=== PATIENT | male | born 1940 | race Caucasian/White ===

== ENCOUNTER 2022-12-09 06:32 | Day surgery (SDC) | payer MEDICARE ==
[~2022-12-09] VITALS: Ht 170.2 cm; Wt 80.7 kg
[2022-12-09] VITALS (12 sets, daily range): BP systolic 107–164; BP diastolic 68–102
[~2022-12-09 06:32] MED LIST: ASPI-1265 PO; CLA10T PO; GABA-338 PO; GARL1CAP11 PO; GLUC1TAB8 PO; LOSA1TAB36 PO; METF500T PO; METO50TA16 PO; MULT-1074 PO; NAPR-700 PO; NORCO10T PO; OMEG1CAP81 PO; OMEP-84 PO; SAW/1TAB PO; [UNRECOGNIZED DRUG - CODE] PO; [UNRECOGNIZED DRUG - CODE] PO
[2022-12-09] MEDS ORDERED: normal saline 1,000 ML IV SCH (07:00)
[2022-12-09] MEDS ORDERED: diphenhydrAMINE 25mg capsule PO PRN (07:00)
[2022-12-09] MEDS ORDERED: OMEG-5 PO (07:15)
[2022-12-09] MEDS ORDERED: GLUC15006 PO (07:15)
[2022-12-09] MEDS ORDERED: prevagen PO (07:15)
[2022-12-09] MEDS ORDERED: HYDR25TA5 PO (07:17)
[2022-12-09] MEDS ORDERED: LOP12.5T PO (07:17)
[2022-12-09] MEDS ORDERED: LOSA25TA96 PO (07:22)
[2022-12-09] MEDS ORDERED: ATOR80TA PO (07:22)
[2022-12-09] MEDS ORDERED: ASPI-1265 PO (07:22)
[2022-12-09] MEDS ORDERED: METF-436 PO (07:22)
[2022-12-09 07:52] LABS: BASOPHILS % (AUTO) 0.4 % (0-1); EOSINOPHILS # (AUTO) 0.2 X10'3 (0-0.9); EOSINOPHILS % (AUTO) 3.6 % (0-6); HEMOGLOBIN 14.1 g/dl (14.0-17.9); LYMPHOCYTES # (AUTO) 1.4 X10'3 (1.1-4.8); LYMPHOCYTES % (AUTO) 28.2 % (21-51); MEAN CORPUSCULAR HGB CONC 33.5 g/dL (33.0-36.5); MEAN CORPUSCULAR VOLUME 98.4 FL (78-98); MEAN PLATELET VOLUME 7.6 FL (7.4-10.4); MONOCYTES # (AUTO) 0.5 X10'3 (0-0.9); MONOCYTES % (AUTO) 10.1 % (2-12); NEUTROPHILS # (AUTO) 2.8 X10'3 (1.8-7.7); NEUTROPHILS % (AUTO) 57.7 % (42-75); PLATELET COUNT 145 X10'3 (140-440); RED BLOOD COUNT 4.27 X10'6 (4.70-6.10); RED CELL DISTRIBUTION WIDTH 13.8 % (11.5-14.5); WHITE BLOOD COUNT 4.9 X10'3 (4.5-11.0)
[2022-12-09 08:08] LABS: ALBUMIN 3.7 G/DL (3.4-5.0); ANION GAP 9 (8-16); BLOOD UREA NITROGEN 22 MG/DL (7-18); BUN/CREATININE RATIO 19.3 (10.0-20.0); CALCIUM 9.8 MG/DL (8.5-10.1); CHLORIDE 101 MMOL/L (99-107); CREATININE 1.14 MG/DL (0.60-1.10); GLUCOSE 125 MG/DL (70-104); MAGNESIUM 2.2 MG/DL (1.5-2.4); POTASSIUM 4.2 MMOL/L (3.5-5.1); SODIUM 137 MMOL/L (135-145); TOTAL CARBON DIOXIDE 26.9 MMOL/L (24-32); eGFR 61 ML/MIN
[2022-12-09] MEDS ORDERED: proCHLORperazine 10 MG/2 ml inj ONE (10:37)
[2022-12-09] MEDS ORDERED: iohexol 350MG/ML 100ml bottle IV ONE (11:30)
[2022-12-09] MEDS ORDERED: midazolam 1 mg/ML 2ml injection ONE (11:34)
[2022-12-09] MEDS ORDERED: clopidogrel 300mg tablet ONE (12:34)
[2022-12-09] MEDS ORDERED: HYDROcodone/acetaminophen 10/325mg tab PO PRN (14:45)
[2022-12-09] MEDS ORDERED: normal saline 1000ml 1,000 ML IV SCH (14:45)
[2022-12-09] MEDS ORDERED: proCHLORperazine 10 MG/2 ml inj IV PRN (14:45)
[2022-12-09] MEDS ORDERED: ondansetron/PF 4mg/2ml inj IV PRN (14:45)
[2022-12-09] MEDS ORDERED: HYDROcodone/acetaminophen 5mg/325mg tablet PO PRN (14:45)
== END 2022-12-09 17:00 | disposition home or self-care (01) ==
LOC: SSTAY O 06:32
PROVIDERS: ATTEND Internal Medicine Cardiovascular Disease
DX: E11.51 Type 2 diabetes mellitus with diabetic peripheral angiopathy without gangrene (principal); I70.213 Atherosclerosis of native arteries of extremities with intermittent claudication, bilateral legs; I10 Essential (primary) hypertension; I25.10 Atherosclerotic heart disease of native coronary artery without angina pectoris; E78.5 Hyperlipidemia, unspecified; I49.5 Sick sinus syndrome; F17.210 Nicotine dependence, cigarettes, uncomplicated; Z95.0 Presence of cardiac pacemaker; Z79.84 Long term (current) use of oral hypoglycemic drugs; Z79.82 Long term (current) use of aspirin; Z79.899 Other long term (current) drug therapy; Z88.8 Allergy status to other drugs, medicaments and biological substances; Z90.49 Acquired absence of other specified parts of digestive tract; Z98.890 Other specified postprocedural states; Z82.49 Family history of ischemic heart disease and other diseases of the circulatory system
CPT/HCPCS: 36415; 75716; 80048; 83735; 85025; 85610; 93005; 99152; 99153; C1725; C1769; C1876; C2623; C9765; J0780; J2250; J7030; Q0163; Q9967; 36247; 37226; A6258; C1761; C1894

== ENCOUNTER 2023-03-17 06:33 | Day surgery (SDC) | payer MEDICARE ==
[2023-03-17] VITALS (11 sets, daily range): BP systolic 124–175; BP diastolic 70–87; PULSE 60–67; RESP 12–19; TEMP 98.3; O2SAT 96–100
[~2023-03-17] VITALS: Ht 172.7 cm; Wt 80.6 kg
[~2023-03-17 06:33] MED LIST changes: +ATOR80TA PO; -GABA-338 PO; -GARL1CAP11 PO; +GLUC15006 PO; -GLUC1TAB8 PO; +HYDR25TA5 PO; +LOP12.5T PO; -LOSA1TAB36 PO; +LOSA25TA96 PO; +METF-436 PO; -METF500T PO; -METO50TA16 PO; -NAPR-700 PO; -NORCO10T PO; +OMEG-5 PO; -OMEG1CAP81 PO; -[UNRECOGNIZED DRUG - CODE] PO; +prevagen PO
[2023-03-17] MEDS ORDERED: diphenhydrAMINE 25mg capsule PO PRN (07:05)
[2023-03-17] MEDS ORDERED: normal saline 1,000 ML IV SCH (07:05)
[2023-03-17] MEDS ORDERED: CLOP75TA34 PO (07:10)
[2023-03-17 07:54] LABS: BASOPHILS % (AUTO) 0.9 % (0-1); EOSINOPHILS # (AUTO) 0.1 X10'3 (0-0.9); EOSINOPHILS % (AUTO) 2.9 % (0-6); HEMATOCRIT 42.3 % (42.0-52.0); LYMPHOCYTES # (AUTO) 1.4 X10'3 (1.1-4.8); LYMPHOCYTES % (AUTO) 29.6 % (21-51); MEAN CORPUSCULAR HEMOGLOBIN 32.6 PG (27.0-31.0); MEAN CORPUSCULAR HGB CONC 33.1 g/dL (33.0-36.5); MEAN CORPUSCULAR VOLUME 98.5 FL (78-98); MEAN PLATELET VOLUME 7.3 FL (7.4-10.4); MONOCYTES # (AUTO) 0.4 X10'3 (0-0.9); MONOCYTES % (AUTO) 8.7 % (2-12); NEUTROPHILS # (AUTO) 2.8 X10'3 (1.8-7.7); NEUTROPHILS % (AUTO) 57.9 % (42-75); PLATELET COUNT 141 X10'3 (140-440); RED BLOOD COUNT 4.29 X10'6 (4.70-6.10); RED CELL DISTRIBUTION WIDTH 14.4 % (11.5-14.5); WHITE BLOOD COUNT 4.8 X10'3 (4.5-11.0)
[2023-03-17 07:59] LABS: PROTHROMBIN TIME 10.6 SECONDS (9.0-12.0)
[2023-03-17 08:11] LABS: ALBUMIN 3.6 G/DL (3.4-5.0); ANION GAP 11 (8-16); BLOOD UREA NITROGEN 21 MG/DL (7-18); BUN/CREATININE RATIO 19.4 (10.0-20.0); CALCIUM 9.8 MG/DL (8.5-10.1); CHLORIDE 103 MMOL/L (99-107); CREATININE 1.08 MG/DL (0.60-1.10); GLUCOSE 117 MG/DL (70-104); SODIUM 141 MMOL/L (135-145); TOTAL CARBON DIOXIDE 26.8 MMOL/L (24-32); eCRCL 51 ML/MIN; eGFR 65 ML/MIN
[2023-03-17] MEDS ORDERED: LIDOcaine 1% 30ml preserv. free vial ONE (08:47)
[2023-03-17] MEDS ORDERED: iohexol 350MG/ML 100ml bottle IV ONE (08:48)
[2023-03-17] MEDS ORDERED: midazolam 1 mg/ML 2ml injection ONE ×2 (08:48→09:27)
[2023-03-17] MEDS ORDERED: fentaNYL/PF 50MCG/1 ML 2ML syringe ONE (08:48)
[2023-03-17] MEDS ORDERED: heparin 1,000unit/ml 10ml vial 10 ML ONE (08:48)
[2023-03-17] MEDS ORDERED: OXAZEpam 15mg capsule PO PRN (11:40)
[2023-03-17] MEDS ORDERED: ondansetron/PF 4mg/2ml inj IV PRN (11:40)
[2023-03-17] MEDS ORDERED: HYDROcodone/acetaminophen 5mg/325mg tablet PO PRN (11:40)
[2023-03-17] MEDS ORDERED: HYDROcodone/acetaminophen 10/325mg tab PO PRN (11:40)
[2023-03-17] MEDS ORDERED: proCHLORperazine 10 MG/2 ml inj IV PRN (11:40)
== END 2023-03-17 15:15 | disposition home or self-care (01) ==
LOC: SSTAY O 06:33
PROVIDERS: ATTEND Internal Medicine Cardiovascular Disease
DX: E11.51 Type 2 diabetes mellitus with diabetic peripheral angiopathy without gangrene (principal); I70.212 Atherosclerosis of native arteries of extremities with intermittent claudication, left leg; I65.23 Occlusion and stenosis of bilateral carotid arteries; I10 Essential (primary) hypertension; I25.10 Atherosclerotic heart disease of native coronary artery without angina pectoris; I49.5 Sick sinus syndrome; Z95.0 Presence of cardiac pacemaker; E78.5 Hyperlipidemia, unspecified; Z79.82 Long term (current) use of aspirin; Z79.84 Long term (current) use of oral hypoglycemic drugs; Z79.899 Other long term (current) drug therapy; Z98.890 Other specified postprocedural states; Z90.49 Acquired absence of other specified parts of digestive tract; Z88.8 Allergy status to other drugs, medicaments and biological substances; F17.210 Nicotine dependence, cigarettes, uncomplicated; Z82.49 Family history of ischemic heart disease and other diseases of the circulatory system
CPT/HCPCS: 36246; 36415; 75710; 80048; 82948; 85025; 85610; 99152; 99153; J1644; J2250; J3010; J3490; J7030; Q0163; Q9967; A6258; C1725; C1760; C1769; C1894

== ENCOUNTER 2023-03-31 06:21 | Day surgery (SDC) | payer MEDICARE ==
[2023-03-31] VITALS (11 sets, daily range): BP systolic 130–165; BP diastolic 74–101; PULSE 60–78; RESP 16; TEMP 97.6; O2SAT 96–99
[~2023-03-31] VITALS: Ht 172.7 cm; Wt 80.6 kg
[~2023-03-31 06:21] MED LIST changes: +CLOP75TA34 PO
[2023-03-31] MEDS ORDERED: sodium bicarbonate 1meq/ml syr 150 ML in dextrose 5%-water 1,000 ML IV SCH (06:45)
[2023-03-31] MEDS ORDERED: normal saline 1,000 ML IV SCH (06:50)
[2023-03-31] MEDS ORDERED: diphenhydrAMINE 25mg capsule PO PRN (06:50)
[2023-03-31 07:03] LABS: BASOPHILS % (AUTO) 0.8 % (0-1); EOSINOPHILS # (AUTO) 0.2 X10'3 (0-0.9); HEMATOCRIT 40.5 % (42.0-52.0); HEMOGLOBIN 13.6 g/dl (14.0-17.9); LYMPHOCYTES # (AUTO) 1.6 X10'3 (1.1-4.8); LYMPHOCYTES % (AUTO) 33.7 % (21-51); MEAN CORPUSCULAR HEMOGLOBIN 33.1 PG (27.0-31.0); MEAN CORPUSCULAR HGB CONC 33.7 g/dL (33.0-36.5); MEAN CORPUSCULAR VOLUME 98.3 FL (78-98); MEAN PLATELET VOLUME 7.3 FL (7.4-10.4); MONOCYTES # (AUTO) 0.4 X10'3 (0-0.9); MONOCYTES % (AUTO) 8.7 % (2-12); NEUTROPHILS # (AUTO) 2.5 X10'3 (1.8-7.7); NEUTROPHILS % (AUTO) 52.8 % (42-75); PLATELET COUNT 144 X10'3 (140-440); RED BLOOD COUNT 4.12 X10'6 (4.70-6.10); RED CELL DISTRIBUTION WIDTH 14.3 % (11.5-14.5); WHITE BLOOD COUNT 4.7 X10'3 (4.5-11.0)
[2023-03-31 07:12] LABS: ALBUMIN 3.7 G/DL (3.4-5.0); ANION GAP 7 (8-16); BLOOD UREA NITROGEN 31 MG/DL (7-18); BUN/CREATININE RATIO 24.2 (10.0-20.0); CALCIUM 9.9 MG/DL (8.5-10.1); CHLORIDE 103 MMOL/L (99-107); CREATININE 1.28 MG/DL (0.60-1.10); GLUCOSE 114 MG/DL (70-104); MAGNESIUM 2.5 MG/DL (1.5-2.4); POTASSIUM 4.1 MMOL/L (3.5-5.1); SODIUM 138 MMOL/L (135-145); TOTAL CARBON DIOXIDE 27.6 MMOL/L (24-32); eCRCL 43 ML/MIN; eGFR 54 ML/MIN
[2023-03-31 07:13] LABS: PROTHROMBIN TIME 10.3 SECONDS (9.0-12.0)
[2023-03-31] MEDS ORDERED: midazolam 1 mg/ML 2ml injection ONE ×3 (08:56→10:32)
[2023-03-31] MEDS ORDERED: iohexol 350MG/ML 100ml bottle IV ONE (08:56)
[2023-03-31] MEDS ORDERED: heparin 1,000unit/ml 10ml vial 10 ML ONE (08:56)
[2023-03-31] MEDS ORDERED: fentaNYL/PF 50MCG/1 ML 2ML syringe ONE (08:56)
[2023-03-31] MEDS ORDERED: LIDOcaine 1% (10mg/ml)w/preservative inj. 20ml MDV ONE (08:57)
[2023-03-31] MEDS ORDERED: proCHLORperazine 10 MG/2 ml inj ONE (09:47)
[2023-03-31] MEDS ORDERED: diphenhydrAMINE 50 mg/ml inj ONE (09:59)
[2023-03-31] MEDS ORDERED: ondansetron/PF 4mg/2ml inj IV PRN (11:45)
[2023-03-31] MEDS ORDERED: HYDROcodone/acetaminophen 10/325mg tab PO PRN (11:50)
[2023-03-31] MEDS ORDERED: HYDROcodone/acetaminophen 5mg/325mg tablet PO PRN (11:50)
[2023-03-31] MEDS ORDERED: proCHLORperazine 10 MG/2 ml inj IV PRN (11:50)
== END 2023-03-31 14:50 | disposition home or self-care (01) ==
LOC: SSTAY O 06:21
PROVIDERS: ATTEND Internal Medicine Cardiovascular Disease
DX: E11.51 Type 2 diabetes mellitus with diabetic peripheral angiopathy without gangrene (principal); I70.212 Atherosclerosis of native arteries of extremities with intermittent claudication, left leg; I10 Essential (primary) hypertension; E78.5 Hyperlipidemia, unspecified; Z79.82 Long term (current) use of aspirin; Z79.84 Long term (current) use of oral hypoglycemic drugs; Z79.899 Other long term (current) drug therapy
CPT/HCPCS: 36415; 37226; 75710; 80048; 82948; 83735; 85025; 85610; 99152; 99153; C1769; C1876; C1887; C2623; J0780; J1200; J1644; J2250; J3010; J3490; J7030; J7070; Q0163; Q9967; 36245; 36246; A6258; C1725; C1894

== ENCOUNTER 2024-05-10 06:43 | Day surgery (SDC) | payer MEDICARE ==
[2024-05-10] VITALS (7 sets, daily range): BP systolic 109–149; BP diastolic 47–93; PULSE 60–73; RESP 16; TEMP 97.4; O2SAT 94–100
[~2024-05-10] VITALS: Ht 170.2 cm; Wt 82.1 kg
[~2024-05-10 06:43] MED LIST changes: +LOSA-415 PO; -LOSA25TA96 PO; +cefazolin 2gm/D5W 100mL 100 ML IV ONE
[2024-05-10] MEDS ORDERED: LOSA1TAB36 PO (07:32)
[2024-05-10] MEDS ORDERED: METO50TA16 PO (07:32)
[2024-05-10 07:41] LABS: BASOPHILS % (AUTO) 0.7 % (0-1); EOSINOPHILS # (AUTO) 0.2 X10'3 (0-0.9); EOSINOPHILS % (AUTO) 3.8 % (0-6); HEMOGLOBIN 13.2 g/dl (14.0-17.9); LYMPHOCYTES # (AUTO) 1.6 X10'3 (1.1-4.8); LYMPHOCYTES % (AUTO) 39.6 % (21-51); MEAN CORPUSCULAR HEMOGLOBIN 32.4 PG (27.0-31.0); MEAN CORPUSCULAR HGB CONC 32.9 g/dL (33.0-36.5); MEAN CORPUSCULAR VOLUME 98.4 FL (78-98); MEAN PLATELET VOLUME 8.1 FL (7.4-10.4); MONOCYTES # (AUTO) 0.3 X10'3 (0-0.9); MONOCYTES % (AUTO) 8.3 % (2-12); NEUTROPHILS # (AUTO) 1.9 X10'3 (1.8-7.7); NEUTROPHILS % (AUTO) 47.6 % (42-75); PLATELET COUNT 132 X10'3 (140-440); RED BLOOD COUNT 4.06 X10'6 (4.70-6.10); RED CELL DISTRIBUTION WIDTH 14.6 % (11.5-14.5); WHITE BLOOD COUNT 4.1 X10'3 (4.5-11.0)
[2024-05-10 07:53] LABS: PROTHROMBIN TIME 10.4 SECONDS (9.0-12.0)
[2024-05-10] MEDS: vancomycin 1,500 MG in NS 300ml IV soln IV ONE (08:05)
[2024-05-10 08:07] LABS: ALBUMIN 3.7 G/DL (3.4-5.0); ANION GAP 6 (8-16); BLOOD UREA NITROGEN 33 MG/DL (7-18); BUN/CREATININE RATIO 20.1 (10.0-20.0); CALCIUM 9.1 MG/DL (8.5-10.1); CHLORIDE 104 MMOL/L (99-107); CREATININE 1.64 MG/DL (0.60-1.10); GLUCOSE 125 MG/DL (70-104); MAGNESIUM 2.5 MG/DL (1.5-2.4); POTASSIUM 4.3 MMOL/L (3.5-5.1); SODIUM 139 MMOL/L (135-145); eCRCL 32 ML/MIN; eGFR 40 ML/MIN
[2024-05-10] MEDS: normal saline 1000ml 1,000 ML IV SCH (08:07)
[2024-05-10] MEDS ORDERED: vancomycin 1,000mg inj ONE (08:52)
[2024-05-10] MEDS ORDERED: fentaNYL/PF 50MCG/1 ML 2ML syringe ONE (08:52)
[2024-05-10] MEDS ORDERED: LIDOcaine 1% W/epiNEPHrine 1:100,000 20ml vial ONE (08:52)
[2024-05-10] MEDS ORDERED: midazolam 1 mg/ML 2ml injection ONE ×2 (08:52→09:40)
== END 2024-05-10 12:20 | disposition home or self-care (01) ==
LOC: SSTAY O 06:43
PROVIDERS: ATTEND Internal Medicine Cardiovascular Disease
DX: Z45.010 Encounter for checking and testing of cardiac pacemaker pulse generator [battery] (principal); I44.2 Atrioventricular block, complete; I10 Essential (primary) hypertension; I25.10 Atherosclerotic heart disease of native coronary artery without angina pectoris; E78.5 Hyperlipidemia, unspecified; E11.51 Type 2 diabetes mellitus with diabetic peripheral angiopathy without gangrene; Z79.82 Long term (current) use of aspirin; Z79.899 Other long term (current) drug therapy; Z88.8 Allergy status to other drugs, medicaments and biological substances
CPT/HCPCS: 33228; 36415; 80048; 82948; 83735; 85025; 85610; 93005; 99152; 99153; C1785; J2250; J3010; J3370; J3490; J7030; Z7610

== ENCOUNTER 2025-05-03 21:13 | Inpatient (IN) | payer MEDICARE ==
[~2025-05-03] VITALS: Ht 170.2 cm; Wt 85.3 kg
[~2025-05-03 21:13] MED LIST changes: +ATOR-429 PO; -ATOR80TA PO; -CLOP75TA34 PO; -HYDR25TA5 PO; -LOP12.5T PO; -LOSA-415 PO; +LOSA1TAB36 PO; +METO50TA16 PO; -cefazolin 2gm/D5W 100mL 100 ML IV ONE
[2025-05-03] MEDS ORDERED: heparin 10,000 units/1 ML INJ IV ONE (21:25)
--- NOTE | 2025-05-03 21:42 | ELECTROCARDIOGRAPH REPORT ---
[facility] Test Date: 2025-05-03 Test Time: 21:37:36 Pat Name: HECTOR SHELTON Department: EMERGENCY ROOM Room: [facility] 2010 Gender: M Planning Management It Specialist: ELENA : 1940 Requested By: TAPAN SMITH Order Number: [id number] Reading MD: Dr. Ifeanyi Miller Measurements Intervals [place] Rate: 61 P: 3 AK: 183 QRS: -66 QRSD: 166 T: 91 QT: 450 QTc: 454 Interpretive Statements Atrial-ventricular dual-paced rhythm No further analysis attempted due to paced rhythm Electronically Signed On 05-08-2025 21:45:[address] Ifeanyi Miller Please click the below link to view image of tracing.
[2025-05-03] MEDS: heparin 25,000 UNIT/250ml bag 250 ML IV PRN (21:51)
[2025-05-03] MEDS: HEPARIN DRIP-CARDIAC**PHARMACIST-TO-DOSE IV ONE (21:52)
[2025-05-03] MEDS: MESSAGE TO NURSING IV ONE (21:52)
--- NOTE | 2025-05-03 22:00 | Physician Documentation ---
History of Present Illness ~ Chief Complaint: Chest Pain Stated Complaint: HEAD PAIN Time Seen by MD: 21:18 Mode of Arrival: Air Transport HPI 84-year-old male, transfer from outside hospital as an NSTEMI The patient has a history of CAD, diabetes, and peripheral vascular disease. He presented to an outside hospital with chest pain. His workup was unremarkable except for an elevated troponin that was up trending. He was given aspirin and started on a heparin drip. Chest x-ray normal. It appears that the outside hospital also did talk to Dr. Roberto, who agreed with transfer to [facility]. Here now in the ED, the patient denies any symptoms. He denies any current chest pain or shortness of breath. No other acute concerns. Medication Reconciliation Allergies: Coded Allergies: chlorhexidine (Verified Allergy, Severe, SEVERE RASH WITH BLISTERS, 05/03/25) Scheduled Ascorbic Acid (Vitamin C), 2,000 MG PO DAILY, (Reported) Aspirin (Aspirin), 1 TAB PO DAILY, (Reported) Atorvastatin Calcium* (Lipitor*), 1 TABLET PO HS, (Reported) Docosahexanoic Acid/Epa (Fish Oil 1,000 Mg Softgel), 1 CAP PO DAILY, (Reported) Glucosamine HCl (Glucosamine HCl), 1 TAB PO DAILY, (Reported) Loratadine* (Claritin*), 10 MG PO DAILY, (Reported) Losartan/Hydrochlorothiazide (Losartan-Hctz 50-12.5 Mg Tab), 1 TAB PO DAILY, (Reported) Metformin Hcl (Metformin Hcl), 1 TAB PO Q12H, (Reported) Metoprolol Tartrate (Metoprolol Tartrate), 1 TAB PO Q12H, (Reported) Multivitamin (Multi-Vitamin Daily), 1 EACH PO DAILY, (Reported) Omeprazole* (Prilosec*), 20 MG PO BID, (Reported) Saw/Pygeum/Nettle/Pumpkn/Aa#17 ([facility]state [facility] Formula Tb), 1 EACH PO DAILY, (Reported) [prevagen], 50 MCG PO DAILY, (Reported) Review of Systems Constitutional: Denies: fever Cardiovascular: Reports: chest pain Physical Exam Vital Signs: Temperature: 98.0, Source: Oral, Heart Rate: 77, Respiratory Rate: 18, BP: 142/86, Pulse Oximetry: 100, Weight: 82.000 Physical Exam General: This is a pleasant older man sitting calmly in bed, not in distress Heart: Regular rate and rhythm, normal-appearing peripheral perfusion Lungs: normal work of breathing, normal oxygen saturation on room air Extremities: Warm and well-perfused Neuro: Alert and oriented Psychiatric: Calm and cooperative with exam Progress Results/Orders Results/Orders Orders - TAPAN SMITH MD Pt Inr (05/03/25 21:24) PTT (05/03/25 21:24) Cbc/Diff (05/03/25 21:24) Heparin 25,000 Unit/250ml Bag (Heparin 2 (05/03/25 21:25) Heparin 10,000 Unit/Ml 1ml (Heparin 10,0 (05/03/25:25) Cbc/Diff (05/04/25 03:00) Cbc/Diff (05/05/25 03:00) Cbc/Diff (05/06/25 03:00) Cbc/Diff (05/07/25 03:00) Cbc/Diff (05/08/25 03:00) CMP (05/03/25 21:37) Cardiac Ptt (05/04/25 00:00) Page Hospitalist (05/03/25 21:42) Completed Orders - TAPAN SMITH MD Heparin Drip Acs*Rph-To-Dose* (Heparin D (05/03/25 21:25) Electrocardiogram (05/03/25 21:37) Message To Nursing (05/03/25 21:45) Medications Received in ER Medications (Trade) Dose Ordered Sig/Roc Route PRN Reason Start Time Stop Time Status Last Admin Dose Admin Heparin Sodium/ Dextrose 250 ml @ 10 mls/hr Q25H PRN IV TO MAINTAIN PTT WITHIN RANGE 05/03/25 21:25 05/03/25 21:51 10 MLS/HR Vital Signs 05/03/25 05/03/25 21:19 21:30 Temp 98.0 Pulse 77 Resp 16 18 B/P (MAP) 142/86 Pulse Ox 100 EKG/XRAY/CT/US/VASC/MRI EKG : Additional Comment I personally interpreted the EKG and this shows: Paced rhythm, rate 61, QTC 454, no obvious ischemic changes Consults/PCP Consults/PCP : Additional Comment Consult: I spoke to the internal medicine service, for admission in the hospital Medical Decision Making Additional Information Patient presents as a transfer with chest pain and found to have an NSTEMI. Here in the ED he is asymptomatic. He is already on heparin. We will repeat labs, and admit him to the medicine service for further observation and treatment. Departure Impression: Primary Impression: NSTEMI (non-ST elevated myocardial infarction) Referrals: NO PRIMARY CARE PROVIDER (PCP) Signature Scribe Signature: na Attestation: TAPAN Odonnell MD May 03, 2025 22:00
[2025-05-03 22:16] LABS: MEAN PLATELET VOLUME 7.5 FL (7.4-10.4); RED CELL DISTRIBUTION WIDTH 14.0 % (11.5-14.5)
[2025-05-03 22:18] LABS: APTT 51 SECONDS (22-32); INR 1.0 INR
[2025-05-03 22:19] LABS: CREATININE 1.22 MG/DL (0.60-1.10); TOTAL CARBON DIOXIDE 27.5 MMOL/L (24-32); eCRCL 42 ML/MIN; eGFR 57 ML/MIN
[2025-05-03] MEDS ORDERED: magnesium hydroxide 30ml (MOM) UD suspension PO PRN (22:30)
[2025-05-03] MEDS ORDERED: ondansetron/PF 4mg/2ml inj IV PRN (22:30)
[2025-05-03] MEDS ORDERED: magnesium sulf-water 2g/50mL 50 ML IV PRN (22:30)
[2025-05-03] MEDS ORDERED: magnesium sulf-water 4G/100mL 100 ML IV PRN (22:30)
[2025-05-03] MEDS ORDERED: mag hydrox/Alum hydrox/simeth 30ml oral suspension PO PRN (22:30)
[2025-05-03] MEDS ORDERED: magnesium Cl slow-release 64mg tablet PO PRN (22:30)
[2025-05-03] MEDS ORDERED: potassium Cl 20 mEq SR tablet PO PRN ×2 (22:30)
[2025-05-03] MEDS ORDERED: metoclopramide 5 mg/ml inj IV PRN (22:30)
[2025-05-03] MEDS ORDERED: potassium Cl 40MEQ/1/2NS 520ml 520 ML IV PRN (22:30)
[2025-05-03] MEDS ORDERED: GABA300C PO (22:32)
[2025-05-03 22:51] LABS: LEUKOCYTE ESTERASE ,URINE NEGATIVE (Neg); NITRITES, URINE NEGATIVE (Neg); OCCULT BLOOD,URINE NEGATIVE (Neg)
[2025-05-03 22:54] LABS: UA COLLECTION TYPE NON-SPECIFIED
[2025-05-03] MEDS ORDERED: dextrose 50%-water 50ml dispensing syringe IV PRN ×2 (22:55)
[2025-05-03] MEDS ORDERED: DEXTROSE 15 GM of carb/4 tabs (each vial/BOTTLE has 4 tablets) PO PRN ×2 (22:55)
[2025-05-03] MEDS ORDERED: glucagon, human recombinant 1mg kit SUBCUT PRN (22:55)
--- NOTE | 2025-05-03 23:09 | HISTORY AND PHYSICAL-Residence ---
History & Physical Providers to CC Resident Creating Document: NORA SHARPE RES ~ History of Present Illness Reason for Admit\Complaint: NSTEMI History of Present Illness This is a 84-year-old male patient with a past medical history of hypertension, hyperlipidemia, type 2 diabetes mellitus, peripheral artery disease, CKD, who was transferred from [facility] for NSTEMI evaluation and management. Patient had sudden onset pressure-like chest pain 9/10 in intensity radiating to the back, associated with dizziness and shortness of breath with exertion. Patient went to hospital today for worsening chest pain and shortness for breath, was treated with nitroglycerin, aspirin and heparin drip. Currently, the patient is asymptomatic and comfortable at rest. No fever, productive cough, abdominal or urinary symptoms reported. Allergies: Coded Allergies: chlorhexidine (Verified Allergy, Severe, SEVERE RASH WITH BLISTERS, 05/03/25) Home Medications Home Medications Active Reported Neurontin (Gabapentin) 300 Mg Capsule 300 Mg PO TID Losartan-Hctz 50-12.5 Mg Tab (Losartan/Hydrochlorothiazide) 50 Mg-12.5 Mg Tablet 1 Tab PO DAILY Metoprolol Tartrate 50 Mg Tablet 1 Tab PO Q12H Lipitor* (Atorvastatin Calcium) 80 Mg Tablet 1 Tablet PO HS Metformin Hcl 500 Mg Tablet 1 Tab PO Q12H Aspirin 81 Mg Tab.chew 1 Tab PO DAILY Fish Oil 1,000 Mg Softgel (Docosahexanoic Acid/Epa) 1 Each Capsule 1 Cap PO DAILY 30 Days WITH MEALS Glucosamine HCl 1,500 Mg Tablet 1 Tab PO DAILY [prevagen] 50 Mcg PO DAILY [facility] Prostate [facility] Formula Tb (Saw/Pygeum/Nettle/Pumpkn/Aa#17) 1 Each Tablet 1 Each PO DAILY Vitamin C (Ascorbic Acid) 2,000 Mg Tablet.sa 2,000 Mg PO DAILY Multi-Vitamin Daily (Multivitamin) 1 Each Tablet 1 Each PO DAILY Claritin* (Loratadine) 10 Mg Tablet 10 Mg PO DAILY Prilosec* (Omeprazole) 20 Mg Capsule.dr 20 Mg PO BID Past Medical History Past Medical History Hypertension Hyperlipidemia Type 2 diabetes mellitus Chronic kidney disease Peripheral artery disease Complete heart block status post pacemaker Past Surgical History Surgical History Comment Angioplasty in the left SFA and popliteal arteries [place] [address] Carias Cholecystectomy Right inguinal hernioplasty Right shoulder surgery Past Social History Smoking: Less than 1 pack/day (Patient smokes half a pack daily) Alcohol Use: None Drug Use: None Lives with: Spouse Lives In: Home Occupation: retired ROS Constitutional: Reports: no symptoms reported; Denies: fever Eyes: Reports: no symptoms reported ENT: Reports: no symptoms reported Respiratory: Reports: shortness of breath, SOB with exertion Cardiovascular: Reports: chest pain, lightheadedness Gastrointestinal: Reports: no symptoms reported Genitourinary: Reports: no symptoms reported Male Genitalia: Reports: no symptoms reported Neurological: Reports: no symptoms reported Musculoskeletal: Reports: no symptoms reported Integumentary: Reports: no symptoms reported Allergic/Immunologic: Reports: no symptoms reported Hematologic/Lymphatic: Reports: no symptoms reported Endocrine: Reports: no symptoms reported Psychiatric: Reports: no symptoms reported Exam Vitals: Vital Signs Date Time Temp Pulse Resp B/P (MAP) Pulse Ox O2 Delivery O2 Flow Rate FiO2 05/03/25 22:16 68 16 149/92 (111) 100 05/03/25 21:19 98.0 General: General: Awake and Alert, no acute distress. HEENT: Conjunctiva pink, Sclera clear, Mucus Membranes moist. Neck: Supple without masses and tenderness. Resp: Unlabored. Lungs clear to auscultation bilaterally. Heart: Regular Rate and rhythm, normal S1 and S2 without murmur, rub or gallop. Abdomen: Soft and non tender no organomegaly Extremities: 1+ pitting lower extremity peripheral edema. No cyanosis or clubbing. Skin: Warm and Dry. Diagnostic Data Last Recorded Lab Results: 05/03/[id number] Diagnostic Data: Laboratory Tests Test 05/03/25 21:57 Prothrombin Time 10.5 SECONDS (9.0-12.0) INR International Normalized Ratio 1.0 INR Activated Partial Thromboplast Time 51 SECONDS (22-32) H Coagulation Comments Counseling Services Smoking & Tobacco Cessation: 3-10 Minutes Advance Care Planning Advanced Care plannin - 30 Minutes (I have discussed advanced care directives. Patient requests full code status.) Additional Plan Assessment 84-year-old male patient transferred from [facility] for chest pain and shortness of breath with exertion. NSTEMI DIANA Score 5 points , HUMAIRA Score 131 points Severe pressure-like chest pain 9/10 in intensity radiating to the back, associated with dizziness and shortness of breath with exertion Asymptomatic after initial management EKG: rate 61, regular pacemaker rhythm CXR: No acute findings. Dual lead pacemaker Troponins: 731 -> 937 (external) -> 961 -> 1036 BNP 3792 Plan Started on aspirin and heparin drip Continue atorvastatin 80 mg daily, losartan 50mg daily and metoprolol 50mg bid Nitroglycerin p.r.n., Lasix 20 mg p.o. daily Ordered echocardiogram, lipid panel Continuous telemetry Cardiology consult in the morning for possible angiogram Type 2 diabetes mellitus Ordered A1c Hold metformin Started on glargine 12 units at bedtime Placed on medium dose hyper/hypoglycemia protocol Chronic kidney disease - stage IIIA GFR 58ml/min/1.73m2 ( CKD EPI) Cr 1.22, BUN 33, stable compared to baseline Comorbidities: Hypertension Hyperlipidemia Peripheral artery disease s/p angioplasty in the left SFA and popliteal arteries [place] [address] Carias Complete heart block status post pacemaker Continue home medication Outpatient follow-up Code Status: Full code DVT prophylaxis: Heparin Analgesia/sedation: Morphine Line/tube: PIV GI prophylaxis: Pantoprazole Nutrition: 75 g diet Prognosis: Guarded Physical therapy: Ordered Disposition: Admit to PCU/telemetry. Cardiology consult pending. Patient was seen and evaluated using HIPPA compliant AV device Agree with plan as discussed with the resident Adolph Thomas MD Date of Service: May 03, 2025 Billing Provider: ADOLPH THOMAS MD, LUCAS, FELISA May 03, 2025 23:09 ADOLPH THOMAS MD May 04, 2025 02:47
[2025-05-03] MEDS: PERFLUTREN PROTEIN-A MICROSPHR (Optison) 0.22 MG/ML 3ML VIAL IV ONE (23:22)
--- NOTE | 2025-05-03 23:43 | RADIOLOGY REPORT ---
CHEST RADIOGRAPH Indication: NSTEMI Technique: Frontal and lateral view of the chest was obtained Comparison: None FINDINGS: Lines and Tubes: Right chest wall basing device with lead tips unchanged Lungs: Clear Pleura: No effusion. No pneumothorax. Cardiomediastinal contours: Unremarkable Bones: Unremarkable IMPRESSION: No evidence of acute disease.
[2025-05-03 23:56] LABS: PRO BRAIN NATRIURETIC PEPTIDE 3792 PG/ML (0-450)
[2025-05-04] VITALS (8 sets, daily range): BP systolic 104–155; BP diastolic 66–96; PULSE 60–70; RESP 13–21; TEMP 97.1–98.4; O2SAT 95–100
[2025-05-04] MEDS: MESSAGE TO NURSING IV ONE ×4 (01:35→20:22)
[2025-05-04] MEDS: INSULIN LISPRO 100 UNIT/ML INSULN.PEN MULTI-DOSE SQ SCH (07:00)
[2025-05-04 07:28] LABS: MEAN PLATELET VOLUME 8.0 FL (7.4-10.4); RED CELL DISTRIBUTION WIDTH 14.2 % (11.5-14.5)
[2025-05-04 07:53] LABS: CHOL/HDL RATIO 3.3 (0.00-4.99); CREATININE 1.12 MG/DL (0.60-1.10); LDL CHOLESTEROL 67 MG/DL (50-100); TOTAL CARBON DIOXIDE 26.1 MMOL/L (24-32); eCRCL 46 ML/MIN; eGFR 62 ML/MIN
[2025-05-04] MEDS: heparin 10,000 units/1 ML INJ IV PRN (07:56)
[2025-05-04] MEDS: K and/or MAG REPLACEMENT MC SCH (08:00)
[2025-05-04] MEDS ORDERED: verapamil 2.5 mg/ml inj IV ONE (08:11)
[2025-05-04] MEDS ORDERED: iohexol 350 MG/ML 50ML vial IV ONE (08:11)
[2025-05-04] MEDS ORDERED: LIDOcaine 1% (10mg/ml) 2ml vial ONE (08:11)
[2025-05-04] MEDS ORDERED: LIDOcaine 1% 30ml preserv. free vial ONE (08:11)
[2025-05-04] MEDS ORDERED: midazolam 1 mg/ML 2ml injection ONE (08:11)
[2025-05-04] MEDS ORDERED: heparin 1,000unit/ml 10ml vial 10 ML ONE (08:11)
[2025-05-04] MEDS ORDERED: fentaNYL/PF 50MCG/1 ML 2ML syringe ONE (08:11)
[2025-05-04] MEDS ORDERED: nitroGLYCERIN-Tridil 50MG/D5W 250 ML IV ONE (08:15)
[2025-05-04] MEDS ORDERED: HYDROcodone/acetaminophen 5mg/325mg tablet PO PRN (10:40)
[2025-05-04] MEDS ORDERED: OXAZEpam 15mg capsule PO PRN (10:40)
[2025-05-04] MEDS ORDERED: ondansetron/PF 4mg/2ml inj IV PRN (10:40)
[2025-05-04] MEDS ORDERED: HYDROcodone/acetaminophen 10/325mg tab PO PRN (10:40)
[2025-05-04] MEDS: pantoprazole 40mg Tablet.DR PO SCH (12:08)
[2025-05-04] MEDS: aspirin 81mg, enteric-coated 1 TAB TABLET.DR PO SCH (12:08)
[2025-05-04] MEDS: OMEGA-3/DHA/EPA/FISH OIL 1 EACH CAPSULE.DR PO SCH (12:09)
[2025-05-04] MEDS: docusate sod 100mg capsule PO SCH (12:10)
--- NOTE | 2025-05-04 15:39 | PROGRESS NOTE- Residence ---
Progress Note - Resident Providers to CC Resident Creating Document: HUI MYERS RES ~ Antibiotic Timeout Antibiotic Ordered?: No Subjective Patient was seen and examined at the bedside today. He was taken to the starch factory laborer for catheterization and will be needing a CABG which will be done by his surgeon Dr. Molina. Overall the patient is doing well, does not complain of any chest pain, shortness of breath, palpitations. Objective Vital Signs Date Time Temp Pulse Resp B/P (MAP) Pulse Ox O2 Delivery O2 Flow Rate FiO2 05/04/25 12:09 60 05/04/25 11:00 97.8 15 120/68 (85) 98 Room Air Result Diagram: 05/04/25 0646 05/04/25 0646 General: Awake and Alert, no acute distress. HEENT: Conjunctiva pink, Sclera clear, Mucus Membranes moist. Neck: Supple without masses and tenderness. Resp: Unlabored. Lungs clear to auscultation bilaterally. Heart: Regular Rate and rhythm, normal S1 and S2 without murmur, rub or gallop. Abdomen: Soft and non tender no organomegaly Extremities: 1+ pitting lower extremity peripheral edema. No cyanosis or clubbing. Skin: Warm and Dry. Coagulation Studies Laboratory Tests Test 05/03/25 21:57 05/04/25 13:34 Prothrombin Time 10.5 SECONDS (9.0-12.0) INR International Normalized Ratio 1.0 INR Activated Partial Thromboplast Time 51 SECONDS (22-32) H APTT (Heparin Protocol) 84 SECONDS (45-60) H Coagulation Comments Plan Plan NSTEMI Cardiology was consulted and the patient was taken to the starch factory laborer for catheterization, patient requires CABG, Cardiothoracic surgeon Consulted.will be taken to surgery most likely Monday afternoon or early Monday morning. We will continue heparin drip as per doctor's recommendations. DIANA Score 5 points , HUMAIRA Score 131 points Patient complained of severe chest pain associated with shortness of breath on exertion Asymptomatic after initial management EKG: rate 61, regular pacemaker rhythm CXR: No acute findings. Dual lead pacemaker Troponins: 961, 1036, 1058 BNP 3792 Lipid panel-cholesterol 126, LDL 67, HDL 30 Plan Patient on aspirin and heparin drip Continue atorvastatin 80 mg daily, losartan 50mg daily and metoprolol 50mg bid Nitroglycerin p.r.n., Lasix 20 mg p.o. daily Ordered echocardiogram Continuous telemetry Type 2 diabetes mellitus [id number] Hold metformin Started on glargine 12 units at bedtime Placed on medium dose hyper/hypoglycemia protocol Chronic kidney disease - stage IIIA GFR 58ml/min/1.73m2 ( CKD EPI) Cr 1.22, BUN 33, stable compared to baseline Comorbidities: Hypertension Hyperlipidemia Peripheral artery disease s/p angioplasty in the left SFA and popliteal arteries [place] [address] Carias Complete heart block status post pacemaker Continue home medication Outpatient follow-up Code Status: Full code DVT prophylaxis: Heparin Analgesia/sedation: Morphine Line/tube: PIV GI prophylaxis: Pantoprazole Nutrition: 75 g diet Prognosis: Guarded Physical therapy: Ordered Disposition: Admit to PCU/telemetry. CABG mostly to be on Monday afternoon or Monday alliances consultant. Hui Myers PGY-1 Date of Service: May 04, 2025 Billing Provider: JUANJOSE LADRICH MD Common Visit Codes: 37157-DEJYRPROEX INP/OBS CARE(HIGH) HUI MYERS, RES May 04, 2025 15:39 JUANJOSE ALDRICH MD May 05, 2025 06:14
[2025-05-04] MEDS ORDERED: morphine 4 MG/ML inj SYRINge IV PRN (16:27)
[2025-05-04] MEDS: insulin glargine (Lantus) pen - multi-dose SQ SCH (20:17)
--- NOTE | 2025-05-04 20:22 | RADIOLOGY REPORT ---
CLINICAL HISTORY: preop CABG TECHNIQUE: CT of the chest was performed without intravenous contrast. This exam was performed according to our departmental dose optimization program. Up-to-date CT equipment and radiation dose reduction techniques are utilized as appropriate. 4.3 COMPARISON: None FINDINGS: Lower Neck: Unremarkable Axilla, Mediastinum and Janna: No axillary, mediastinal lymphadenopathy. Limited evaluation of the janna on noncontrast exam. There is a moderate hiatal hernia. Heart and Great Vessels: Normal-sized heart with trace pericardial fluid. There is a right-sided dual lead pacemaker with lead tips terminating in the right atrial appendage and right ventricle. Marked 3-vessel calcified coronary artery disease. Hpvc-zp-jtohqola aortic valve calcifications. 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 There is moderate calcified plaque within the thoracic aorta. The central pulmonary arteries are normal caliber. Airway, Lungs and Pleura: Trachea and central airways are patent. There is a sub 5 mm nodule in the superior segment left lower lobe on series 3, image 26. Scattered linear areas of atelectasis or scarring in the lungs. No airspace consolidation, pleural effusion, or pneumothorax. Upper Abdomen: There are scattered tiny hypodensities in both lobes of the liver not optimally evaluated without contrast. Prior cholecystectomy. No acute abnormality in the upper abdomen. Chest Wall and Osseous Structures: There is chest wall edema. Minimal symmetric bilateral gynecomastia. Multilevel thoracic spondylosis. There is a healed posterior right 4th rib fracture. There is a severe chronic compression fracture of T4. There is flowing anterior osteophytes of the thoracic spine compatible with DISH. IMPRESSION: 1. Marked 3-vessel calcified coronary artery disease. 2. Lhfq-de-dhfsqopd aortic valve calcifications. 3. Ectasia of the ascending thoracic aorta measuring up to 4.1 cm. 4. Sub 5 mm left lower lobe pulmonary nodule, nonspecific. If there are risk factors for pulmonary malignancy, follow-up CT chest could be obtained in 1 year for re-evaluation. Radiation optimization: All CT scans at this facility use at least one of these dose optimization techniques: automated exposure control mA and/or kV adjustment per patient size (includes targeted exams where dose is matched to clinical indication) or iterative reconstruction.
[2025-05-05] VITALS (8 sets, daily range): BP systolic 108–145; BP diastolic 70–86; PULSE 60–85; RESP 14–19; TEMP 97.7–98.5; O2SAT 97–100
[2025-05-05] MEDS: MESSAGE TO NURSING IV ONE ×3 (03:25→21:40)
--- NOTE | 2025-05-05 05:05 | ELECTROCARDIOGRAPH REPORT ---
[facility] Test Date: 2025-05-05 Test Time: 05:02:52 Pat Name: HECTOR SHELTON Department: [facility] 3S Patient ID: [facility]-[id number] Room: [place] [address] [address] Gender: M Diet Supervisor: : 1940 Requested By: MERRICK STOREY Order Number: [id number] Reading MD: Dr. SNEHAL Diaz Measurements Intervals [place] Rate: 61 P: 26 NV: 155 QRS: -79 QRSD: 173 T: 81 QT: 482 QTc: 486 Interpretive Statements Atrial-ventricular dual-paced complexes No further analysis attempted due to paced rhythm Electronically Signed On 05-05-2025 17:11:[address] SNEHAL Diaz Please click the below link to view image of tracing.
[2025-05-05 06:11] LABS: MEAN PLATELET VOLUME 7.7 FL (7.4-10.4); RED CELL DISTRIBUTION WIDTH 14.4 % (11.5-14.5)
[2025-05-05 07:07] LABS: CREATININE 1.45 MG/DL (0.60-1.10); TOTAL CARBON DIOXIDE 28.5 MMOL/L (24-32); eCRCL 35 ML/MIN; eGFR 46 ML/MIN
[2025-05-05] MEDS: nicotine 14mg patch - 24hr TD SCH (08:00)
[2025-05-05] MEDS: MESSAGE TO NURSING PO ONE ×2 (08:55)
[2025-05-05] MEDS: MESSAGE TO PHARMACY IJ ONE (08:55)
--- NOTE | 2025-05-05 09:51 | PROGRESS NOTE ---
Progress Note CV Providers to CC ~ Antibiotics Ordered?: No Objective Vitals Vital Signs Date Time Temp Pulse Resp B/P (MAP) Pulse Ox O2 Delivery O2 Flow Rate FiO2 05/05/25 08:23 60 05/05/25 06:00 97.7 18 124/73 (90) 99 Room Air Lab Results: 05/05/25 0547 05/05/25 0547 Coagulation Studies Laboratory Tests Test 05/03/25 21:57 05/05/25 02:27 Prothrombin Time 10.5 SECONDS (9.0-12.0) INR International Normalized Ratio 1.0 INR Activated Partial Thromboplast Time 51 SECONDS (22-32) H APTT (Heparin Protocol) 43 SECONDS (45-60) L Coagulation Comments Cardiac Rhythm: Atrial Fibrillation Problem\Assessment\Plan Additional Plan Pt. seen and examined by Dr. Molina. Cath findings reviewed with pt and his . Preop studies ordered. Pt. is a current every day smoker. Will have RT eval pt. Creat is elevated post cath. Monitor daily. Planning for CABG Monday depending on creat. Supervising Co-signing Provider: ANA Casey May 05, 2025 09:51
[2025-05-05] MEDS ORDERED: albuterol 2.5 MG/3 ML nebule NEB PRN (09:55)
--- NOTE | 2025-05-05 10:28 | CONSULTATION REPORT ---
Consult Providers to CC ~ History of Present Illness Reason for Admit\Complaint: Chest pain History of Present Illness Mr. Gaston is a 84 year old male who presented to the ED with progressive chest tightness and shortness of breath. Troponin elevation prompted a LHC on 05/04 which demonstrated multi-vessel CAD including high grade lesions of the LAD, RCA, Circ, and ramus intermedius. He is now pain free and remains hemodynamically stable. He reports a fairly active lifestyle which involves daily walks and activities around the property. He reports daily tobacco use. He denies palpitations, dizziness, syncope. He is accompanied by his spouse. Allergies: Coded Allergies: chlorhexidine (Verified Allergy, Severe, SEVERE RASH WITH BLISTERS, 05/03/25) Home Medications Home Medications Active Reported Neurontin (Gabapentin) 300 Mg Capsule 300 Mg PO TID Losartan-Hctz 50-12.5 Mg Tab (Losartan/Hydrochlorothiazide) 50 Mg-12.5 Mg Tablet 1 Tab PO DAILY Metoprolol Tartrate 50 Mg Tablet 1 Tab PO Q12H Lipitor* (Atorvastatin Calcium) 80 Mg Tablet 1 Tablet PO HS Metformin Hcl 500 Mg Tablet 1 Tab PO Q12H Aspirin 81 Mg Tab.chew 1 Tab PO DAILY Fish Oil 1,000 Mg Softgel (Docosahexanoic Acid/Epa) 1 Each Capsule 1 Cap PO DAILY 30 Days WITH MEALS Glucosamine HCl 1,500 Mg Tablet 1 Tab PO DAILY [prevagen] 50 Mcg PO DAILY [facility] Prostate [facility] Formula Tb (Saw/Pygeum/Nettle/Pumpkn/Aa#17) 1 Each Tablet 1 Each PO DAILY Vitamin C (Ascorbic Acid) 2,000 Mg Tablet.sa 2,000 Mg PO DAILY Multi-Vitamin Daily (Multivitamin) 1 Each Tablet 1 Each PO DAILY Claritin* (Loratadine) 10 Mg Tablet 10 Mg PO DAILY Prilosec* (Omeprazole) 20 Mg Capsule.dr 20 Mg PO BID Past Medical History Past Medical History HTN, nicotine dependence Past Surgical History Surgical History Comment pacemaker Past Social History Social History Comment 1/2 ppd, no Etoh Exam Vitals: Vital Signs Date Time Temp Pulse Resp B/P (MAP) Pulse Ox O2 Delivery O2 Flow Rate FiO2 05/05/25 08:23 60 05/05/25 06:00 97.7 18 124/73 (90) 99 Room Air General: NAD, younger than his stated age HEENT: PERRLA, good dentition, no oral lesions Neck: supple, no JVD, no adenopathy Chest: Clear bilat Cardiovascular: RRR, no murmurs Abdomen: soft, ND, NT Extremities: warm, no edema Central Nervous System: no deficits Musculoskeletal: full ROM, no deformities Skin: no lesions, warm Diagnostic Data Last Recorded Lab Results: 05/05/25 0547 05/05/25 0547 Diagnostic Data: Laboratory Tests Test 05/03/25 21:57 05/05/25 02:27 Prothrombin Time 10.5 SECONDS (9.0-12.0) INR International Normalized Ratio 1.0 INR Activated Partial Thromboplast Time 51 SECONDS (22-32) H APTT (Heparin Protocol) 43 SECONDS (45-60) L Coagulation Comments Additional Plan 84yo male, NSTEMI, multi-vessel CAD. We discussed options along with risks and benefits of each. Given the nature of the CAD, and his ability to participate in rehab, I have recommended surgical intervention. We discussed some of the technical aspects of the procedure, including risks and benefits. He and his spouse understood and had all questions answered to their satisfaction. Will monitor for a downward trend in the creatinine and plan for surgery during this admission ION LOMELI MD May 05, 2025 10:28
[2025-05-05 10:33] LABS: APTT 63 SECONDS (22-32); INR 1.0 INR
--- NOTE | 2025-05-05 11:26 | VASCULAR REPORT ---
Technique: Real-time ultrasound imaging, with color Doppler and compression of the bilateral lower extremity veins for superficial vein measurements Indication: Preoperative Comparison: None Findings: The left great saphenous vein measures 2.8-3.6 mm below the knee, 3.9-6.8 mm above the knee. The left great saphenous vein is compressible along its entire visualized length. The right great saphenous vein is reported to be ablated. Impression: As above
--- NOTE | 2025-05-05 11:30 | VASCULAR REPORT ---
Indication: Technique: Real-time ultrasound images of the neck vessels with barajas-scale, color and wave Doppler were obtained. Comparison: None Findings: Cfwr-wj-cqdackec bilateral atherosclerotic plaque. The following peak systolic velocities were recorded in cm/sec: Right internal carotid: 78 Right common carotid: 144 Right external carotid: 107 Right internal/common carotid ratio: 0.7 Left internal carotid: 84 Left common carotid: 147 Left external carotid: 84 Left internal/common carotid ratio: 0.74 Right vertebral artery: Patent with normal antegrade direction of flow. Left vertebral artery: Patent with normal antegrade direction of flow. Impression: No hemodynamically significant stenosis by velocity criteria.
[2025-05-05] MEDS: normal saline 1000ml 1,000 ML IV SCH (12:50)
[2025-05-05 14:42] LABS: ABG BASE EXCESS 0.5 mmol/L (-2.0-3.0); ABG HCO3 25.2 mmol/L (21.0-28.0); ABG OXYGEN SATURATION 94.8 % (94.0-98.0); ABG PCO2 (T) 40.9 mmHg (35.0-48.0); ABG PH (T) 7.407 (7.350-7.450); ABG PO2 (T) 73.8 mmHg (83.0-108.0); ALLEN'S TEST POSITIVE; FCOHb 0.9 % (0.5-1.5); FHHb 5.1 % (0.0-5.0); FIO2 21.0 mmHg/%; FMetHb 0.3 % (0.0-1.5); FO2Hb 93.7 % (94.0-98.0); MODE ROOM AIR; PATIENT TEMPERATURE 37.0; TOTAL HEMOGLOBIN 12.9 G/dl (13.5-17.5)
--- NOTE | 2025-05-05 17:59 | PROGRESS NOTE- Residence ---
Progress Note - Resident Providers to CC Resident Creating Document: AVIS FONSECA RES ~ Central Line/PICC still needed: N\A Early-Non Protocol Early Indications Met/Not Met: F/C Indications Not Met Antibiotic Timeout Antibiotic Ordered?: No Subjective Patient was seen and examined at the bedside today. One episode of chest pain at 5:00 a.m. in the morning mg by nitro 0.4 mg sublingual. No complaints of shortness of breath/palpitation/dizziness/leg swelling. He is scheduled for CABG on Monday. Objective Vital Signs Date Time Temp Pulse Resp B/P (MAP) Pulse Ox O2 Delivery O2 Flow Rate FiO2 05/05/25 15:00 97.8 60 18 126/74 (91) 99 Room Air Result Diagram: 05/05/25 0547 05/05/25 0547 General: Well alert, well oriented, not confused, not agitated, not in acute distress, well cooperated during the physical. HEENT: Conjunctive are pink, sclerae clear, no icterus, pupil is equal in both sides, reactive to light, no ear discharge, no pharyngeal erythema or an edema. Neck: Supple, no JVD, no lymphadenopathy and thyromegaly. Chest: Equal air entry on both lungs, no added sounds, no wheeze. Cardiovascular: S1-S2 regular sinus rhythm and, regular rate, no gallops, no rubs, no murmurs Abdomen: No visible peristalsis, Bowel sounds present on auscultation, soft, nontender, no guarding, no rigidity Extremities: No obvious deformities, 1+ pitting edema bilaterally, capillary refill intact, peripheral pulsations are intact on both sides Central Nervous System: No focal neurological deficits, no motor or sensory weakness in all 4 extremities, could move all 4 extremities, 2+ deep tendon reflexes, negative Babinski. Musculoskeletal: No joint swelling, deformities, inflammations, and no scoliosis and back tenderness Skin: Warm and dry. Coagulation Studies Laboratory Tests Test 05/05/25 09:33 Prothrombin Time 10.6 SECONDS (9.0-12.0) INR International Normalized Ratio 1.0 INR Activated Partial Thromboplast Time 63 SECONDS (22-32) H APTT (Heparin Protocol) 64 SECONDS (45-60) H Coagulation Comments Assessment Assessment 84-year-old male patient with past medical history of hypertension, hyperlipidemia, type 2 diabetes, peripheral artery disease, CKD transferred from [facility] for chest pain and shortness of breath with exertion. Cardiac catheterization showed high grade lesions of the LAD, RCA, Circ, and ramus intermedius requiring CABG. Plan Plan ACS- NSTEMI DIANA Score 5 points , HUMAIRA Score 131 points Patient complained of severe chest pain associated with shortness of breath on exertion Asymptomatic after initial management EKG: Sinus rhythm, rate 61, regular pacemaker rhythm Cardiac catheterization showed high grade lesions of the LAD, RCA, Circ, and ramus intermedius requiring CABG. Dr. Molina consulted, CABG on Monday. Continue ontinue heparin drip , monitor troponin level. CXR: No acute findings. Dual lead pacemaker Troponins: 961, 1036, 1058 BNP 3792 Lipid panel-cholesterol 126, LDL 67, HDL 30 Echo: Normal LV size and wall thickness. Overall systolic function is mildly reduced. LVEF is 45-50%. Right ventricle is severely dilated. Elevated right heart pressures as noted above. Pacemaker wire in right heart. Left atrium is mildly dilated. Right atrium is at least moderately dilated. Trileaflet AV appears mildly sclerotic with mild stenosis. WES: 1.52 cmsq; Pkv: 223 cm/sec; Gradients: 20/11 mmHG. No insufficiency. Stenosis severity is likely mild, but fails to meet criteria due to low flow / low gradient conditions. Mild MV annular calcification without stenosis. Mild regurgitation. TV appears structurally normal with moderate regurgitation. Pulmonic valve is not well visualized. The aortic root is normal in size. Normal pericardium. No effusion. Venous Doppler: The left great saphenous vein measures 2.8-3.6 mm below the knee, 3.9-6.8 mm above the knee. The left great saphenous vein is compressible along its entire visualized length. The right great saphenous vein is reported to be ablated. Carotid ultrasound: No hemodynamically significant stenosis by velocity criteria. Plan Patient on aspirin 81 mg p.o. daily and heparin drip Continue atorvastatin 80 mg daily, losartan 50mg daily and metoprolol 50mg bid Nitroglycerin 0.4 sublingual p.r.n. Continuous telemetry Type 2 diabetes mellitus [id number]-5.5 Hold metformin Started on glargine 12 units at bedtime Placed on medium dose hyper/hypoglycemia protocol Chronic kidney disease - stage IIIA GFR 58ml/min/1.73m2 ( CKD EPI) Cr 1.22, BUN 33, stable compared to baseline 05/05/2025: Creatinine 1.45 today, BUN 33, EGFR 46, BUN/creatinine ratio 22.8 Stopped Lasix 20 mg p.o. b.i.d. Patient with 70 mL/hour normal saline to decrease creatinine value and prepare him for surgery. Comorbidities: Hypertension Hyperlipidemia Peripheral artery disease s/p angioplasty in the left SFA and popliteal arteries [place] [address] Carias Complete heart block status post pacemaker Continue home medication atorvastatin 80 mg p.o. HS, losartan/hydrochlorothiazide 50/12.5 p.o. daily, metoprolol 50 mg p.o. q.12h Outpatient follow-up Code Status: Full code DVT prophylaxis: Heparin 5000 units subcutaneous t.i.d. Analgesia/sedation: Morphine p.r.n. Line/tube: PIV GI prophylaxis: Pantoprazole Nutrition: 75 g diet Prognosis: Guarded Physical therapy: Ordered Disposition: Admit to PCU/telemetry. CABG on Monday with Dr. Molina. Avis Fonseca Internal Medicine, PGY1 [facility] Date of Service: May 05, 2025 Billing Provider: JUANJOSE ALDRICH MD Common Visit Codes: [id number] INP/OBS CARE(HIGH) AVIS FONSECA, RES May 05, 2025 17:59 JUANJOSE ALDRICH MD May 06, 2025 07:38
--- NOTE | 2025-05-05 18:34 | CARDIOLOGY REPORT ---
APPROVED REPORT EXAM: Comprehensive 2D, Doppler, and color-flow Echocardiogram. Patient Location: 3027 A Heart Rate: 60's bpm Rhythm: PACED Indications MYOCARDIAL INFARCTION CHEST PAIN HYPERTENSION SHORTNESS OF BREATH PACEMAKER Paramedic Rn: Papo GARZON MD Previous echo: NONE 2D Dimensions RVDd 4.7 cm LA Diam 4.1 cm LVDd 4.5 cm LVDs 3.6 (2.5-4.0cm) LVOT Diameter 2.08 (1.8-2.4cm) M-Mode Dimensions Aortic Root 3.57 (2.2-3.7cm) Aortic Valve AoV Peak Rosalio. 222.5 cm/s AoV VTI 44.5 cm AO Peak GR. 19.8 mmHg AO Mean GR. 11 mmHg LVOT VTI 20.06 cm LVOT Peak Rosalio. 90.9 cm/s WES(VTI)/BSA 1.52 cm2/m2 WES (VTI) 1.52 cm2 AV DI 0.45 % Mitral Valve MV E Velocity 91.3 cm/s MV Peak Gr. 4 mmHg MV DECEL TIME 264 ms MV A Velocity 126.4 cm/s MV PHT 72 ms E/A Ratio 0.7 MVA (PHT) 3.06 cm2 MV VMax 96.0 cm/s Tricuspid Valve TR P. Velocity 281 cm/s RAP ESTIMATE 10 mmHg TR Peak Gr. 32 mmHg RVSP 42 mmHg LEFT VENTRICLE Normal LV size and wall thickness. Overall systolic function is mildly reduced. LVEF is 45-50%. RIGHT VENTRICLE Right ventricle is severely dilated. Elevated right heart pressures with an RVSP of 42 mmHg. Pacemaker wire in right heart. ATRIA Left atrium is mildly dilated. Right atrium is at least moderately dilated. AORTIC VALVE Trileaflet AV appears mildly sclerotic with mild stenosis. WES: 1.52 cmsq; Pkv: 223 cm/sec; Gradients: 20/11 mmHG. No insufficiency. Stenosis severity is likely mild, but fails to meet criteria due to low flow / low gradient conditions. MITRAL VALVE Mild MV annular calcification without stenosis. Mild regurgitation. TRICUSPID VALVE TV appears structurally normal with moderate regurgitation. PULMONIC VALVE Pulmonic valve is not well visualized. GREAT VESSELS The aortic root is normal in size. PERICARDIUM Normal pericardium. No effusion. Other Information Study Quality: Fair, TDS parasternal, psax. No subcostal window. Conclusion Normal LV size and wall thickness. Overall systolic function is mildly reduced. LVEF is 45-50%. Right ventricle is severely dilated. Elevated right heart pressures with an RVSP of 42 mmHg. Pacemaker wire in right heart. Left atrium is mildly dilated. Right atrium is at least moderately dilated. Trileaflet AV appears mildly sclerotic with mild stenosis. WES: 1.52 cmsq; Pkv: 223 cm/sec; Gradients: 20/11 mmHG. No insufficiency. Stenosis severity is likely mild, but fails to meet criteria due to low flow / low gradient conditions. Mild MV annular calcification without stenosis. Mild regurgitation. TV appears structurally normal with moderate regurgitation. Normal pericardium. No effusion.
--- NOTE | 2025-05-05 21:27 | ELECTROCARDIOGRAPH REPORT ---
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 SNEHAL Diaz Measurements Intervals [place] Rate: 62 P: 29 [place]: 203 QRS: -77 QRSD: 172 T: 83 QT: 456 QTc: 463 Interpretive Statements Atrial-sensed ventricular-paced complexes No further analysis attempted due to paced rhythm Electronically Signed On 05-06-2025 18:43:[address] SNEHAL Diaz Please click the below link to view image of tracing.
[2025-05-06] VITALS (25 sets, daily range): BP systolic 101–150; BP diastolic 63–93; PULSE 60–74; RESP 11–23; TEMP 97–97.6; O2SAT 91–100
[2025-05-06 04:13] LABS: MEAN PLATELET VOLUME 8.1 FL (7.4-10.4); RED CELL DISTRIBUTION WIDTH 14.2 % (11.5-14.5)
[2025-05-06 04:16] LABS: CREATININE 1.49 MG/DL (0.60-1.10); TOTAL CARBON DIOXIDE 27.5 MMOL/L (24-32); eCRCL 35 ML/MIN; eGFR 45 ML/MIN
[2025-05-06] MEDS: MESSAGE TO NURSING IV ONE ×3 (04:37→22:15)
[2025-05-06] MEDS: morphine 4 MG/ML inj SYRINge IV PRN (05:05)
[2025-05-06] MEDS: MESSAGE TO NURSING PO ONE (05:30)
[2025-05-06] MEDS ORDERED: ipratropium/albuterol 3ml nebule NEB ONE (06:45)
--- NOTE | 2025-05-06 08:54 | PROGRESS NOTE ---
Progress Note CV Providers to CC ~ Antibiotics Ordered?: No Objective Vitals Vital Signs Date Time Temp Pulse Resp B/P (MAP) Pulse Ox O2 Delivery O2 Flow Rate FiO2 05/06/25 08:16 64 16 91 Room Air* 0 21 05/06/25 06:00 97.6 150/89 (109) Lab Results: 05/06/25 0352 05/06/25 0352 Coagulation Studies Laboratory Tests Test 05/05/25 09:33 05/06/25 03:52 Prothrombin Time 10.6 SECONDS (9.0-12.0) INR International Normalized Ratio 1.0 INR Activated Partial Thromboplast Time 63 SECONDS (22-32) H APTT (Heparin Protocol) 54 SECONDS (45-60) Coagulation Comments Cardiac Rhythm: V Paced, AV Paced Problem\Assessment\Plan Additional Plan Pt. had 3 episodes of chest pain this morning. This is worse than any time at home or in previous days. BP was 150 systolic at 6 AM, then reported to be 100 systolic after 1 NTG. Then rec'd MS with some but not total relief of CP. He continues on the heparin gtt with PTT in range. Has not had breakfast yet. Will keep NPO Transfer to CICU and begin NTG gtt. May need to go to the OR later today if CP does not resolve. Unfortunately creat is slightly higher today. Sepsis Screening Reassessment Date: May 06, 2025 Supervising MD Co-signing Provider: ANA Casey May 06, 2025 08:54
[2025-05-06] MEDS: nitroGLYCERIN-Tridil 50MG/D5W 250 ML IV SCH ×2 (09:41→11:43)
[2025-05-06] MEDS ORDERED: nitroGLYCERIN-Tridil 50MG/D5W 250 ML IV SCH (09:58)
[2025-05-06] MEDS ORDERED: midazolam 1 mg/ML 2ml injection IV ONE (11:45)
[2025-05-06] MEDS ORDERED: ringers solution, lacted 1,000 ML IV ONE (11:45)
[2025-05-06] MEDS ORDERED: METO-384 PO (15:12)
[2025-05-06] MEDS ORDERED: CHLO4TAB36 PO (15:14)
[2025-05-06] MEDS ORDERED: ATOR40TA PO (15:15)
[2025-05-06] MEDS ORDERED: VITE400C PO (15:16)
[2025-05-06] MEDS ORDERED: VIT1CAPS46 PO (15:17)
[2025-05-06] MEDS ORDERED: GLUC1TAB75 PO (15:18)
[2025-05-06] MEDS ORDERED: GARLIC PO (15:22)
--- NOTE | 2025-05-06 17:13 | PROGRESS NOTE- Residence ---
Progress Note - Resident Providers to CC Resident Creating Document: HUI MYERS RES ~ Antibiotic Timeout Antibiotic Ordered?: Yes Subjective Patient was seen and examined at the bedside today. Patient had 3 episodes of chest pain in the early hours of this morning. Therefore he was shifted to CICU for nitroglycerin drip and monitoring. Objective Vital Signs Date Time Temp Pulse Resp B/P (MAP) Pulse Ox O2 Delivery O2 Flow Rate FiO2 05/06/25 16:00 97.7 60 16 144/86 (105) 97 Room Air 05/06/25 08:16 0 21 Result Diagram: 05/06/25 0352 05/06/25 0352 General: Awake and Alert, no acute distress. HEENT: Conjunctiva pink, Sclera clear, Mucus Membranes moist. Neck: Supple without masses and tenderness. Resp: Unlabored. Lungs clear to auscultation bilaterally. Heart: Regular Rate and rhythm, normal S1 and S2 without murmur, rub or gallop. Abdomen: Soft and non tender no organomegaly Extremities: 1+ pitting lower extremity peripheral edema. No cyanosis or clubbing. Skin: Warm and Dry. Coagulation Studies Laboratory Tests Test 05/05/25 09:33 05/06/25 10:24 Prothrombin Time 10.6 SECONDS (9.0-12.0) INR International Normalized Ratio 1.0 INR Activated Partial Thromboplast Time 63 SECONDS (22-32) H APTT (Heparin Protocol) 52 SECONDS (45-60) Coagulation Comments Assessment Assessment 84-year-old male patient with past medical history of hypertension, hyperlipidemia, type 2 diabetes, peripheral artery disease, CKD transferred from [facility] for chest pain and shortness of breath with exertion. Cardiac catheterization showed high grade lesions of the LAD, RCA, Circ, and ramus intermedius requiring CABG. Plan Plan ACS- NSTEMI DIANA Score 5 points , HUMAIRA Score 131 points Patient complained of severe chest pain associated with shortness of breath on exertion Asymptomatic after initial management EKG: Sinus rhythm, rate 61, regular pacemaker rhythm Cardiac catheterization showed high grade lesions of the LAD, RCA, Circ, and ramus intermedius requiring CABG. Dr. Molina consulted, CABG on Monday. Patient shifted to CICU for nitroglycerin drip. Continue ontinue heparin drip , monitor troponin level. CXR: No acute findings. Dual lead pacemaker Troponins: 961, 1036, 1058 BNP 3792 Lipid panel-cholesterol 126, LDL 67, HDL 30 Echo: Normal LV size and wall thickness. Overall systolic function is mildly reduced. LVEF is 45-50%. Right ventricle is severely dilated. Elevated right heart pressures as noted above. Pacemaker wire in right heart. Left atrium is mildly dilated. Right atrium is at least moderately dilated. Trileaflet AV appears mildly sclerotic with mild stenosis. WES: 1.52 cmsq; Pkv: 223 cm/sec; Gradients: 20/11 mmHG. No insufficiency. Stenosis severity is likely mild, but fails to meet criteria due to low flow / low gradient conditions. Mild MV annular calcification without stenosis. Mild regurgitation. TV appears structurally normal with moderate regurgitation. Pulmonic valve is not well visualized. The aortic root is normal in size. Normal pericardium. No effusion. Venous Doppler: The left great saphenous vein measures 2.8-3.6 mm below the knee, 3.9-6.8 mm above the knee. The left great saphenous vein is compressible along its entire visualized length. The right great saphenous vein is reported to be ablated. Carotid ultrasound: No hemodynamically significant stenosis by velocity criteria. Plan Patient shifted to CICU for nitroglycerin drip and further monitoring as he experienced severe chest pain this morning. Patient on aspirin 81 mg p.o. daily and heparin drip Continue atorvastatin 80 mg daily, losartan 50mg daily and metoprolol 50mg bid Nitroglycerin 0.4 sublingual p.r.n. Continuous telemetry Type 2 diabetes mellitus PuE4q-6.5 Hold metformin Started on glargine 12 units at bedtime Placed on medium dose hyper/hypoglycemia protocol Chronic kidney disease - stage IIIA GFR 58ml/min/1.73m2 ( CKD EPI) Cr 1.22, BUN 33, stable compared to baseline 05/05/2025: Creatinine 1.45 today, BUN 33, EGFR 46, BUN/creatinine ratio 22.8 Stopped Lasix 20 mg p.o. b.i.d. Patient with 70 mL/hour normal saline to decrease creatinine value and prepare him for surgery. 05/06/2025-creatinine 1.49 today, BUN 34, EGFR 45, BUN/creatinine ratio 22.8 Patient on fluids LR. Comorbidities: Hypertension Hyperlipidemia Peripheral artery disease s/p angioplasty in the left SFA and popliteal arteries [place] [address] Carias Complete heart block status post pacemaker Continue home medication atorvastatin 80 mg p.o. HS, losartan/hydrochlorothiazide 50/12.5 p.o. daily, metoprolol 50 mg p.o. q.12h Outpatient follow-up Code Status: Full code DVT prophylaxis: Heparin 5000 units subcutaneous t.i.d. Analgesia/sedation: Morphine p.r.n. Line/tube: PIV GI prophylaxis: Pantoprazole Nutrition: 75 g diet Prognosis: Guarded Physical therapy: Ordered Disposition: Patient moved to CICU. CABG on Monday with Dr. Molina. Hui Myers Internal Medicine, PGY1 Date of Service: May 06, 2025 Billing Provider: JUANJOSE ALDRICH MD Common Visit Codes: [id number] INP/OBS CARE(HIGH) HUI MYERS, RES May 06, 2025 17:13 JUANJOSE ALDRICH MD May 07, 2025 08:24
[2025-05-06 20:27] LABS: CREATININE 1.13 MG/DL (0.60-1.10); TOTAL CARBON DIOXIDE 27.7 MMOL/L (24-32); eCRCL 46 ML/MIN; eGFR 62 ML/MIN
[2025-05-07] VITALS (31 sets, daily range): BP systolic 97–156; BP diastolic 51–91; PULSE 60–113; RESP 12–26; TEMP 99; O2SAT 94–100
[2025-05-07 01:12] LABS: MEAN PLATELET VOLUME 7.6 FL (7.4-10.4); RED CELL DISTRIBUTION WIDTH 14.3 % (11.5-14.5)
[2025-05-07 01:24] LABS: CREATININE 0.98 MG/DL (0.60-1.10); TOTAL CARBON DIOXIDE 26.1 MMOL/L (24-32); eCRCL 52 ML/MIN; eGFR 73 ML/MIN
[2025-05-07] MEDS: MESSAGE TO NURSING PO ONE ×2 (01:43→05:36)
[2025-05-07] MEDS: MESSAGE TO NURSING IV ONE ×2 (01:43→01:46)
[2025-05-07] MEDS: ceFAZolin 2gm/dext,iso 50mL 50 ML IV ONE (05:30)
[2025-05-07] MEDS: midazolam 1 mg/ML 2ml injection IV ONE ×2 (05:30→10:20)
[2025-05-07] MEDS ORDERED: Insulin Reg/NS 100units/100mL 100 ML IV SCH ×2 (05:30→14:25)
[2025-05-07] MEDS: VANCOMYCIN/H2O 1.5g/300mL PB 300 ML IV ONE (05:30)
[2025-05-07] MEDS ORDERED: insulin glargine (Lantus) pen - multi-dose SQ PRN ×2 (05:30→14:25)
[2025-05-07] MEDS ORDERED: dextrose 50%-water 50ml dispensing syringe IV PRN ×2 (05:30→14:25)
[2025-05-07] MEDS: mupirocin 2% nasal ointment 1gm UD NS SCH ×2 (05:32→20:20)
[2025-05-07] MEDS: ringers solution, lacted 1,000 ML IV ONE (05:35)
[2025-05-07] MEDS: famotidine/PF 10 mg/ml inj IV ONE (06:00)
[2025-05-07] MEDS ORDERED: BUPIVAcaine 2.5mg/ml inj 50ml vial (contains preservative) ONE (06:47)
[2025-05-07] MEDS ORDERED: MIDAZolam 1mg/ml 10ml vial ONE (06:48)
[2025-05-07] MEDS ORDERED: heparin 10,000 units/1 ML INJ ONE ×2 (06:48→08:00)
[2025-05-07] MEDS ORDERED: SUfentanil 50mcg/ml 1ml amp IV ONE (06:48)
[2025-05-07] MEDS ORDERED: LIDOcaine 2% (20 mg/ml) 5ml cardiac syringe ONE (08:00)
[2025-05-07] MEDS ORDERED: methylPREDNISolone sod succ 1000mg vial ONE (08:00)
[2025-05-07] MEDS ORDERED: NORepinephrine 1 mg/ml inj IV ONE (08:00)
[2025-05-07] MEDS ORDERED: potassium Cl 2 mEq/ml inj IV ONE (08:00)
[2025-05-07] MEDS ORDERED: papaverine 30 mg/ml 2ml inj. ONE (08:00)
[2025-05-07] MEDS ORDERED: albumin (human) 25% 100 ML IV solution IV ONE (08:00)
[2025-05-07] MEDS ORDERED: heparin 1,000 units/ml 10ml inj ONE (08:00)
[2025-05-07] MEDS ORDERED: sodium bicarbonate (8.4%) 1 mEq/ml syringe ONE (08:00)
[2025-05-07] MEDS ORDERED: calcium chloride 100 MG/1 ML inj IV ONE (08:00)
[2025-05-07] MEDS ORDERED: mannitol 12.5gm/50mL VIAL IV ONE (08:00)
[2025-05-07] MEDS ORDERED: aminocaproic acid 250 MG/1 ML inj. ONE ×2 (08:00→08:26)
[2025-05-07] MEDS ORDERED: MAGNESIUM SULFATE 4 MEQ/ML (5gm/10ml) injection ONE (08:00)
[2025-05-07] MEDS ORDERED: MILRINONE LACTATE IV ONE (08:26)
[2025-05-07] MEDS ORDERED: isoflurane 100ml inhalation liquid IH ONE (08:26)
[2025-05-07] MEDS: papaverine 30 mg/ml 2ml inj. ICAR ONE (08:26)
[2025-05-07] MEDS ORDERED: DOBUTamine/D5W 500mg/250ml premix IV ONE (08:26)
[2025-05-07] MEDS ORDERED: D5W IV ONE (08:26)
[2025-05-07] MEDS: heparin 10,000 units/1 ML INJ IR ONE (08:26)
[2025-05-07] MEDS ORDERED: nitroGLYCERIN in D5W 50mg/250ml (Tridil) infusion IV ONE (08:26)
[2025-05-07] MEDS ORDERED: protamine sulf. 10mg/ml inj. IV ONE (08:26)
[2025-05-07] MEDS: BUPIVAcaine/PF 2.5 mg/ml (0.25%) 30ml vial IJ ONE (08:26)
[2025-05-07 08:30] LABS: ABG BASE EXCESS -0.4 mmol/L (-2.0-3.0); ABG HCO3 23.8 mmol/L (21.0-28.0); ABG OXYGEN SATURATION 99.6 % (94.0-98.0); ABG PCO2 37.3 mmHg (35.0-48.0); ABG PH 7.422 (7.350-7.450); CL (ABG) 105 mmol/L (98-107); FCOHb 0.3 % (0.5-1.5); FHHb 0.4 % (0.0-5.0); FMetHb 0.1 % (0.0-1.5); FO2Hb 99.2 % (94.0-98.0); GLUCOSE (ABG) 111 mg/dl (65-95); IONIZED CA (ABG) 1.26 mmol/L (1.15-1.33); K (ABG) 3.9 mmol/L (3.40-4.50); TOTAL HEMOGLOBIN 11.1 G/dl (13.5-17.5)
[2025-05-07] MEDS ORDERED: albumin (Human) 5% 250ml 250 ML IV ONE ×3 (08:33→14:21)
[2025-05-07 08:44] LABS: ACT @ 1.70 U 323 SEC (193-297); ACT @ 2.84 U 476 SEC (260-420); BASELINE ACT 141 SEC (101-148); PATIENT WEIGHT 84.0k KG
[2025-05-07] MEDS ORDERED: propofol inj 20 ML IV ONE (08:56)
[2025-05-07] MEDS ORDERED: LIDOcaine 2% (20mg/ml) 5ml vial ONE (08:56)
[2025-05-07] MEDS ORDERED: rocuronium 10mg/ml inj IV ONE ×3 (08:56→08:57)
[2025-05-07] MEDS ORDERED: 0.9 % SODIUM CHLORIDE 10 ML VIAL ONE (08:56)
[2025-05-07] MEDS ORDERED: phenylephrine 10mg/ml inj. ONE (08:57)
[2025-05-07 09:50] LABS: ABG BASE EXCESS -2.6 mmol/L (-2.0-3.0); ABG HCO3 21.6 mmol/L (21.0-28.0); ABG OXYGEN SATURATION 99.5 % (94.0-98.0); ABG PCO2 35.2 mmHg (35.0-48.0); ABG PH 7.405 (7.350-7.450); CL (ABG) 107 mmol/L (98-107); FCOHb 0.3 % (0.5-1.5); FHHb 0.5 % (0.0-5.0); FMetHb 0.1 % (0.0-1.5); FO2Hb 99.1 % (94.0-98.0); GLUCOSE (ABG) 89 mg/dl (65-95); IONIZED CA (ABG) 1.22 mmol/L (1.15-1.33); K (ABG) 3.9 mmol/L (3.40-4.50); TOTAL HEMOGLOBIN 10.9 G/dl (13.5-17.5)
[2025-05-07 10:02] LABS: ACTIVATED CLOTTING TIME 645.0 SEC (101-148)
[2025-05-07] MEDS ORDERED: fentaNYL/PF 50MCG/1 ML 2ML syringe IV PRN (10:20)
[2025-05-07] MEDS ORDERED: midazolam 100mg in NS 100ml 100 ML IV SCH (10:20)
[2025-05-07] MEDS ORDERED: FENTANYL-0.9 % NACL/PF 100 ML IV SCH (10:20)
[2025-05-07 10:36] LABS: ABG BASE EXCESS -0.3 mmol/L (-2.0-3.0); ABG HCO3 23.9 mmol/L (21.0-28.0); ABG OXYGEN SATURATION 99.4 % (94.0-98.0); ABG PCO2 37.5 mmHg (35.0-48.0); ABG PH 7.423 (7.350-7.450); CL (ABG) 104 mmol/L (98-107); FCOHb 0.3 % (0.5-1.5); FHHb 0.6 % (0.0-5.0); FMetHb 0.1 % (0.0-1.5); FO2Hb 99.0 % (94.0-98.0); GLUCOSE (ABG) 91 mg/dl (65-95); IONIZED CA (ABG) 1.15 mmol/L (1.15-1.33); K (ABG) 4.8 mmol/L (3.40-4.50); TOTAL HEMOGLOBIN 9.0 G/dl (13.5-17.5)
[2025-05-07 10:48] LABS: ACTIVATED CLOTTING TIME 660.0 SEC (101-148)
[2025-05-07 11:27] LABS: ABG BASE EXCESS VENOUS -1.5 mmol/L (-2.0-3.0); ABG HCO3 VENOUS 22.7 mmol/L (22.0-29.0); ABG OXYGEN SATURATION VENOUS 87.1 % (60.0-85.0); ABG PCO2 VENOUS 35.7 mmHg (38.0-54.0); ABG PH (VENOUS) 7.421 (7.320-7.430); ABG PO2 VENOUS 53.8 mmHg (23.0-48.0); CL (ABG) 105 mmol/L (98-107); FCOHb VENOUS 0.3 % (0.5-1.5); FHHb VENOUS 12.8 %; FMetHb VENOUS 0.2 % (0.5-1.5); FO2Hb VENOUS 86.7 % (0-80.0); GLUCOSE (ABG) 84 mg/dl (65-95); IONIZED CA (ABG) 1.16 mmol/L (1.15-1.33); K (ABG) 4.6 mmol/L (3.40-4.50); TOTAL HEMOGLOBIN 8.7 G/dl (13.5-17.5)
[2025-05-07 11:39] LABS: ACTIVATED CLOTTING TIME 609.0 SEC (101-148)
[2025-05-07 12:35] LABS: ABG BASE EXCESS 0.2 mmol/L (-2.0-3.0); ABG HCO3 23.6 mmol/L (21.0-28.0); ABG OXYGEN SATURATION 99.1 % (94.0-98.0); ABG PCO2 32.7 mmHg (35.0-48.0); ABG PH 7.476 (7.350-7.450); CL (ABG) 105 mmol/L (98-107); FCOHb 0.3 % (0.5-1.5); FHHb 0.9 % (0.0-5.0); FMetHb 0.3 % (0.0-1.5); FO2Hb 98.5 % (94.0-98.0); GLUCOSE (ABG) 86 mg/dl (65-95); IONIZED CA (ABG) 1.28 mmol/L (1.15-1.33); K (ABG) 4.5 mmol/L (3.40-4.50); TOTAL HEMOGLOBIN 7.5 G/dl (13.5-17.5)
[2025-05-07 12:45] LABS: ACTIVATED CLOTTING TIME 494.0 SEC (101-148)
[2025-05-07 13:16] LABS: ABG BASE EXCESS -3.3 mmol/L (-2.0-3.0); ABG HCO3 21.0 mmol/L (21.0-28.0); ABG OXYGEN SATURATION 89.1 % (94.0-98.0); ABG PCO2 34.6 mmHg (35.0-48.0); ABG PH 7.402 (7.350-7.450); ABG PO2 58.5 mmHg (83.0-108.0); CL (ABG) 110 mmol/L (98-107); FCOHb 0.3 % (0.5-1.5); FHHb 10.8 % (0.0-5.0); FMetHb 0.3 % (0.0-1.5); FO2Hb 88.6 % (94.0-98.0); GLUCOSE (ABG) 136 mg/dl (65-95); IONIZED CA (ABG) 1.22 mmol/L (1.15-1.33); K (ABG) 3.9 mmol/L (3.40-4.50); TOTAL HEMOGLOBIN 8.0 G/dl (13.5-17.5)
[2025-05-07 13:19] LABS: ACTIVATED CLOTTING TIME 126 SEC (101-148)
[2025-05-07] MEDS ORDERED: sodium bicarbonate (8.4%) inj. 1 MEQ/ML ML ONE (13:21)
[2025-05-07 13:22] LABS: ABG BASE EXCESS -5.6 mmol/L (-2.0-3.0); ABG HCO3 18.7 mmol/L (21.0-28.0); ABG OXYGEN SATURATION 99.2 % (94.0-98.0); ABG PCO2 31.4 mmHg (35.0-48.0); ABG PH 7.392 (7.350-7.450); ABG PO2 283.0 mmHg (83.0-108.0); CL (ABG) 107 mmol/L (98-107); FCOHb 0.3 % (0.5-1.5); FHHb 0.8 % (0.0-5.0); FMetHb 0.3 % (0.0-1.5); FO2Hb 98.6 % (94.0-98.0); GLUCOSE (ABG) 140 mg/dl (65-95); IONIZED CA (ABG) 1.24 mmol/L (1.15-1.33); K (ABG) 4.0 mmol/L (3.40-4.50); TOTAL HEMOGLOBIN 8.0 G/dl (13.5-17.5)
[2025-05-07] MEDS ORDERED: ondansetron/PF 4mg/2ml inj ONE (13:58)
[2025-05-07] MEDS ORDERED: dexamethasone sod phosphate 4mg/ml inj. ONE (13:58)
[2025-05-07] MEDS ORDERED: potassium CL 10mEq/100ml bag 100 ML IV PRN (14:25)
[2025-05-07] MEDS ORDERED: potassium Cl 40MEQ/1/2NS 520ml 520 ML IV PRN (14:25)
[2025-05-07] MEDS ORDERED: magnesium sulf-water 4G/100mL 100 ML IV PRN (14:25)
[2025-05-07] MEDS ORDERED: normal saline 250ml IV soln 250 ML IV PRN (14:25)
[2025-05-07] MEDS ORDERED: niCARDipine-NS 40mg/200ml IVPB 200 ML IV PRN (14:25)
[2025-05-07] MEDS ORDERED: potassium Cl 20 mEq SR tablet PO PRN (14:25)
[2025-05-07] MEDS ORDERED: nitroGLYCERIN-Tridil 50MG/D5W 250 ML IV PRN (14:25)
[2025-05-07] MEDS ORDERED: ondansetron/PF 4mg/2ml inj IV PRN (14:25)
[2025-05-07] MEDS ORDERED: metoclopramide 5 mg/ml inj IV PRN (14:25)
[2025-05-07] MEDS ORDERED: mineral oil 133ml enema RC PRN (14:25)
[2025-05-07] MEDS ORDERED: potassium Cl 40MEQ/270ML bag 250 ML IV PRN (14:25)
--- NOTE | 2025-05-07 14:31 | PROGRESS NOTE- Residence ---
Progress Note - Resident Providers to CC Resident Creating Document: HUI MYERS RES ~ Antibiotic Timeout Antibiotic Ordered?: No Subjective Patient was seen at the bedside today. Patient was taken to the operating room for CABG. Currently on mechanical ventilator. Objective Vital Signs Date Time Temp Pulse Resp B/P (MAP) Pulse Ox O2 Delivery O2 Flow Rate FiO2 05/07/25 10:30 12 Mechanical Ventilator 05/07/25 10:30 100 100 05/07/25 07:45 97 05/07/25 06:59 97.7 62 151/79 (103) 05/06/25 19:24 0 Result Diagram: 05/07/255605/07/2556 General: Sleeping, no acute distress. HEENT: Conjunctiva pink, Sclera clear, Mucus Membranes moist. Neck: Supple without masses and tenderness. Resp: Unlabored. Lungs clear to auscultation bilaterally. Heart: Regular Rate and rhythm, normal S1 and S2 without murmur, rub or gallop. Abdomen: Soft and non tender no organomegaly Extremities: 1+ pitting lower extremity peripheral edema. No cyanosis or clubbing. Skin: Warm and Dry. Coagulation Studies Laboratory Tests Test 05/05/25 09:33 05/07/25 00:57 05/07/25 08:38 05/07/25 13:23 Prothrombin Time 10.6 SECONDS (9.0-12.0) INR International Normalized Ratio 1.0 INR Activated Partial Thromboplast Time 63 SECONDS (22-32) H APTT (Heparin Protocol) 53 SECONDS (45-60) Coagulation Comments Patient Sex (Coag) M Patient Height (Coag) 170cm Patient Weight (Coag) 84.0k KG Patient Blood Volume 5799 ML Pump Volume 1500 ML Total Blood Volume 7299 ML Projected Heparin Concentration 1.8 MG/KG Heparin [place] 137 Calculated Heparin Bolus 92813 UNITS Activated Coagulation Time Baseline 141 SEC (101-148) Activated Coag Time 1.70 U/mL 323 SEC (193-297) H Activated Coag Time 2.84 U/mL 476 SEC (260-420) H Heparin Level (COAG) 0 MG/KG Calculated Heparin Req (Hep Assay) 42649 UNITS Calculated Protamine Req (Hep Assay 0 MG Activated Clotting Time 126 SEC (101-148) Assessment Assessment 84-year-old male patient with past medical history of hypertension, hyperlipidemia, type 2 diabetes, peripheral artery disease, CKD transferred from [facility] for chest pain and shortness of breath with exertion. Cardiac catheterization showed high grade lesions of the LAD, RCA, Circ, and ramus intermedius requiring CABG. Plan Plan ACS- NSTEMI DIANA Score 5 points , HUMAIRA Score 131 points Patient complained of severe chest pain associated with shortness of breath on exertion Asymptomatic after initial management EKG: Sinus rhythm, rate 61, regular pacemaker rhythm Cardiac catheterization showed high grade lesions of the LAD, RCA, Circ, and ramus intermedius requiring CABG. Dr. Molina consulted, CABG done today. Patient currently in CICU is being monitored. BNP 3792 Lipid panel-cholesterol 126, LDL 67, HDL 30 Echo: Normal LV size and wall thickness. Overall systolic function is mildly reduced. LVEF is 45-50%. Right ventricle is severely dilated. Elevated right heart pressures as noted above. Pacemaker wire in right heart. Left atrium is mildly dilated. Right atrium is at least moderately dilated. Trileaflet AV appears mildly sclerotic with mild stenosis. WES: 1.52 cmsq; Pkv: 223 cm/sec; Gradients: 20/11 mmHG. No insufficiency. Stenosis severity is likely mild, but fails to meet criteria due to low flow / low gradient conditions. Mild MV annular calcification without stenosis. Mild regurgitation. TV appears structurally normal with moderate regurgitation. Pulmonic valve is not well visualized. The aortic root is normal in size. Normal pericardium. No effusion. Venous Doppler: The left great saphenous vein measures 2.8-3.6 mm below the knee, 3.9-6.8 mm above the knee. The left great saphenous vein is compressible along its entire visualized length. The right great saphenous vein is reported to be ablated. Carotid ultrasound: No hemodynamically significant stenosis by velocity criteria. Plan Patient taken to the OR today for CABG. Currently on mechanical ventilation. Patient on aspirin 81 mg. Continue atorvastatin 80 mg daily, losartan 50mg daily and metoprolol 50mg bid Patient currently on nitroglycerin drip. Type 2 diabetes mellitus BpN3q-9.5 Hold metformin Started on glargine 12 units at bedtime Placed on medium dose hyper/hypoglycemia protocol ALVIN on Chronic kidney disease Due to acute tubular stasis Resolved Creatinine-0.98 BUN-21 Comorbidities: Hypertension Hyperlipidemia Peripheral artery disease s/p angioplasty in the left SFA and popliteal arteries [place] [address] Carias Complete heart block status post pacemaker Continue home medication atorvastatin 80 mg p.o. HS, losartan/hydrochlorothiazide 50/12.5 p.o. daily, metoprolol 50 mg p.o. q.12h Outpatient follow-up Code Status: Full code DVT prophylaxis: Heparin 5000 units subcutaneous t.i.d. Analgesia/sedation: Morphine p.r.n. Line/tube: PIV GI prophylaxis: Pantoprazole Nutrition: 75 g diet Prognosis: Guarded Physical therapy: Ordered Disposition: Patient moved to CICU. CABG done today, patient on mechanical ventilation. Hui Myers Internal Medicine, PGY1 Date of Service: May 07, 2025 Billing Provider: JUANJOSE ALDRICH MD Common Visit Codes: [id number] INP/OBS CARE(HIGH) HUI MYERS, RES May 07, 2025 14:31 JUANJOSE ALDRICH MD May 08, 2025 08:02
[2025-05-07 14:43] LABS: ABG BASE EXCESS -5.6 mmol/L (-2.0-3.0); ABG HCO3 19.7 mmol/L (21.0-28.0); ABG OXYGEN SATURATION 97.1 % (94.0-98.0); ABG PCO2 (T) 35.8 mmHg (35.0-48.0); ABG PH (T) 7.353 (7.350-7.450); ABG PO2 (T) 101.7 mmHg (83.0-108.0); ALLEN'S TEST POSITIVE; FCOHb 1.0 % (0.5-1.5); FHHb 2.9 % (0.0-5.0); FIO2 100.0 mmHg/%; FMetHb 0.3 % (0.0-1.5); FO2Hb 95.8 % (94.0-98.0); MODE SIMV VC; PATIENT TEMPERATURE 35.9; PEEP 5 cm H2O; RESPIRATORY RATE 12 b/min; TIDAL VOLUME 500 mL; TOTAL HEMOGLOBIN 8.6 G/dl (13.5-17.5)
[2025-05-07 14:47] LABS: MEAN PLATELET VOLUME 7.1 FL (7.4-10.4); RED CELL DISTRIBUTION WIDTH 14.3 % (11.5-14.5)
--- NOTE | 2025-05-07 14:53 | ELECTROCARDIOGRAPH REPORT ---
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 Thaddeus Roberto Measurements Intervals [place] Rate: 66 P: 0 NE: 0 QRS: 113 QRSD: 187 T: -71 QT: 438 QTc: 459 Interpretive Statements Atrial fibrillation Paired ventricular premature complexes Right bundle branch block Repol abnrm, global ischemia, diffuse leads Electronically Signed On 05-12-2025 6:59:[address] Thaddeus Roberto Please click the below link to view image of tracing.
[2025-05-07 15:05] LABS: APTT 31 SECONDS (22-32); INR 1.2 INR
[2025-05-07 15:07] LABS: CREATININE 0.96 MG/DL (0.60-1.10); PHOSPHORUS 2.1 MG/DL (2.3-4.5); TOTAL CARBON DIOXIDE 23.1 MMOL/L (24-32); eCRCL 54 ML/MIN; eGFR 75 ML/MIN
--- NOTE | 2025-05-07 15:39 | OPERATIVE REPORT ---
Operative Report Providers to CC ~ Date of Procedure: May 07, 2025 Pre-Operative Diagnosis: NSTEMI Post-Operative Diagnosis SAME as PRE-Op HTN Afib renal insufficiency TELMA Procedure Performed CABGx4 -JARRELL to LAD, sequential SVG to Ramus-OM1--RPDA; endoscopic vein h arvest, ligation of TIFFANY Surgeon: Jesse Fire Hose Curer Brianda Winslow Type of Anesthesia: General Findings: Calcified vessels; RV dilation, aortic calcifications Complications none Estimated Blood Loss: NA Specimen Removed: none Description of Procedure: Dict#[id number] Counts repoted as correct: Yes ION LOMELI MD May 07, 2025 15:39
[2025-05-07] MEDS: DOBUTamine-DoBUTrex 500mg/D5W 250 ML IV PRN (15:47)
[2025-05-07] MEDS: potassium Cl 20mEq/100mL bag 100 ML IV PRN (15:47)
[2025-05-07] MEDS: Insulin Reg/NS 100units/100mL 100 ML IV SCH (16:02)
[2025-05-07] MEDS: morphine 4 MG/ML inj SYRINge IV PRN (16:07)
--- NOTE | 2025-05-07 16:20 | RADIOLOGY REPORT ---
CHEST RADIOGRAPH Indication: ET Tube PLacement Technique: Single frontal view of the chest was obtained COMPARISON: CT CT CHEST on DOS: 05/04/25, DI CHEST,TWO VIEWS on DOS: 05/03/25, XR CHEST 1 VIEW on DOS: 05/03/25 FINDINGS: Lines and Tubes: Endotracheal tube, enteric catheter, right chest pacemaker, Montgomery-Mounika catheter, right central venous catheter in satisfactory position. Left chest tube and mediastinal drain in satisfactory position. Lungs: Pulmonary vascular congestion. Pleura: No effusion.No pneumothorax. Cardiomediastinal contours: Cardiomegaly. Bones: Unremarkable. IMPRESSION: Lines and tubes in satisfactory position.
[2025-05-07] MEDS: ceFAZolin/D5W- 1GM premix 50 ML IV SCH (16:42)
[2025-05-07] MEDS: albumin (Human) 5% 250ml 250 ML IV PRN (16:51)
--- NOTE | 2025-05-07 16:54 | PROCEDURE NOTE - Respiratory ---
Procedure Note-Respiratory Providers to CC Copies To 1: CLARA CARDOZA MD; KYLE HAQUE III, MD Procedure Name: This is a spirometry study dated May 05, 2025. Spirometry measurements: There is slight reduction in both the forced vital capacity and the FEV1. The FEV1 ratio is also somewhat reduced. Several of the flow rate measurements show reduction. Bronchodilator was not administered as part of the study. Conclusion: This study is abnormal. There is evidence for obstructive ventilatory defect in the [id number] category. 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 It is strongly recommended that the patient abstain from cigarette smoking. Close pulmonary attention is recommended. We have no previous studies for comparison. JODI RAMIRES MD May 07, 2025 16:54
[2025-05-07] MEDS: sodium phos 15mmol/D5 255mL 255 ML IV PRN (16:58)
[2025-05-07] MEDS: NORepinephrine 8mg/ 250ml NS 250 ML IV PRN (17:00)
[2025-05-07] MEDS: milrinone (Primacor) 20mg/D5W 100 ML IV PRN (17:02)
[2025-05-07] MEDS: magnesium sulf-water 2g/50mL 50 ML IV PRN (17:18)
[2025-05-07 18:50] LABS: MEAN PLATELET VOLUME 7.5 FL (7.4-10.4); RED CELL DISTRIBUTION WIDTH 14.1 % (11.5-14.5)
[2025-05-07 18:59] LABS: CREATININE 1.15 MG/DL (0.60-1.10); PHOSPHORUS 2.1 MG/DL (2.3-4.5); TOTAL CARBON DIOXIDE 23.9 MMOL/L (24-32); eCRCL 45 ML/MIN; eGFR 61 ML/MIN
[2025-05-07] MEDS: sodium phosphate inj. 30 MMOL in dextrose 5%-water 250 ML IV PRN (19:18)
--- NOTE | 2025-05-07 19:48 | OPERATIVE REPORT ---
DATE OF SURGERY: 05/07/2025 DICTATING PHYSICIAN: Ramiro Molina MD PREOPERATIVE DIAGNOSES: * Coronary artery disease. * Hypertension. * Atrial fibrillation. * Chronic renal insufficiency. * Obstructive sleep apnea. POSTOPERATIVE DIAGNOSES: * Coronary artery disease. * Hypertension. * Atrial fibrillation. * Chronic renal insufficiency. * Obstructive sleep apnea. PROCEDURES PERFORMED: * Coronary artery bypass grafting with JARRELL to LAD, sequential vein graft to obtuse marginal, ramus, and RPDA. * Endoscopic vein harvesting. * Ligation of the left atrial appendage. SURGEON: Ramiro Molina MD MEDICAL RESEARCH ASSISTANT: Bronson Haji MD SECOND SERVICES ACCOUNT MANAGER: AIDEN Willis ANESTHESIOLOGIST: Dr. Navarrete ANESTHESIA: General plus local. DRAINS: A 32-Romanian right-angle chest tube into the left pleural space, a 24-Romanian Steven into the pericardial well, and a 28-Romanian straight chest tube into the anterior mediastinum and right pleural space. COMPLICATIONS: None. DESCRIPTION OF THE PROCEDURE: The patient was taken to the operating room and placed on the table in the supine position. After anesthesia was induced, the legs, groins, and chest were prepped and draped in the usual sterile fashion. Next, a timeout was called and the patient was correctly identified by the surgeons and the OR staff. A midline incision was made and carried out down to the sternum. The sternum was divided with a sternal saw and hemostasis was obtained along the sternal edges. The JENNIFER was then identified and taken down on the pedicle. Full heparin dose was given prior to distal division of the JARRELL. It was then transected and wrapped in a papaverine-soaked sponge. The pericardium was opened and tacked with stay sutures. Palpation of the descending aorta revealed dense plaque deposits at the base of the innominate artery. There was also a plate-like island of plaque on the lesser curvature of the distal ascending aorta. No other deposits were found. The intraoperative transesophageal echo demonstrated somewhat dilated right ventricle with mild tricuspid insufficiency. Also noted was left ventricular hypertrophy. Overall LV function was 45-50%. Calcium deposits were noted in the proximal transverse arch. The cannulation proceeded in the usual fashion with an aortic cannula placed in the distal ascending aorta and a venous cannula placed in the right atrium with its tip at the inferior vena cava. We commenced with cardiopulmonary bypass with cooling. A root vent was placed as was a retrograde cardioplegia catheter into the coronary sinus. Once the target temperature was reached, a cross-clamp was applied and the patient was administered both an antegrade and retrograde cardioplegia. Topical ice was used throughout the case. The vein was examined and found to be of adequate quality and length. We then began the anastomosis with an end-to-side anastomosis of the vein graft to the RPDA in its midsection in a T-like configuration. Of note, all vessels were examined and found to be heavily calcified throughout. This included the RCA, LAD, obtuse marginal, and ramus branches. Following this anastomosis, a sequential anastomosis was performed in a masood-like fashion for the obtuse marginal branch. Similarly, a [id number] anastomosis was performed to the adjacent ramus intermedius. Of note, cardioplegia was given every 15-20 minutes throughout the case. Next, the JENNIFER was anastomosed to the LAD in its distal third portion. This was completed with 7-0 Prolene in a running fashion. The pedicle was tacked to the epicardium with interrupted 5-0 Prolene sutures. We began warming at this point and preparation was made for the proximal anastomosis. Of note, the left atrial appendage was ligated prior to completing the JARRELL to LAD anastomosis. I used a 4-0 punch to create an opening in the mid ascending aorta. I then performed the proximal anastomosis with a 6-0 Prolene in a running fashion. Next then, we administered a hotshot and allowed it to run for approximately 3 minutes. Then, while venting the ascending aorta, the cross-clamp was removed. The vein graft was de-aired. We noted spontaneous return of cardiac activity. The retrograde cardioplegia catheter was removed. Once we reached normothermia, then we began the process of from cardiopulmonary bypass. We were able to separate with minimal inotropic support. The initial survey of surgical sites revealed some oozing from the muscle edge of the intramyocardial ramus intermedius branch. This was controlled with interrupted 6-0 Prolene suture. Next, I was able to demonstrate brisk diastolic flow in both grafts. The venous cannula was removed. We administered protamine and he tolerated the administration of protamine well. We returned an appropriate amount of volume through the aortic cannula and the tube was then removed. A final survey of surgical sites revealed good hemostasis. The chest tubes were then placed in the positions described above. Sternal edges were approximated with wires followed by a 3-layer chest wall closure. All of the instruments were accounted for at the end of the case. The patient tolerated the procedure well and was taken to the ICU in stable condition. Ramiro Molina MD TID: [id number] RECEIPT: [id number] FROYLAN/DAWSON
[2025-05-07 20:08] LABS: INR 1.1 INR
[2025-05-07] MEDS: vancomycin/NS 1 GM ADD-VANTAGE 250 ML IV SCH (20:21)
[2025-05-07] MEDS: ipratropium/albuterol 3ml nebule NEB ONE (23:25)
[2025-05-08] VITALS (41 sets, daily range): BP systolic 80–157; BP diastolic 43–74; PULSE 60–115; RESP 10–27; TEMP 98.8–99.3; O2SAT 84–99
[2025-05-08 01:18] LABS: ABG BASE EXCESS -5.0 mmol/L (-2.0-3.0); ABG HCO3 20.2 mmol/L (21.0-28.0); ABG OXYGEN SATURATION 97.7 % (94.0-98.0); ABG PCO2 (T) 39.3 mmHg (35.0-48.0); ABG PH (T) 7.332 (7.350-7.450); ABG PO2 (T) 114.0 mmHg (83.0-108.0); FCOHb 0.8 % (0.5-1.5); FHHb 2.3 % (0.0-5.0); FIO2 40.0 mmHg/%; FMetHb 0.3 % (0.0-1.5); FO2Hb 96.6 % (94.0-98.0); MODE VENT - CPAP; PATIENT TEMPERATURE 37.9; PEEP 5 cm H2O; TOTAL HEMOGLOBIN 8.6 G/dl (13.5-17.5)
[2025-05-08 01:32] LABS: APTT 27 SECONDS (22-32); INR 1.1 INR
[2025-05-08 01:34] LABS: CREATININE 1.25 MG/DL (0.60-1.10); PHOSPHORUS 3.6 MG/DL (2.3-4.5); TOTAL CARBON DIOXIDE 23.5 MMOL/L (24-32); eCRCL 41 ML/MIN; eGFR 55 ML/MIN
[2025-05-08 01:49] LABS: MEAN PLATELET VOLUME 8.1 FL (7.4-10.4); RED CELL DISTRIBUTION WIDTH 15.4 % (11.5-14.5)
--- NOTE | 2025-05-08 07:32 | RADIOLOGY REPORT ---
CLINICAL INFORMATION: Postop. TECHNIQUE: Single AP portable chest radiograph was obtained. COMPARISON: DI CHEST,SINGLE VIEW on DOS: 05/07/25, CT CT CHEST on DOS: 05/04/25, DI CHEST,TWO VIEWS on DOS: 05/03/25 FINDINGS: Interval removal of the endotracheal tube and enteric tube. Stable satisfactory positioning of the swan-Mounika catheter, right internal jugular central venous catheter, left chest tube, and mediastinal drain. Stable positioning of the pacemaker leads. Mild blunting of the left costophrenic angle suggesting small left pleural effusion with overlying atelectasis and/or consolidation, unchanged. Similar-appearing interstitial opacities and ill-defined airspace opacities in the left lung. No pneumothorax. No other significant interval change. IMPRESSION: 1. Interval removal of the endotracheal tube and enteric tube. 2. No other significant interval change as described above.
[2025-05-08] MEDS: metoprolol tartrate 12.5mg (1/2 tablet) PO SCH (08:00)
--- NOTE | 2025-05-08 08:20 | PROGRESS NOTE ---
Progress Note CV Providers to CC ~ Antibiotics Ordered?: No Subjective Subjective S/P CABG x 4 POD # 1. Awake, a bit confused at times but knows he had surgery and is very painful. No nausea. He is very thirsty. Objective Vitals Vital Signs Date Time Temp Pulse Resp B/P (MAP) Pulse Ox O2 Delivery O2 Flow Rate FiO2 05/08/25 08:06 66 18 93 Nasal Cannula* 5 40 05/08/25 06:51 100.2 103/49 (67) Lab Results: 05/08/25 01005/08/25 010 Objective Lungs - a bit diminished at bases Heart - RRR, paced Abd/Extr - OK Incisions - dsgs CDI CT output about 1200 since OR, Rec'd 1 unit PRBC's, 2 10 pack platelets and some Cryo No air leak Coagulation Studies Laboratory Tests Test 05/07/25 00:57 05/07/25 08:38 05/07/25 13:23 05/07/25 19:00 APTT (Heparin Protocol) 53 SECONDS (45-60) Patient Sex (Coag) M Patient Height (Coag) 170cm Patient Weight (Coag) 84.0k KG Patient Blood Volume 5799 ML Pump Volume 1500 ML Total Blood Volume 7299 ML Projected Heparin Concentration 1.8 MG/KG Heparin [place] 137 Calculated Heparin Bolus 76987 UNITS Activated Coagulation Time Baseline 141 SEC (101-148) Activated Coag Time 1.70 U/mL 323 SEC (193-297) H Activated Coag Time 2.84 U/mL 476 SEC (260-420) H Heparin Level (COAG) 0 MG/KG Calculated Heparin Req (Hep Assay) 58025 UNITS Calculated Protamine Req (Hep Assay 0 MG Activated Clotting Time 126 SEC (101-148) Fibrinogen 260 MG/DL (177-424) Coagulation Clinical Comments Test 05/08/25 01:09 Prothrombin Time 11.1 SECONDS (9.0-12.0) INR International Normalized Ratio 1.1 INR Activated Partial Thromboplast Time 27 SECONDS (22-32) Coagulation Comments Cardiac Rhythm: V Paced Problem\Assessment\Plan Additional Plan POD # 1 CI 2.9 BP a bit soft when awake. He is on some primacor and a little Levophed. Painful. Add lidocaine patches. Mobilize. Pulm toilet. Sepsis Screening Reassessment Date: May 08, 2025 Supervising MD Co-signing Provider: ANA Casey May 08, 2025 08:20
[2025-05-08] MEDS: HYDROcodone/acetaminophen 10/325mg tab PO PRN ×2 (08:23→11:46)
[2025-05-08 08:59] LABS: ABG PO2 419.2 mmHg (83.0-108.0)
[2025-05-08 09:00] LABS: ABG PO2 401.0 mmHg (83.0-108.0)
[2025-05-08 09:00] LABS: ABG PO2 371.6 mmHg (83.0-108.0)
[2025-05-08 09:00] LABS: ABG PO2 445.8 mmHg (83.0-108.0)
[2025-05-08] MEDS ORDERED: glucagon, human recombinant 1mg kit SUBCUT PRN (09:10)
[2025-05-08] MEDS ORDERED: dextrose 50%-water 50ml dispensing syringe IV PRN (09:10)
[2025-05-08] MEDS ORDERED: DEXTROSE 15 GM of carb/4 tabs (each vial/BOTTLE has 4 tablets) PO PRN ×2 (09:10)
[2025-05-08 09:34] LABS: MEAN PLATELET VOLUME 8.4 FL (7.4-10.4); RED CELL DISTRIBUTION WIDTH 16.1 % (11.5-14.5)
[2025-05-08] MEDS: INSULIN LISPRO 100 UNIT/ML INSULN.PEN MULTI-DOSE SQ SCH (13:30)
[2025-05-08] MEDS: mineral oil/petrolatum ophthal oint EACHEYE SCH (14:00)
--- NOTE | 2025-05-08 18:31 | PROGRESS NOTE- Residence ---
Progress Note - Resident Providers to CC Resident Creating Document: HUI MYERS RES ~ Antibiotic Timeout Antibiotic Ordered?: Yes Subjective Patient was seen at the bedside today. Patient was taken off his mechanical ventilation. And currently on 5 L of oxygen through nasal cannula. He is stable, no acute overnight events recorded. Objective Vital Signs Date Time Temp Pulse Resp B/P (MAP) Pulse Ox O2 Delivery O2 Flow Rate FiO2 05/08/25 18:00 99.9 65 14 101/61 (78) 90 Nasal Cannula 5.0 05/08/25 08:06 40 Result Diagram: 05/08/25 0835 05/08/25 0109 General: Sleeping, no acute distress. HEENT: Conjunctiva pink, Sclera clear, Mucus Membranes moist. Neck: Supple without masses and tenderness. Resp: Unlabored. Lungs clear to auscultation bilaterally. Heart: Regular Rate and rhythm, normal S1 and S2 without murmur, rub or gallop. Abdomen: Soft and non tender no organomegaly Extremities: 1+ pitting lower extremity peripheral edema. No cyanosis or clubbing. Skin: Warm and Dry. Coagulation Studies Laboratory Tests Test 05/07/25 00:57 05/07/25 08:38 05/07/25 13:23 05/07/25 19:00 APTT (Heparin Protocol) 53 SECONDS (45-60) Patient Sex (Coag) M Patient Height (Coag) 170cm Patient Weight (Coag) 84.0k KG Patient Blood Volume 5799 ML Pump Volume 1500 ML Total Blood Volume 7299 ML Projected Heparin Concentration 1.8 MG/KG Heparin [place] 137 Calculated Heparin Bolus 44227 UNITS Activated Coagulation Time Baseline 141 SEC (101-148) Activated Coag Time 1.70 U/mL 323 SEC (193-297) H Activated Coag Time 2.84 U/mL 476 SEC (260-420) H Heparin Level (COAG) 0 MG/KG Calculated Heparin Req (Hep Assay) 76887 UNITS Calculated Protamine Req (Hep Assay 0 MG Activated Clotting Time 126 SEC (101-148) Fibrinogen 260 MG/DL (177-424) Coagulation Clinical Comments Test 05/08/25 01:09 Prothrombin Time 11.1 SECONDS (9.0-12.0) INR International Normalized Ratio 1.1 INR Activated Partial Thromboplast Time 27 SECONDS (22-32) Coagulation Comments Assessment Assessment 84-year-old male patient with past medical history of hypertension, hyperlipidemia, type 2 diabetes, peripheral artery disease, CKD transferred from [facility] for chest pain and shortness of breath with exertion. Cardiac catheterization showed high grade lesions of the LAD, RCA, Circ, and ramus intermedius requiring CABG. Plan Plan ACS- NSTEMI DIANA Score 5 points , HUMAIRA Score 131 points Patient complained of severe chest pain associated with shortness of breath on exertion Asymptomatic after initial management EKG: Sinus rhythm, rate 61, regular pacemaker rhythm Cardiac catheterization showed high grade lesions of the LAD, RCA, Circ, and ramus intermedius requiring CABG. Dr. Molina consulted, CABG done today. Patient currently in CICU is being monitored. BNP 3792 Lipid panel-cholesterol 126, LDL 67, HDL 30 Echo: Normal LV size and wall thickness. Overall systolic function is mildly reduced. LVEF is 45-50%. Right ventricle is severely dilated. Elevated right heart pressures as noted above. Pacemaker wire in right heart. Left atrium is mildly dilated. Right atrium is at least moderately dilated. Trileaflet AV appears mildly sclerotic with mild stenosis. WES: 1.52 cmsq; Pkv: 223 cm/sec; Gradients: 20/11 mmHG. No insufficiency. Stenosis severity is likely mild, but fails to meet criteria due to low flow / low gradient conditions. Mild MV annular calcification without stenosis. Mild regurgitation. TV appears structurally normal with moderate regurgitation. Pulmonic valve is not well visualized. The aortic root is normal in size. Normal pericardium. No effusion. Venous Doppler: The left great saphenous vein measures 2.8-3.6 mm below the knee, 3.9-6.8 mm above the knee. The left great saphenous vein is compressible along its entire visualized length. The right great saphenous vein is reported to be ablated. Carotid ultrasound: No hemodynamically significant stenosis by velocity criteria. Plan CABG done. Patient taken of his mechanical ventilator. Currently on 5 L of oxygen through nasal cannula. Patient on vancomycin, cefazolin antibiotics Patient on aspirin 81 mg. Continue atorvastatin 80 mg daily, losartan 50mg daily and metoprolol 50mg bid Patient given 2 units of blood. Patient on morphine and [place] for pain. No longer on nitroglycerin drip. Type 2 diabetes mellitus ZnT5a-3.5 Hold metformin Started on glargine 12 units at bedtime Placed on medium dose hyper/hypoglycemia protocol ALVIN on Chronic kidney disease Due to acute tubular stasis Resolved Creatinine-1.25 BUN-17 Comorbidities: Hypertension Hyperlipidemia Peripheral artery disease s/p angioplasty in the left SFA and popliteal arteries [place] [address] Carias Complete heart block status post pacemaker Continue home medication atorvastatin 80 mg p.o. HS, losartan/hydrochlorothiazide 50/12.5 p.o. daily, metoprolol 50 mg p.o. q.12h Outpatient follow-up Code Status: Full code DVT prophylaxis: Heparin 5000 units subcutaneous t.i.d. Analgesia/sedation: Morphine p.r.n. Line/tube: PIV GI prophylaxis: Pantoprazole Nutrition: 75 g diet Prognosis: Guarded Physical therapy: Ordered Disposition: Patient moved to CICU. CABG done. Not on ventilator. Hui Myers Internal Medicine, PGY1 Date of Service: May 08, 2025 Billing Provider: JUANJOSE ALDRICH MD,HUI, RES May 08, 2025 18:31
[2025-05-08 18:53] LABS: MEAN PLATELET VOLUME 8.1 FL (7.4-10.4); RED CELL DISTRIBUTION WIDTH 24.6 % (11.5-14.5)
[2025-05-08 19:10] LABS: CREATININE 2.12 MG/DL (0.60-1.10); TOTAL CARBON DIOXIDE 19.6 MMOL/L (24-32); eCRCL 24 ML/MIN; eGFR 30 ML/MIN
[2025-05-08] MEDS: furosemide inj 100 MG in normal saline 100ml IV soln 90 ML IV SCH (20:07)
--- NOTE | 2025-05-08 20:10 | RADIOLOGY REPORT ---
CHEST RADIOGRAPH Indication: MD order Technique: Single frontal view of the chest was obtained COMPARISON: DI CHEST,SINGLE VIEW on DOS: 05/08/25, DI CHEST,SINGLE VIEW on DOS: 05/07/25, CT CT CHEST on DOS: 05/04/25, DI CHEST,TWO VIEWS on DOS: 05/03/25, XR CHEST 1 VIEW on DOS: 05/03/25 FINDINGS: Lines and Tubes: Pacemaker/ AICD in the right upper chest with multiple cardiac leads. Lungs: Moderate interstitial pulmonary edema. Pleura: Small left effusion. There is a drainage catheter overlying the left lung base. No pneumothorax. No pneumothorax. Cardiomediastinal contours: Cardiomegaly Bones: Unremarkable IMPRESSION: 1. Moderate interstitial pulmonary edema. 2. Small left effusion.
[2025-05-08] MEDS: DOPamine 400mg/D5W 250ml 250 ML IV ONE (20:25)
[2025-05-08] MEDS: sodium bicarbonate (8.4%) 1 mEq/ml syringe IV ONE ×2 (20:50→21:22)
[2025-05-08] MEDS: sodium bicarbonate (8.4%) 1 mEq/ml syringe ONE (20:51)
[2025-05-08] MEDS: CALCIUM GLUC 1gm/50ml NACL,iso 50 ML IV ONE ×2 (20:54→20:59)
[2025-05-08] MEDS: albuterol 2.5 MG/3 ML nebule NEB PRN (21:07)
[2025-05-08 21:15] LABS: ABG BASE EXCESS -6.9 mmol/L (-2.0-3.0); ABG HCO3 20.0 mmol/L (21.0-28.0); ABG OXYGEN SATURATION 96.7 % (94.0-98.0); ABG PCO2 (T) 46.1 mmHg (35.0-48.0); ABG PH (T) 7.255 (7.350-7.450); ABG PO2 (T) 100.1 mmHg (83.0-108.0); FCOHb 0.6 % (0.5-1.5); FHHb 3.3 % (0.0-5.0); FIO2 100.0 mmHg/%; FMetHb 0.3 % (0.0-1.5); FO2Hb 95.8 % (94.0-98.0); PATIENT TEMPERATURE 37.1; RESPIRATORY RATE 16 b/min; TOTAL HEMOGLOBIN 10.6 G/dl (13.5-17.5)
[2025-05-08] MEDS: SODIUM ZIRCONIUM CYCLOSILICATE 10 GM POWD.PACK PO SCH (21:21)
--- NOTE | 2025-05-08 21:29 | PROGRESS NOTE ---
Clinical Note Clinical Note Progress Note: Pt noted to have decreasing urine output over the course of the past 4 hours. Repeat BMP showed creat of 2.1, K 5.9. CXR showed congestion, cardiomegaly, gastric dilitation. PAP 30-40s, CVP 15-20 Bedside echo showed EF 50%, LVH, underfilled LV, no obvious bailey pericardial fluid or clot, RV mildly depressed. Plan Fluid bolus Ca++, Bicarb Lasix Continue inotropic support to maintain higher MAP Renal service contacted for consultative guidance for acute renal failure, hyperkalemia Pacemaker interrogation Spouse updated ION LOMELI MD May 08, 2025 21:29
[2025-05-08 21:55] LABS: CREATININE,URINE RANDOM 94.0 MG/DL; TOTAL PROTEIN,URINE RANDOM 88.1 MG/DL; UA UREA RANDOM 106.0 MG/DL
[2025-05-08 21:58] LABS: LEUKOCYTE ESTERASE ,URINE NEGATIVE (Neg); NITRITES, URINE NEGATIVE (Neg); OCCULT BLOOD,URINE LARGE (Neg)
[2025-05-08 22:00] LABS: UA COLLECTION TYPE NON-SPECIFIED
[2025-05-08 22:02] LABS: OSMOLALITY UA 319.0 MOSM/K (50-1400)
[2025-05-08] MEDS: albumin (Human) 5% 250ml 250 ML IV ONE (22:06)
[2025-05-08 22:10] LABS: AMORPHOUS URATES 1+; SQUAMOUS EPITHELIAL CELL,UR NONE SEEN /LPF (FEW)
[2025-05-08 22:35] LABS: UA EOSINOPHILS NO EOS /HPF
[2025-05-08 23:23] LABS: CREATININE 2.15 MG/DL (0.60-1.10); PHOSPHORUS 6.3 MG/DL (2.3-4.5); TOTAL CARBON DIOXIDE 25.7 MMOL/L (24-32); eCRCL 24 ML/MIN; eGFR 29 ML/MIN
[2025-05-09] VITALS (38 sets, daily range): BP systolic 97–138; BP diastolic 44–95; PULSE 60–111; RESP 11–24; O2SAT 70–100
[2025-05-09] MEDS: INSULIN LISPRO 100 UNIT/ML INSULN.PEN MULTI-DOSE SQ SCH (02:51)
[2025-05-09 02:55] LABS: MEAN PLATELET VOLUME 8.3 FL (7.4-10.4); RED CELL DISTRIBUTION WIDTH 24.1 % (11.5-14.5)
[2025-05-09 03:08] LABS: CREATININE 2.08 MG/DL (0.60-1.10); PHOSPHORUS 6.0 MG/DL (2.3-4.5); TOTAL CARBON DIOXIDE 26.8 MMOL/L (24-32); eCRCL 25 ML/MIN; eGFR 31 ML/MIN
--- NOTE | 2025-05-09 06:03 | RADIOLOGY REPORT ---
CHEST RADIOGRAPH Indication: POST OP Technique: Single frontal view of the chest was obtained COMPARISON: DI CHEST,SINGLE VIEW on DOS: 05/08/25, DI CHEST,SINGLE VIEW on DOS: 05/08/25, DI CHEST,SINGLE VIEW on DOS: 05/07/25, CT CT CHEST on DOS: 05/04/25, DI CHEST,TWO VIEWS on DOS: 05/03/25 FINDINGS: Lines and Tubes: Right central venous catheter and [place]-Mounika catheter in satisfactory position. Right chest wall pacemaker. Lungs: Pulmonary vascular congestion, unchanged. Pleura: Small left pleural effusion. Cardiomediastinal contours: Unremarkable. Bones: Unremarkable. IMPRESSION: Lines and tubes in satisfactory position. No significant interval change.
[2025-05-09 07:41] LABS: CREATININE 2.14 MG/DL (0.60-1.10); PHOSPHORUS 5.8 MG/DL (2.3-4.5); TOTAL CARBON DIOXIDE 24.5 MMOL/L (24-32); eCRCL 24 ML/MIN; eGFR 30 ML/MIN
--- NOTE | 2025-05-09 08:09 | PROGRESS NOTE ---
Progress Note CV Providers to CC ~ Antibiotics Ordered?: No Subjective Subjective S/P CABG x 4 POD # 2. UOP decreased last night along with elevated central and PA pressures. Lasix had been given. Ultimately Lasix gtt started. He is on Dobutamine as well. Levophed is off. He was on bipap overnight. Objective Vitals Vital Signs Date Time Temp Pulse Resp B/P (MAP) Pulse Ox O2 Delivery O2 Flow Rate FiO2 05/09/25 07:44 75 15 95 75 20 05/09/25 07:00 100.8 118/56 (77) Bi-pap/CPAP 05/08/25 21:00 10.0 Lab Results: 05/09/25 0225 05/09/25 0711 Objective Lungs - coarse Heart - Irreg., tachy at 110 - 125 Abd/Extr - OK Incisions - CDI CT output minimal and serous Coagulation Studies Laboratory Tests Test 05/07/25 00:57 05/07/25 08:38 05/07/25 13:23 05/07/25 19:00 APTT (Heparin Protocol) 53 SECONDS (45-60) Patient Sex (Coag) M Patient Height (Coag) 170cm Patient Weight (Coag) 84.0k KG Patient Blood Volume 5799 ML Pump Volume 1500 ML Total Blood Volume 7299 ML Projected Heparin Concentration 1.8 MG/KG Heparin [place] 137 Calculated Heparin Bolus 73945 UNITS Activated Coagulation Time Baseline 141 SEC (101-148) Activated Coag Time 1.70 U/mL 323 SEC (193-297) H Activated Coag Time 2.84 U/mL 476 SEC (260-420) H Heparin Level (COAG) 0 MG/KG Calculated Heparin Req (Hep Assay) 42807 UNITS Calculated Protamine Req (Hep Assay 0 MG Activated Clotting Time 126 SEC (101-148) Fibrinogen 260 MG/DL (177-424) Coagulation Clinical Comments Test 05/08/25 01:09 Prothrombin Time 11.1 SECONDS (9.0-12.0) INR International Normalized Ratio 1.1 INR Activated Partial Thromboplast Time 27 SECONDS (22-32) Coagulation Comments Cardiac Rhythm: Sinus Rhythm, V Paced, AV Paced Problem\Assessment\Plan Additional Plan POD # 2 UOP OK on Lasix gtt Creat uptrending. Currently 2.14 K improved down to 4.8 Checking labs q4h Needs pulm toilet. Mobilize as tolerated. Keep CT's until pt ambulates Sepsis Screening Reassessment Date: May 09, 2025 Supervising MD Co-signing Provider: ANA Casey May 09, 2025 08:09
[2025-05-09] MEDS: pantoprazole 40mg Tablet.DR PO SCH (08:10)
[2025-05-09 11:17] LABS: CREATININE 2.45 MG/DL (0.60-1.10); PHOSPHORUS 7.0 MG/DL (2.3-4.5); TOTAL CARBON DIOXIDE 26.0 MMOL/L (24-32); eCRCL 21 ML/MIN; eGFR 25 ML/MIN
[2025-05-09 11:36] LABS: ABG BASE EXCESS -3.9 mmol/L (-2.0-3.0); ABG HCO3 23.3 mmol/L (21.0-28.0); ABG OXYGEN SATURATION 95.9 % (94.0-98.0); ABG PCO2 (T) 53.1 mmHg (35.0-48.0); ABG PH (T) 7.263 (7.350-7.450); ABG PO2 (T) 92.2 mmHg (83.0-108.0); FCOHb 0.4 % (0.5-1.5); FHHb 4.1 % (0.0-5.0); FIO2 75.0 mmHg/%; FMetHb 0.3 % (0.0-1.5); FO2Hb 95.2 % (94.0-98.0); MODE MASK - BIPAP; PATIENT TEMPERATURE 37.6; RESPIRATORY RATE 14 b/min; TOTAL HEMOGLOBIN 11.2 G/dl (13.5-17.5)
[2025-05-09] MEDS: albumin (Human) 5% 250ml 250 ML IV ONE ×2 (12:22→19:53)
[2025-05-09] MEDS: sodium bicarbonate (8.4%) 1 mEq/ml syringe IV ONE ×2 (12:23→22:55)
[2025-05-09] MEDS: CALCIUM GLUC 1gm/50ml NACL,iso 50 ML IV ONE (13:15)
[2025-05-09 13:17] LABS: ABG BASE EXCESS -1.2 mmol/L (-2.0-3.0); ABG HCO3 25.7 mmol/L (21.0-28.0); ABG OXYGEN SATURATION 97.4 % (94.0-98.0); ABG PCO2 (T) 54.3 mmHg (35.0-48.0); ABG PH (T) 7.295 (7.350-7.450); ABG PO2 (T) 108.7 mmHg (83.0-108.0); FCOHb 0.2 % (0.5-1.5); FHHb 2.6 % (0.0-5.0); FIO2 70.0 mmHg/%; FMetHb 0.3 % (0.0-1.5); FO2Hb 96.9 % (94.0-98.0); MODE MASK - BIPAP; PATIENT TEMPERATURE 37.5; RESPIRATORY RATE 18 b/min; TOTAL HEMOGLOBIN 10.9 G/dl (13.5-17.5)
--- NOTE | 2025-05-09 14:03 | CONSULTATION REPORT - RESIDENT ---
Consult Providers to CC Resident Creating Document: LINDSEY WAYNE RES History of Present Illness Reason for Admit\Complaint: ALVIN History of Present Illness This is a 84-year-old male patient with past medical history of hypertension, hyperlipidemia, type 2 diabetes, peripheral artery disease, CKD, complete heart block s/p pacemaker transferred from [facility] for chest pain and shortness of breath with exertion. Patient was admitted for NSTEMI, was initially started on heparin drip. Cardiac catheterization on 05/04 showed high grade lesions of the LAD, RCA, Circ, and ramus intermedius. CABG was done by Dr. Molina on 05/07/2025. The nephrology team has been consulted for ALVIN and hyperkalemia. Creatinine on 05/07/2025 was 0.98, slowly trending high. Today creatinine is 2.45. The ALVIN could be likely secondary to decreased perfusion secondary to [place] vs contrast exposure during cardiac catheterization vs stress post surgically. Creatinine today is 2.45, increased from 0.99 from 05/07/2025. BUN is 33. Patient had hyperkalemia, 5.9 yesterday was given one dose of calcium gluconate. Allergies: Coded Allergies: chlorhexidine (Verified Allergy, Severe, SEVERE RASH WITH BLISTERS, 05/03/25) Home Medications Home Medications Active Reported [Garlic] 1 Tab PO Q12H Glucosamine-Chondroitin Tab (Glucosamine/Chondro Forrest A) 500 Mg-400 Mg Tablet 2 Tab PO DAILY Preservision Areds 2 Softgel (Vit C/E/Zn/Coppr/Lutein/Zeaxan) 250MG-90MG Capsule 1 Cap PO Q12H Vitamin E (Vitamin E Acetate) 180 Mg (400 Unit) Capsule 2 Cap PO DAILY Lipitor* (Atorvastatin Calcium) 40 Mg Tablet 1 Tab PO HS Chlorpheniramine Maleate 4 Mg Tablet 1 Tab PO DAILY PRN Metoprolol Succinate 50 Mg Tab.sr.24h 1 Tab PO BID Neurontin (Gabapentin) 300 Mg Capsule 300 Mg PO TID Losartan-Hctz 50-12.5 Mg Tab (Losartan/Hydrochlorothiazide) 50 Mg-12.5 Mg Tablet 1 Tab PO DAILY Metformin Hcl 500 Mg Tablet 1 Tab PO Q12H Aspirin 81 Mg Tab.chew 1 Tab PO DAILY Fish Oil 1,000 Mg Softgel (Docosahexanoic Acid/Epa) 1 Each Capsule 1 Cap PO DAILY 30 Days WITH MEALS [prevagen] 50 Mcg PO DAILY [facility] Prostate [facility] Formula Tb (Saw/[place]/Nettle/Pumpkn/Aa#17) 1 Each Tablet 1 Each PO DAILY Vitamin C (Ascorbic Acid) 2,000 Mg Tablet.sa 2,000 Mg PO DAILY Multi-Vitamin Daily (Multivitamin) 1 Each Tablet 1 Each PO DAILY Claritin* (Loratadine) 10 Mg Tablet 10 Mg PO DAILY Prilosec* (Omeprazole) 20 Mg Capsule.dr 20 Mg PO BID Past Medical History Past Medical History Hypertension Hyperlipidemia Type 2 diabetes mellitus Chronic kidney disease Peripheral artery disease Complete heart block status post pacemaker Past Surgical History Surgical History Comment Angioplasty in the left SFA and popliteal arteries in [address] Carias Cholecystectomy Right inguinal hernioplasty Right shoulder surgery Past Social History Social History Comment Smoking: Less than 1 pack/day (Patient smokes half a pack daily) Alcohol Use: None Drug Use: None Lives with: Spouse Lives In: Home Occupation: retired Exam Vitals: Vital Signs Date Time Temp Pulse Resp B/P (MAP) Pulse Ox O2 Delivery O2 Flow Rate FiO2 05/09/25 13:26 80 20 Bi-pap 100 05/09/25 13:18 70 05/09/25 13:00 99.5 138/62 05/09/25 10:00 15.0 General: General: Awake and Alert, no acute distress. HEENT: Conjunctiva pink, Sclera clear, Mucus Membranes moist. Neck: Supple without masses and tenderness. Resp: Unlabored. Lungs clear to auscultation bilaterally. Heart: Regular Rate and rhythm, normal S1 and S2 without murmur, rub or gallop. Abdomen: Soft and non tender no organomegaly Extremities: 1+ pitting lower extremity peripheral edema. No cyanosis or clubbing. Skin: Warm and Dry. Surgical scar in the center of the chest, the wound dressing appears clean, no signs of inflammation or infection. Diagnostic Data Last Recorded Lab Results: 05/09/25 0225 05/09/25 1055 Diagnostic Data: Laboratory Tests Test 05/07/25 00:57 05/07/25 08:38 05/07/25 13:23 05/07/25 19:00 APTT (Heparin Protocol) 53 SECONDS (45-60) Patient Sex (Coag) M Patient Height (Coag) 170cm Patient Weight (Coag) 84.0k KG Patient Blood Volume 5799 ML Pump Volume 1500 ML Total Blood Volume 7299 ML Projected Heparin Concentration 1.8 MG/KG Heparin [place] 137 Calculated Heparin Bolus 21692 UNITS Activated Coagulation Time Baseline 141 SEC (101-148) Activated Coag Time 1.70 U/mL 323 SEC (193-297) H Activated Coag Time 2.84 U/mL 476 SEC (260-420) H Heparin Level (COAG) 0 MG/KG Calculated Heparin Req (Hep Assay) 50994 UNITS Calculated Protamine Req (Hep Assay 0 MG Activated Clotting Time 126 SEC (101-148) Fibrinogen 260 MG/DL (177-424) Coagulation Clinical Comments Test 05/08/25 01:09 Prothrombin Time 11.1 SECONDS (9.0-12.0) INR International Normalized Ratio 1.1 INR Activated Partial Thromboplast Time 27 SECONDS (22-32) Coagulation Comments Additional Plan Assessment This is a 84-year-old male patient with past medical history of hypertension, hyperlipidemia, type 2 diabetes, peripheral artery disease, CKD, complete heart block s/p pacemaker transferred from [facility] for chest pain and shortness of breath with exertion. Patient was admitted for NSTEMI, was initially started on heparin drip. Cardiac catheterization on 05/04 showed high grade lesions of the LAD, RCA, Circ, and ramus intermedius. CABG was done by Dr. Molina on 05/07/2025. The nephrology team has been consulted for ALVIN and hyperkalemia. Creatinine on 05/07/2025 was 0.98, slowly trending high. Today creatinine is 2.45. The ALVIN could be likely secondary to decreased perfusion secondary to [place] vs contrast exposure during cardiac catheterization vs stress post surgically. Creatinine today is 2.45, increased from 0.99 from 05/07/2025. BUN is 33. Patient had hyperkalemia, 5.9 yesterday was given one dose of calcium gluconate. Plan ALVIN likely prerenal ALVIN could be likely secondary to decreased perfusion secondary to [place] vs contrast exposure during cardiac catheterization vs stress post surgically. Baseline kidney function is not known. Creatinine today is 2.45, increased from 0.99 from 05/07/2025. BUN is 33, GFR is 25, BUN/creatinine-13.5 UA on 05/08 showed, protein 100, large occult blood-proteinuriaI and occult blood could be secondary to ALVIN Urine electrolytes showed Destiny-50, FeNa-0.9%, Feurea-8.4%--indicating prerenal damage Decreased urine output-0.49 mL/kg per hour Plan Patient is currently on dobutamine drip which might help with the renal function. Levophed off. We will continue to monitor the kidney function daily IV fluids under caution because of the recent ALVIN. Avoid nephrotoxin agents, avoid [place] or morphine for pain management Avoid MELLISSA/ARB Strict I&Os Renal diet Electrolytes Hyperkalemia-improved Potassium 5.9 Was given one dose of calcium gluconate, potassium improved Lokelma 10 g daily. CAD s/p CABG on 05/07/2025, POD 2 Cardiac catheterization on 05/04 showed high grade lesions of the LAD, RCA, Circ, and ramus intermedius. CABG was done by Dr. Molina on 05/07/2025. Was given Lasix last night and was on BiPAP, currently on oxygen with nasal cannula. Echo after CABG showed an ejection fraction of 45-50%, with the elevated right heart pressures., mild aortic stenosis. Physical therapy On aspirin, atorvastatin, metoprolol Type 2 diabetes mellitus [id number] Hold metformin Started on glargine 12 units at bedtime Placed on medium dose hyper/hypoglycemia protocol Hypertension Hyperlipidemia Peripheral artery disease s/p angioplasty in the left SFA and popliteal arteries [place] [address] Carias Complete heart block status post pacemaker Lindsey Wayne M.D PGY2 Nephrology Resident Date of Service: May 09, 2025 Billing Provider: JENS BLAS III, PRAVAHIKA, RES May 09, 2025 14:03
--- NOTE | 2025-05-09 14:17 | RADIOLOGY REPORT ---
Date: 05/09/2025 01:43 PM Examination: DI ABDOMEN,SINGLE VIEW(KUB) History: NG tube placement Comparison: None TECHNIQUE: Frontal views of the abdomen was obtained. FINDINGS/IMPRESSION: Bowel gas pattern is unremarkable in the upper abdomen. Enteric tube tip projects over the distal stomach versus proximal. Bibasilar opacities. Lower abdomen and pelvis field of view. No acute osseous abnormality identified.
[2025-05-09] MEDS ORDERED: normal saline 1000ml 1,000 ML IV SCH (14:30)
[2025-05-09 15:51] LABS: CREATININE 2.40 MG/DL (0.60-1.10); PHOSPHORUS 6.6 MG/DL (2.3-4.5); TOTAL CARBON DIOXIDE 27.7 MMOL/L (24-32); eCRCL 21 ML/MIN; eGFR 26 ML/MIN
[2025-05-09] MEDS: amiodarone/D5 360MG/200ML BAG 200 ML IV SCH (16:24)
[2025-05-09 16:45] LABS: ABG BASE EXCESS -2.6 mmol/L (-2.0-3.0); ABG HCO3 22.6 mmol/L (21.0-28.0); ABG OXYGEN SATURATION 97.3 % (94.0-98.0); ABG PCO2 (T) 42.8 mmHg (35.0-48.0); ABG PH (T) 7.346 (7.350-7.450); ABG PO2 (T) 102.8 mmHg (83.0-108.0); FCOHb 0.3 % (0.5-1.5); FHHb 2.7 % (0.0-5.0); FIO2 60.0 mmHg/%; FMetHb 0.3 % (0.0-1.5); FO2Hb 96.7 % (94.0-98.0); MODE MASK - BIPAP; PATIENT TEMPERATURE 37.9; RESPIRATORY RATE 18 b/min; TIDAL VOLUME 650 mL; TOTAL HEMOGLOBIN 10.9 G/dl (13.5-17.5)
[2025-05-09 16:56] LABS: CREATININE,URINE RANDOM 92.0 MG/DL; UA UREA RANDOM 274.0 MG/DL
[2025-05-09 17:02] LABS: OSMOLALITY UA 360.0 MOSM/K (50-1400)
--- NOTE | 2025-05-09 19:40 | CARDIOLOGY REPORT ---
APPROVED REPORT EXAM: Limited 2D, Doppler, and color-flow Echocardiogram. Patient Location: 2010 Blood Pressure: 98/47 mmHg Heart Rate: 104 bpm Indications EVALUATE FOR EFFUSION AND THROMBUS Coronary Artery Disease Atrial Fibrillation CABG x 3 (05/07/25) Left Atrial Appendage Ligated PHLEBOTOMIST: Papo Rodriguez MD Previous ECHO: 05/07/25, [facility], EF: 65 (with 3 mcg/kg/min Dobutamine); sev LAE; mod RVE; m MR/TR 2D Dimensions IVSd 1.2 (0.7-1.1cm) LVDd 3.1 cm PWd 1.0 (0.7-1.1cm) IVSs 1.4 (0.8-1.2cm) LVDs 2.3 (2.5-4.0cm) PWs 0.9 (0.8-1.2cm) LVEF(%) 54.8 (>50%) FS (%) 27.5 % SV 21.5 ml CO 2.4 L/min Tricuspid Valve TR P. Velocity 282 cm/s RAP ESTIMATE 10 mmHg TR Peak Gr. 32 mmHg RVSP 42 mmHg LEFT VENTRICLE LV appears small in size with mild concentric hypertrophy. Oveall systolic function is mildly decreased No left ventricular thrombus noted. LVEF is [id number]% with administration of Levophed at 0.05 mcg/kg/min. RIGHT VENTRICLE Right ventricle appears moderately dilated with preserved function. No right ventricular thrombus noted. Elevated right heart pressures as noted above. ATRIA Pacemaker lead is present in the right heart. AORTIC VALVE Aortic valve is grossly normal in structure without stenosis. AV not fully evaluated due to limited exam. MITRAL VALVE Mitral valve is grossly normal in structure without stenosis. MV not fully evaluated due to limited exam. TRICUSPID VALVE Tricuspid valve is grossly normal in structure with moderate regurgitation. GREAT VESSELS IVC was not seen. PERICARDIUM Trivial loculated pericardial effusion noted along the RV free wall. No echo indications of pericardial tamponade. Other Information Study Quality: Fair S/P surgical bandags limiting echo windows and supine patient Conclusion LV appears small in size with mild concentric hypertrophy. Oveall systolic function is mildly decreased. LVEF is approximately 50% with administration of Levophed at 0.05 mcg/kg/min. Right ventricle appears moderately dilated with preserved function. No right ventricular thrombus noted. Elevated right heart pressures with an RVSP of 42 mmHg. Pacemaker lead is present in the right heart. Aortic valve is grossly normal in structure without stenosis. AV not fully evaluated due to limited exam. Mitral valve is grossly normal in structure without stenosis. MV not fully evaluated due to limited exam. Tricuspid valve is grossly normal in structure with moderate regurgitation. Trivial loculated pericardial effusion noted along the RV free wall. No echo indications of pericardial tamponade.
[2025-05-09 20:04] LABS: ABG BASE EXCESS -5.7 mmol/L (-2.0-3.0); ABG HCO3 20.9 mmol/L (21.0-28.0); ABG OXYGEN SATURATION 84.8 % (94.0-98.0); ABG PCO2 (T) 48.6 mmHg (35.0-48.0); ABG PH (T) 7.260 (7.350-7.450); ABG PO2 (T) 60.9 mmHg (83.0-108.0); FCOHb 0.8 % (0.5-1.5); FHHb 15.0 % (0.0-5.0); FIO2 67.0 mmHg/%; FLOW 12 L/min; FMetHb 0.3 % (0.0-1.5); FO2Hb 83.9 % (94.0-98.0); MODE NASAL CANNULA; PATIENT TEMPERATURE 38.6; TOTAL HEMOGLOBIN 12.0 G/dl (13.5-17.5)
--- NOTE | 2025-05-09 20:05 | CARDIOLOGY REPORT ---
APPROVED REPORT EXAM: Intraoperative transesophageal 2D, spectral and color flow Doppler echocardiogram. Study contains pre- and post-op images. Patient Location: [facility] Blood Pressure: 67/40 mmHg Indications CORONARY ARTERY DISEASE CHRONIC ATRIAL FIBRILLATION CABG x 4 (3 SVG, 1 JARRELL) LEFT ATRIAL APPENDAGE LIGATION PACEMAKER 2023 GEO PROBE PASSED BY: Max ABERNATHY MD Rental Agent: Papo GARZON MD (cath by Max Carias DO) / CV SURGEON: Susie LOMELI MD Previous echo: 05/05/25 [facility] EF 45-50%, WES: 1.52, PK V: 223, GRAD: 20/11, RVSP 42 mmHg, LAE, LAILA, mMR, modTR LEFT VENTRICLE PRE: Small LV size (appears volume poor) with mild concentric hypertrophy. Overall systolic function is normal. LVEF is 65%. POST-OP: Low volume state with 3 mcg/kg/min Dobutamine and 0.375mcg Primacor. RIGHT VENTRICLE PRE: RV appears moderately dilated with preserved systolic function. Pacemaker wire in right heart. POST-OP: Unchanged. ATRIA PRE: The left atrium size is severely dilated. Left atrial appendage is visualized in multiple planes and appears normal without debris. Left upper pulmonary vein identified and isolated by 2D and color Doppler. Incidental saline study was performed with 1 IV injection of 10 ccs of agitated normal sali ne. Negative saline study for right to left flow. POST-OP: Successfully occluded LA appendage AORTIC VALVE PRE: Trileaflet AV appears mildly sclerotic and calcified (shelley NCC) with ? mild stenosis. TDS. AV demonstrates reduced excursion and increased transvalvular and ascending aorta turbulance. No insufficiency. POST-OP: Unchanged. MITRAL VALVE PRE: Normal MV annulus without stenosis. Mild regurgitation with BP 126/69. POST-OP: Unchanged. TRICUSPID VALVE PRE: TV appears structurally normal with mild regurgitation. POST-OP: 3+ tricuspid regirgitation with bp 87 / 45. PULMONIC VALVE PRE: Normal PV without stenosis, physiologic insufficiency. [place] catheter in the right heart across the pulmonic valve. POST-OP: Unchanged. GREAT VESSELS PRE: The aortic root is normal in size. Arch not well visualized. PRE: Ascending aorta is upper limit normal in size, 3.6 cm. Atherosclerotic plaque (mild) in the ascending and descending aorta. POST-OP: Unchanged. PERICARDIUM PRE: Normal pericardium. No effusion. POST-OP: Unchanged. CONCLUSION PRE: Small LV size (appears volume poor) with mild concentric hypertrophy. Overall systolic function is normal. LVEF is 65%. POST-OP: Low volume state with 3 mcg/kg/min Dobutamine and 0.375mcg Primacor. PRE: RV appears moderately dilated with preserved systolic function. Pacemaker wire in right heart. POST- OP: Unchanged. PRE: The left atrium size is severely dilated. Left atrial appendage is visualized in multiple planes and appears normal without debris. Left upper pulmonary vein identified and isolated by 2D and color Doppler. Incidental saline study was performed with 1 IV injection of 10 ccs of agitated normal saline. Negative saline study for right to left flow. POST-OP: Successfully occluded LA appendage PRE: Trileaflet AV appears mildly sclerotic and calcified (shelley NCC) with ? mild stenosis. TDS. AV demonstrates reduced excursion and increased transvalvular and ascending aorta turbulance. No insufficiency. POST-OP: Unchanged. PRE: Normal MV annulus without stenosis. Mild regurgitation with BP 126/69. POST-OP: Unchanged. PRE: TV appears structurally normal with mild regurgitation. POST-OP: 3+ tricuspid regirgitation with bp 87 / 45. PRE: Normal pericardium. No effusion. POST-OP: Unchanged. Conclusion PRE: Small LV size (appears volume poor) with mild concentric hypertrophy. Overall systolic function is normal. LVEF is 65%. POST-OP: Low volume state with 3 mcg/kg/min Dobutamine and 0.375mcg Primacor. PRE: RV appears moderately dilated with preserved systolic function. Pacemaker wire in right heart. POST-OP: Unchanged. PRE: The left atrium size is severely dilated. Left atrial appendage is visualized in multiple planes and appears normal without debris. Left upper pulmonary vein identified and isolated by 2D and color Doppler. Incidental saline study was performed with 1 IV injection of 10 ccs of agitated normal saline. Negative saline study for right to left flow. POST-OP: Successfully occluded LA appendage PRE: Trileaflet AV appears mildly sclerotic and calcified (shelley NCC) with ? mild stenosis. TDS. AV demonstrates reduced excursion and increased transvalvular and ascending aorta turbulance. No insufficiency. POST-OP: Unchanged. PRE: Normal MV annulus without stenosis. Mild regurgitation with BP 126/69. POST-OP: Unchanged. PRE: TV appears structurally normal with mild regurgitation. POST-OP: 3+ tricuspid regirgitation with bp 87 / 45. PRE: Normal pericardium. No effusion. POST-OP: Unchanged.
[2025-05-09 20:18] LABS: CREATININE 2.44 MG/DL (0.60-1.10); PHOSPHORUS 6.7 MG/DL (2.3-4.5); TOTAL CARBON DIOXIDE 24.6 MMOL/L (24-32); eCRCL 21 ML/MIN; eGFR 25 ML/MIN
[2025-05-09] MEDS: acetaminophen 1,000mg/100ml IV 100 ML IV ONE (22:54)
[2025-05-09] MEDS: magnesium hydroxide 30ml (MOM) UD suspension PO PRN (22:55)
[2025-05-09 23:17] LABS: CREATININE 2.61 MG/DL (0.60-1.10); PHOSPHORUS 6.9 MG/DL (2.3-4.5); TOTAL CARBON DIOXIDE 25.4 MMOL/L (24-32); eCRCL 20 ML/MIN; eGFR 24 ML/MIN
[2025-05-09 23:59] LABS: ABG BASE EXCESS -2.9 mmol/L (-2.0-3.0); ABG HCO3 22.3 mmol/L (21.0-28.0); ABG OXYGEN SATURATION 94.4 % (94.0-98.0); ABG PCO2 (T) 43.4 mmHg (35.0-48.0); ABG PH (T) 7.336 (7.350-7.450); ABG PO2 (T) 82.9 mmHg (83.0-108.0); FCOHb 0.4 % (0.5-1.5); FHHb 5.6 % (0.0-5.0); FIO2 60.0 mmHg/%; FMetHb 0.3 % (0.0-1.5); FO2Hb 93.7 % (94.0-98.0); MODE MASK - BIPAP; PATIENT TEMPERATURE 38.5; RESPIRATORY RATE 18 b/min; TOTAL HEMOGLOBIN 11.3 G/dl (13.5-17.5)
[2025-05-10] VITALS (39 sets, daily range): BP systolic 98–139; BP diastolic 54–76; PULSE 78–89; RESP 15–26; O2SAT 84–96
[2025-05-10 03:22] LABS: MEAN PLATELET VOLUME 8.6 FL (7.4-10.4); RED CELL DISTRIBUTION WIDTH 24.0 % (11.5-14.5)
[2025-05-10] MEDS: acetaminophen 1,000mg/100ml IV 100 ML IV SCH (03:26)
[2025-05-10 03:30] LABS: CREATININE 2.68 MG/DL (0.60-1.10); PHOSPHORUS 6.8 MG/DL (2.3-4.5); TOTAL CARBON DIOXIDE 28.5 MMOL/L (24-32); eCRCL 19 ML/MIN; eGFR 23 ML/MIN
[2025-05-10 04:05] LABS: PLATELET ESTIMATE DECREASED
[2025-05-10 04:20] LABS: ABG BASE EXCESS -1.1 mmol/L (-2.0-3.0); ABG HCO3 24.7 mmol/L (21.0-28.0); ABG OXYGEN SATURATION 94.7 % (94.0-98.0); ABG PCO2 (T) 47.6 mmHg (35.0-48.0); ABG PH (T) 7.337 (7.350-7.450); ABG PO2 (T) 83.7 mmHg (83.0-108.0); FCOHb 0.4 % (0.5-1.5); FHHb 5.3 % (0.0-5.0); FIO2 60.0 mmHg/%; FMetHb 0.3 % (0.0-1.5); FO2Hb 94.0 % (94.0-98.0); MODE MASK - BIPAP; PATIENT TEMPERATURE 38.1; TOTAL HEMOGLOBIN 11.6 G/dl (13.5-17.5)
--- NOTE | 2025-05-10 06:44 | RADIOLOGY REPORT ---
CHEST RADIOGRAPH Indication: POST OP Technique: Single frontal view of the chest was obtained COMPARISON: DI CHEST,SINGLE VIEW on DOS: 05/09/25, DI CHEST,SINGLE VIEW on DOS: 05/08/25, DI CHEST,SINGLE VIEW on DOS: 05/08/25, DI CHEST,SINGLE VIEW on DOS: 05/07/25, CT CT CHEST on DOS: 05/04/25 FINDINGS: Lines and Tubes: New enteric catheter courses below the level of the diaphragm and terminates beyond the inferior margin of the image. Remaining lines and tubes are unchanged. Lungs: Mild persistent diffuse increased prominence of the pulmonary vasculature with patchy bilateral pulmonary airspace disease. Pleura: No effusion. No pneumothorax. Cardiomediastinal contours: Cardiomegaly. Bones: Unremarkable IMPRESSION: 1. New enteric catheter courses below the level of the diaphragm and terminates beyond the inferior margin of the image. Remaining lines and tubes unchanged. 2. Persistent diffuse increased prominence of the pulmonary vasculature and patchy bilateral pulmonary airspace disease. 3. Cardiomegaly.
[2025-05-10 07:51] LABS: CREATININE 2.78 MG/DL (0.60-1.10); PHOSPHORUS 6.6 MG/DL (2.3-4.5); TOTAL CARBON DIOXIDE 27.5 MMOL/L (24-32); eCRCL 18 ML/MIN; eGFR 22 ML/MIN
[2025-05-10] MEDS: SODIUM ZIRCONIUM CYCLOSILICATE 10 GM POWD.PACK PO SCH (07:56)
[2025-05-10] MEDS: cefepime 1GM in D5W 50mL 50 ML IV SCH (08:09)
[2025-05-10 08:42] LABS: ABG BASE EXCESS -3.8 mmol/L (-2.0-3.0); ABG HCO3 22.8 mmol/L (21.0-28.0); ABG OXYGEN SATURATION 91.5 % (94.0-98.0); ABG PCO2 (T) 48.8 mmHg (35.0-48.0); ABG PH (T) 7.290 (7.350-7.450); ABG PO2 (T) 73.6 mmHg (83.0-108.0); FCOHb 0.5 % (0.5-1.5); FHHb 8.4 % (0.0-5.0); FIO2 60.0 mmHg/%; FMetHb 0.3 % (0.0-1.5); FO2Hb 90.8 % (94.0-98.0); MODE MASK - BIPAP; PATIENT TEMPERATURE 37.7; RESPIRATORY RATE 18 b/min; TIDAL VOLUME 635 mL; TOTAL HEMOGLOBIN 11.8 G/dl (13.5-17.5)
[2025-05-10 10:10] LABS: LEUKOCYTE ESTERASE ,URINE NEGATIVE (Neg); NITRITES, URINE NEGATIVE (Neg); OCCULT BLOOD,URINE LARGE (Neg)
[2025-05-10 10:19] LABS: OSMOLALITY UA 352 MOSM/K (50-1400)
[2025-05-10 10:31] LABS: CREATININE,URINE RANDOM 126.0 MG/DL; UA UREA RANDOM 229.0 MG/DL
[2025-05-10] MEDS: albumin (Human) 5% 250ml 250 ML IV ONE ×2 (10:33→20:37)
[2025-05-10 10:56] LABS: UA COLLECTION TYPE NON-SPECIFIED
[2025-05-10 10:57] LABS: SQUAMOUS EPITHELIAL CELL,UR NONE SEEN /LPF (FEW)
--- NOTE | 2025-05-10 11:26 | CARDIOLOGY REPORT ---
APPROVED REPORT EXAM: Limited 2D, Doppler, and color-flow Echocardiogram. Patient Location: 2010 Blood Pressure: 105/48 mmHg Indications Limited to evaluate LV function Pt on 5 mcg/kg/min ; 0.13 mcg/kg/min Levo Pacemaker CAD CABG x 3 05/07/25 TIFFANY ligation 05/07/25 Reproducer is Papo Rodriguez MD. Consult by Max Carias DO Previous echo 05/07/25 [facility] 50% EF ; mod TR ; RVSP 42 Tricuspid Valve TR P. Velocity 314 cm/s RAP ESTIMATE 10 mmHg TR Peak Gr. 39 mmHg RVSP 49 mmHg LEFT VENTRICLE LV appears normal in size with mild concentric hypertrophy. Overall systolic function is hyperdynamic with a resting LV gradient of 64 mmHG, pt unable to valsalva due to sedation. LVEF is 80%. RIGHT VENTRICLE RV appears moderately dilated with normal contractility. RVSP is estimated at 49 mmHG. Pacemaker wire in right heart. ATRIA RA appears at least moderately dilated. AORTIC VALVE AV not evaluated due to focused limited exam. Known mild stenosis. MITRAL VALVE MVlooks normal for age with mild annular calcification. Mild mitral regurgitation. TRICUSPID VALVE The tricuspid valve is normal in structure. Moderate tricuspid regurgitation. PERICARDIUM small, noncompressive circumferential pericardial effusion with no evidence of hemodynamic compromise. Other Information Study Quality: Adequate but poor parasternals
--- NOTE | 2025-05-10 11:35 | PROGRESS NOTE ---
Progress Note Dictate Providers to CC ~ Progress Note: Tigre appears fairly uncomfortable and either anxious or confused. His is at the bedside appropriately concerned about his oliguric going towards anuria. Lungs are clear but has pCO2 normal on admission now 48 on BiPAP. He has been on CPAP for years which he does religiously every night and does have COPD. The current chest x-ray shows diffuse infiltrates bilaterally. He has 1+ edema and fairly concentrated looking urine. Creatinine urine over serum is 126/2.7 a roughly 521. Urea nitrogen urine over serum is 229/42, 521, so he is reabsorption a markedly increased amount of his urea. This reflects prerenal state. With BUN 43 we are nowhere close to needing dialysis. He has not been drinking he feels very thirsty. Hands and feet are warm. I have recommended stopping any diuretics, continuing NG suction for abdominal distention and giving him MiraLax 17 g by NG tube and docusate 100 mg b.i.d. to see if we can get him stooling. If we could it would be good if we could get him up sitting in a little more active if that is okay with Dr. Molina. I would continue IV fluids at 100 cc/hour. Antibiotic Ordered?: Yes Objective Vitals Vital Signs Date Time Temp Pulse Resp B/P (MAP) Pulse Ox O2 Delivery O2 Flow Rate FiO2 05/10/25 09:38 138/67 05/10/25 09:09 87 22 88 15.0 05/10/25 08:24 60 05/10/25 05:49 100.2 Bi-pap/CPAP Lab Results: 05/10/25 0300 05/10/25 0715 Coagulation Studies Laboratory Tests Test 05/07/25 00:57 05/07/25 08:38 05/07/25 13:23 05/07/25 19:00 APTT (Heparin Protocol) 53 SECONDS (45-60) Patient Sex (Coag) M Patient Height (Coag) 170cm Patient Weight (Coag) 84.0k KG Patient Blood Volume 5799 ML Pump Volume 1500 ML Total Blood Volume 7299 ML Projected Heparin Concentration 1.8 MG/KG Heparin [place] 137 Calculated Heparin Bolus 32085 UNITS Activated Coagulation Time Baseline 141 SEC (101-148) Activated Coag Time 1.70 U/mL 323 SEC (193-297) H Activated Coag Time 2.84 U/mL 476 SEC (260-420) H Heparin Level (COAG) 0 MG/KG Calculated Heparin Req (Hep Assay) 46657 UNITS Calculated Protamine Req (Hep Assay 0 MG Activated Clotting Time 126 SEC (101-148) Fibrinogen 260 MG/DL (177-424) Coagulation Clinical Comments Test 05/08/25 01:09 Prothrombin Time 11.1 SECONDS (9.0-12.0) INR International Normalized Ratio 1.1 INR Activated Partial Thromboplast Time 27 SECONDS (22-32) Coagulation Comments JAYESH WALLACE MD May 10, 2025 11:35
--- NOTE | 2025-05-10 12:06 | PROGRESS NOTE ---
Progress Note CV Providers to CC ~ Central Line/PICC still needed: Yes Central Line/Picc Necessity: Prolonged IV access req Early Indications Met/Not Met: F/C Indications Met Antibiotics Ordered?: Yes If Yes, Indications?: pneumonia MRSA Education MRSA Education Provided: N/A Subjective Subjective intermittent confusion, remains on BIPAP, pain well controlled, no BM since OR, remains NPO Objective Vitals Vital Signs Date Time Temp Pulse Resp B/P (MAP) Pulse Ox O2 Delivery O2 Flow Rate FiO2 05/10/25 09:38 138/67 05/10/25 09:09 87 22 88 15.0 05/10/25 08:24 60 05/10/25 05:49 100.2 Bi-pap/CPAP Lab Results: 05/10/25 0300 05/10/25 0715 Objective No neuro deficits Coarse breath sounds bilat Incision intact Marked abdominal distension, tympanic to percussion, non-tender Ext: upper and lower ext edema Coagulation Studies Laboratory Tests Test 05/07/25 00:57 05/07/25 08:38 05/07/25 13:23 05/07/25 19:00 APTT (Heparin Protocol) 53 SECONDS (45-60) Patient Sex (Coag) M Patient Height (Coag) 170cm Patient Weight (Coag) 84.0k KG Patient Blood Volume 5799 ML Pump Volume 1500 ML Total Blood Volume 7299 ML Projected Heparin Concentration 1.8 MG/KG Heparin [place] 137 Calculated Heparin Bolus 97316 UNITS Activated Coagulation Time Baseline 141 SEC (101-148) Activated Coag Time 1.70 U/mL 323 SEC (193-297) H Activated Coag Time 2.84 U/mL 476 SEC (260-420) H Heparin Level (COAG) 0 MG/KG Calculated Heparin Req (Hep Assay) 56322 UNITS Calculated Protamine Req (Hep Assay 0 MG Activated Clotting Time 126 SEC (101-148) Fibrinogen 260 MG/DL (177-424) Coagulation Clinical Comments Test 05/08/25 01:09 Prothrombin Time 11.1 SECONDS (9.0-12.0) INR International Normalized Ratio 1.1 INR Activated Partial Thromboplast Time 27 SECONDS (22-32) Coagulation Comments Cardiac Rhythm: V Paced, AV Paced Problem\Assessment\Plan Additional Plan POD#3 CABGx4, ligation of TIFFANY, post exacerbation of CKD. Double cover for e.coli pneumonia Aggressive pulmonary toilet Ambulate DC chest tubes. Midodrine Wean levophed Suppository for constipation Continue NGT decompression BiPAP as needed Diuretic as needed Spouse updated on progress ION LOMELI MD May 10, 2025 12:06
[2025-05-10 12:12] LABS: ABG BASE EXCESS -5.0 mmol/L (-2.0-3.0); ABG HCO3 21.2 mmol/L (21.0-28.0); ABG OXYGEN SATURATION 91.8 % (94.0-98.0); ABG PCO2 (T) 44.6 mmHg (35.0-48.0); ABG PH (T) 7.297 (7.350-7.450); ABG PO2 (T) 70.9 mmHg (83.0-108.0); FCOHb 0.6 % (0.5-1.5); FHHb 8.1 % (0.0-5.0); FIO2 60.0 mmHg/%; FMetHb 0.3 % (0.0-1.5); FO2Hb 91.0 % (94.0-98.0); MODE MASK - BIPAP; PATIENT TEMPERATURE 37.4; RESPIRATORY RATE 18 b/min; TIDAL VOLUME 450 mL; TOTAL HEMOGLOBIN 11.4 G/dl (13.5-17.5)
[2025-05-10 12:27] LABS: CREATININE 2.87 MG/DL (0.60-1.10); PHOSPHORUS 7.1 MG/DL (2.3-4.5); TOTAL CARBON DIOXIDE 25.6 MMOL/L (24-32); eCRCL 18 ML/MIN; eGFR 21 ML/MIN
[2025-05-10] MEDS: midodrine tablet 2.5 MG TABLET PO SCH (12:59)
[2025-05-10] MEDS: bisacodyl 10mg suppository rectal RC PRN (12:59)
[2025-05-10] MEDS: albumin (human) 25% 100 ML IV solution IV ONE (12:59)
[2025-05-10] MEDS: ciprofloxacin/D5W 200mg/100mL 100 ML IV SCH (13:34)
[2025-05-10 19:32] LABS: ABG BASE EXCESS -5.9 mmol/L (-2.0-3.0); ABG HCO3 21.6 mmol/L (21.0-28.0); ABG OXYGEN SATURATION 90.3 % (94.0-98.0); ABG PCO2 (T) 51.2 mmHg (35.0-48.0); ABG PH (T) 7.243 (7.350-7.450); ABG PO2 (T) 68.6 mmHg (83.0-108.0); FCOHb 0.5 % (0.5-1.5); FHHb 9.6 % (0.0-5.0); FIO2 75.0 mmHg/%; FMetHb 0.3 % (0.0-1.5); FO2Hb 89.6 % (94.0-98.0); MODE MASK - BIPAP; PATIENT TEMPERATURE 36.8; RESPIRATORY RATE 18 b/min; TOTAL HEMOGLOBIN 11.5 G/dl (13.5-17.5)
[2025-05-10] MEDS: sodium bicarbonate (8.4%) 1 mEq/ml syringe IV ONE (20:23)
[2025-05-10] MEDS: furosemide inj 100 MG in normal saline 100ml IV soln 90 ML IV SCH (21:16)
[2025-05-11] VITALS (57 sets, daily range): BP systolic 83–190; BP diastolic 49–102; PULSE 80–83; RESP 18–32; TEMP 97.6–98; O2SAT 70–100
[2025-05-11 02:25] LABS: MEAN PLATELET VOLUME 8.7 FL (7.4-10.4); RED CELL DISTRIBUTION WIDTH 23.7 % (11.5-14.5)
[2025-05-11 02:36] LABS: CREATININE 3.17 MG/DL (0.60-1.10); PHOSPHORUS 7.3 MG/DL (2.3-4.5); TOTAL CARBON DIOXIDE 27.3 MMOL/L (24-32); eCRCL 16 ML/MIN; eGFR 19 ML/MIN
[2025-05-11 02:54] LABS: ABG BASE EXCESS -5.4 mmol/L (-2.0-3.0); ABG HCO3 20.9 mmol/L (21.0-28.0); ABG OXYGEN SATURATION 90.0 % (94.0-98.0); ABG PCO2 (T) 43.5 mmHg (35.0-48.0); ABG PH (T) 7.298 (7.350-7.450); ABG PO2 (T) 65.5 mmHg (83.0-108.0); FCOHb 0.5 % (0.5-1.5); FHHb 9.9 % (0.0-5.0); FIO2 75.0 mmHg/%; FMetHb 0.3 % (0.0-1.5); FO2Hb 89.3 % (94.0-98.0); MODE MASK - BIPAP; PATIENT TEMPERATURE 36.8; RESPIRATORY RATE 18 b/min; TOTAL HEMOGLOBIN 11.3 G/dl (13.5-17.5)
[2025-05-11] MEDS: cefepime inj. 0.5 GM in normal saline 100ml IV soln 100 ML IV SCH (07:25)
--- NOTE | 2025-05-11 07:34 | RADIOLOGY REPORT ---
CHEST RADIOGRAPH Indication: ET Tube PLacement Technique: Single frontal view of the chest was obtained Comparison: DI CHEST,SINGLE VIEW on DOS: 05/10/25, DI CHEST,SINGLE VIEW on DOS: 05/09/25, DI CHEST,SINGLE VIEW on DOS: 05/08/25 IMPRESSION: Heart appears enlarged median sternotomy wires. Enteric tube tip is beyond the level of the examination, likely within the stomach. Probable effusion on the left. Diffuse alveolar airspace opacities appear similar. No pneumothorax.
[2025-05-11] MEDS ORDERED: epiNEPHrine 0.1mg/ml 10ml syringe ONE (08:00)
[2025-05-11] MEDS ORDERED: etomidate 2mg/ml inj. ONE (08:00)
[2025-05-11 08:36] LABS: CREATININE 3.37 MG/DL (0.60-1.10); PHOSPHORUS 7.5 MG/DL (2.3-4.5); TOTAL CARBON DIOXIDE 25.5 MMOL/L (24-32); eCRCL 15 ML/MIN; eGFR 18 ML/MIN
--- NOTE | 2025-05-11 09:13 | PROGRESS NOTE ---
Progress Note CV Providers to CC ~ Antibiotics Ordered?: Yes Subjective Subjective S/P CABG x 4 POD # 3. He is currently getting a chest CT. CXR shows continued bilat infiltrates, LLL consolidation. Sputum indicated e. coli pna. He is on abx. Currently on 100% FiO2 and HD catheter is going to be placed. is in the room and appropriately concerned. Objective Vitals Vital Signs Date Time Temp Pulse Resp B/P (MAP) Pulse Ox O2 Delivery O2 Flow Rate FiO2 05/11/25 08:00 98.6 80 32 142/79 (100) 87 Bi-pap/CPAP 100 05/11/25 08:00 0.0 Lab Results: 05/11/25 0130 05/11/25 0800 Coagulation Studies Laboratory Tests Test 05/07/25 00:57 05/07/25 08:38 05/07/25 13:23 05/07/25 19:00 APTT (Heparin Protocol) 53 SECONDS (45-60) Patient Sex (Coag) M Patient Height (Coag) 170cm Patient Weight (Coag) 84.0k KG Patient Blood Volume 5799 ML Pump Volume 1500 ML Total Blood Volume 7299 ML Projected Heparin Concentration 1.8 MG/KG Heparin [place] 137 Calculated Heparin Bolus 55126 UNITS Activated Coagulation Time Baseline 141 SEC (101-148) Activated Coag Time 1.70 U/mL 323 SEC (193-297) H Activated Coag Time 2.84 U/mL 476 SEC (260-420) H Heparin Level (COAG) 0 MG/KG Calculated Heparin Req (Hep Assay) 47597 UNITS Calculated Protamine Req (Hep Assay 0 MG Activated Clotting Time 126 SEC (101-148) Fibrinogen 260 MG/DL (177-424) Coagulation Clinical Comments Test 05/08/25 01:09 Prothrombin Time 11.1 SECONDS (9.0-12.0) INR International Normalized Ratio 1.1 INR Activated Partial Thromboplast Time 27 SECONDS (22-32) Coagulation Comments Cardiac Rhythm: Paced Problem\Assessment\Plan Additional Plan POD # 3 Continues critically ill. He is on 100% Bipap. Creat continues to uptrend. Continues oliguric. K+ was pending this morning. Abx for e.coli pna Sepsis Screening Reassessment Date: May 11, 2025 Supervising Co-signing Provider: ANA Casey May 11, 2025 09:13
--- NOTE | 2025-05-11 09:33 | RADIOLOGY REPORT ---
Procedure: CT CT CHEST Clinical History: r/o pericardial hematoma Comparison: CT scan of the chest dated 05/04/2025 TECHNIQUE: Multidetector CT of the chest was performed from the lung apices to the upper abdomen without the use of intravenous contract. Coronal and sagittal multiplanar reformats were performed. RADIATION DOSE: CTDI volume is 0.07 mGy. Dose-length product is 2.1 mGy*cm The dose indicators for CT are the volume Computed Tomography (CT) Dose Index (CTDIvol) and the Dose Length Product (DLP), and are measured in units of mGy and mGy-cm, respectively. These indicators are not patient dose, but values generated from the CT scanner acquisition factors. The report includes radiation exposure data for exposures received during this examination. Radiation optimization: All CT scans at this facility use at least one of these dose optimization techniques: automated exposure control mA and/or kV adjustment per patient size (includes targeted exams where dose is matched to clinical indication) or iterative reconstruction. FINDINGS: Lower neck: Normal thyroid. Lungs: Patchy diffuse bilateral consolidation. Bilateral lower lobe passive atelectasis. Central airways: Patent. Pleura: No pneumothorax. Moderate bilateral pleural effusions. Heart/Vascular Structures: There is a right pacemaker with lead in the right atrium and right ventricle. 1 of the leads terminate in the superior vena cava. The heart is enlarged. There is a small pericardial effusion. The fluid measures high density (22 Hounsfield units) suggesting blood. Scattered atherosclerotic calcifications in the thoracic aorta. Normal caliber main pulmonary artery. Lymph Nodes: No lymphadenopathy. Musculoskeletal: No acute or suspicious bone lesions. Status post CABG new since prior study. Severe T4 compression fracture similar to prior study. Multilevel thoracic spondylosis. Soft tissues: Bilateral chest wall subcutaneous edema. Upper abdomen: Unremarkable. IMPRESSION: Interval development of diffuse bilateral consolidation which may represent pulmonary edema. Pneumonia not excluded. Interval development of moderate bilateral pleural effusions and passive atelectasis in the lung bases. Interval development of small pericardial effusion with the fluid measuring high attenuation suggestive of hemopericardium. There is cardiomegaly, increased compared to prior study.
[2025-05-11] MEDS: propofol 1000mg/100ml bottle 100 ML IV ONE (09:47)
[2025-05-11] MEDS: propofol 1000mg/100ml bottle 100 ML IV SCH (09:48)
[2025-05-11] MEDS: FENTANYL-0.9 % NACL/PF 100 ML IV SCH (09:53)
[2025-05-11 09:55] LABS: ABG BASE EXCESS -5.6 mmol/L (-2.0-3.0); ABG HCO3 20.8 mmol/L (21.0-28.0); ABG OXYGEN SATURATION 91.3 % (94.0-98.0); ABG PCO2 (T) 43.8 mmHg (35.0-48.0); ABG PH (T) 7.292 (7.350-7.450); ABG PO2 (T) 68.4 mmHg (83.0-108.0); FCOHb 0.3 % (0.5-1.5); FHHb 8.6 % (0.0-5.0); FIO2 100.0 mmHg/%; FMetHb 0.3 % (0.0-1.5); FO2Hb 90.8 % (94.0-98.0); MODE VENT - AC/PRVC; PATIENT TEMPERATURE 36.7; PEEP 12 cm H2O; RESPIRATORY RATE 18 b/min; TIDAL VOLUME 500 mL; TOTAL HEMOGLOBIN 10.6 G/dl (13.5-17.5)
--- NOTE | 2025-05-11 10:02 | RADIOLOGY REPORT ---
CLINICAL INFORMATION: post intubation. TECHNIQUE: Single AP portable chest radiograph was obtained. COMPARISON: Chest radiograph dated 05/11/2025 at 5:27 a.m. FINDINGS: Interval intubation, with the tip of the endotracheal tube approximately 1 cm above the level of the tarsha. Stable satisfactory positioning of the enteric tube and right internal jugular central venous catheter. Stable appearing postsurgical changes and stable positioning of the pacemaker leads. Unchanged bilateral airspace opacities and interstitial opacities. No pneumothorax. No other significant interval change. IMPRESSION: 1. Interval intubation, with the tip of the endotracheal tube approximately 1 cm above the level of the tarsha. 2. No other significant interval change.
--- NOTE | 2025-05-11 10:23 | PROCEDURE NOTE CC ---
Procedure Note CC Providers to CC ~ Procedure Name: Endotracheal Intubation Description: Indication: Worsening Hypoxemia and increase WOB despite BiPAP Consent: Pt Time-out: Done Sedation: Etomidate Technique: Direct Laryngoscopy Complication: None. CXR ordered EBL: 0ml Sepsis Screening Reassessment Date: May 11, 2025 EMEKA CORDOVA MD May 11, 2025 10:23
--- NOTE | 2025-05-11 10:24 | PROCEDURE NOTE CC ---
Procedure Note CC Providers to CC ~ Procedure Name: HD Catheter Description: Indication: ALVIN Time-out: Done Consent: Pt Site: R Femoral Vein Anesthesia: Local Technique: Shamar Complication: None EBL: 1ml Sepsis Screening Reassessment Date: May 11, 2025 EMEKA CORDOVA MD May 11, 2025 10:24
--- NOTE | 2025-05-11 10:26 | PROGRESS NOTE ---
Clinical Note Clinical Note Progress Note: Pt noted to have increasing O2 requirements overnight; now essentially oliguric renal failure, pulmonary congestion. CT chest demonstrated moderate sized bilat pleural effusion with compressive atelectasis. Will need dialysis Bilateral thoracostomy drainage Intubation Repeat enema General surgery consult for possible bowel obstruction/ [place]/ ileus. Spouse updated ION LOMELI MD May 11, 2025 10:26
[2025-05-11] MEDS: LIDOcaine 1% (10mg/ml) 2ml vial ONE (11:09)
[2025-05-11] MEDS ORDERED: normal saline 1000ml 100 ML IV PRN (11:10)
[2025-05-11] MEDS ORDERED: heparin 1,000 units/ml 10ml inj HE ONE (11:15)
--- NOTE | 2025-05-11 11:16 | PROGRESS NOTE ---
Progress Note Dictate Providers to CC ~ Progress Note: Discussed with Delatorre and family and with Dr. Molina. He clearly did not tolerate the fluid that I gave based on the prerenal parameters as far as his kidneys are concerned. Chest x-ray yesterday had two diffuse full ocular infiltrates Dr. Molina feels that there was evidence of pulmonary hypertension both by echocardiogram and at the surgical table. He does have COPD and sleep apnea but has been evangelical in his use of CPAP. The echocardiogram showed enlargement of the right side and collapse of the left side. Other possibilities would be pulmonary embolus and mitral stenosis but we can not do a CT pulmonary angiogram at this point but it needs to be considered if he continues to at prerenal. We will do dialysis today and probably again tomorrow. He is on 100% FiO2 which is certainly worrisome. He is on antibiotics for the E coli in his sputum though this may be a contaminant. Antibiotic Ordered?: Yes Objective Vitals Vital Signs Date Time Temp Pulse Resp B/P (MAP) Pulse Ox O2 Delivery O2 Flow Rate FiO2 05/11/25 11:00 97.7 80 18 141/76 (97) 92 Mechanical Ventilator 100 05/11/25 08:00 0.0 Lab Results: 05/11/25 0130 05/11/25 0800 Coagulation Studies Laboratory Tests Test 05/07/25 00:57 05/07/25 08:38 05/07/25 13:23 05/07/25 19:00 APTT (Heparin Protocol) 53 SECONDS (45-60) Patient Sex (Coag) M Patient Height (Coag) 170cm Patient Weight (Coag) 84.0k KG Patient Blood Volume 5799 ML Pump Volume 1500 ML Total Blood Volume 7299 ML Projected Heparin Concentration 1.8 MG/KG Heparin [place] 137 Calculated Heparin Bolus 12326 UNITS Activated Coagulation Time Baseline 141 SEC (101-148) Activated Coag Time 1.70 U/mL 323 SEC (193-297) H Activated Coag Time 2.84 U/mL 476 SEC (260-420) H Heparin Level (COAG) 0 MG/KG Calculated Heparin Req (Hep Assay) 65480 UNITS Calculated Protamine Req (Hep Assay 0 MG Activated Clotting Time 126 SEC (101-148) Fibrinogen 260 MG/DL (177-424) Coagulation Clinical Comments Test 05/08/25 01:09 Prothrombin Time 11.1 SECONDS (9.0-12.0) INR International Normalized Ratio 1.1 INR Activated Partial Thromboplast Time 27 SECONDS (22-32) Coagulation Comments JAYESH WALLACE MD May 11, 2025 11:16
[2025-05-11] MEDS: LIDOcaine 1% (10mg/ml) 2ml vial SQ STA (11:20)
--- NOTE | 2025-05-11 12:18 | PROCEDURE NOTE CC ---
Procedure Note CC Providers to CC ~ Procedure Name: Bilateral chest tube placement Description: 28F chest tube placed on right, then left , in same setting using standard technique. 700cc from right, 300 from left- which was more sanguineous by comparison. No complications. ION LOMELI MD May 11, 2025 12:18
[2025-05-11] MEDS: dexmedetomidin/NS 400mcg/100ml 100 ML IV SCH (12:44)
--- NOTE | 2025-05-11 13:00 | RADIOLOGY REPORT ---
CHEST RADIOGRAPH Indication: new bilat chest tubes Technique: Single frontal view of the chest was obtained COMPARISON: DI CHEST,SINGLE VIEW on DOS: 05/11/25, CT CT CHEST on DOS: 05/11/25, DI CHEST,SINGLE VIEW on DOS: 05/11/25, DI CHEST,SINGLE VIEW on DOS: 05/10/25, DI CHEST,SINGLE VIEW on DOS: 05/09/25 FINDINGS: Lines and Tubes: New bilateral chest tubes in place. Stable endotracheal tube. Stable right-sided pacemaker. Lungs: Moderate interstitial pulmonary edema. Pleura: Small left pleural effusion No pneumothorax. Cardiomediastinal contours: Cardiomegaly Bones: Unremarkable IMPRESSION: 1. New bilateral chest tubes in place. 2. No pneumothorax.
[2025-05-11] MEDS ORDERED: BUPIVAcaine 2.5mg/ml inj 50ml vial (contains preservative) ONE (13:33)
[2025-05-11] MEDS: heparin 1,000 units/ml 10ml inj HE ONE ×4 (13:33→16:14)
[2025-05-11 15:07] LABS: MEAN PLATELET VOLUME 8.8 FL (7.4-10.4); RED CELL DISTRIBUTION WIDTH 24.0 % (11.5-14.5)
[2025-05-11 15:22] LABS: CREATININE 3.18 MG/DL (0.60-1.10); TOTAL CARBON DIOXIDE 28.8 MMOL/L (24-32); eCRCL 16 ML/MIN; eGFR 19 ML/MIN
[2025-05-11] MEDS ORDERED: rocuronium 10mg/ml inj IV ONE (15:24)
--- NOTE | 2025-05-11 15:28 | PROCEDURE NOTE CC ---
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
[2025-05-11 15:29] LABS: PLATELET ESTIMATE DECREASED
--- NOTE | 2025-05-11 15:42 | RADIOLOGY REPORT ---
ABDOMINAL RADIOGRAPH Indication: ileus Technique: 2 radiographs of the abdomen were obtained. Comparison: DI ABDOMEN,SINGLE VIEW(KUB) on DOS: 05/09/25 FINDINGS: Lines and tubes: There is an enteric tube terminating in the right upper quadrant either within the distal stomach or proximal small bowel. Early catheter noted. There are dilated loops of small and large bowel. Stool throughout the colon. IMPRESSION: 1. Dilated loops of small and large bowel compatible with ileus.
--- NOTE | 2025-05-11 15:45 | RADIOLOGY REPORT ---
CHEST RADIOGRAPH Indication: post ct placement Technique: Single frontal view of the chest was obtained COMPARISON: DI CHEST,SINGLE VIEW on DOS: 05/11/25, DI CHEST,SINGLE VIEW on DOS: 05/11/25, CT CT CHEST on DOS: 05/11/25, DI CHEST,SINGLE VIEW on DOS: 05/11/25, DI CHEST,SINGLE VIEW on DOS: 05/10/25 FINDINGS: Lines and Tubes: Endotracheal tube in place. Enteric catheter in place. Mediastinal drain in place. Bilateral chest tubes in satisfactory position. Right chest wall pacemaker in place. Lungs: Congestion noted. Pleura: No effusion. No pneumothorax. Cardiomediastinal contours: Median sternotomy present. Unremarkable otherwise. Bones: Unremarkable. IMPRESSION: Lines and tubes in satisfactory position. No significant interval change.
[2025-05-11] MEDS: mineral oil 133ml enema RC ONE (16:57)
--- NOTE | 2025-05-11 17:20 | OPERATIVE REPORT ---
DATE OF SURGERY: 05/11/2025 DICTATING PHYSICIAN: Ramiro Molina MD PREOPERATIVE DIAGNOSES: 1. Status post left chest tube placement with postprocedural ongoing bleeding. 2. Status post coronary artery bypass grafting 4 days prior. 3. Hypertension. 4. Renal insufficiency. POSTOPERATIVE DIAGNOSES: 1. Status post left chest tube placement with postprocedural ongoing bleeding. 2. Status post coronary artery bypass grafting 4 days prior. 3. Hypertension. 4. Renal insufficiency. PROCEDURES PERFORMED: 1. Control of chest wall bleeding. 2. Placement of 32-[place] right-angle chest tube into the left pleural space. COMPLICATIONS: None. DESCRIPTION OF THE PROCEDURE: The patient was taken to the operating room and placed on the table in supine position with a slight bump in the left side. He was prepped and draped in the usual sterile fashion. A timeout was called and the patient was correctly identified by the surgeon and the OR staff. Next, the packing gauze, which had been in place, was removed and demonstrated brisk bright and dark bleeding from the chest wall. Further visualization demonstrated bleeding from the subcutaneous tissue as well as the chest wall musculature. I was able to retract and see all the way down to the rib space. I did note a rib fracture at the site of the chest tube insertion. The bleeding was controlled with Bovie cautery. Careful inspection of the rib edge showed oozing, but no ongoing profuse bleeding as was the case with the musculature. I bovied more and examined and found no additional bleeding. Next, a right-angle 32-[place] chest tube was placed and directed posteriorly and inferiorly. Final examination of the chest wall revealed no ongoing bleeding. The deep layer of the chest wall musculature and subcutaneous tissue was approximated around the chest tube entrance site. I also used Surgicel to pack in the wound. 3 such sutures were placed. The chest tube was then secured to the chest wall. The remaining skin edges were approximated with interrupted silk sutures. All of the instruments were accounted for at the end of the case. The patient tolerated the procedure well. He was taken to the ICU in stable condition. Ramiro Molina MD TID: [id number] RECEIPT: [id number] [facility]
[2025-05-11 19:03] LABS: MEAN PLATELET VOLUME 8.5 FL (7.4-10.4); RED CELL DISTRIBUTION WIDTH 20.6 % (11.5-14.5)
[2025-05-11 19:06] LABS: ABG BASE EXCESS -3.6 mmol/L (-2.0-3.0); ABG HCO3 21.4 mmol/L (21.0-28.0); ABG OXYGEN SATURATION 87.5 % (94.0-98.0); ABG PCO2 (T) 37.9 mmHg (35.0-48.0); ABG PH (T) 7.368 (7.350-7.450); ABG PO2 (T) 55.7 mmHg (83.0-108.0); FCOHb 0.3 % (0.5-1.5); FHHb 12.4 % (0.0-5.0); FIO2 50.0 mmHg/%; FMetHb 0.3 % (0.0-1.5); FO2Hb 87.0 % (94.0-98.0); MODE prvc; PATIENT TEMPERATURE 36.5; PEEP 8 cm H2O; RESPIRATORY RATE 18 b/min; TIDAL VOLUME 500 mL; TOTAL HEMOGLOBIN 10.2 G/dl (13.5-17.5)
[2025-05-11 19:10] LABS: ISTAT ANION GAP 13.0 (8-12); ISTAT BUN 42.0 mg/dL (7-18); ISTAT CL 103.0 mmol/L (99-107); ISTAT CREATININE 3.0 mg/dL (0.8-1.3); ISTAT GLUCOSE 156.0 mg/dL (70-104); ISTAT HGB 10.5 g/dl (14.0-17.9); ISTAT Hct 31.0 %PCV (42-52); ISTAT IONIZED CALCIUM 1.12 mmol/L (1.03-1.32); ISTAT K 4.3 mmol/L (3.5-5.1); ISTAT NA 138.0 mmol/L (135-145); ISTAT TOTAL CO2 22.0 mmol/L (24-32); ISTAT eGFR 20.0 ML/MIN; POC BUN/CREATININE RATIO 14.0 (5.4-32.0)
[2025-05-11 19:13] LABS: APTT 37 SECONDS (22-32)
[2025-05-11 19:20] LABS: CREATININE 2.75 MG/DL (0.60-1.10); PHOSPHORUS 5.2 MG/DL (2.3-4.5); TOTAL CARBON DIOXIDE 24.7 MMOL/L (24-32); eCRCL 19 ML/MIN; eGFR 22 ML/MIN
[2025-05-11] MEDS: ipratropium/albuterol 3ml nebule NEB PRN (19:35)
[2025-05-11 19:42] LABS: INR 1.8 INR
[2025-05-11] MEDS: albumin (Human) 5% 250ml 250 ML IV ONE ×3 (19:50→23:39)
[2025-05-11] MEDS: CALCIUM GLUC 1gm/50ml NACL,iso 50 ML IV ONE ×2 (19:52→19:53)
[2025-05-11] MEDS: insulin regular, human U-100 10ml vial - multi-dose SQ SCH (20:00)
[2025-05-11] MEDS: ZINC/COPPER/MANGANESE/SELENIUM 1 ML, chromic chloride inj. 10 MCG, MVI, adult No.4 with... IV SCH (21:15)
[2025-05-11] MEDS: FAT EMUL/SOY/MCT/OLIV/FISH OIL (SMOF) 100 ML IV SCH (21:15)
[2025-05-11 22:48] LABS: MEAN PLATELET VOLUME 8.9 FL (7.4-10.4)
[2025-05-11 22:49] LABS: RED CELL DISTRIBUTION WIDTH 20.9 % (11.5-14.5)
[2025-05-12] VITALS (56 sets, daily range): BP systolic 93–157; BP diastolic 53–79; PULSE 8–82; RESP 8–23; TEMP 99–100.8; O2SAT 90–100
[2025-05-12 02:40] LABS: MEAN PLATELET VOLUME 8.8 FL (7.4-10.4); RED CELL DISTRIBUTION WIDTH 20.9 % (11.5-14.5)
[2025-05-12 03:06] LABS: CREATININE 3.07 MG/DL (0.60-1.10); PHOSPHORUS 5.5 MG/DL (2.3-4.5); TOTAL CARBON DIOXIDE 23.0 MMOL/L (24-32); eCRCL 17 ML/MIN; eGFR 20 ML/MIN
[2025-05-12 03:29] LABS: ABG BASE EXCESS -2.6 mmol/L (-2.0-3.0); ABG HCO3 21.9 mmol/L (21.0-28.0); ABG OXYGEN SATURATION 99.0 % (94.0-98.0); ABG PCO2 (T) 36.4 mmHg (35.0-48.0); ABG PH (T) 7.398 (7.350-7.450); ABG PO2 (T) 148.6 mmHg (83.0-108.0); FCOHb 1.3 % (0.5-1.5); FHHb 1.0 % (0.0-5.0); FIO2 60.0 mmHg/%; FMetHb 0.3 % (0.0-1.5); FO2Hb 97.4 % (94.0-98.0); MODE ac/prvc; PATIENT TEMPERATURE 37.2; PEEP 10 cm H2O; RESPIRATORY RATE 18 b/min; TIDAL VOLUME 500 mL; TOTAL HEMOGLOBIN 7.2 G/dl (13.5-17.5)
--- NOTE | 2025-05-12 03:41 | RADIOLOGY REPORT ---
CHEST RADIOGRAPH Indication: intubated CHANGE IN CONDITION Technique: Single frontal view of the chest was obtained COMPARISON: DI CHEST,SINGLE VIEW on DOS: 05/11/25, DI CHEST,SINGLE VIEW on DOS: 05/11/25, DI CHEST,SINGLE VIEW on DOS: 05/11/25, CT CT CHEST on DOS: 05/11/25, DI CHEST,SINGLE VIEW on DOS: 05/11/25 FINDINGS: Lines and Tubes: Interval retraction of the endotracheal tube such that the tip now projects approximately 4.0 cm above level of the tarsha. Remaining lines and tubes unchanged. Lungs: Mild interval progression in multifocal predominantly left hemithoracic pulmonary airspace disease. Moderate diffuse prominence of the pulmonary vasculature and small left pleural effusion. No pneumothorax. Cardiomediastinal contours: Cardiomegaly. Bones: Unremarkable IMPRESSION: 1. Interval retraction of the endotracheal tube such that the tip now projects approximately 4.0 cm above level of the tarsha. Remaining lines and tubes unchanged. 2. Mild interval progression in multifocal predominantly left hemithoracic pulmonary airspace disease. 3. Stable diffuse increased prominence of the pulmonary vasculature and small left pleural effusion. 4. Cardiomegaly.
[2025-05-12 04:18] LABS: BANDS% (MANUAL) 2.0 % (0-10); EOSINOPHILS % (MANUAL) 2.0 % (0-6); LYMPHOCYTES % (MANUAL) 4.0 % (21-51); MONOCYTES % (MANUAL) 6.0 % (2-12); NEUTROPHILS % (MANUAL) 86.0 % (42-75); NUCLEATED RED BLOOD CELLS 1 /100WBC (0-0); PLATELET ESTIMATE DECREASED
[2025-05-12] MEDS ORDERED: metoclopramide 5 mg/ml inj IV PRN ×2 (04:50→20:30)
[2025-05-12] MEDS ORDERED: mineral oil 133ml enema RC PRN (04:50)
--- NOTE | 2025-05-12 05:01 | RADIOLOGY REPORT ---
CHEST RADIOGRAPH Indication: change in cond Technique: 1 view Comparison: DI CHEST,SINGLE VIEW on DOS: 05/12/25, DI CHEST,SINGLE VIEW on DOS: 05/11/25, DI CHEST,SINGLE VIEW on DOS: 05/11/25, DI CHEST,SINGLE VIEW on DOS: 05/11/25, DI CHEST,SINGLE VIEW on DOS: 05/11/25 FINDINGS: Lines and Tubes: Unchanged. Lungs/Pleura: Unchanged. Cardiomediastinum: Unchanged. Other: Unchanged osseous structures. IMPRESSION: 1. No significant change from the previous study. Stable support devices. Persistent [id number] mixed pulmonary opacities. Small left pleural effusion.
--- NOTE | 2025-05-12 05:34 | PROGRESS NOTE ---
Clinical Note Clinical Note Progress Note: Pt noted to have decreasing Hct from 27 now down to 21 since 1400 yesterday; Repeat CXR shows increasing opacification/ congestion of the left hemithorax; Total output from the chest tube since OR 1200cc- inclusive of preexisting pleural effusion; Minimal output since midnight. No escalation of pressor support. No increase in O2 requirements; This likely represents chest wall bleeding since OR that appears to have clotted off. Will continue chest tube to water seal. May require VATS washout of the left pleural space at later date during this hospital stay. Minimal stool output since the enema. Abdominal distension, hypoactive bowel sounds continue. Repeat enema. IV neostigmine [facility] General surgery to see. Dr. Cano updated as the surgeon overseeing the service. ION LOMELI MD May 12, 2025 05:34
[2025-05-12 07:59] LABS: MEAN PLATELET VOLUME 9.0 FL (7.4-10.4); RED CELL DISTRIBUTION WIDTH 18.0 % (11.5-14.5)
[2025-05-12 08:21] LABS: CREATININE 3.19 MG/DL (0.60-1.10); PHOSPHORUS 5.5 MG/DL (2.3-4.5); TOTAL CARBON DIOXIDE 22.3 MMOL/L (24-32); eCRCL 16 ML/MIN; eGFR 19 ML/MIN
--- NOTE | 2025-05-12 08:21 | PROGRESS NOTE ---
Progress Note CV Providers to CC ~ Antibiotics Ordered?: Yes Subjective Subjective S/P CABG x 4 POD # 4. Intubated yesterday morning. Bilat CT's placed yesterday with L chest wall bleeding and return to OR for control. Continued bleeding overnight but CT output has stopped this morning. Rec'd 4 units PRBC's since yesterday afternoon. HD yesterday. TPN started. CRRT planned for today. Objective Vitals Vital Signs Date Time Temp Pulse Resp B/P (MAP) Pulse Ox O2 Delivery O2 Flow Rate FiO2 05/12/25 08:00 100.0 80 21 133/71 (91) 96 Mechanical Ventilator 50 05/11/25 19:41 0.0 Lab Results: 05/12/25 0735 05/12/25 0155 Objective Lungs - diminished L base, a few coarse BS Heart - RRR, paced Abd - remains distended. Had a small BM after enema. Extr - 1+ edema Incisions - CDI Coagulation Studies Laboratory Tests Test 05/07/25 00:57 05/07/25 08:38 05/07/25 13:23 05/07/25 19:00 APTT (Heparin Protocol) 53 SECONDS (45-60) Patient Sex (Coag) M Patient Height (Coag) 170cm Patient Weight (Coag) 84.0k KG Patient Blood Volume 5799 ML Pump Volume 1500 ML Total Blood Volume 7299 ML Projected Heparin Concentration 1.8 MG/KG Heparin [place] 137 Calculated Heparin Bolus 18719 UNITS Activated Coagulation Time Baseline 141 SEC (101-148) Activated Coag Time 1.70 U/mL 323 SEC (193-297) H Activated Coag Time 2.84 U/mL 476 SEC (260-420) H Heparin Level (COAG) 0 MG/KG Calculated Heparin Req (Hep Assay) 90452 UNITS Calculated Protamine Req (Hep Assay 0 MG Activated Clotting Time 126 SEC (101-148) Fibrinogen 260 MG/DL (177-424) Coagulation Clinical Comments Test 05/11/25 18:50 Prothrombin Time 17.7 SECONDS (9.0-12.0) H INR International Normalized Ratio 1.8 INR Activated Partial Thromboplast Time 37 SECONDS (22-32) H Coagulation Comments Cardiac Rhythm: AV Paced Problem\Assessment\Plan Additional Plan POD # 4 ARF on CRI CRRT planned to start today. Multiple transfusions after L chest tube placement caused bleeding yesterday. Abdominal distension. There are bowel sounds. Consider Lactulose Acute resp failure, PO2 now 148 on 60%. DM, will add Lantus and increase to Med dose scale. Sepsis Screening Reassessment Date: May 12, 2025 Skin Color: Normal Supervising MD Co-signing Provider: ANA Zepeda May 12, 2025 08:21
[2025-05-12] MEDS ORDERED: potassium Cl 40MEQ/270ML bag 270 ML IV PRN (08:35)
[2025-05-12] MEDS ORDERED: sodium phosphate inj. 30 MMOL in dextrose 5%-water 250 ML IV PRN (08:35)
[2025-05-12] MEDS: Duosol 4K/3 Ca (w/calcium) 5,000 ML HE SCH (08:35)
[2025-05-12] MEDS ORDERED: magnesium sulf-water 4G/100mL 100 ML IV PRN (08:35)
[2025-05-12] MEDS ORDERED: calcium chloride inj. 1,000 MG in normal saline 100ml IV soln 100 ML IV PRN (08:35)
[2025-05-12 08:54] LABS: BANDS% (MANUAL) 1.0 % (0-10); LYMPHOCYTES % (MANUAL) 4.0 % (21-51); MONOCYTES % (MANUAL) 8.0 % (2-12); NEUTROPHILS % (MANUAL) 87.0 % (42-75); NUCLEATED RED BLOOD CELLS 2 /100WBC (0-0)
[2025-05-12 08:55] LABS: PLATELET ESTIMATE DECREASED
--- NOTE | 2025-05-12 09:18 | PROGRESS NOTE- Residence ---
Progress Note - Resident Providers to CC Resident Creating Document: LINDSEY WAYNE RES ~ Antibiotic Timeout Antibiotic Ordered?: Yes Subjective Patient was seen at the bedside today. Patient is currently on a mechanical ventilator, was intubated on the morning of 05/11/2025 Patient was taken to the OR yesterday for the placement of bilateral chest tube, patient had a postprocedure left sided ongoing bleeding. Was taken back to the OR for controlled. Continued bleeding overnight but chest tube output has stopped this morning. About 4 units of blood has been transfused since yesterday. Patient has ALVIN post CABG with a creatinine trending high. Was started on him on hemodialysis yesterday, currently the patient is on norepinephrine drip, started on CRRT Objective Vital Signs Date Time Temp Pulse Resp B/P (MAP) Pulse Ox O2 Delivery O2 Flow Rate FiO2 05/12/25 08:36 80 21 96 50 05/12/25 08:00 100.0 133/71 (91) Mechanical Ventilator 05/12/25 08:00 0.0 Result Diagram: 05/12/25 0735 05/12/25 0735 General: Awake and Alert, currently on mechanical ventilator. HEENT: Conjunctiva pink, Sclera clear, Mucus Membranes moist. Neck: Supple without masses and tenderness. Resp: On mechanical ventilator. Has chest tubes. Heart: Regular Rate and rhythm, normal S1 and S2 without murmur, rub or gallop. Abdomen: Soft and non tender no organomegaly, mildly distended Extremities: 1+ pitting lower extremity peripheral edema. No cyanosis or clubbing. Skin: Warm and Dry. Surgical scar in the center of the chest, the wound dressing appears clean, no signs of inflammation or infection. Coagulation Studies Laboratory Tests Test 05/07/25 00:57 05/07/25 08:38 05/07/25 13:23 05/07/25 19:00 APTT (Heparin Protocol) 53 SECONDS (45-60) Patient Sex (Coag) M Patient Height (Coag) 170cm Patient Weight (Coag) 84.0k KG Patient Blood Volume 5799 ML Pump Volume 1500 ML Total Blood Volume 7299 ML Projected Heparin Concentration 1.8 MG/KG Heparin [place] 137 Calculated Heparin Bolus 24234 UNITS Activated Coagulation Time Baseline 141 SEC (101-148) Activated Coag Time 1.70 U/mL 323 SEC (193-297) H Activated Coag Time 2.84 U/mL 476 SEC (260-420) H Heparin Level (COAG) 0 MG/KG Calculated Heparin Req (Hep Assay) 34407 UNITS Calculated Protamine Req (Hep Assay 0 MG Activated Clotting Time 126 SEC (101-148) Fibrinogen 260 MG/DL (177-424) Coagulation Clinical Comments Test 05/11/25 18:50 Prothrombin Time 17.7 SECONDS (9.0-12.0) H INR International Normalized Ratio 1.8 INR Activated Partial Thromboplast Time 37 SECONDS (22-32) H Coagulation Comments Assessment Assessment Plan Plan Assessment This is a 84-year-old male patient with past medical history of hypertension, hyperlipidemia, type 2 diabetes, peripheral artery disease, CKD, complete heart block s/p pacemaker transferred from [facility] for chest pain and shortness of breath with exertion. Patient was admitted for NSTEMI. Cardiac catheterization on 05/04 showed high grade lesions of the LAD, RCA, Circ, and ramus intermedius. CABG in bilateral chest tube placement was done by Dr. Molina on 05/07/2025. Patient had postprocedural ongoing bleeding through the left chest tube 4 units of blood transfused from 05/11/2025 to 05/12/2025. On 05/11/2025 patient was taken back to the OR for bleeding through chest tube, the bleeding was controlled. The nephrology team has been consulted for ALVIN and hyperkalemia. The ALVIN was prerenal and was initiated on IV fluids initially, which she did not tolerate. Chest x-ray showed bilateral diffuse infiltrates. Was initiated on HD on 05/11/25 for oliguria and fluid overload, the patient is been initiated on norepinephrine drip. But continuous fluid overload and patient needing vasopressors, has been initiated on CRRT today. Creatinine at the time of admission, 1.22 on 05/03/2024, trended up high to 3.37 until yesterday, and got better after the dialysis but again getting worse today. BUN 56, potassium and bicarb in the normal range. Phosphorus is elevated. Plan ALVIN/ATN On CRRT ALVIN could be likely secondary to decreased perfusion secondary to SC vs contrast exposure during cardiac catheterization vs stress post surgically. Baseline kidney function is not known. Patient was initially in prerenal ALVIN with labs on 05/10/2025 showing Destiny<15, FeNa-0.2%, Fe urea-15.1%, IV fluids were started for prerenal ALVIN, later on 05/11/2025 patient was mechanically ventilated with chest x-ray showing bilateral infiltrates, was initiated on HD, only about 200 mL of fluid could be off-loaded, with patient being on mechanical ventilation and requiring vasopressors, CRRT was initiated on 05/12/2025 Urine output is slowly trending down, 0.08 mL/kg/hour on 05/12/2025, 0.22 on 05/11/2025 Creatinine today is 3.19, BUN 56, GFR 19, BUN/creatinine 17.6. Urine studies ordered for today. Plan Initiated on CRRT on 05/12/2025 with a goal net UF rate of 200 mL. Received HD on 05/11/2025 Follow up with urine studies. Avoid nephrotoxin agents, avoid [place] or morphine for pain management Avoid MELLISSA/ARB Strict I&Os Currently NPO. Electrolytes Hyperkalemia-improved Hyperphosphatemia. Potassium, bicarb in the normal range Phosphorus 5.5 We will follow up with the labs after the dialysis. CAD s/p CABGx4 on 05/07/2025, POD 4 Cardiac catheterization on 05/04 showed high grade lesions of the LAD, RCA, Circ, and ramus intermedius. CABG bilateral chest tube placement was done by Dr. Molina on 05/07/2025. Echo after CABG showed an ejection fraction of 45-50%, with the elevated right heart pressures., mild aortic stenosis. Patient had postprocedural ongoing bleeding through the left chest tube 4 units of blood transfused from 05/11/2025 to 05/12/2025. On 05/11/2025 patient was taken back to the OR for bleeding through chest tube, the bleeding was controlled. Acute hypoxemic respiratory failure secondary to bilateral pulmonary edema. On mechanical ventilation requiring vasopressors Patient is currently on a mechanical ventilator, PEEP 10, FiO2 50 On Precedex and propofol for sedation. Currently on norepinephrine drip. Chest x-ray shows bilateral diffuse pulmonary infiltrates. As bilateral chest tubes. Has been initiated on CRRT for fluid offload. Cefepime 2 Shock liver AST, ALT in 1200s. Continue to follow up. Acute blood loss anemia Patient had bleeding through left chest tube post CABG procedure with hemoglobin dropping significantly, received about 4 units of blood in two days. Currently hemoglobin is 11.0. Type 2 diabetes mellitus [id number] On Lantus 20 units b.i.d. and insulin protocol. Nutrition Patient NPO since 05/09/2020 [employer] is on board. Hypertension Hyperlipidemia Peripheral artery disease s/p angioplasty in the left SFA and popliteal arteries [place] [address] Carias Complete heart block status post pacemaker Lindsey Wayne M.D PGY2 Nephrology Resident Date of Service: May 12, 2025 Billing Provider: JENS BLAS III, PRAVAHIKA, RES May 12, 2025 09:18
[2025-05-12 10:10] LABS: APTT 37 SECONDS (22-32); INR 1.9 INR
[2025-05-12 11:40] LABS: MEAN PLATELET VOLUME 9.7 FL (7.4-10.4); RED CELL DISTRIBUTION WIDTH 18.0 % (11.5-14.5)
[2025-05-12 11:45] LABS: OSMOLALITY UA 355.0 MOSM/K (50-1400)
[2025-05-12] MEDS: INSULIN LISPRO 100 UNIT/ML INSULN.PEN MULTI-DOSE SQ SCH ×2 (12:00→14:04)
[2025-05-12 12:03] LABS: CREATININE 2.91 MG/DL (0.60-1.10); PHOSPHORUS 4.9 MG/DL (2.3-4.5); TOTAL CARBON DIOXIDE 24.4 MMOL/L (24-32); eCRCL 18 ML/MIN; eGFR 21 ML/MIN
[2025-05-12 12:13] LABS: CREATININE,URINE RANDOM 108.0 MG/DL; UA UREA RANDOM 272.0 MG/DL
[2025-05-12 13:08] LABS: MEAN PLATELET VOLUME 8.4 FL (7.4-10.4); RED CELL DISTRIBUTION WIDTH 18.9 % (11.5-14.5)
[2025-05-12 13:22] LABS: CREATININE 2.81 MG/DL (0.60-1.10); PHOSPHORUS 4.4 MG/DL (2.3-4.5); TOTAL CARBON DIOXIDE 24.2 MMOL/L (24-32); eCRCL 18 ML/MIN; eGFR 22 ML/MIN
[2025-05-12] MEDS: LIDOcaine 1%/PF 5ML 10 MG/ML VIAL IM ONE (14:30)
--- NOTE | 2025-05-12 16:01 | RADIOLOGY REPORT ---
CHEST RADIOGRAPH Indication: new central line pacement Technique: DI CHEST,SINGLE VIEW COMPARISON: None FINDINGS: The endotracheal tube tip projects 4.6 cm above the tarsha. Nasogastric tube projects towards stomach. Right IJ catheter tip projects over the SVC. Left IJ catheter tip projects over the confluence of the SVC and brachiocephalic veins. Right chest dual lead cardiac pacer device . Left chest tube projects over the left upper chest. The cardiac silhouette is enlarged. The lungs demonstrate bilateral patchy airspace opacities, minimally decreased. The pulmonary vasculature is prominent. Moderate left and small right pleural effusions, similar to prior.. There is no pneumothorax. IMPRESSION: As above
--- NOTE | 2025-05-12 16:45 | RADIOLOGY REPORT ---
EXAM: DI CHEST,SINGLE VIEW HISTORY: román placement COMPARISON: DI CHEST,SINGLE VIEW on DOS: 05/12/25, DI CHEST,SINGLE VIEW on DOS: 05/12/25, DI CHEST,SINGLE VIEW on DOS: 05/12/25, DI CHEST,SINGLE VIEW on DOS: 05/11/25, DI CHEST,SINGLE VIEW on DOS: 05/11/25 TECHNIQUE: Portable supine AP view of the chest was performed. FINDINGS: Endotracheal tube is re-identified with its tip about 3.4 cm above the tarsha. NG tube, sternal wires, left atrial occlusion device, left thoracostomy tube, and right chest pacemaker are re-identified. There is a new right IJ central line with its tip in the mid SVC. No pneumothorax. There are diffuse bilateral interstitial opacities, more dense on the left, similar to that seen previously. There is left pleural effusion obscuring the left hemidiaphragm. The heart is enlarged. IMPRESSION: 1. New right IJ central line in good position without pneumothorax. 2. Mechanical ventilation with other tubes and lines as above. 3. Cardiomegaly and postoperative changes of the heart. 4. Diffuse bilateral interstitial opacities, [id number]-zekn-right, and left pleural effusion re-identified.
[2025-05-12] MEDS: NORepinephrine 8mg/ 250ml NS 250 ML IV PRN (17:24)
[2025-05-12 19:56] LABS: MEAN PLATELET VOLUME 8.3 FL (7.4-10.4); RED CELL DISTRIBUTION WIDTH 19.1 % (11.5-14.5)
[2025-05-12 20:05] LABS: CREATININE 2.48 MG/DL (0.60-1.10); PHOSPHORUS 4.3 MG/DL (2.3-4.5); TOTAL CARBON DIOXIDE 25.6 MMOL/L (24-32); eCRCL 21 ML/MIN; eGFR 25 ML/MIN
--- NOTE | 2025-05-12 20:21 | CONSULTATION REPORT ---
Consult Providers to CC ~ History of Present Illness Reason for Admit\Complaint: Cardiac Surgery History of Present Illness Consultation requested for 84-year-old male status post CABGx4 -JARRELL to LAD, on 05/07/2025 who has now developed abdominal distension without any BM since surgery. Postoperatively, patient was stable and recovering par for course. Subsequently, patient needed a Chest Tube, Patient is currently seen, intubated on vent. No history to be obtained. As per nursing staff, no evidence of any BM. Recent abdominal x-ray was performed and demonstrated findings consistent with ileus. Allergies: Coded Allergies: chlorhexidine (Verified Allergy, Severe, SEVERE RASH WITH BLISTERS, 05/03/25) Home Medications Home Medications Active Reported [Garlic] 1 Tab PO Q12H Glucosamine-Chondroitin Tab (Glucosamine/Chondro [place] A) 500 Mg-400 Mg Tablet 2 Tab PO DAILY Preservision Areds 2 Softgel (Vit C/E/Zn/Coppr/Lutein/Zeaxan) 250MG-90MG Capsule 1 Cap PO Q12H Vitamin E (Vitamin E Acetate) 180 Mg (400 Unit) Capsule 2 Cap PO DAILY Lipitor* (Atorvastatin Calcium) 40 Mg Tablet 1 Tab PO HS Chlorpheniramine Maleate 4 Mg Tablet 1 Tab PO DAILY PRN Metoprolol Succinate 50 Mg Tab.sr.24h 1 Tab PO BID Neurontin (Gabapentin) 300 Mg Capsule 300 Mg PO TID Losartan-Hctz 50-12.5 Mg Tab (Losartan/Hydrochlorothiazide) 50 Mg-12.5 Mg Tablet 1 Tab PO DAILY Metformin Hcl 500 Mg Tablet 1 Tab PO Q12H Aspirin 81 Mg Tab.chew 1 Tab PO DAILY Fish Oil 1,000 Mg Softgel (Docosahexanoic Acid/Epa) 1 Each Capsule 1 Cap PO DAILY 30 Days WITH MEALS [prevagen] 50 Mcg PO DAILY [facility] Prostate Health Formula Tb (Saw/[place]/Nettle/Pumpkn/Aa#17) 1 Each Tablet 1 Each PO DAILY Vitamin C (Ascorbic Acid) 2,000 Mg Tablet.sa 2,000 Mg PO DAILY Multi-Vitamin Daily (Multivitamin) 1 Each Tablet 1 Each PO DAILY Claritin* (Loratadine) 10 Mg Tablet 10 Mg PO DAILY Prilosec* (Omeprazole) 20 Mg Capsule.dr 20 Mg PO BID Exam Vitals: Vital Signs Date Time Temp Pulse Resp B/P (MAP) Pulse Ox O2 Delivery O2 Flow Rate FiO2 10/6/25 20:04 97.2 80 18 93/53 (66) 100 Mechanical Ventilator 50 05/12/25 09:45 0 General: Intubated HEENT: NG tube in place Neck: Supple Chest: Recent incisions. Chest tube in place Cardiovascular: Regular rate Abdomen: Soft, distended, nontender, hypoactive bowel sounds, no rigidity Extremities: +edema Central Nervous System: Sedated Musculoskeletal: cannot be assessed Skin: Warm, dry, no diaphoresis Diagnostic Data Last Recorded Lab Results: 05/12/25 1235 05/12/25 1930 Diagnostic Data: Laboratory Tests Test 05/07/25 00:57 05/07/25 08:38 05/07/25 13:23 05/12/25 09:15 APTT (Heparin Protocol) 53 SECONDS (45-60) Patient Sex (Coag) M Patient Height (Coag) 170cm Patient Weight (Coag) 84.0k KG Patient Blood Volume 5799 ML Pump Volume 1500 ML Total Blood Volume 7299 ML Projected Heparin Concentration 1.8 MG/KG Heparin [place] 137 Calculated Heparin Bolus 36929 UNITS Activated Coagulation Time Baseline 141 SEC (101-148) Activated Coag Time 1.70 U/mL 323 SEC (193-297) H Activated Coag Time 2.84 U/mL 476 SEC (260-420) H Heparin Level (COAG) 0 MG/KG Calculated Heparin Req (Hep Assay) 47311 UNITS Calculated Protamine Req (Hep Assay 0 MG Activated Clotting Time 126 SEC (101-148) Prothrombin Time 18.1 SECONDS (9.0-12.0) H INR International Normalized Ratio 1.9 INR Activated Partial Thromboplast Time 37 SECONDS (22-32) H Fibrinogen 295 MG/DL (177-424) Coagulation Comments Coagulation Clinical Comments RADIOLOGY ABDOMINAL RADIOGRAPH Indication: ileus Technique: 2 radiographs of the abdomen were obtained. Comparison: DI ABDOMEN,SINGLE VIEW(KUB) on DOS: 05/09/25 FINDINGS: Lines and tubes: There is an enteric tube terminating in the right upper quadrant either within the distal stomach or proximal small bowel. Early catheter noted. There are dilated loops of small and large bowel. Stool throughout the colon. IMPRESSION: 1. Dilated loops of small and large bowel compatible with ileus. Problems: (1) Postoperative ileus Status: Acute Assessment & Plan: Assessment: Postop ileus most likely secondary to opioid pain meds. Plan: No plans for any acute surgical intervention. Discontinue opioid pain meds. Recommend Tylenol IV every 6 hours scheduled, Reglan 5 mg IV every 6 hours scheduled. Radiological contrast study: CT scan versus small bowel series with Gastrografin. Sepsis Screening Skin Color: Pale FELIX JENNINGS DO May 12, 2025 20:21
[2025-05-12] MEDS: insulin glargine (Lantus) pen - multi-dose SQ SCH (20:35)
[2025-05-12] MEDS: diatrozoate meglu/diatrozoate sod (37% iodine) 120ML oral solution PO ONE (21:00)
[2025-05-12] MEDS: metoclopramide 5 mg/ml inj IV SCH (21:00)
[2025-05-12 21:09] LABS: MEAN PLATELET VOLUME 8.3 FL (7.4-10.4); RED CELL DISTRIBUTION WIDTH 18.5 % (11.5-14.5)
[2025-05-12 21:28] LABS: CREATININE 2.40 MG/DL (0.60-1.10); PHOSPHORUS 4.4 MG/DL (2.3-4.5); TOTAL CARBON DIOXIDE 25.1 MMOL/L (24-32); eCRCL 21 ML/MIN; eGFR 26 ML/MIN
[2025-05-12 21:59] LABS: MEAN PLATELET VOLUME 8.1 FL (7.4-10.4); RED CELL DISTRIBUTION WIDTH 18.8 % (11.5-14.5)
[2025-05-12 22:15] LABS: CREATININE 2.32 MG/DL (0.60-1.10); PHOSPHORUS 4.2 MG/DL (2.3-4.5); TOTAL CARBON DIOXIDE 25.4 MMOL/L (24-32); eCRCL 22 ML/MIN; eGFR 27 ML/MIN
[2025-05-12 22:20] LABS: BANDS% (MANUAL) 8.0 % (0-10); LYMPHOCYTES % (MANUAL) 4.0 % (21-51); METAMYLEOCYTES% (MANUAL) 1.0 % (0-0); MONOCYTES % (MANUAL) 10.0 % (2-12); NEUTROPHILS % (MANUAL) 77.0 % (42-75); NUCLEATED RED BLOOD CELLS 1 /100WBC (0-0); PLATELET ESTIMATE DECREASED
[2025-05-12] MEDS: diatr meglu/diatrizoate 30ml oral sol.-(3 dose) bottle ONE (23:21)
[2025-05-12] MEDS: diatr meglu/diatrizoate 30ml oral sol.-(3 dose) bottle PO ONE (23:21)
[2025-05-13] VITALS (43 sets, daily range): BP systolic 90–127; BP diastolic 50–70; PULSE 80–85; RESP 16–26; TEMP 98.4; O2SAT 92–100
[2025-05-13 02:27] LABS: CREATININE 2.05 MG/DL (0.60-1.10); PHOSPHORUS 3.8 MG/DL (2.3-4.5); TOTAL CARBON DIOXIDE 26.6 MMOL/L (24-32); eCRCL 25 ML/MIN; eGFR 31 ML/MIN
[2025-05-13] MEDS: mineral oil/petrolatum ophthal oint EACHEYE PRN (02:28)
[2025-05-13 02:40] LABS: MEAN PLATELET VOLUME 8.3 FL (7.4-10.4); RED CELL DISTRIBUTION WIDTH 18.6 % (11.5-14.5)
--- NOTE | 2025-05-13 02:40 | RADIOLOGY REPORT ---
Exam: DI ABDOMEN,SINGLE VIEW(KUB) Indication: upper and lower view S/P gastrografin given at 2200 05/12 Comparison: DI ABDOMEN,SINGLE VIEW(KUB) on DOS: 05/11/25, DI ABDOMEN,SINGLE VIEW(KUB) on DOS: 05/09/25 Technique: 5 radiographic views of the abdomen. Findings: Small left pleural effusion. The heart is enlarged status post median sternotomy. Bilateral thoracic drainage catheters noted. Enteric catheter extends to the level of the proximal duodenum. Nonobstructive bowel gas pattern noted. There is no definite evidence for pneumoperitoneum. No abnormal calcifications noted. Right common femoral vascular access catheter. Rectal probe. Impression: 1. Nonobstructive bowel gas pattern. 2. Enteric catheter as above. 3. Cardiomegaly and small left pleural effusion.
[2025-05-13 03:43] LABS: ABG BASE EXCESS 0.4 mmol/L (-2.0-3.0); ABG HCO3 24.5 mmol/L (21.0-28.0); ABG OXYGEN SATURATION 98.0 % (94.0-98.0); ABG PCO2 (T) 35.7 mmHg (35.0-48.0); ABG PH (T) 7.450 (7.350-7.450); ABG PO2 (T) 114.1 mmHg (83.0-108.0); FCOHb 0.3 % (0.5-1.5); FHHb 2.0 % (0.0-5.0); FIO2 50.0 mmHg/%; FMetHb 0.3 % (0.0-1.5); FO2Hb 97.4 % (94.0-98.0); MODE ac/prvc; PATIENT TEMPERATURE 36.1; PEEP 10 cm H2O; RESPIRATORY RATE 18 b/min; TIDAL VOLUME 500 mL; TOTAL HEMOGLOBIN 9.5 G/dl (13.5-17.5)
--- NOTE | 2025-05-13 05:52 | RADIOLOGY REPORT ---
CHEST RADIOGRAPH Indication: ET Tube PLacement Technique: 1 view Comparison: DI CHEST,SINGLE VIEW on DOS: 05/12/25, DI CHEST,SINGLE VIEW on DOS: 05/12/25, DI CHEST,SINGLE VIEW on DOS: 05/12/25, DI CHEST,SINGLE VIEW on DOS: 05/12/25, DI CHEST,SINGLE VIEW on DOS: 05/11/25 FINDINGS: Lines and Tubes: Unchanged Lungs/Pleura: Unchanged. Cardiomediastinum: Unchanged. Other: Unchanged osseous structures. IMPRESSION: 1. No significant change from the previous study. Stable support devices. 2. Persistent lyyp-jlnlwqw-hzkx-right mixed pulmonary opacities with probable left pleural effusion.
[2025-05-13 06:00] LABS: MEAN PLATELET VOLUME 8.4 FL (7.4-10.4)
[2025-05-13 06:01] LABS: RED CELL DISTRIBUTION WIDTH 18.3 % (11.5-14.5)
[2025-05-13 06:07] LABS: CALCIUM CVVH 7.8 MG/DL (8.5-10.1); CREATININE 1.83 MG/DL (0.60-1.10); PHOSPHORUS 3.4 MG/DL (2.3-4.5); TOTAL CARBON DIOXIDE 26.4 MMOL/L (24-32); eGFR 35 ML/MIN
[2025-05-13] MEDS: cefepime inj. 0.5 GM in normal saline 100ml IV soln 105 ML IV SCH (08:44)
--- NOTE | 2025-05-13 09:08 | RADIOLOGY REPORT ---
Date: 05/13/2025 08:30 AM Examination: DI ABDOMEN,SINGLE VIEW(KUB) History: follow up from previous gastroview Comparison: DI ABDOMEN,SINGLE VIEW(KUB) on DOS: 05/13/25, DI ABDOMEN,SINGLE VIEW(KUB) on DOS: 05/11/25, DI ABDOMEN,SINGLE VIEW(KUB) on DOS: 05/09/25 TECHNIQUE: Frontal views of the abdomen was obtained. FINDINGS: Bowel gas pattern is unremarkable. Enteric tube is visualized in the proximal duodenum. The lung bases demonstrates small left pleural effusion with left retrocardiac opacity left chest tube visualized. No acute osseous abnormality identified. IMPRESSION: Nonobstructive bowel gas pattern.
--- NOTE | 2025-05-13 09:58 | PROGRESS NOTE- Residence ---
Progress Note - Resident Providers to CC Resident Creating Document: LINDSEY WAYNE RES ~ Antibiotic Timeout Antibiotic Ordered?: Yes Subjective Patient was seen at the bedside today. Patient continues to be intubated and ventilated, was intubated on the morning of 05/11/2025. Has a bilateral chest tube. The patient cause currently on CRRT running at 100 mL/hour. Total output of 2389 mL. Yesterday central line was shifted to the left side and Jarad catheter on the right. Patient had no bowel movements since the surgery, has a postop ileus. Started on Reglan q.6 scheduled. Objective Vital Signs Date Time Temp Pulse Resp B/P (MAP) Pulse Ox O2 Delivery O2 Flow Rate FiO2 05/13/25 09:14 80 19 99 40 05/13/25 09:00 98.1 112/59 (76) Mechanical Ventilator 05/12/25 09:45 0 Result Diagram: 05/13/2553905/13/25539 General: Awake and Alert, currently on mechanical ventilator. HEENT: Conjunctiva pink, Sclera clear, Mucus Membranes moist. Neck: Supple without masses and tenderness. Resp: On mechanical ventilator. Has chest tubes. Heart: Regular Rate and rhythm, normal S1 and S2 without murmur, rub or gallop. Abdomen: Soft and non tender no organomegaly, mildly distended Extremities: 1+ pitting lower extremity peripheral edema. No cyanosis or clubbing. Skin: Warm and Dry. Surgical scar in the center of the chest, the wound dressing appears clean, no signs of inflammation or infection. Coagulation Studies Laboratory Tests Test 05/07/25 00:57 05/07/25 08:38 05/07/25 13:23 05/12/25 09:15 APTT (Heparin Protocol) 53 SECONDS (45-60) Patient Sex (Coag) M Patient Height (Coag) 170cm Patient Weight (Coag) 84.0k KG Patient Blood Volume 5799 ML Pump Volume 1500 ML Total Blood Volume 7299 ML Projected Heparin Concentration 1.8 MG/KG Heparin [place] 137 Calculated Heparin Bolus 43797 UNITS Activated Coagulation Time Baseline 141 SEC (101-148) Activated Coag Time 1.70 U/mL 323 SEC (193-297) H Activated Coag Time 2.84 U/mL 476 SEC (260-420) H Heparin Level (COAG) 0 MG/KG Calculated Heparin Req (Hep Assay) 46503 UNITS Calculated Protamine Req (Hep Assay 0 MG Activated Clotting Time 126 SEC (101-148) Prothrombin Time 18.1 SECONDS (9.0-12.0) H INR International Normalized Ratio 1.9 INR Activated Partial Thromboplast Time 37 SECONDS (22-32) H Fibrinogen 295 MG/DL (177-424) Coagulation Comments Coagulation Clinical Comments Assessment Assessment Plan Plan Assessment This is a 84-year-old male patient with past medical history of hypertension, hyperlipidemia, type 2 diabetes, peripheral artery disease, CKD, complete heart block s/p pacemaker transferred from [facility] for chest pain and shortness of breath with exertion. Patient was admitted for NSTEMI. Cardiac catheterization on 05/04 showed high grade lesions of the LAD, RCA, Circ, and ramus intermedius. CABG in bilateral chest tube placement was done by Dr. Molina on 05/07/2025. Patient had postprocedural ongoing bleeding through the left chest tube 4 units of blood transfused from 05/11/2025 to 05/12/2025. On 05/11/2025 patient was taken back to the OR for bleeding through chest tube, the bleeding was controlled. The nephrology team has been consulted for ALVIN and hyperkalemia. The ALVIN was prerenal and was initiated on IV fluids initially, which she did not tolerate. Chest x-ray showed bilateral diffuse infiltrates. Was initiated on HD on 05/11/25 for oliguria and fluid overload, the patient is been initiated on norepinephrine drip. But continuous fluid overload and patient needing vasopressors, has been initiated on CRRT today. Creatinine at the time of admission, 1.22 on 05/03/2024, trended up high to 3.37 until yesterday, and got better after the dialysis but again getting worse today. BUN 56, potassium and bicarb in the normal range. Phosphorus is elevated. Plan ALVIN/ATN On CRRT ALVIN could be likely secondary to decreased perfusion secondary to ID vs contrast exposure during cardiac catheterization vs stress post surgically. Baseline kidney function is not known. Patient was initially in prerenal ALVIN with labs on 05/10/2025 showing Destiny<15, FeNa-0.2%, Fe urea-15.1%, IV fluids were started for prerenal ALVIN, later on 05/11/2025 patient was mechanically ventilated with chest x-ray showing bilateral infiltrates, was initiated on HD, only about 200 mL of fluid could be off-loaded, with patient being on mechanical ventilation and requiring vasopressors, CRRT was initiated on 05/12/2025, running at 100 mL per hour. Total output of 2389 mL in the last 24 hours. Creatinine today is 1.83, BUN 42, GFR 35, BUN/creatinine 23.0 Plan Initiated on CRRT on 05/12/2025 with a goal net UF rate of 200 mL. Received HD on 05/11/2025 Follow up with urine studies. Avoid nephrotoxin agents, avoid [place] or morphine for pain management Avoid MELLISSA/ARB Strict I&Os Currently NPO. Electrolytes Hyperkalemia-improved Hyperphosphatemia.-improved Potassium, bicarb, phosphorus in the normal range We will follow up with the labs after the dialysis. CAD s/p CABGx4 on 05/07/2025, POD 5 Cardiac catheterization on 05/04 showed high grade lesions of the LAD, RCA, Circ, and ramus intermedius. CABG bilateral chest tube placement was done by Dr. Molina on 05/07/2025. Echo after CABG showed an ejection fraction of 45-50%, with the elevated right heart pressures., mild aortic stenosis. Patient had postprocedural ongoing bleeding through the left chest tube 4 units of blood transfused from 05/11/2025 to 05/12/2025. On 05/11/2025 patient was taken back to the OR for bleeding through chest tube, the bleeding was controlled. Acute hypoxemic respiratory failure secondary to bilateral pulmonary edema. On mechanical ventilation requiring vasopressors Patient is currently on a mechanical ventilator, PEEP 10, FiO2 50 On Precedex and propofol for sedation. Currently on norepinephrine drip. Chest x-ray shows bilateral diffuse pulmonary infiltrates. As bilateral chest tubes. Has been initiated on CRRT for fluid offload. Cefepime day 3 Shock liver AST, ALT in 1200s. Continue to follow up. Postop ileus Was started on Reglan q.6 schedule Acute blood loss anemia Patient had bleeding through left chest tube post CABG procedure with hemoglobin dropping significantly, received about 4 units of blood in two days. Currently hemoglobin is 11.0. Type 2 diabetes mellitus [id number] On Lantus 20 units b.i.d. and insulin protocol. Nutrition Patient NPO since 05/09/2020 [employer] is on board. Hypertension Hyperlipidemia Peripheral artery disease s/p angioplasty in the left SFA and popliteal arteries [place] [address] Carias Complete heart block status post pacemaker Lindsey Wayne M.D PGY2 Nephrology Resident Date of Service: May 13, 2025 Billing Provider: JENS BLAS III, PRAVAHIKA, RES May 13, 2025 09:58
[2025-05-13 11:15] LABS: HBSAG SCREEN Negative (Negative)
[2025-05-13 11:39] LABS: MEAN PLATELET VOLUME 7.9 FL (7.4-10.4); RED CELL DISTRIBUTION WIDTH 18.9 % (11.5-14.5)
[2025-05-13 11:50] LABS: CALCIUM CVVH 8.0 MG/DL (8.5-10.1); CREATININE 1.65 MG/DL (0.60-1.10); PHOSPHORUS 2.6 MG/DL (2.3-4.5); TOTAL CARBON DIOXIDE 27.0 MMOL/L (24-32); eGFR 40 ML/MIN
[2025-05-13 12:16] LABS: APTT 29 SECONDS (22-32); INR 1.2 INR
[2025-05-13 12:23] LABS: LYMPHOCYTES % (MANUAL) 18.0 % (21-51); METAMYLEOCYTES% (MANUAL) 1.0 % (0-0); MONOCYTES % (MANUAL) 4.0 % (2-12); NEUTROPHILS % (MANUAL) 77.0 % (42-75); NUCLEATED RED BLOOD CELLS 1 /100WBC (0-0); PLATELET ESTIMATE DECREASED
[2025-05-13 13:17] LABS: ABG BASE EXCESS 1.0 mmol/L (-2.0-3.0); ABG HCO3 24.3 mmol/L (21.0-28.0); ABG OXYGEN SATURATION 95.9 % (94.0-98.0); ABG PCO2 (T) 32.7 mmHg (35.0-48.0); ABG PH (T) 7.488 (7.350-7.450); ABG PO2 (T) 84.4 mmHg (83.0-108.0); FCOHb 1.1 % (0.5-1.5); FHHb 4.0 % (0.0-5.0); FIO2 40.0 mmHg/%; FMetHb 0.3 % (0.0-1.5); FO2Hb 94.6 % (94.0-98.0); MODE VENT- PRVC; PATIENT TEMPERATURE 36.8; PEEP 5 cm H2O; RESPIRATORY RATE 18 b/min; TIDAL VOLUME 500 mL; TOTAL HEMOGLOBIN 8.5 G/dl (13.5-17.5)
[2025-05-13 13:27] LABS: OSMOLALITY UA 334.0 MOSM/K (50-1400)
[2025-05-13 13:35] LABS: CREATININE,URINE RANDOM 90.3 MG/DL; UA UREA RANDOM 311.0 MG/DL
--- NOTE | 2025-05-13 16:07 | PROGRESS NOTE ---
Progress Note CV Providers to CC ~ Progress Note: S/P CABG 05/07/[address] 05/11 with return to OR to control bleeding (re-intubated) Antibiotics Ordered?: Yes If Yes, Indications?: pneumonia Objective Vitals Vital Signs Date Time Temp Pulse Resp B/P (MAP) Pulse Ox O2 Delivery O2 Flow Rate FiO2 05/13/25 15:00 23 40 05/13/25 15:00 98.1 80 99/55 (70) 96 Mechanical Ventilator 05/13/25 08:00 0.0 Lab Results: 05/13/25 1130 05/13/25 1130 Objective CXR - left side is clearing - generalized atx - overall satisfactory Left chest tube - 1250 mL total in the chamber. Almost nothing through the day today Right chest tube - 950 mL total in chamber. about 40 mL through the day today CRRT active drawing off about 100 to 150 mL per hour Drips: Levephed 0.007 mcg/kg/min Precedex Propofol Neuro - sedated with Propofol and Precedex - minimally responsive Lungs - diminished L base, a few coarse BS Vent A/C 18 40% FIO2 PEEP *8 Heart - RRR, paced internally AV at 80 Abd - remains distended no significant bowel movements Not on Tube feeds as of yet TPN off Ext - 2+ edema x4, SCDs to BLE Incisions - covered Coagulation Studies Laboratory Tests Test 05/07/25 00:57 05/07/25 08:38 05/07/25 13:23 05/13/25 11:30 APTT (Heparin Protocol) 53 SECONDS (45-60) Patient Sex (Coag) M Patient Height (Coag) 170cm Patient Weight (Coag) 84.0k KG Patient Blood Volume 5799 ML Pump Volume 1500 ML Total Blood Volume 7299 ML Projected Heparin Concentration 1.8 MG/KG Heparin [place] 137 Calculated Heparin Bolus 56344 UNITS Activated Coagulation Time Baseline 141 SEC (101-148) Activated Coag Time 1.70 U/mL 323 SEC (193-297) H Activated Coag Time 2.84 U/mL 476 SEC (260-420) H Heparin Level (COAG) 0 MG/KG Calculated Heparin Req (Hep Assay) 57708 UNITS Calculated Protamine Req (Hep Assay 0 MG Activated Clotting Time 126 SEC (101-148) Prothrombin Time 12.5 SECONDS (9.0-12.0) H INR International Normalized Ratio 1.2 INR Activated Partial Thromboplast Time 29 SECONDS (22-32) Fibrinogen 251 MG/DL (177-424) Coagulation Comments Coagulation Clinical Comments Cardiac Rhythm: AV Paced Problem\Assessment\Plan Problems/Diagnosis: (1) S/P CABG x 3 Assessment & Plan: POd #5 from CABG Remains on mechanical ventilation - weaning as able E. Coli Pneumonia - sensitive to and being treated with Cefipime ALVIN - Creatinine improved to 1.65 today Nephrology is following. Undergoing CRRT Shock Liver - AST/ALT improving today Thrombocytopenia - monitoring - no active bleeding at present Ileus - followed by Gen surgery Bilat pleural effusions - bilat chest tubes in place - minimal drainage Acute blood loss anemia - stable monitoring Type 2 diabetes mellitus - noted Hypertension - noted NSTEMI - noted Coagulopathy - got FFP transfusion this morning for elevated INR approaching 2 Proph: Protonix, No heparin due to low platelet count Discussion: He remains critically ill however he does seem to be stabilizing out. Labs are showing a positive trend in creatinine and LFTs. We have had modest success weaning ventilator support. His last echo showed good heart pump function. We may be able to initiate enteral feeds tomorrow. Continue support in ICU. Sepsis Screening Skin Color: Pale OVERBAYHUSSAIN May 13, 2025 16:07
[2025-05-13] MEDS ORDERED: calcium chloride inj. 1,000 MG in normal saline 100ml IV soln 100 ML IV PRN (16:10)
--- NOTE | 2025-05-13 17:08 | PROGRESS NOTE ---
Progress Progress Note: Patient seen for follow-up regarding possible bowel obstruction. Patient currently evaluated. As per nursing staff, +flatus, - BM. Gastrografin small bowel series completed which did not show any obstruction pattern. Exam General Appearance: other General Appearance Remains intubated on ventilator HEENT NG tube in place GI Physical Exam Soft, significantly less distended, + BS, nontender Problem\Assessment\Plan Problems/Diagnosis: (1) Postoperative ileus Status: Acute Assessment & Plan: Assessment: Postop ileus resolving. Plan: No further acute general surgery follow-up. Results/Orders Result Diagram: 05/13/25 1130 05/13/25 1130 EKG/XRAY/CT/US/VASC/MRI Abdominal X-Ray : Interpreted By: radiologist Impression: bowel obstruction Dietary Evaluation Recommendations by RD: Dietary Education by RD, PPN/TPN, Other - see comments Comments: TPN 05/14 <[id number] F/u: Per discussion with RN, physician ordered to hold TPN today unclear of reason. Pt started on CRRT. Pt had two BMs yesterday.If medically appropriate given bowel movements, pt may benefit from transitioning to TFs. Will continue to monitor and make nutrition recommendations as appropriate. TPN consult: Pt reintubated today and remains sedated with propofol running at 2.82 ml/hr which provides ~74 kcal/day. Pt remained NPO since 05/09. Per surgeon note surgery has been consulted for possible bowel obstruction/olgilvies/ileus per EMR. Per EMR pt has R IJ-also confirmed with RN. Pt is currently receiving D/NS at 80 ml/hr which provided ~326 kcal/day. Given elevated Phos of 7.5 and elevated Mg 3.1, will use non electrolyte containing formula. See TPN recs below-communicated with pharmacist. Pt was taken to OR today emergently due to bleed at site of chest tube. LBM on 05/05 vs 05/06 and receiving routine and PRN bowel care per EMR. Will continue to monitor and make nutrition recommendations as appropriate. Recommendations: 1.Continuous TPN using 2:1 Clinimix-non E 5/20 at 90 ml/hr goal rate with separate 100 mL 20% ILE to run for 12 hours daily at 8.33 ml/hr. To provide 2160 mL volume/day, 108g AA, 432g DEX (3.2 mg/kg/min), and 2101 kcal. 2.Monitor electrolytes and need to transition to electrolyte containing formula vs custom TPN 3.Discontinue D5/NS IV once TPN is at goal rate to not overfeed on the vent per physician discretion 4.Full glycemic Protocol with TPN initiation per physician discretion 5.Routine and PRN bowel care 6.Daily scaled wt with nutrition support Expected Outcomes/Goals: maintain stable wt, TPN tolerance, bowel regularity, surgical wound healing FELIX JENNINGS DO May 13, 2025 17:08
[2025-05-13 17:46] LABS: MEAN PLATELET VOLUME 8.2 FL (7.4-10.4)
[2025-05-13 17:47] LABS: RED CELL DISTRIBUTION WIDTH 18.4 % (11.5-14.5)
[2025-05-13 17:53] LABS: CALCIUM CVVH 8.2 MG/DL (8.5-10.1); CREATININE 1.36 MG/DL (0.60-1.10); PHOSPHORUS 2.3 MG/DL (2.3-4.5); TOTAL CARBON DIOXIDE 26.9 MMOL/L (24-32); eGFR 50 ML/MIN
[2025-05-13] MEDS: sodium phosphate inj. 30 MMOL in dextrose 5%-water 250 ML IV PRN (19:28)
[2025-05-13 23:40] LABS: CALCIUM CVVH 7.9 MG/DL (8.5-10.1); CREATININE 1.16 MG/DL (0.60-1.10); PHOSPHORUS 3.3 MG/DL (2.3-4.5); TOTAL CARBON DIOXIDE 28.1 MMOL/L (24-32); eGFR 60 ML/MIN
[2025-05-14] VITALS (40 sets, daily range): BP systolic 80–142; BP diastolic 42–78; PULSE 80; RESP 12–23; TEMP 97.5–99; O2SAT 92–100
[2025-05-14 00:05] LABS: MEAN PLATELET VOLUME 7.7 FL (7.4-10.4); RED CELL DISTRIBUTION WIDTH 18.7 % (11.5-14.5)
[2025-05-14] MEDS: dextrose 50%-water 50ml dispensing syringe IV PRN (02:17)
[2025-05-14 04:12] LABS: ABG BASE EXCESS 0.0 mmol/L (-2.0-3.0); ABG HCO3 23.3 mmol/L (21.0-28.0); ABG OXYGEN SATURATION 97.0 % (94.0-98.0); ABG PCO2 (T) 32.2 mmHg (35.0-48.0); ABG PH (T) 7.476 (7.350-7.450); ABG PO2 (T) 92.6 mmHg (83.0-108.0); FCOHb 1.1 % (0.5-1.5); FHHb 3.0 % (0.0-5.0); FIO2 40.0 mmHg/%; FMetHb 0.3 % (0.0-1.5); FO2Hb 95.6 % (94.0-98.0); PATIENT TEMPERATURE 36.6; PEEP 5 cm H2O; RESPIRATORY RATE 16 b/min; TIDAL VOLUME 500 mL; TOTAL HEMOGLOBIN 8.9 G/dl (13.5-17.5)
[2025-05-14 05:53] LABS: RED CELL DISTRIBUTION WIDTH 18.7 % (11.5-14.5)
[2025-05-14 05:54] LABS: CALCIUM CVVH 8.2 MG/DL (8.5-10.1); CREATININE 1.21 MG/DL (0.60-1.10); PHOSPHORUS 2.8 MG/DL (2.3-4.5); TOTAL CARBON DIOXIDE 26.5 MMOL/L (24-32); eGFR 57 ML/MIN
[2025-05-14 05:55] LABS: MEAN PLATELET VOLUME 8.7 FL (7.4-10.4)
--- NOTE | 2025-05-14 06:21 | RADIOLOGY REPORT ---
CHEST RADIOGRAPH Indication: intubated and chest tubes Technique: Single frontal view of the chest was obtained COMPARISON: DI CHEST,SINGLE VIEW on DOS: 05/13/25, DI CHEST,SINGLE VIEW on DOS: 05/12/25, DI CHEST,SINGLE VIEW on DOS: 05/12/25, DI CHEST,SINGLE VIEW on DOS: 05/12/25, DI CHEST,SINGLE VIEW on DOS: 05/12/25 FINDINGS: Lines and Tubes: Unchanged. Lungs: Slight interval progression in diffuse increased prominence of the pulmonary vasculature. Left pleural effusion unchanged. No evidence of focal consolidation. No pneumothorax. Cardiomediastinal contours: Cardiomegaly Bones: Unremarkable IMPRESSION: 1. Slight interval progression in pulmonary edema. 2. Stable cardiomegaly and left pleural effusion. 3. Lines and tubes unchanged.
[2025-05-14] MEDS: potassium Cl 40MEQ/270ML bag 270 ML IV PRN (07:15)
--- NOTE | 2025-05-14 08:20 | PROGRESS NOTE ---
Progress Note CV Providers to CC ~ Progress Note: S/P CABG 05/07/[address]'s 05/11 with return to OR to control bleeding (re-intubated) Antibiotics Ordered?: Yes If Yes, Indications?: pneumonia Objective Vitals Vital Signs Date Time Temp Pulse Resp B/P (MAP) Pulse Ox O2 Delivery O2 Flow Rate FiO2 05/14/25 07:39 104/54 05/14/25 07:22 80 23 99 40 05/14/25 07:00 98.4 Mechanical Ventilator 05/13/25 08:00 0.0 Lab Results: 05/14/25 0535 05/14/25 0535 Objective CXR - perhaps increased pulm edema/atelectasis - film seems to be taken in expiration with less penetration. Left chest tube - 1400 mL total in the chamber. 150 mL in 12hr Right chest tube - 1000 mL total in chamber. 50 mL in 12hr NG output - 450 over last 12h CRRT active Drips: Levephed 0.007 mcg/kg/min Precedex Propofol Neuro - sedated with Propofol and Precedex - minimally responsive Lungs - bilat BS present - coarse Vent A/C 16 40% FIO2 PEEP 5 Heart - RRR, paced internally AV at 80 Abd - remains moderately distended, active bowel movements +witnessed flatus Not on Tube feeds as of yet TPN off Ext - 2+ edema x4, SCDs to BLE Incisions - covered Coagulation Studies Laboratory Tests Test 05/07/25 00:57 05/07/25 08:38 05/07/25 13:23 05/13/25 11:30 APTT (Heparin Protocol) 53 SECONDS (45-60) Patient Sex (Coag) M Patient Height (Coag) 170cm Patient Weight (Coag) 84.0k KG Patient Blood Volume 5799 ML Pump Volume 1500 ML Total Blood Volume 7299 ML Projected Heparin Concentration 1.8 MG/KG Heparin [place] 137 Calculated Heparin Bolus 36184 UNITS Activated Coagulation Time Baseline 141 SEC (101-148) Activated Coag Time 1.70 U/mL 323 SEC (193-297) H Activated Coag Time 2.84 U/mL 476 SEC (260-420) H Heparin Level (COAG) 0 MG/KG Calculated Heparin Req (Hep Assay) 77165 UNITS Calculated Protamine Req (Hep Assay 0 MG Activated Clotting Time 126 SEC (101-148) Prothrombin Time 12.5 SECONDS (9.0-12.0) H INR International Normalized Ratio 1.2 INR Activated Partial Thromboplast Time 29 SECONDS (22-32) Fibrinogen 251 MG/DL (177-424) Coagulation Comments Coagulation Clinical Comments Cardiac Rhythm: AV Paced Problem\Assessment\Plan Problems/Diagnosis: (1) S/P CABG x 3 Assessment & Plan: POd #6 from CABG Remains on mechanical ventilation - weaning as able E. Coli Pneumonia - will change him to IV Levaquin (due to potential cause of thrombocytopenia with Cefipime) ALVIN - Creatinine improving down to 1.21 today Nephrology is following. Undergoing CRRT Shock Liver - AST/ALT improving daily Thrombocytopenia - monitoring - no active bleeding at present Ileus - still no BM in several days but abdomen is active on exam Bilat pleural effusions - bilat chest tubes in place - Left chest tube has increased old blood drainage Acute blood loss anemia - stable monitoring Type 2 diabetes mellitus - noted Hypertension - by history - currently hypotensive requiring low dose Levophed drip - will add Midodrine via NG tube and wean off Levophed NSTEMI - noted Coagulopathy - got FFP transfusion 05/13 for elevated INR approaching 2 - improved today Proph: Protonix, No heparin or aspirin due to low platelet count Discussion: Making slow progress. Labs are showing a positive trend in creatinine and LFTs. Abdomen seems to be improving. NG tube looks to be in the duodenum which might explain the elevated NG outputs. We are ordering a noncon CT of chest and abdomen to eval lung bolton/effusions and abdominal structures. Will consider pulling NG tube back after evaluation of CT scan. Also will consider initiation of trickle tube feeds at that time. Continue support in ICU. Family has been updated by Dr. Cano. Sepsis Screening Skin Color: Pale SHELLEYBAHUSSAIN Wilson May 14, 2025 08:20
[2025-05-14] MEDS: levoFLOXACIN-Levaquin 750MG/D5 150 ML IV SCH (09:00)
[2025-05-14] MEDS: midodrine tablet 2.5 MG TABLET NG SCH (09:00)
--- NOTE | 2025-05-14 09:26 | PROGRESS NOTE- Residence ---
Progress Note - Resident Providers to CC Resident Creating Document: LINDSEY WAYNE RES ~ Antibiotic Timeout Antibiotic Ordered?: Yes Subjective Patient was seen at the bedside today. Patient continues to be intubated and ventilated. Continues to be on low dose of vasopressors, but the blood pressure is unable to maintain without vasopressors. Will continue for CRRT today. Objective Vital Signs Date Time Temp Pulse Resp B/P (MAP) Pulse Ox O2 Delivery O2 Flow Rate FiO2 05/14/25 08:54 89/49 05/14/25 08:00 98.1 80 21 97 Mechanical Ventilator 40 05/13/25 08:00 0.0 Result Diagram: 05/14/2535 05/14/25 0535 General: Awake and Alert, currently on mechanical ventilator. HEENT: Conjunctiva pink, Sclera clear, Mucus Membranes moist. Neck: Supple without masses and tenderness. Resp: On mechanical ventilator. Has bilateral chest tubes. Heart: Regular Rate and rhythm, normal S1 and S2 without murmur, rub or gallop. Abdomen: Soft and non tender no organomegaly, distended Extremities: 2+ pitting lower extremity peripheral edema. No cyanosis or clubbing. Skin: Warm and Dry. Surgical scar in the center of the chest, the wound dressing appears clean, no signs of inflammation or infection. Coagulation Studies Laboratory Tests Test 05/07/25 00:57 05/07/25 08:38 05/07/25 13:23 05/13/25 11:30 APTT (Heparin Protocol) 53 SECONDS (45-60) Patient Sex (Coag) M Patient Height (Coag) 170cm Patient Weight (Coag) 84.0k KG Patient Blood Volume 5799 ML Pump Volume 1500 ML Total Blood Volume 7299 ML Projected Heparin Concentration 1.8 MG/KG Heparin [place] 137 Calculated Heparin Bolus 56079 UNITS Activated Coagulation Time Baseline 141 SEC (101-148) Activated Coag Time 1.70 U/mL 323 SEC (193-297) H Activated Coag Time 2.84 U/mL 476 SEC (260-420) H Heparin Level (COAG) 0 MG/KG Calculated Heparin Req (Hep Assay) 19973 UNITS Calculated Protamine Req (Hep Assay 0 MG Activated Clotting Time 126 SEC (101-148) Prothrombin Time 12.5 SECONDS (9.0-12.0) H INR International Normalized Ratio 1.2 INR Activated Partial Thromboplast Time 29 SECONDS (22-32) Fibrinogen 251 MG/DL (177-424) Coagulation Comments Coagulation Clinical Comments Assessment Assessment Plan Plan Assessment This is a 84-year-old male patient with past medical history of hypertension, hyperlipidemia, type 2 diabetes, peripheral artery disease, CKD, complete heart block s/p pacemaker transferred from [facility] for chest pain and shortness of breath with exertion. Patient was admitted for NSTEMI. Cardiac catheterization on 05/04 showed high grade lesions of the LAD, RCA, Circ, and ramus intermedius. CABG in bilateral chest tube placement was done by Dr. Molina on 05/07/2025. Patient had postprocedural ongoing bleeding through the left chest tube 4 units of blood transfused from 05/11/2025 to 05/12/2025. On 05/11/2025 patient was taken back to the OR for bleeding through chest tube, the bleeding was controlled. The nephrology team has been consulted for ALVIN and hyperkalemia. The ALVIN was prerenal and was initiated on IV fluids initially, which she did not tolerate. Chest x-ray showed bilateral diffuse infiltrates. Was initiated on HD on 05/11/25 for oliguria and fluid overload, the patient is been initiated on norepinephrine drip. But continuous fluid overload and patient needing vasopressors, has been initiated on CRRT on 05/12/25 Plan ALVIN/ATN On CRRT ALVIN could be likely secondary to decreased perfusion secondary to CA vs contrast exposure during cardiac catheterization vs stress post surgically. Baseline kidney function is not known. Patient was initially in prerenal ALVIN with labs on 05/13/2025 showing [place] 39, FeNa-0.2%, Fe urea-15.1%, IV fluids were started for prerenal ALVIN, later on 05/11/2025 patient was mechanically ventilated with chest x-ray showing bilateral infiltrates, was initiated on HD, only about 200 mL of fluid could be off-loaded, with patient being on mechanical ventilation and requiring vasopressors, CRRT was initiated on 05/12/2025, running at 100 mL per hour. Total output of 3714 mL in the last 24 hours. Creatinine today is 1.21, BUN 29, Plan Initiated on CRRT on 05/12/2025 with a goal net UF rate of 200 mL. Received HD on 05/11/2025 Follow up with urine studies. Avoid nephrotoxin agents, avoid [place] or morphine for pain management Avoid MELLISSA/ARB Strict I&Os Patient is getting TPN. Electrolytes Hyperkalemia-improved Hyperphosphatemia.-improved Potassium, bicarb, phosphorus in the normal range We will follow up with the labs after the dialysis. CAD s/p CABGx4 on 05/07/2025, POD 5 Cardiac catheterization on 05/04 showed high grade lesions of the LAD, RCA, Circ, and ramus intermedius. CABG bilateral chest tube placement was done by Dr. Molina on 05/07/2025. Echo after CABG showed an ejection fraction of 45-50%, with the elevated right heart pressures., mild aortic stenosis. Patient had postprocedural ongoing bleeding through the left chest tube 4 units of blood transfused from 05/11/2025 to 05/12/2025. On 05/11/2025 patient was taken back to the OR for bleeding through chest tube, the bleeding was controlled. Acute hypoxemic respiratory failure secondary to bilateral pulmonary edema. On mechanical ventilation requiring vasopressors Patient is currently on a mechanical ventilator, On Precedex and propofol for sedation. Currently on lower dose of norepinephrine drip. Chest x-ray shows bilateral diffuse pulmonary infiltrates. As bilateral chest tubes. Has been initiated on CRRT for fluid offload. Shock liver AST, ALT in 1200s. Trending down.. Postop ileus Was started on Reglan q.6 schedule Acute blood loss anemia Patient had bleeding through left chest tube post CABG procedure with hemoglobin dropping significantly, received about 4 units of blood in two days. Type 2 diabetes mellitus UxV2s-3.5 On Lantus 20 units b.i.d. and insulin protocol. Nutrition Was started on TPN. Hypertension Hyperlipidemia Peripheral artery disease s/p angioplasty in the left SFA and popliteal arteries [place] [address] Carias Complete heart block status post pacemaker Lindsey Wayne M.D PGY2 Nephrology Resident Date of Service: May 14, 2025 Billing Provider: JENS BLAS III, PRAVAHIKA, RES May 14, 2025 09:26
[2025-05-14] MEDS: heparin 1,000 units/ml 10ml inj HE ONE ×2 (10:05)
[2025-05-14 11:38] LABS: MEAN PLATELET VOLUME 8.4 FL (7.4-10.4); RED CELL DISTRIBUTION WIDTH 18.9 % (11.5-14.5)
[2025-05-14 12:00] LABS: CALCIUM CVVH 8.1 MG/DL (8.5-10.1); CREATININE 1.12 MG/DL (0.60-1.10); PHOSPHORUS 2.4 MG/DL (2.3-4.5); TOTAL CARBON DIOXIDE 24.8 MMOL/L (24-32); eGFR 62 ML/MIN
--- NOTE | 2025-05-14 12:22 | RADIOLOGY REPORT ---
EXAM: CT CT CHEST ABDOMEN PELVIS INDICATION: abdominal distention TECHNIQUE: Volumetric multidetector CT images of the chest, abdomen and pelvis were obtained after the administration of IV contrast. All CT scans at this facility use dose modulation, iterative reconstruction, and/or weight based dosing when appropriate to reduce radiation dose to as low as reasonably achievable. COMPARISON: DI CHEST,SINGLE VIEW on DOS: 05/14/25 FINDINGS: LOWER NECK: Unremarkable LYMPH NODES/MEDIASTINUM: No abnormal lymph nodes by CT size criteria. CARDIOVASCULAR: Normal cardiac size. No pericardial effusion. No aneurysmal dilatation of the great vessels. Coronary artery calcifications. LUNG PARENCHYMA/PLEURAL SPACE: Bilateral chest tubes with variable density of left-sided fluid collection and partially collapse left lower lobe correlate with output given appearance of possible blood products. Decreased lung volumes with patchy areas of ground-glass versus atelectasis in the right lower lobe. CHEST WALL: Right anterior chest Port-A-Cath. Body wall edema. LIVER: Normal hepatic size without suspicious focal lesion. GALLBLADDER/BILIARY TREE: Surgically absent. SPLEEN: Unremarkable. PANCREAS: Unremarkable. ADRENAL GLANDS: Unremarkable KIDNEYS: No hydronephrosis. bilateral perinephric edema. Presumed proteinaceous cysts of the left anterior kidney. BLADDER: Circumferential abnormal bladder wall thickening. Bladder is decompressed with Early catheter. PELVIC ORGANS: Mild to moderate prostatomegaly. BOWEL/MESENTERY: Distal esophageal wall thickening with sliding hiatal hernia enteric tube extending to the duodenal bulb. ASCITES: Small volume ascites and mesenteric congestion LYMPHADENOPATHY: No pathologically enlarged lymph nodes by CT size criteria VASCULATURE: No aneurysmal dilatation. ABDOMINAL WALL: Diffuse body wall edema MUSCULOSKELETAL: Significant superior endplate compression deformity of T4 and subsequent gibbus deformity with anterior wedging and focal kyphosis. Multilevel facet degenerative change. Evidence of prior rib fractures. Multifocal degenerative change of the visualized spine. IMPRESSION: 1. Bilateral chest tubes with variable density of left-sided fluid collection and partially collapse left lower lobe correlate with output given appearance of possible blood products. 2. Decreased lung volumes with patchy areas of ground-glass versus atelectasis in the right lower lobe. 3. Circumferential abnormal bladder wall thickening. 4. Correlate with urinalysis to exclude cystitis. 5. Small volume ascites and mesenteric congestion. 6. Significant superior endplate compression deformity of T4 and subsequent gibbus deformity with anterior wedging and focal kyphosis.
[2025-05-14 12:38] LABS: BANDS% (MANUAL) 1.0 % (0-10); EOSINOPHILS % (MANUAL) 2.0 % (0-6); LYMPHOCYTES % (MANUAL) 10.0 % (21-51); METAMYLEOCYTES% (MANUAL) 2.0 % (0-0); MONOCYTES % (MANUAL) 8.0 % (2-12); NEUTROPHILS % (MANUAL) 77.0 % (42-75); NUCLEATED RED BLOOD CELLS 4 /100WBC (0-0)
[2025-05-14 12:39] LABS: PLATELET ESTIMATE DECREASED
[2025-05-14 15:19] LABS: ABG BASE EXCESS 0.4 mmol/L (-2.0-3.0); ABG HCO3 24.2 mmol/L (21.0-28.0); ABG OXYGEN SATURATION 96.8 % (94.0-98.0); ABG PCO2 (T) 35.1 mmHg (35.0-48.0); ABG PH (T) 7.456 (7.350-7.450); ABG PO2 (T) 90.8 mmHg (83.0-108.0); FCOHb 1.1 % (0.5-1.5); FHHb 3.2 % (0.0-5.0); FIO2 40.0 mmHg/%; FMetHb 0.3 % (0.0-1.5); FO2Hb 95.4 % (94.0-98.0); MODE VENT - PRVC; PATIENT TEMPERATURE 36.8; PEEP 10 cm H2O; RESPIRATORY RATE 12 b/min; TIDAL VOLUME 650 mL; TOTAL HEMOGLOBIN 8.9 G/dl (13.5-17.5)
--- NOTE | 2025-05-14 15:27 | PROGRESS NOTE ---
Progress Progress Note: Patient seen as reevaluation for bowel obstruction. As per nursing staff, ongoing and copious flatus, + BM x 2. CT Scan : no interpretation of bowel obstruction. Exam General Appearance remains intubated on vent. HEENT NGT in place. GI Physical Exam soft, less distended, + BS, nontender Problem\Assessment\Plan Problems/Diagnosis: (1) Postoperative ileus Status: Acute Assessment & Plan: Assessment: Ileus resolving Plan: No further acute surgical follow up. Will sign off. Patient is currently a poor candidate for any surgical intervention. If colonic distension continues without evidence for mechanical obstruction, recommend GI colonoscopic decompression. Results/Orders Result Diagram: 05/14/25 1125 05/14/25 1125 EKG/XRAY/CT/US/VASC/MRI Abdominal X-Ray : Impression: bowel obstruction CT : Interpreted By: radiologist Impression EXAM: CT CT CHEST ABDOMEN PELVIS INDICATION: abdominal distention TECHNIQUE: Volumetric multidetector CT images of the chest, abdomen and pelvis were obtained after the administration of IV contrast. All CT scans at this facility use dose modulation, iterative reconstruction, and/or weight based dosing when appropriate to reduce radiation dose to as low as reasonably achievable. COMPARISON: DI CHEST,SINGLE VIEW on DOS: 05/14/25 FINDINGS: LOWER NECK: Unremarkable LYMPH NODES/MEDIASTINUM: No abnormal lymph nodes by CT size criteria. CARDIOVASCULAR: Normal cardiac size. No pericardial effusion. No aneurysmal dilatation of the great vessels. Coronary artery calcifications. LUNG PARENCHYMA/PLEURAL SPACE: Bilateral chest tubes with variable density of left-sided fluid collection and partially collapse left lower lobe correlate with output given appearance of possible blood products. Decreased lung volumes with patchy areas of ground-glass versus atelectasis in the right lower lobe. CHEST WALL: Right anterior chest Port-A-Cath. Body wall edema. LIVER: Normal hepatic size without suspicious focal lesion. GALLBLADDER/BILIARY TREE: Surgically absent. SPLEEN: Unremarkable. PANCREAS: Unremarkable. ADRENAL GLANDS: Unremarkable KIDNEYS: No hydronephrosis. bilateral perinephric edema. Presumed proteinaceous cysts of the left anterior kidney. BLADDER: Circumferential abnormal bladder wall thickening. Bladder is decompressed with Early catheter. PELVIC ORGANS: Mild to moderate prostatomegaly. BOWEL/MESENTERY: Distal esophageal wall thickening with sliding hiatal hernia enteric tube extending to the duodenal bulb. ASCITES: Small volume ascites and mesenteric congestion LYMPHADENOPATHY: No pathologically enlarged lymph nodes by CT size criteria VASCULATURE: No aneurysmal dilatation. ABDOMINAL WALL: Diffuse body wall edema MUSCULOSKELETAL: Significant superior endplate compression deformity of T4 and subsequent gibbus deformity with anterior wedging and focal kyphosis. Multilevel facet degenerative change. Evidence of prior rib fractures. Multifocal degenerative change of the visualized spine. IMPRESSION: 1. Bilateral chest tubes with variable density of left-sided fluid collection and partially collapse left lower lobe correlate with output given appearance of possible blood products. 2. Decreased lung volumes with patchy areas of ground-glass versus atelectasis in the right lower lobe. 3. Circumferential abnormal bladder wall thickening. 4. Correlate with urinalysis to exclude cystitis. 5. Small volume ascites and mesenteric congestion. 6. Significant superior endplate compression deformity of T4 and subsequent gibbus deformity with anterior wedging and focal kyphosis. Dietary Evaluation Recommendations by RD: Dietary Education by RD, PPN/TPN, Other - see comments Comments: TPN 05/14 <[id number] F/u: Per discussion with RN, physician ordered to hold TPN today unclear of reason. Pt started on CRRT. Pt had two BMs yesterday.If medically appropriate given bowel movements, pt may benefit from transitioning to TFs. Will continue to monitor and make nutrition recommendations as appropriate. TPN consult: Pt reintubated today and remains sedated with propofol running at 2.82 ml/hr which provides ~74 kcal/day. Pt remained NPO since 05/09. Per surgeon note surgery has been consulted for possible bowel obstruction/olgilvies/ileus per EMR. Per EMR pt has R IJ-also confirmed with RN. Pt is currently receiving D/NS at 80 ml/hr which provided ~326 kcal/day. Given elevated Phos of 7.5 and elevated Mg 3.1, will use non electrolyte containing formula. See TPN recs below-communicated with pharmacist. Pt was taken to OR today emergently due to bleed at site of chest tube. LBM on 05/05 vs 05/06 and receiving routine and PRN bowel care per EMR. Will continue to monitor and make nutrition recommendations as appropriate. Recommendations: 1.Continuous TPN using 2:1 Clinimix-non E 5/20 at 90 ml/hr goal rate with separate 100 mL 20% ILE to run for 12 hours daily at 8.33 ml/hr. To provide 2160 mL volume/day, 108g AA, 432g DEX (3.2 mg/kg/min), and 2101 kcal. 2.Monitor electrolytes and need to transition to electrolyte containing formula vs custom TPN 3.Discontinue D5/NS IV once TPN is at goal rate to not overfeed on the vent per physician discretion 4.Full glycemic Protocol with TPN initiation per physician discretion 5.Routine and PRN bowel care 6.Daily scaled wt with nutrition support Expected Outcomes/Goals: maintain stable wt, TPN tolerance, bowel regularity, surgical wound healing FELIX JENNINGS DO May 14, 2025 15:27
[2025-05-14] MEDS ORDERED: DEXTROSE 15 GM of carb/4 tabs (each vial/BOTTLE has 4 tablets) NG PRN ×2 (15:49)
[2025-05-14 17:53] LABS: CALCIUM CVVH 8.2 MG/DL (8.5-10.1); CREATININE 0.95 MG/DL (0.60-1.10); PHOSPHORUS 2.3 MG/DL (2.3-4.5); TOTAL CARBON DIOXIDE 25.5 MMOL/L (24-32); eGFR 76 ML/MIN
[2025-05-14 18:03] LABS: MEAN PLATELET VOLUME 8.6 FL (7.4-10.4)
[2025-05-14 18:05] LABS: RED CELL DISTRIBUTION WIDTH 19.2 % (11.5-14.5)
[2025-05-14 23:42] LABS: MEAN PLATELET VOLUME 9.3 FL (7.4-10.4); RED CELL DISTRIBUTION WIDTH 18.6 % (11.5-14.5)
[2025-05-15] VITALS (36 sets, daily range): BP systolic 90–167; BP diastolic 18–95; PULSE 77–84; RESP 12–18; TEMP 98.5; O2SAT 96–100
[2025-05-15 00:02] LABS: CALCIUM CVVH 7.6 MG/DL (8.5-10.1); CREATININE 0.91 MG/DL (0.60-1.10); PHOSPHORUS 3.1 MG/DL (2.3-4.5); TOTAL CARBON DIOXIDE 26.6 MMOL/L (24-32); eGFR 79 ML/MIN
[2025-05-15] MEDS: magnesium sulf-water 4G/100mL 100 ML IV PRN (01:22)
[2025-05-15 04:24] LABS: ABG BASE EXCESS -1.4 mmol/L (-2.0-3.0); ABG HCO3 21.8 mmol/L (21.0-28.0); ABG OXYGEN SATURATION 98.4 % (94.0-98.0); ABG PCO2 (T) 30.7 mmHg (35.0-48.0); ABG PH (T) 7.469 (7.350-7.450); ABG PO2 (T) 118.1 mmHg (83.0-108.0); FCOHb 0.9 % (0.5-1.5); FHHb 1.6 % (0.0-5.0); FIO2 40.0 mmHg/%; FMetHb 0.3 % (0.0-1.5); FO2Hb 97.2 % (94.0-98.0); MODE PRVC; PATIENT TEMPERATURE 37.0; PEEP 10 cm H2O; RESPIRATORY RATE 12 b/min; TIDAL VOLUME 650 mL; TOTAL HEMOGLOBIN 8.9 G/dl (13.5-17.5)
[2025-05-15 05:48] LABS: MEAN PLATELET VOLUME 8.7 FL (7.4-10.4); RED CELL DISTRIBUTION WIDTH 18.1 % (11.5-14.5)
[2025-05-15 06:01] LABS: CREATININE 0.87 MG/DL (0.60-1.10); PHOSPHORUS 2.7 MG/DL (2.3-4.5); TOTAL CARBON DIOXIDE 26.9 MMOL/L (24-32); eCRCL 59 ML/MIN; eGFR 84 ML/MIN
--- NOTE | 2025-05-15 06:35 | RADIOLOGY REPORT ---
CHEST RADIOGRAPH Indication: ET Tube PLacement Technique: Single frontal view of the chest was obtained COMPARISON: DI CHEST,SINGLE VIEW on DOS: 05/14/25, DI CHEST,SINGLE VIEW on DOS: 05/13/25, DI CHEST,SINGLE VIEW on DOS: 05/12/25, DI CHEST,SINGLE VIEW on DOS: 05/12/25, DI CHEST,SINGLE VIEW on DOS: 05/12/25 FINDINGS: Lines and Tubes: Unchanged. Lungs: Stable appearing small left pleural effusion and multifocal bilateral pulmonary airspace disease. No pneumothorax. Cardiomediastinal contours: Unremarkable Bones: Unremarkable IMPRESSION: 1. Stable small Left pleural effusion and multifocal bilateral pulmonary airspace disease. 2. Lines and tubes unchanged.
[2025-05-15] MEDS: lactulose 20gm/30ml cup NG SCH (07:43)
[2025-05-15] MEDS: albumin (Human) 5% 250ml 250 ML IV ONE (07:44)
[2025-05-15 07:57] LABS: BANDS% (MANUAL) 2.0 % (0-10); EOSINOPHILS % (MANUAL) 1.0 % (0-6); LYMPHOCYTES % (MANUAL) 12.0 % (21-51); METAMYLEOCYTES% (MANUAL) 1.0 % (0-0); MONOCYTES % (MANUAL) 6.0 % (2-12); NEUTROPHILS % (MANUAL) 78.0 % (42-75); NUCLEATED RED BLOOD CELLS 1 /100WBC (0-0)
[2025-05-15 07:58] LABS: PLATELET ESTIMATE DECREASED
--- NOTE | 2025-05-15 09:40 | PROGRESS NOTE ---
Progress Note CV Providers to CC ~ Progress Note: S/P CABGx4 05/07/2025 Re-intubated 05/11 Began dialysis 05/[address] with return to OR to control bleeding 05/11 Antibiotics Ordered?: Yes If Yes, Indications?: pneumonia Subjective Subjective sedated on vent Objective Vitals Vital Signs Date Time Temp Pulse Resp B/P (MAP) Pulse Ox O2 Delivery O2 Flow Rate FiO2 05/15/25 09:17 12 05/15/25 09:00 30 05/15/25 09:00 98.4 80 106/66 (79) 99 Mechanical Ventilator 05/14/25 08:00 0.0 Lab Results: 05/15/25 0505/15/25 05 Objective CXR - modest clearing noted Left chest tube - 1740 mL total in the chamber. 340 mL in 12hr - (underwent tube flush yesterday) Right chest tube - 1150 mL total in chamber. 150 mL in 12hr CRRT in progress Drips: Levephed - off Precedex Propofol Neuro - sedated with Propofol and Precedex - minimally responsive Lungs - bilat BS present - coarse Vent A/C 12 30% FIO2 PEEP 10 Heart - RRR, paced internally AV at 80 Abd - remains moderately distended, active bowel movements +witnessed flatus Tube feeds flowing at 40 mL/hr Ext - 2+ edema x4, SCDs to BLE Incisions - clean and dry no sign of infection Coagulation Studies Laboratory Tests Test 05/07/25 00:57 05/07/25 08:38 05/07/25 13:23 05/13/25 11:30 APTT (Heparin Protocol) 53 SECONDS (45-60) Patient Sex (Coag) M Patient Height (Coag) 170cm Patient Weight (Coag) 84.0k KG Patient Blood Volume 5799 ML Pump Volume 1500 ML Total Blood Volume 7299 ML Projected Heparin Concentration 1.8 MG/KG Heparin [place] 137 Calculated Heparin Bolus 65651 UNITS Activated Coagulation Time Baseline 141 SEC (101-148) Activated Coag Time 1.70 U/mL 323 SEC (193-297) H Activated Coag Time 2.84 U/mL 476 SEC (260-420) H Heparin Level (COAG) 0 MG/KG Calculated Heparin Req (Hep Assay) 41006 UNITS Calculated Protamine Req (Hep Assay 0 MG Activated Clotting Time 126 SEC (101-148) Prothrombin Time 12.5 SECONDS (9.0-12.0) H INR International Normalized Ratio 1.2 INR Activated Partial Thromboplast Time 29 SECONDS (22-32) Fibrinogen 251 MG/DL (177-424) Coagulation Comments Coagulation Clinical Comments Cardiac Rhythm: AV Paced Problem\Assessment\Plan Problems/Diagnosis: (1) S/P CABG x 3 Assessment & Plan: POd #7 from CABG Remains on mechanical ventilation - weaning as able E. Coli Pneumonia - now on IV Levaquin ALVIN - Creatinine improving down to 0.87 today Nephrology is following. Undergoing CRRT -CVP was low this morning - we ordered Albumin volume replacement Shock Liver - AST/ALT improving daily Thrombocytopenia - monitoring - no active bleeding at present holding aspirin and heparin at this point Ileus - still no BM in several days but abdomen is active on exam- giving Lactulose today Bilat pleural effusions - bilat chest tubes in place - still with some serosanguinous drainage Protein calorie malnutrition - tube feeds restarted yesterday tolerating so far. - will advance to recommended goal Acute blood loss anemia - stable, monitoring Leukopenia - improved somewhat today - monitoring Type 2 diabetes mellitus - noted Hypertension - (by history) - on Midodrine now Off Levophed at present NSTEMI - noted Coagulopathy - got FFP transfusion 05/13 for elevated INR approaching 2 - improved today Proph: Protonix, No heparin due to low platelet count Continue support in ICU. Family has been updated by Dr. Cano. (2) Pneumonia due to E. coli (3) Acute renal failure (4) NSTEMI (non-ST elevated myocardial infarction) Status: Acute (5) Acute hypoxic respiratory failure (6) Hemothorax, left (7) Thrombocytopenia (8) Shock liver (9) Postoperative ileus Status: Acute (10) Anemia due to acute blood loss (11) Protein calorie malnutrition (12) Diabetes mellitus Sepsis Screening Skin Color: Pale OVERBAYHUSSAIN May 15, 2025 09:40
[2025-05-15 11:05] LABS: OSMOLALITY UA 384.0 MOSM/K (50-1400)
[2025-05-15 11:25] LABS: CREATININE,URINE RANDOM 109.0 MG/DL; UA UREA RANDOM 418.0 MG/DL
[2025-05-15 11:55] LABS: MEAN PLATELET VOLUME 8.3 FL (7.4-10.4); RED CELL DISTRIBUTION WIDTH 18.6 % (11.5-14.5)
[2025-05-15 12:05] LABS: CALCIUM CVVH 7.9 MG/DL (8.5-10.1); CREATININE 0.88 MG/DL (0.60-1.10); PHOSPHORUS 2.7 MG/DL (2.3-4.5); TOTAL CARBON DIOXIDE 25.1 MMOL/L (24-32); eGFR 83 ML/MIN
--- NOTE | 2025-05-15 12:41 | CONSULTATION REPORT ---
Consult Providers to CC ~ History of Present Illness Allergies: Coded Allergies: chlorhexidine (Verified Allergy, Severe, SEVERE RASH WITH BLISTERS, 05/03/25) Home Medications Home Medications Active Reported [Garlic] 1 Tab PO Q12H Glucosamine-Chondroitin Tab (Glucosamine/Chondro Forrest A) 500 Mg-400 Mg Tablet 2 Tab PO DAILY Preservision Areds 2 Softgel (Vit C/E/Zn/Coppr/Lutein/Zeaxan) 250MG-90MG Capsule 1 Cap PO Q12H Vitamin E (Vitamin E Acetate) 180 Mg (400 Unit) Capsule 2 Cap PO DAILY Lipitor* (Atorvastatin Calcium) 40 Mg Tablet 1 Tab PO HS Chlorpheniramine Maleate 4 Mg Tablet 1 Tab PO DAILY PRN Metoprolol Succinate 50 Mg Tab.sr.24h 1 Tab PO BID Neurontin (Gabapentin) 300 Mg Capsule 300 Mg PO TID Losartan-Hctz 50-12.5 Mg Tab (Losartan/Hydrochlorothiazide) 50 Mg-12.5 Mg Tablet 1 Tab PO DAILY Metformin Hcl 500 Mg Tablet 1 Tab PO Q12H Aspirin 81 Mg Tab.chew 1 Tab PO DAILY Fish Oil 1,000 Mg Softgel (Docosahexanoic Acid/Epa) 1 Each Capsule 1 Cap PO DAILY 30 Days WITH MEALS [prevagen] 50 Mcg PO DAILY [facility] Formula Tb (Saw/[place]/Nettle/Pumpkn/Aa#17) 1 Each Tablet 1 Each PO DAILY Vitamin C (Ascorbic Acid) 2,000 Mg Tablet.sa 2,000 Mg PO DAILY Multi-Vitamin Daily (Multivitamin) 1 Each Tablet 1 Each PO DAILY Claritin* (Loratadine) 10 Mg Tablet 10 Mg PO DAILY Prilosec* (Omeprazole) 20 Mg Capsule.dr 20 Mg PO BID Exam Vitals: Vital Signs Date Time Temp Pulse Resp B/P (MAP) Pulse Ox O2 Delivery O2 Flow Rate FiO2 05/15/25 12:00 97.9 80 13 114/75 (88) 100 Mechanical Ventilator 30 05/14/25 08:00 0.0 Diagnostic Data Last Recorded Lab Results: 05/15/25 1125 05/15/25 1125 Diagnostic Data: Laboratory Tests Test 05/07/25 00:57 05/07/25 08:38 05/07/25 13:23 05/13/25 11:30 APTT (Heparin Protocol) 53 SECONDS (45-60) Patient Sex (Coag) M Patient Height (Coag) 170cm Patient Weight (Coag) 84.0k KG Patient Blood Volume 5799 ML Pump Volume 1500 ML Total Blood Volume 7299 ML Projected Heparin Concentration 1.8 MG/KG Heparin [place] 137 Calculated Heparin Bolus 49785 UNITS Activated Coagulation Time Baseline 141 SEC (101-148) Activated Coag Time 1.70 U/mL 323 SEC (193-297) H Activated Coag Time 2.84 U/mL 476 SEC (260-420) H Heparin Level (COAG) 0 MG/KG Calculated Heparin Req (Hep Assay) 25358 UNITS Calculated Protamine Req (Hep Assay 0 MG Activated Clotting Time 126 SEC (101-148) Prothrombin Time 12.5 SECONDS (9.0-12.0) H INR International Normalized Ratio 1.2 INR Activated Partial Thromboplast Time 29 SECONDS (22-32) Fibrinogen 251 MG/DL (177-424) Coagulation Comments Coagulation Clinical Comments Sepsis Screening Skin Color: Pale MUSKWEMARTA MD May 15, 2025 12:41
[2025-05-15] MEDS: insulin regular, human U-100 10ml vial - multi-dose SQ SCH (14:29)
[2025-05-15] MEDS: albumin (human) 25% 100 ML IV solution IV SCH (15:27)
[2025-05-15] MEDS: midodrine 5mg tablet NG SCH (15:46)
--- NOTE | 2025-05-15 17:19 | CONSULTATION REPORT - RESIDENT ---
Consult Providers to CC Resident Creating Document: AIDAN PORTILLO FELISA BYRNE History of Present Illness Reason for Admit\Complaint: NSTEMI, CABG, RESPIRATORY FAILURE History of Present Illness Pulmonology consult note: 84 years old male with past medical history of hypertension, hyperlipidemia type 2 diabetes mellitus, peripheral artery disease, CKD, complete heart block status post pacemaker was transferred from [facility] for evaluation and management of acute NSTEMI. The patient had a cardiac catheterization on 05/04 which showed high-grade stenosis of the LAD, RCA , circumflex and ramus intermedius arteries. CABG was done by Dr. Molina on 05/07/2025. The patient later developed bilateral pleural effusions and compressive atelectasis leading to worsening respiratory distress. He had bilateral chest tubes placed on the 05/11/2025. In view of the patient's worsening respiratory distress he had to be intubated on 05/11/2025 and has been on mechanical ventilation since then. The patient also developed a severe renal failure most likely secondary to prerenal ALVIN and has been started on CRRT by the Nephrology team. The survey director team has been consulted to manage the patient's respiratory failure, mechanical ventilation. Allergies: Coded Allergies: chlorhexidine (Verified Allergy, Severe, SEVERE RASH WITH BLISTERS, 05/03/25) Home Medications Home Medications Active Reported [Garlic] 1 Tab PO Q12H Glucosamine-Chondroitin Tab (Glucosamine/Chondro Forrest A) 500 Mg-400 Mg Tablet 2 Tab PO DAILY Preservision Areds 2 Softgel (Vit C/E/Zn/Coppr/Lutein/Zeaxan) 250MG-90MG Capsule 1 Cap PO Q12H Vitamin E (Vitamin E Acetate) 180 Mg (400 Unit) Capsule 2 Cap PO DAILY Lipitor* (Atorvastatin Calcium) 40 Mg Tablet 1 Tab PO HS Chlorpheniramine Maleate 4 Mg Tablet 1 Tab PO DAILY PRN Metoprolol Succinate 50 Mg Tab.sr.24h 1 Tab PO BID Neurontin (Gabapentin) 300 Mg Capsule 300 Mg PO TID Losartan-Hctz 50-12.5 Mg Tab (Losartan/Hydrochlorothiazide) 50 Mg-12.5 Mg Tablet 1 Tab PO DAILY Metformin Hcl 500 Mg Tablet 1 Tab PO Q12H Aspirin 81 Mg Tab.chew 1 Tab PO DAILY Fish Oil 1,000 Mg Softgel (Docosahexanoic Acid/Epa) 1 Each Capsule 1 Cap PO DAILY 30 Days WITH MEALS [prevagen] 50 Mcg PO DAILY [facility] Prostate Health Formula Tb (Saw/[place]/Nettle/Pumpkn/Aa#17) 1 Each Tablet 1 Each PO DAILY Vitamin C (Ascorbic Acid) 2,000 Mg Tablet.sa 2,000 Mg PO DAILY Multi-Vitamin Daily (Multivitamin) 1 Each Tablet 1 Each PO DAILY Claritin* (Loratadine) 10 Mg Tablet 10 Mg PO DAILY Prilosec* (Omeprazole) 20 Mg Capsule.dr 20 Mg PO BID Past Medical History Past Medical History Hypertension Hyperlipidemia Type 2 diabetes mellitus Chronic kidney disease Peripheral artery disease Complete heart block status post pacemaker Past Surgical History Surgical History Comment Angioplasty in the left SFA and popliteal arteries [place] [address] Carias Cholecystectomy Right inguinal hernioplasty Right shoulder surgery CABG on 05/07/2025 Past Social History Social History Comment Lives with 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 Smokes half a pack of cigarettes every day No recreational drugs. ROS ROS Unable to complete the patient is intubated on mechanical ventilation. Exam Vitals: Vital Signs Date Time Temp Pulse Resp B/P (MAP) Pulse Ox O2 Delivery O2 Flow Rate FiO2 05/15/25 17:00 12 30 05/15/25 17:00 98.1 81 146/91 (109) 100 Mechanical Ventilator 05/14/25 08:00 0.0 General: General: Intubated and on mechanical ventilation. HEENT: Conjunctiva pink, Sclera clear, Mucus Membranes moist. Neck: Supple without masses and tenderness. Resp: On mechanical ventilator. Has bilateral chest tubes. Heart: Regular Rate and rhythm, normal S1 and S2 without murmur, rub or gallop. Abdomen: Soft and non tender no organomegaly, distended Extremities: 2+ pitting lower extremity peripheral edema. No cyanosis or clubbing. Skin: Warm and Dry. Surgical scar in the center of the chest, the wound dressing appears clean, no signs of inflammation or infection. Neurology: Wakes up easily. Not able to assess all neurological examination at the moment. Diagnostic Data Last Recorded Lab Results: 05/15/25 1125 05/15/25 1125 Diagnostic Data: Laboratory Tests Test 05/07/25 00:57 05/07/25 08:38 05/07/25 13:23 05/13/25 11:30 APTT (Heparin Protocol) 53 SECONDS (45-60) Patient Sex (Coag) M Patient Height (Coag) 170cm Patient Weight (Coag) 84.0k KG Patient Blood Volume 5799 ML Pump Volume 1500 ML Total Blood Volume 7299 ML Projected Heparin Concentration 1.8 MG/KG Heparin [place] 137 Calculated Heparin Bolus 19654 UNITS Activated Coagulation Time Baseline 141 SEC (101-148) Activated Coag Time 1.70 U/mL 323 SEC (193-297) H Activated Coag Time 2.84 U/mL 476 SEC (260-420) H Heparin Level (COAG) 0 MG/KG Calculated Heparin Req (Hep Assay) 77583 UNITS Calculated Protamine Req (Hep Assay 0 MG Activated Clotting Time 126 SEC (101-148) Prothrombin Time 12.5 SECONDS (9.0-12.0) H INR International Normalized Ratio 1.2 INR Activated Partial Thromboplast Time 29 SECONDS (22-32) Fibrinogen 251 MG/DL (177-424) Coagulation Comments Coagulation Clinical Comments Additional Plan Acute hypoxemic respiratory failure Bilateral pleural effusion Pneumonia covering Gram-positive and Gram-negative bacteria Hypovolemic shock The patient continues intubated and on mechanical ventilation. CMV/PRVC 18/500/40/6. Patient had bilateral chest tube was placed on 12/14/2024. With the bilateral chest tubes draining good amount of fluid. Appears to be bloody. The patient is also started on IV levofloxacin in view of possible underlying pneumonia. Respiratory culture growing E coli. Has been weaned off of pressors. Started the patient on midodrine 10 mg t.i.d.. Maintaining stable blood pressures. Sedation with propofol and Precedex. Chest x-ray shows improvement when compared to yesterday. Plan to continue the patient's bilateral chest tubes and monitor output. We will DC chest tubes once the output is less than 150 cc in 24 hours. Continue IV antibiotics. Monitor the respiratory culture for sensitivity. Continue to monitor the patient's vitals closely. NSTEMI Status post CABG on 05/07/2025 Continue management as per the Cardiothoracic surgery team. Continue telemetry monitoring. ALVIN Most likely secondary to ATN. Hyperkalemia Hyperphosphatemia The tracing lathe set up operator has been managing the patient's ALVIN. The patient is started on CVVH of currently. He is also started on IV albumin today for volume replacement. Continue to monitor the patient's electrolytes closely. Continue management as per Nephrology recommendations. Shock liver Transaminitis The patient's liver enzymes are significantly improving. Currently is off of pressors. Restarted on IV albumin via the tracing lathe set up operator. Continue to monitor the patient's CMP. Postop ileus Nutrition Was started on Reglan q.6 schedule. Patient is started on tube feeds. The finance clerk has been consulted. Appreciate recommendations. Acute blood loss anemia Patient received a total of 7 units of PRBC, 2 units of fresh frozen plasma , 3 units of platelets and one cryoprecipitate transfusion. We will continue monitoring for H and H closely. Type 2 diabetes mellitus SnN3m-1.5 On Lantus 20 units b.i.d. and insulin protocol. Hypertension Hyperlipidemia Peripheral artery disease s/p angioplasty in the left SFA and popliteal arteries [place] [address] Carias Complete heart block status post pacemaker Continue supportive care and management. CODE STATUS: Full code DVT prophylaxis: SCDs GI prophylaxis: Protonix IV Diet: Tube feeds Disposition: Continue management in intensive care unit. Continue monitoring the patient's chest tube output. We will wean the patient off of mechanical ventilation once he improves. Aidan Portillo MD Internal Medicine Resident, PGY-3 Note reviewed and agree with residents assessment and plan Critical care time in excess of 35 minutes. Sepsis Screening Skin Color: Pale Date of Service: May 15, 2025 Billing Provider: MARTA SANZ MD, SURYA PRATIK, RES May 15, 2025 17:19 MARTA SANZ MD May 17, 2025 12:28
[2025-05-15 17:36] LABS: MEAN PLATELET VOLUME 8.5 FL (7.4-10.4); RED CELL DISTRIBUTION WIDTH 18.9 % (11.5-14.5)
[2025-05-15 17:58] LABS: CALCIUM CVVH 8.2 MG/DL (8.5-10.1); CREATININE 1.04 MG/DL (0.60-1.10); PHOSPHORUS 2.5 MG/DL (2.3-4.5); TOTAL CARBON DIOXIDE 25.1 MMOL/L (24-32); eGFR 68 ML/MIN
--- NOTE | 2025-05-15 20:13 | PROGRESS NOTE ---
Progress Note Dictate Providers to CC ~ Progress Note: d/w CTS and nurses and . FiO2 under good control. Converted to CRRT for hypotension c/ Quf. FiO2 31, L lung some platelack atelectasis L lingula, LLL much better after hemothorax and collapse corrected. VSS. We'll continue fluid removal in light of prior COPD and TELMA and continued 2-3+ edema c/ hypotension c/ Quf. 45 min bedside time Antibiotic Ordered?: Yes Objective Vitals Vital Signs Date Time Temp Pulse Resp B/P (MAP) Pulse Ox O2 Delivery O2 Flow Rate FiO2 05/15/25 19:33 78 17 100 30 05/15/25 19:00 98.2 106/49 (68) Mechanical Ventilator 108/65 (79) 05/14/25 08:00 0.0 Lab Results: 05/15/25 1725 05/15/25 1725 Coagulation Studies Laboratory Tests Test 05/07/25 00:57 05/07/25 08:38 05/07/25 13:23 05/13/25 11:30 APTT (Heparin Protocol) 53 SECONDS (45-60) Patient Sex (Coag) M Patient Height (Coag) 170cm Patient Weight (Coag) 84.0k KG Patient Blood Volume 5799 ML Pump Volume 1500 ML Total Blood Volume 7299 ML Projected Heparin Concentration 1.8 MG/KG Heparin [place] 137 Calculated Heparin Bolus 62844 UNITS Activated Coagulation Time Baseline 141 SEC (101-148) Activated Coag Time 1.70 U/mL 323 SEC (193-297) H Activated Coag Time 2.84 U/mL 476 SEC (260-420) H Heparin Level (COAG) 0 MG/KG Calculated Heparin Req (Hep Assay) 12331 UNITS Calculated Protamine Req (Hep Assay 0 MG Activated Clotting Time 126 SEC (101-148) Prothrombin Time 12.5 SECONDS (9.0-12.0) H INR International Normalized Ratio 1.2 INR Activated Partial Thromboplast Time 29 SECONDS (22-32) Fibrinogen 251 MG/DL (177-424) Coagulation Comments Coagulation Clinical Comments Sepsis Screening Skin Color: Pale JAYESH WALLACE MD May 15, 2025 20:13
--- NOTE | 2025-05-15 20:19 | PROGRESS NOTE- Residence ---
Progress Note - Resident Providers to CC Resident Creating Document: LINDSEY WAYNE RES ~ Antibiotic Timeout Antibiotic Ordered?: Yes Subjective Patient was seen and examined at the bedside today. He is off vasopressors and is on IV albumin. Continues to be mildly fluid overloaded though his chest x- ray shows significant improvement., CRRT we will be continued for one more day. Chest x-ray shows significant improvement. Tube feedings initiated. Objective Vital Signs Date Time Temp Pulse Resp B/P (MAP) Pulse Ox O2 Delivery O2 Flow Rate FiO2 05/15/25 19:33 78 17 100 30 05/15/25 19:00 98.2 106/49 (68) Mechanical Ventilator 108/65 (79) 05/14/25 08:00 0.0 Result Diagram: 05/15/25 1725 05/15/25 172 General: Awake and Alert, currently on mechanical ventilator. HEENT: Conjunctiva pink, Sclera clear, Mucus Membranes moist. Neck: Supple without masses and tenderness. Resp: On mechanical ventilator. Has bilateral chest tubes. Heart: Regular Rate and rhythm, normal S1 and S2 without murmur, rub or gallop. Abdomen: Soft and non tender no organomegaly, distended Extremities: 2+ pitting lower extremity peripheral edema. No cyanosis or clubbing. Skin: Warm and Dry. Surgical scar in the center of the chest, the wound dressing appears clean, no signs of inflammation or infection. Coagulation Studies Laboratory Tests Test 05/07/25 00:57 05/07/25 08:38 05/07/25 13:23 05/13/25 11:30 APTT (Heparin Protocol) 53 SECONDS (45-60) Patient Sex (Coag) M Patient Height (Coag) 170cm Patient Weight (Coag) 84.0k KG Patient Blood Volume 5799 ML Pump Volume 1500 ML Total Blood Volume 7299 ML Projected Heparin Concentration 1.8 MG/KG Heparin [place] 137 Calculated Heparin Bolus 60225 UNITS Activated Coagulation Time Baseline 141 SEC (101-148) Activated Coag Time 1.70 U/mL 323 SEC (193-297) H Activated Coag Time 2.84 U/mL 476 SEC (260-420) H Heparin Level (COAG) 0 MG/KG Calculated Heparin Req (Hep Assay) 52045 UNITS Calculated Protamine Req (Hep Assay 0 MG Activated Clotting Time 126 SEC (101-148) Prothrombin Time 12.5 SECONDS (9.0-12.0) H INR International Normalized Ratio 1.2 INR Activated Partial Thromboplast Time 29 SECONDS (22-32) Fibrinogen 251 MG/DL (177-424) Coagulation Comments Coagulation Clinical Comments Assessment Assessment Evaluating the possibility of coming off CVVH since the urine is quite concentrated. We will initiate Lasix to see if we can reach the point that he does not need dialytic intervention. Still a difficult pulmonary wean with anxiety and shallow breaths. Plan Plan Assessment This is a 84-year-old male patient with past medical history of hypertension, hyperlipidemia, type 2 diabetes, peripheral artery disease, CKD, complete heart block s/p pacemaker transferred from [facility] for chest pain and shortness of breath with exertion. Patient was admitted for NSTEMI. Cardiac catheterization on 05/04 showed high grade lesions of the LAD, RCA, Circ, and ramus intermedius. CABG in bilateral chest tube placement was done by Dr. Molina on 05/07/2025. Patient had postprocedural ongoing bleeding through the left chest tube 4 units of blood transfused from 05/11/2025 to 05/12/2025. On 05/11/2025 patient was taken back to the OR for bleeding through chest tube, the bleeding was controlled. The nephrology team has been consulted for ALVIN and hyperkalemia. The ALVIN was prerenal and was initiated on IV fluids initially, which she did not tolerate. Chest x-ray showed bilateral diffuse infiltrates. Was initiated on HD on 05/11/25 for oliguria and fluid overload, the patient is been initiated on norepinephrine drip. But continuous fluid overload and patient needing vasopressors, has been initiated on CRRT on 05/12/25. Patient is currently off vasopressors and is getting IV albumin 25% 200 mL q.6 Plan ALVIN/ATN On CRRT ALVIN could be likely secondary to decreased perfusion secondary to MT vs contrast exposure during cardiac catheterization vs stress post surgically. Baseline kidney function is not known. Patient was initially in prerenal ALVIN with labs on 05/13/2025 showing Destiny 39, FeNa-0.2%, Fe urea-15.1%, IV fluids were started for prerenal ALVIN, later on 05/11/2025 patient was mechanically ventilated with chest x-ray showing bilateral infiltrates, was initiated on HD, only about 200 mL of fluid could be off-loaded, with patient being on mechanical ventilation and requiring vasopressors, CRRT was initiated on 05/12/2025, running at 100 mL per hour. Total ultrafiltration 4254 mL. Total urine output was 589 mL. Creatinine today is 1.04, BUN 20 Plan Initiated on CRRT on 05/12/2025. We will continue CRRT for one more day and possibly stop tomorrow Received HD on 05/11/2025 Follow up with urine studies. Avoid nephrotoxin agents, avoid [place] or morphine for pain management Avoid MELLISSA/ARB Strict I&Os Patient is getting tube feedings. Electrolytes Hyperkalemia-improved Hyperphosphatemia.-improved Potassium, bicarb, phosphorus in the normal range We will follow up with the labs after the dialysis. CAD s/p CABGx4 on 05/07/2025, POD 5 Cardiac catheterization on 05/04 showed high grade lesions of the LAD, RCA, Circ, and ramus intermedius. CABG bilateral chest tube placement was done by Dr. Molina on 05/07/2025. Echo after CABG showed an ejection fraction of 45-50%, with the elevated right heart pressures., mild aortic stenosis. Patient had postprocedural ongoing bleeding through the left chest tube 4 units of blood transfused from 05/11/2025 to 05/12/2025. On 05/11/2025 patient was taken back to the OR for bleeding through chest tube, the bleeding was controlled. Acute hypoxemic respiratory failure secondary to bilateral pulmonary edema. On mechanical ventilation Patient is currently on a mechanical ventilator, On Precedex and propofol for sedation. Getting IV albumin. Chest x-ray shows bilateral diffuse pulmonary infiltrates. As bilateral chest tubes. Has been initiated on CRRT for fluid offload. Shock liver AST, ALT in 1200s. Trending down.. Postop ileus Was started on Reglan q.6 schedule Acute blood loss anemia Patient had bleeding through left chest tube post CABG procedure with hemoglobin dropping significantly, received about 4 units of blood in two days. Type 2 diabetes mellitus QoP1x-1.5 On Lantus 20 units b.i.d. and insulin protocol. Nutrition Was started on TPN. Hypertension Hyperlipidemia Peripheral artery disease s/p angioplasty in the left SFA and popliteal arteries in [address] Carias Complete heart block status post pacemaker Lindsey Wayne M.D PGY2 Nephrology Resident Date of Service: May 15, 2025 Billing Provider: JAYESH WALALCE MD, PRAVAHIKA, RES May 15, 2025 20:19 JAYESH WALLACE MD May 17, 2025 10:34
[2025-05-15] MEDS: metoprolol tartrate 12.5mg (1/2 tablet) OGT ONE (23:28)
[2025-05-15 23:29] LABS: MEAN PLATELET VOLUME 8.2 FL (7.4-10.4); RED CELL DISTRIBUTION WIDTH 18.4 % (11.5-14.5)
[2025-05-15 23:43] LABS: CALCIUM CVVH 8.1 MG/DL (8.5-10.1); CREATININE 0.82 MG/DL (0.60-1.10); PHOSPHORUS 2.3 MG/DL (2.3-4.5); TOTAL CARBON DIOXIDE 26.7 MMOL/L (24-32); eGFR 90 ML/MIN
[2025-05-16] VITALS (40 sets, daily range): BP systolic 96–179; BP diastolic 50–90; PULSE 80–91; RESP 12–39; TEMP 98.2–100; O2SAT 92–100
[2025-05-16] MEDS: SODIUM PHOSPHATE IN D5W 250 ML IV ONE (01:16)
[2025-05-16 03:30] LABS: ABG BASE EXCESS -1.8 mmol/L (-2.0-3.0); ABG HCO3 21.5 mmol/L (21.0-28.0); ABG OXYGEN SATURATION 98.6 % (94.0-98.0); ABG PCO2 (T) 29.5 mmHg (35.0-48.0); ABG PH (T) 7.479 (7.350-7.450); ABG PO2 (T) 114.5 mmHg (83.0-108.0); FCOHb 1.3 % (0.5-1.5); FHHb 1.4 % (0.0-5.0); FIO2 30.0 mmHg/%; FMetHb 0.3 % (0.0-1.5); FO2Hb 97.0 % (94.0-98.0); MODE prvc; PATIENT TEMPERATURE 36.2; PEEP 10 cm H2O; RESPIRATORY RATE 12 b/min; TIDAL VOLUME 650 mL; TOTAL HEMOGLOBIN 7.4 G/dl (13.5-17.5)
[2025-05-16 04:26] LABS: MEAN PLATELET VOLUME 8.3 FL (7.4-10.4); RED CELL DISTRIBUTION WIDTH 18.8 % (11.5-14.5)
[2025-05-16 04:48] LABS: CREATININE 0.81 MG/DL (0.60-1.10); PHOSPHORUS 3.3 MG/DL (2.3-4.5); TOTAL CARBON DIOXIDE 25.2 MMOL/L (24-32); eCRCL 63 ML/MIN; eGFR > 90 ML/MIN
[2025-05-16] MEDS: midodrine 5mg tablet NG PRN (04:55)
[2025-05-16] MEDS: acetaminophen 325mg/10.15ml oral unit dose solution OGT ONE (05:25)
--- NOTE | 2025-05-16 06:17 | RADIOLOGY REPORT ---
CHEST RADIOGRAPH Indication: ET Tube PLacement Technique: Single frontal view of the chest was obtained COMPARISON: DI CHEST,SINGLE VIEW on DOS: 05/15/25, DI CHEST,SINGLE VIEW on DOS: 05/14/25, DI CHEST,SINGLE VIEW on DOS: 05/13/25, DI CHEST,SINGLE VIEW on DOS: 05/12/25, DI CHEST,SINGLE VIEW on DOS: 05/12/25 FINDINGS: Lines and Tubes: Unchanged. Lungs: Stable appearing small left pleural effusion and mild multifocal bilateral predominantly mid lung zone pulmonary airspace disease. No pneumothorax. Cardiomediastinal contours: Unremarkable Bones: Unremarkable IMPRESSION: 1. Stable small left pleural effusion and mild multifocal bilateral pulmonary airspace disease. 2. Lines and tubes unchanged.
[2025-05-16] MEDS: metoprolol tartrate 12.5mg (1/2 tablet) OGT SCH (07:47)
--- NOTE | 2025-05-16 09:44 | PROGRESS NOTE ---
Progress Note CV Providers to CC ~ Progress Note: S/P CABGx4 05/07/2025 Re-intubated 05/11 Began dialysis 05/[address] with return to OR to control bleeding 05/11 Antibiotics Ordered?: Yes If Yes, Indications?: pneumonia Objective Vitals Vital Signs Date Time Temp Pulse Resp B/P (MAP) Pulse Ox O2 Delivery O2 Flow Rate FiO2 05/16/25 09:15 98.2 80 18 144/66 (92) 98 Mechanical Ventilator 30 05/14/25 08:00 0.0 Lab Results: 05/16/25 0350 05/16/25 0350 Objective CXR - stable Radiologist's read: "Stable small left pleural effusion and mild multifocal bilateral pulmonary airspace disease. Left chest tube - 1890 mL total in the chamber. 150 mL in 12hr - (underwent tube flush yesterday) Right chest tube - 1260 mL total in chamber. 110 mL in 12hr CRRT in progress Drips: Precedex only at present Neuro - mildly sedated with Precedex - more responsive today. nods appropriately to questions. woodwind reeds cutter on command Lungs - bilat BS present - coarse Has been on CPAP for a while this morning but is tachypneic - so we are resuming vent Heart - RRR, paced internally AV at 80 Abd - remains moderately distended, active bowel movements +witnessed flatus Tube feeds flowing at 75 mL/hr (goal) Ext - 2+ edema x4, SCDs to BLE Incisions - clean and dry no sign of infection Coagulation Studies Laboratory Tests Test 05/07/25 00:57 05/07/25 08:38 05/07/25 13:23 05/13/25 11:30 APTT (Heparin Protocol) 53 SECONDS (45-60) Patient Sex (Coag) M Patient Height (Coag) 170cm Patient Weight (Coag) 84.0k KG Patient Blood Volume 5799 ML Pump Volume 1500 ML Total Blood Volume 7299 ML Projected Heparin Concentration 1.8 MG/KG Heparin [place] 137 Calculated Heparin Bolus 15503 UNITS Activated Coagulation Time Baseline 141 SEC (101-148) Activated Coag Time 1.70 U/mL 323 SEC (193-297) H Activated Coag Time 2.84 U/mL 476 SEC (260-420) H Heparin Level (COAG) 0 MG/KG Calculated Heparin Req (Hep Assay) 35372 UNITS Calculated Protamine Req (Hep Assay 0 MG Activated Clotting Time 126 SEC (101-148) Prothrombin Time 12.5 SECONDS (9.0-12.0) H INR International Normalized Ratio 1.2 INR Activated Partial Thromboplast Time 29 SECONDS (22-32) Fibrinogen 251 MG/DL (177-424) Coagulation Comments Coagulation Clinical Comments Cardiac Rhythm: Paced Problem\\Assessment\\Plan Problems/Diagnosis: (1) S/P CABG x 3 Assessment & Plan: POd #8 from CABG Remains on mechanical ventilation - weaning as able was on CPAP earlier E. Coli Pneumonia - now on IV Levaquin ALVIN - Creatinine improving down to 0.81 today Nephrology is following. Undergoing CRRT Shock Liver - resolving Thrombocytopenia - monitoring - holding aspirin and heparin Ileus - still no BM in several days but abdomen is active on exam- giving more Lactulose today - will try digital disimpaction. Bilat pleural effusions - bilat chest tubes in place - still with some serosanguinous drainage Protein calorie malnutrition - tube feeds at goal now Acute blood loss anemia - monitoring, H&H dropped a little this AM - one unit of blood ordered Leukopenia - monitoring - improving Type 2 diabetes mellitus - noted Hypertension - (by history) NSTEMI - noted Coagulopathy - resolved Proph: Protonix, No heparin due to low platelet count Continue support in ICU. Family has been updated by Dr. Cano. (2) Pneumonia due to E. coli (3) Acute renal failure (4) NSTEMI (non-ST elevated myocardial infarction) Status: Acute (5) Acute hypoxic respiratory failure (6) Hemothorax, left (7) Thrombocytopenia (8) Shock liver (9) Postoperative ileus Status: Acute (10) Anemia due to acute blood loss (11) Protein calorie malnutrition (12) Diabetes mellitus Sepsis Screening Skin Color: Pale SHELLEYBAHUSSAIN Wilson May 16, 2025 09:44
[2025-05-16] MEDS: fentaNYL/PF 50MCG/1 ML 2ML syringe IV ONE (09:55)
[2025-05-16] MEDS: lactulose 20gm/30ml cup NG SCH ×2 (10:09→15:24)
[2025-05-16] MEDS ORDERED: midazolam 1 mg/ML 2ml injection IM ONE (10:20)
[2025-05-16] MEDS: midazolam 1 mg/ML 2ml injection IV ONE (11:01)
[2025-05-16] MEDS: bisacodyl 10mg suppository rectal RC STA (11:01)
[2025-05-16 11:45] LABS: MEAN PLATELET VOLUME 8.8 FL (7.4-10.4); RED CELL DISTRIBUTION WIDTH 18.9 % (11.5-14.5)
[2025-05-16] MEDS: FENTANYL-0.9 % NACL/PF 100 ML IV SCH (11:48)
[2025-05-16 12:00] LABS: CREATININE 0.92 MG/DL (0.60-1.10); PHOSPHORUS 2.0 MG/DL (2.3-4.5); TOTAL CARBON DIOXIDE 26.0 MMOL/L (24-32); eCRCL 56 ML/MIN; eGFR 78 ML/MIN
--- NOTE | 2025-05-16 12:46 | PROGRESS NOTE ---
Clinical Note Clinical Note Progress Note: Procedure: Attempted Digital rectal disimpaction Provider: ELISE Irby Indication: Ongoing ileus and constipation with suspected stool impaction in rectum Findings: no hardened stool identified in rectum. A small amount of loose stool extracted and copious gaseous flatus evacuated. A dulcolax suppository placed into the rectum. HUSSAIN IRBY May 16, 2025 12:46
--- NOTE | 2025-05-16 13:08 | CONSULTATION REPORT - RESIDENT ---
Consult Providers to CC Resident Creating Document: LONDON JULES RES History of Present Illness Reason for Admit\Complaint: Constipation with stool impaction and for possible sigmoidoscopy History of Present Illness 84 year old male patient came to the hospital transferred from [facility] due to NSTEMI for further evaluation and management. The patient underwent coronary angiogram were the need for CABG was decided. The patient underwent CABG on May 07, 2025. During his stay in the hospital the patient reportedly has not had a bowel movement for 10 days, abdominal distention was noticed, general surgeon was consulted for possible bowel obstruction.. Gastrografin small-bowel series was completed which ruled out a bowel obstruction. Patient had multiple bowel movements two days ago, as reported by the patient care nurse and patient just had another bowel movement when I was evaluating the patient. GI consult was placed for a possible sigmoidoscopy because of constipation by the general surgeon. Allergies: Coded Allergies: chlorhexidine (Verified Allergy, Severe, SEVERE RASH WITH BLISTERS, 05/03/25) Home Medications Home Medications Active Reported [Garlic] 1 Tab PO Q12H Glucosamine-Chondroitin Tab (Glucosamine/Chondro Forrest A) 500 Mg-400 Mg Tablet 2 Tab PO DAILY Preservision Areds 2 Softgel (Vit C/E/Zn/Coppr/Lutein/Zeaxan) 250MG-90MG Capsule 1 Cap PO Q12H Vitamin E (Vitamin E Acetate) 180 Mg (400 Unit) Capsule 2 Cap PO DAILY Lipitor* (Atorvastatin Calcium) 40 Mg Tablet 1 Tab PO HS Chlorpheniramine Maleate 4 Mg Tablet 1 Tab PO DAILY PRN Metoprolol Succinate 50 Mg Tab.sr.24h 1 Tab PO BID Neurontin (Gabapentin) 300 Mg Capsule 300 Mg PO TID Losartan-Hctz 50-12.5 Mg Tab (Losartan/Hydrochlorothiazide) 50 Mg-12.5 Mg Tablet 1 Tab PO DAILY Metformin Hcl 500 Mg Tablet 1 Tab PO Q12H Aspirin 81 Mg Tab.chew 1 Tab PO DAILY Fish Oil 1,000 Mg Softgel (Docosahexanoic Acid/Epa) 1 Each Capsule 1 Cap PO DAILY 30 Days WITH MEALS [prevagen] 50 Mcg PO DAILY [facility] Prostate [facility] Formula Tb (Saw/[place]ge[place]/Nettle/Pumpkn/Aa#17) 1 Each Tablet 1 Each PO DAILY Vitamin C (Ascorbic Acid) 2,000 Mg Tablet.sa 2,000 Mg PO DAILY Multi-Vitamin Daily (Multivitamin) 1 Each Tablet 1 Each PO DAILY Claritin* (Loratadine) 10 Mg Tablet 10 Mg PO DAILY Prilosec* (Omeprazole) 20 Mg Capsule.dr 20 Mg PO BID Past Medical History Past Medical History Hypertension. Hyperlipidemia. Diabetes mellitus. Chronic kidney disease. Peripheral artery disease. Complete heart block status post pacemaker. Past Surgical History Surgical History Comment CABG on May 07, 2025 Angioplasty in the left SFA and popliteal arteries [place] [address] Carias Cholecystectomy Right inguinal hernioplasty Right shoulder surgery Exam Vitals: Vital Signs Date Time Temp Pulse Resp B/P (MAP) Pulse Ox O2 Delivery O2 Flow Rate FiO2 05/16/25 12:10 100.0 91 19 141/59 05/16/25 11:42 98 30 05/16/25 09:15 Mechanical Ventilator 05/14/25 08:00 0.0 Physical exam: General: Awake, alert, currently answering simple questions nodding his head, due to mechanical ventilation. No acute distress. Well-developed, hydrated and well-built nourished. No anemia, Jaundice or clubbing. HEENT: Conjunctive are pink, sclerae clear, no icterus, pupil is equal in both sides, reactive to light, no ear discharge, no pharyngeal erythema or an edema. Neck: Supple, no adenopathy, thyromegaly. Trachea is midline. No JVD. P resence of dialysis catheter in the right side of the neck. Chest: Presence of scar in the midline of the chest from previous CABG, without signs of infection or inflammation, well covered with clean dressing. Respiratory: Vesicular breath sounds. No ronchi, crepitus or wheezing. Resonance is normal upon percussion of all lung bolton. Cardiovascular: S1-S2 regular sinus rhythm and, regular rate, no gallops, no rubs, no murmurs Abdomen: Mild abdominal distention, Bowel sounds present on auscultation, on palpation: soft, nontender, no guarding, no rigidity. Extremities: No obvious deformities, 1+ pedal edema, capillary refill intact, peripheral pulsations are intact on both sides Neurologic: Mental status: Awake, currently answering simple questions nodding his head, due to mechanical ventilation. 2+ deep tendon reflexes in biceps, triceps, quadriceps. Negative Babinski. Skin: Warm and dry. Diagnostic Data Last Recorded Lab Results: 05/16/25 1130 05/16/25 1130 Diagnostic Data: Laboratory Tests Test 05/07/25 00:57 05/07/25 08:38 05/07/25 13:23 05/13/25 11:30 APTT (Heparin Protocol) 53 SECONDS (45-60) Patient Sex (Coag) M Patient Height (Coag) 170cm Patient Weight (Coag) 84.0k KG Patient Blood Volume 5799 ML Pump Volume 1500 ML Total Blood Volume 7299 ML Projected Heparin Concentration 1.8 MG/KG Heparin [place] 137 Calculated Heparin Bolus 61135 UNITS Activated Coagulation Time Baseline 141 SEC (101-148) Activated Coag Time 1.70 U/mL 323 SEC (193-297) H Activated Coag Time 2.84 U/mL 476 SEC (260-420) H Heparin Level (COAG) 0 MG/KG Calculated Heparin Req (Hep Assay) 87756 UNITS Calculated Protamine Req (Hep Assay 0 MG Activated Clotting Time 126 SEC (101-148) Prothrombin Time 12.5 SECONDS (9.0-12.0) H INR International Normalized Ratio 1.2 INR Activated Partial Thromboplast Time 29 SECONDS (22-32) Fibrinogen 251 MG/DL (177-424) Coagulation Comments Coagulation Clinical Comments Additional Plan Assessment and plan: 84 years old male patient transferred from [facility] for further evaluation of NSTEMI. The patient underwent coronary angiogram and posteriorly CABG by Dr. Molina. Patient has had constipation in the past few days while in the hospital. However he has had bowel movements two days ago and currently now. The imaging studies have ruled out small-bowel obstruction.. Plan: In view of the fact that patient has had bowel movements, sigmoidoscopy is not recommended. In any case if there is fecal impaction a manual disimpaction should be done before any endoscopic evaluation can be successfully performed. Careful attention with continuing laxative therapy should be done after disimpaction is done. Dulcolax suppository daily as needed. Continued laxative therapy in order to avoid similar situation in future. We will sign off, please call back if necessary in future for any other GI problem. Other comorbidities: Type 2 diabetes mellitus. Acute kidney injury on chronic kidney disease. Hypertension. Hyperlipidemia. Peripheral artery disease. Complete heart block status post pacemaker. Continue management as per primary team. Code status: Full code DVT prophylaxis: SCDs Analgesia/sedation: Tramadol/acetaminophen. Line/tube: PIV GI prophylaxis: Pantoprazole Nutrition: Currently on tube feedings PT: Yes Prognosis: Guarded [place] [facility] Internal Medicine Resident [facility] Sepsis Screening Skin Color: Pale Date of Service: May 16, 2025 Billing Provider: KENA SWAN MD, FRANCO LUIS, RES May 16, 2025 13:08 KENA SWAN MD May 16, 2025 16:44
[2025-05-16] MEDS ORDERED: acetaminophen 325mg/10.15ml oral unit dose solution OGT PRN (13:20)
--- NOTE | 2025-05-16 13:30 | PROGRESS NOTE- Residence ---
Progress Note - Resident Providers to CC Resident Creating Document: LINDSEY WAYNE RES ~ Antibiotic Timeout Antibiotic Ordered?: No Subjective Patient was seen and examined at the bedside today. Patient is awake now but continues to be on ventilator, with an FiO2 of 30, peep 7. He is off Precedex and propofol. He is off vasopressors for two days now. Continues to be mildly fluid overloaded though his chest x-ray shows significant improvement. Continuing CRRT for today with ultrafiltration of 200 mL/hour. Objective Vital Signs Date Time Temp Pulse Resp B/P (MAP) Pulse Ox O2 Delivery O2 Flow Rate FiO2 05/16/25 13:00 91 16 92 30 05/16/25 12:10 100.0 141/59 05/16/25 09:15 Mechanical Ventilator 05/14/25 08:00 0.0 Result Diagram: 05/16/25 1130 05/16/25 1130 General: Awake and Alert, currently on mechanical ventilator. HEENT: Conjunctiva pink, Sclera clear, Mucus Membranes moist. Neck: Supple without masses and tenderness. Resp: On mechanical ventilator. Has bilateral chest tubes. Heart: Regular Rate and rhythm, normal S1 and S2 without murmur, rub or gallop. Abdomen: Soft and non tender no organomegaly, distended Extremities: 2+ pitting lower extremity peripheral edema. No cyanosis or clubbing. Skin: Warm and Dry. Surgical scar in the center of the chest, the wound dressing appears clean, no signs of inflammation or infection. Coagulation Studies Laboratory Tests Test 05/07/25 00:57 05/07/25 08:38 05/07/25 13:23 05/13/25 11:30 APTT (Heparin Protocol) 53 SECONDS (45-60) Patient Sex (Coag) M Patient Height (Coag) 170cm Patient Weight (Coag) 84.0k KG Patient Blood Volume 5799 ML Pump Volume 1500 ML Total Blood Volume 7299 ML Projected Heparin Concentration 1.8 MG/KG Heparin [place] 137 Calculated Heparin Bolus 43505 UNITS Activated Coagulation Time Baseline 141 SEC (101-148) Activated Coag Time 1.70 U/mL 323 SEC (193-297) H Activated Coag Time 2.84 U/mL 476 SEC (260-420) H Heparin Level (COAG) 0 MG/KG Calculated Heparin Req (Hep Assay) 32205 UNITS Calculated Protamine Req (Hep Assay 0 MG Activated Clotting Time 126 SEC (101-148) Prothrombin Time 12.5 SECONDS (9.0-12.0) H INR International Normalized Ratio 1.2 INR Activated Partial Thromboplast Time 29 SECONDS (22-32) Fibrinogen 251 MG/DL (177-424) Coagulation Comments Coagulation Clinical Comments Assessment Assessment Please note the I/O indicates about 2-3 L neg/day, yet weights are now flat line, so big discrepancy. u/o 550 more or less x Cr u/s = 90/.99 = 90:1 = excellent concentration. x550/1440 = Ccr 34 ml/min urea u/s = 229/2.1 = 100:1 so Cur = 38:1, which is very unusual to be the same as Ccr, perhaps because of urea and cr removal by CVVH Na/K u = <15/59, so [place] site very active. I'll start him on lasix 40 mg q8h, which should get his u/o going and permit dc CVVH. He's much more awake, but nodding that he hurts wherever I touch him. I don't know why he's getting nealry daily spot urine chems, so dc them. Plan Plan Assessment This is a 84-year-old male patient with past medical history of hypertension, hyperlipidemia, type 2 diabetes, peripheral artery disease, CKD, complete heart block s/p pacemaker transferred from [facility] for chest pain and shortness of breath with exertion. Patient was admitted for NSTEMI. Cardiac catheterization on 05/04 showed high grade lesions of the LAD, RCA, Circ, and ramus intermedius. CABG in bilateral chest tube placement was done by Dr. Molina on 05/07/2025. Patient had postprocedural ongoing bleeding through the left chest tube 4 units of blood transfused from 05/11/2025 to 05/12/2025. On 05/11/2025 patient was taken back to the OR for bleeding through chest tube, the bleeding was controlled. The nephrology team has been consulted for ALVIN and hyperkalemia. The ALVIN was prerenal and was initiated on IV fluids initially, which she did not tolerate. Chest x-ray showed bilateral diffuse infiltrates. Was initiated on HD on 05/11/25 for oliguria and fluid overload, the patient is been initiated on norepinephrine drip. But continuous fluid overload and patient needing vasopressors, has been initiated on CRRT on 05/12/25. Patient is currently off vasopressors and is getting IV albumin 25% 200 mL q.6 Plan ALVIN/ATN On CRRT ALVIN could be likely secondary to decreased perfusion secondary to [place] vs contrast exposure during cardiac catheterization vs stress post surgically. Baseline kidney function is not known. Patient was initially in prerenal ALVIN with labs on 05/13/2025 showing [place] 39, FeNa-0.2%, Fe urea-15.1%, IV fluids were started for prerenal ALVIN, later on 05/11/2025 patient was mechanically ventilated with chest x-ray showing bilateral infiltrates, was initiated on HD, only about 200 mL of fluid could be off-loaded, with patient being on mechanical ventilation and requiring vasopressors, CRRT was initiated on 05/12/2025, running at 100 mL per hour. Plan Initiated on CRRT on 05/12/2025. We will continue CRRT for today. Received HD on 05/11/2025 Follow up with urine studies. Avoid nephrotoxin agents, avoid [place] or morphine for pain management Avoid MELLISSA/ARB Strict I&Os Patient is getting tube feedings. Electrolytes Hyperkalemia-improved Hyperphosphatemia.-improved Potassium, bicarb, phosphorus in the normal range We will follow up with the labs after the dialysis. CAD s/p CABGx4 on 05/07/2025, POD 5 Cardiac catheterization on 05/04 showed high grade lesions of the LAD, RCA, Circ, and ramus intermedius. CABG bilateral chest tube placement was done by Dr. Molina on 05/07/2025. Echo after CABG showed an ejection fraction of 45-50%, with the elevated right heart pressures., mild aortic stenosis. Patient had postprocedural ongoing bleeding through the left chest tube 4 units of blood transfused from 05/11/2025 to 05/12/2025. On 05/11/2025 patient was taken back to the OR for bleeding through chest tube, the bleeding was controlled. Acute hypoxemic respiratory failure secondary to bilateral pulmonary edema. On mechanical ventilation Patient is currently on a mechanical ventilator but is awake and alert Getting IV albumin. Chest x-ray shows bilateral diffuse pulmonary infiltrates. HAs bilateral chest tubes. Has been initiated on CRRT for fluid offload. Shock liver AST, ALT in 1200s. Trending down.. Postop ileus Was started on Reglan q.6 schedule Acute blood loss anemia Patient had bleeding through left chest tube post CABG procedure with hemoglobin dropping significantly, received about 4 units of blood in two days. Type 2 diabetes mellitus [id number] On Lantus 20 units b.i.d. and insulin protocol. Nutrition On tube feeding Hypertension Hyperlipidemia Peripheral artery disease s/p angioplasty in the left SFA and popliteal arteries [place] [address] Carias Complete heart block status post pacemaker Lindsey Wayne M.D PGY2 Nephrology Resident Date of Service: May 16, 2025 Billing Provider: JAYESH WALLACE MD, PRAVAHIKA, RES May 16, 2025 13:30 JAYESH WALLACE MD May 16, 2025 23:30
[2025-05-16] MEDS ORDERED: acetaminophen 325mg/10.15ml oral unit dose solution OGT SCH (14:00)
[2025-05-16 17:10] LABS: HLA CLASS 1 ANTIBODY Negative (Negative); IA/IIA ANTIBODY Negative (Negative); IB/IX ANTIBODY Negative (Negative); IIB/IIIA ANTIBODY Negative (Negative)
[2025-05-16 17:41] LABS: MEAN PLATELET VOLUME 8.3 FL (7.4-10.4); RED CELL DISTRIBUTION WIDTH 17.4 % (11.5-14.5)
[2025-05-16 18:02] LABS: CREATININE 0.99 MG/DL (0.60-1.10); PHOSPHORUS 2.3 MG/DL (2.3-4.5); TOTAL CARBON DIOXIDE 25.5 MMOL/L (24-32); eCRCL 52 ML/MIN; eGFR 72 ML/MIN
[2025-05-16] MEDS: hydrALAZINE 20mg/ml inj. IV PRN (20:33)
[2025-05-16 22:35] LABS: MEAN PLATELET VOLUME 9.0 FL (7.4-10.4); RED CELL DISTRIBUTION WIDTH 17.2 % (11.5-14.5)
[2025-05-16 22:52] LABS: CREATININE 0.88 MG/DL (0.60-1.10); PHOSPHORUS 2.5 MG/DL (2.3-4.5); TOTAL CARBON DIOXIDE 25.3 MMOL/L (24-32); eCRCL 58 ML/MIN; eGFR 83 ML/MIN
[2025-05-16] MEDS: potassium Cl 40MEQ/270ML bag 270 ML IV ONE (23:13)
[2025-05-16] MEDS: FENTANYL-0.9 % NACL/PF 100 ML IV PRN (23:45)
[2025-05-17] VITALS (38 sets, daily range): BP systolic 96–150; BP diastolic 49–87; PULSE 80–98; RESP 12–32; TEMP 99.8; O2SAT 95–100
[2025-05-17 03:48] LABS: ABG BASE EXCESS 0.1 mmol/L (-2.0-3.0); ABG HCO3 23.2 mmol/L (21.0-28.0); ABG OXYGEN SATURATION 98.2 % (94.0-98.0); ABG PCO2 (T) 31.3 mmHg (35.0-48.0); ABG PH (T) 7.487 (7.350-7.450); ABG PO2 (T) 102.9 mmHg (83.0-108.0); FCOHb 1.1 % (0.5-1.5); FHHb 1.8 % (0.0-5.0); FIO2 30.0 mmHg/%; FMetHb 0.3 % (0.0-1.5); FO2Hb 96.8 % (94.0-98.0); MODE PRVC; PATIENT TEMPERATURE 36.8; PEEP 7 cm H2O; RESPIRATORY RATE 12 b/min; TIDAL VOLUME 650 mL; TOTAL HEMOGLOBIN 8.9 G/dl (13.5-17.5)
[2025-05-17 04:32] LABS: MEAN PLATELET VOLUME 8.3 FL (7.4-10.4); RED CELL DISTRIBUTION WIDTH 17.5 % (11.5-14.5)
[2025-05-17 04:50] LABS: CREATININE 1.02 MG/DL (0.60-1.10); PHOSPHORUS 2.0 MG/DL (2.3-4.5); TOTAL CARBON DIOXIDE 27.4 MMOL/L (24-32); eCRCL 50 ML/MIN; eGFR 70 ML/MIN
[2025-05-17 05:18] LABS: BANDS% (MANUAL) 1.0 % (0-10); LYMPHOCYTES % (MANUAL) 7.0 % (21-51); MONOCYTES % (MANUAL) 7.0 % (2-12); NEUTROPHILS % (MANUAL) 85.0 % (42-75); PLATELET ESTIMATE DECREASED
[2025-05-17] MEDS: SODIUM PHOSPHATE IN D5W 250 ML IV ONE (05:51)
--- NOTE | 2025-05-17 08:06 | RADIOLOGY REPORT ---
CLINICAL INFORMATION: Endotracheal tube placement. TECHNIQUE: Single AP portable chest radiograph was obtained. COMPARISON: DI CHEST,SINGLE VIEW on DOS: 05/16/25, DI CHEST,SINGLE VIEW on DOS: 05/15/25, DI CHEST,SINGLE VIEW on DOS: 05/14/25 FINDINGS: Stable satisfactory positioning of the endotracheal tube, enteric tube, right internal jugular central venous catheter, left internal jugular central venous catheter, and bilateral chest tubes. Opacities in the left lung base appear stable. No pneumothorax. No other significant interval change. IMPRESSION: No significant interval change as detailed above.
--- NOTE | 2025-05-17 08:22 | PROGRESS NOTE ---
Progress Note CV Providers to CC ~ Progress Note: S/P CABGx4 05/07/2025 Re-intubated 05/11 Began dialysis 05/[address] with return to OR to control bleeding 05/11 Antibiotics Ordered?: Yes If Yes, Indications?: pneumonia Objective Vitals Vital Signs Date Time Temp Pulse Resp B/P (MAP) Pulse Ox O2 Delivery O2 Flow Rate FiO2 05/17/25 07:42 80 13 96 30 05/17/25 07:00 99.9 130/70 (90) Mechanical Ventilator 05/14/25 08:00 0.0 Lab Results: 05/17/2541405/17/25414 Objective CXR - stable little change since yesterday Left chest tube - 2000 mL total in the chamber. 110 mL in 24hr Right chest tube - 1300 mL total in chamber. 40 mL in 24hr CRRT in progress Drips: Propofol and fentanyl Neuro - mildly sedated with Propofol - responsive . nods appropriately to questions. larder cook on command Lungs - bilat BS present - coarse Vent: A/C 12 fio2 30% PEEP 7 Heart - RRR, paced internally AV at 80 Abd - Large BM Tube feeds flowing at 75 mL/hr (goal) Ext - 1+ edema x4, well perfused x4 fingers are a bit dusky Incisions - clean and dry no sign of infection Coagulation Studies Laboratory Tests Test 05/07/25 00:57 05/07/25 08:38 05/07/25 13:23 05/13/25 11:30 APTT (Heparin Protocol) 53 SECONDS (45-60) Patient Sex (Coag) M Patient Height (Coag) 170cm Patient Weight (Coag) 84.0k KG Patient Blood Volume 5799 ML Pump Volume 1500 ML Total Blood Volume 7299 ML Projected Heparin Concentration 1.8 MG/KG Heparin [place] 137 Calculated Heparin Bolus 25532 UNITS Activated Coagulation Time Baseline 141 SEC (101-148) Activated Coag Time 1.70 U/mL 323 SEC (193-297) H Activated Coag Time 2.84 U/mL 476 SEC (260-420) H Heparin Level (COAG) 0 MG/KG Calculated Heparin Req (Hep Assay) 43090 UNITS Calculated Protamine Req (Hep Assay 0 MG Activated Clotting Time 126 SEC (101-148) Prothrombin Time 12.5 SECONDS (9.0-12.0) H INR International Normalized Ratio 1.2 INR Activated Partial Thromboplast Time 29 SECONDS (22-32) Fibrinogen 251 MG/DL (177-424) Coagulation Comments Coagulation Clinical Comments Cardiac Rhythm: AV Paced Problem\Assessment\Plan Problems/Diagnosis: (1) S/P CABG x 3 Assessment & Plan: POd #10 from CABG On no pressors Remains on mechanical ventilation - vent management per Dr. Diaz E. Coli Pneumonia - now on IV Levaquin ALVIN - still drawing off fluid with CRRT -3070 yesterday Thrombocytopenia - monitoring - holding aspirin and heparin. still awaiting HIT panel result Ileus - had large BM yesterday Bilat pleural effusions - bilat chest tubes in place - still with some serosanguinous drainage Protein calorie malnutrition - tube feeds at goal now Acute blood loss anemia - monitoring, received a unit of blood yesterday Proph: Protonix, No heparin due to low platelet count Continue support in ICU. Family has been updated by Dr. Cano. (2) Pneumonia due to E. coli (3) Acute renal failure (4) NSTEMI (non-ST elevated myocardial infarction) Status: Acute (5) Acute hypoxic respiratory failure (6) Hemothorax, left (7) Thrombocytopenia (8) Shock liver (9) Postoperative ileus Status: Acute (10) Anemia due to acute blood loss (11) Protein calorie malnutrition (12) Diabetes mellitus Sepsis Screening Skin Color: Pale SHELLEYBAHUSSAIN Wilson May 17, 2025 08:22
--- NOTE | 2025-05-17 11:16 | PROGRESS NOTE ---
Progress Note Dictate Providers to CC ~ Progress Note: Carlos is again on a weaning trial looking fairly anxious and staring hopefully at his 's face. He does not seem to really understand the discussion. He is down to trace peripheral edema and FiO2 25%. See my calculations yesterday. He should respond to Lasix but not much so far on 40 mg. We will go to 80 mg q.8 hours and then consider a drip of 1.5 milligram/minute. I would like to have him on the dry side when extubated since that we will go from positive pressure to negative pressure ventilation and move fluid towards the lungs. I will therefore continue the CVVH and fluid removal as long as tolerated. Antibiotic Ordered?: Yes If Yes, Anticipated Duration: Consider weaning the antibiotics. Objective Vitals Vital Signs Date Time Temp Pulse Resp B/P (MAP) Pulse Ox O2 Delivery O2 Flow Rate FiO2 05/17/25 11:08 80 27 96 30 05/17/25 09:37 99.8 96/56 (69) Mechanical Ventilator 05/14/25 08:00 0.0 Lab Results: 05/17/25 0415 05/17/25 0415 Coagulation Studies Laboratory Tests Test 05/07/25 00:57 05/07/25 08:38 05/07/25 13:23 05/13/25 11:30 APTT (Heparin Protocol) 53 SECONDS (45-60) Patient Sex (Coag) M Patient Height (Coag) 170cm Patient Weight (Coag) 84.0k KG Patient Blood Volume 5799 ML Pump Volume 1500 ML Total Blood Volume 7299 ML Projected Heparin Concentration 1.8 MG/KG Heparin [place] 137 Calculated Heparin Bolus 80740 UNITS Activated Coagulation Time Baseline 141 SEC (101-148) Activated Coag Time 1.70 U/mL 323 SEC (193-297) H Activated Coag Time 2.84 U/mL 476 SEC (260-420) H Heparin Level (COAG) 0 MG/KG Calculated Heparin Req (Hep Assay) 78351 UNITS Calculated Protamine Req (Hep Assay 0 MG Activated Clotting Time 126 SEC (101-148) Prothrombin Time 12.5 SECONDS (9.0-12.0) H INR International Normalized Ratio 1.2 INR Activated Partial Thromboplast Time 29 SECONDS (22-32) Fibrinogen 251 MG/DL (177-424) Coagulation Comments Coagulation Clinical Comments Sepsis Screening Skin Color: Pale BARTLOW,JAYESH G MD May 17, 2025 11:16
[2025-05-17 11:38] LABS: MEAN PLATELET VOLUME 8.1 FL (7.4-10.4); RED CELL DISTRIBUTION WIDTH 17.9 % (11.5-14.5)
[2025-05-17 11:53] LABS: CREATININE 0.98 MG/DL (0.60-1.10); TOTAL CARBON DIOXIDE 27.5 MMOL/L (24-32)
[2025-05-17 11:54] LABS: PHOSPHORUS 3.2 MG/DL (2.3-4.5); eCRCL 52 ML/MIN; eGFR 73 ML/MIN
--- NOTE | 2025-05-17 12:09 | PROGRESS NOTE ---
Subjective Subjective Patient was seen and examined at the bedside on 05/16/2025. Sedation was interrupted and a spontaneous breathing trial was initiated. Continues to significant fluid overload. Continuing CRRT for today with ultrafiltration of 200 mL/hour. Reason for visit: Pulmonary critical care follow-up Reviewed: Care Plan, H&P, Labs, Radiology Review of Systems Changes from previous H/P or p: No Changes Daily Progress Note Exam Vitals Vital Signs Date Time Temp Pulse Resp B/P (MAP) Pulse Ox O2 Delivery O2 Flow Rate FiO2 05/17/25 11:08 80 27 96 30 05/17/25 09:37 99.8 96/56 (69) Mechanical Ventilator 05/14/25 08:00 0.0 Result Diagram: 05/17/25 04105/17/25414 Intake/Output See I&O flowsheet Exam HEENT examination: N/C/AT, PERRLA Neck: Supple with no jugular venous distention and no lymphadenopathy. Chest: Symmetric expansion bilaterally Pulmonary: Clear to auscultation bilaterally, with no wheezing no rales rhonchi. Cardiovascular: Regular rate and rhythm, patient in sinus rhythm Abdomen: Nondistended with normoactive bowel sounds soft nontender no organomegaly Extremities: He has anasarca Results Coagulation Studies Laboratory Tests Test 05/07/25 00:57 05/07/25 08:38 05/07/25 13:23 05/13/25 11:30 APTT (Heparin Protocol) 53 SECONDS (45-60) Patient Sex (Coag) M Patient Height (Coag) 170cm Patient Weight (Coag) 84.0k KG Patient Blood Volume 5799 ML Pump Volume 1500 ML Total Blood Volume 7299 ML Projected Heparin Concentration 1.8 MG/KG Heparin [place] 137 Calculated Heparin Bolus 41831 UNITS Activated Coagulation Time Baseline 141 SEC (101-148) Activated Coag Time 1.70 U/mL 323 SEC (193-297) H Activated Coag Time 2.84 U/mL 476 SEC (260-420) H Heparin Level (COAG) 0 MG/KG Calculated Heparin Req (Hep Assay) 36163 UNITS Calculated Protamine Req (Hep Assay 0 MG Activated Clotting Time 126 SEC (101-148) Prothrombin Time 12.5 SECONDS (9.0-12.0) H INR International Normalized Ratio 1.2 INR Activated Partial Thromboplast Time 29 SECONDS (22-32) Fibrinogen 251 MG/DL (177-424) Coagulation Comments Coagulation Clinical Comments VTE VTE Risk Score VTE Risk Score Reference Ranges: Score 0-1 = Low Risk (Aggressive mobilization; early ambulation; no VTE prophylaxis required) Score 2: Moderate Risk (Intermittent/Pneumatic Compression Device OR Lovenox/Heparin/Coumadin) Score 3-4: High Risk (Intermittent/Pneumatic Compression Device AND Lovenox/Heparin/Coumadin) Score > or = 5: Highest Risk (Intermittent/Pneumatic Compression Device AND Lovenox/Heparin/Coumadin) Assessment/Plan Assessment Evaluating the possibility of coming off CVVH since the urine is quite concentrated. We will initiate Lasix to see if we can reach the point that he does not need dialytic intervention. Still a difficult pulmonary wean with anxiety and shallow breaths. Plan Assessment This is a 84-year-old male patient with past medical history of hypertension, hyperlipidemia, type 2 diabetes, peripheral artery disease, CKD, complete heart block s/p pacemaker transferred from [facility] for chest pain and shortness of breath with exertion. Patient was admitted for NSTEMI. Cardiac catheterization on 05/04 showed high grade lesions of the LAD, RCA, Circ, and ramus intermedius. CABG in bilateral chest tube placement was done by Dr. Molina on 05/07/2025. Patient had postprocedural ongoing bleeding through the left chest tube 4 units of blood transfused from 05/11/2025 to 05/12/2025. On 05/11/2025 patient was taken back to the OR for bleeding through chest tube, the bleeding was controlled. CAD: Status post CABG x4 on 05/07/2025 and bilateral chest tube thoracostomies 05/11/2025. Acute respiratory failure: Caused by bilateral pulmonary infiltrates that are partly improving with fluid removal. Maybe combination of pulmonary edema and/or pneumonia. Failed spontaneous breathing trials due to tachypnea with respirations around 39 breaths per minute. ID: Growing E coli in sputum. E coli sensitive to levofloxacin. ARDS: Resolving with antibiotic therapy and fluid removal. ALVIN/ATN: On CRRT removing about 200 mL/hour of fluid. Anasarca improving. Nutrition: On vital AF at 75 mL/hour. Plan Revert to AC/PRVC ventilation mode. Resume sedation with low-dose propofol and fentanyl drips. Titrate to a RASS score of minus 2,-1 Continue CRRT Avoid nephrotoxin agents, avoid [place] or morphine for pain management Avoid MELLISSA/ARB Strict I&Os Vent bundle Code status: Full code Sedation/analgesia: Fentanyl and propofol drips IVs: P IVs and central line. Nutrition: Vital AF 1.2 at 75 mL/hour. Overall prognosis: Guarded Critical care time in excess of 35 minutes. Social: Had an opportunity talked with a relative and and given update. This note is for 16 May 2025. Expected Outcome/Goals Expected Outcomes/Goals: maintain stable wt, TF tolerance, bowel regularity, surgical wound healing, Glu 110-140mg/dl MARTA SANZ MD May 17, 2025 12:09
--- NOTE | 2025-05-17 12:24 | PROGRESS NOTE ---
Subjective Subjective Patient was seen and examined at the bedside on 05/17/2025. Sedation was interrupted and a spontaneous breathing trial was initiated. Patient had excellent performance but extubation deferred to tomorrow . Expected to be more optimal tomorrow after mole fluid removal over the next 24 hours. Continues to significant fluid overload. Continuing CRRT for today with ultrafiltration of 200 mL/hour. Reason for visit: Pulmonary critical care follow-up Reviewed: Care Plan, H&P, Labs, Radiology Daily Progress Note Exam Vitals Vital Signs Date Time Temp Pulse Resp B/P (MAP) Pulse Ox O2 Delivery O2 Flow Rate FiO2 05/17/25 11:08 80 27 96 30 05/17/25 09:37 99.8 96/56 (69) Mechanical Ventilator 05/14/25 08:00 0.0 Result Diagram: 05/17/2541405/17/25414 Exam HEENT examination: N/C/AT, PERRLA Neck: Supple with no jugular venous distention and no lymphadenopathy. Chest: Symmetric expansion bilaterally Pulmonary: Clear to auscultation bilaterally, with no wheezing no rales rhonchi. Cardiovascular: Regular rate and rhythm, patient in sinus rhythm Abdomen: Nondistended with normoactive bowel sounds soft nontender no organomegaly Extremities: Less anasarca Neurology: Waking up and responding appropriately with sedation interruptions. Results Coagulation Studies Laboratory Tests Test 05/07/25 00:57 05/07/25 08:38 05/07/25 13:23 05/13/25 11:30 APTT (Heparin Protocol) 53 SECONDS (45-60) Patient Sex (Coag) M Patient Height (Coag) 170cm Patient Weight (Coag) 84.0k KG Patient Blood Volume 5799 ML Pump Volume 1500 ML Total Blood Volume 7299 ML Projected Heparin Concentration 1.8 MG/KG Heparin [place] 137 Calculated Heparin Bolus 24063 UNITS Activated Coagulation Time Baseline 141 SEC (101-148) Activated Coag Time 1.70 U/mL 323 SEC (193-297) H Activated Coag Time 2.84 U/mL 476 SEC (260-420) H Heparin Level (COAG) 0 MG/KG Calculated Heparin Req (Hep Assay) 64967 UNITS Calculated Protamine Req (Hep Assay 0 MG Activated Clotting Time 126 SEC (101-148) Prothrombin Time 12.5 SECONDS (9.0-12.0) H INR International Normalized Ratio 1.2 INR Activated Partial Thromboplast Time 29 SECONDS (22-32) Fibrinogen 251 MG/DL (177-424) Coagulation Comments Coagulation Clinical Comments VTE VTE Risk Score VTE Risk Score Reference Ranges: Score 0-1 = Low Risk (Aggressive mobilization; early ambulation; no VTE prophylaxis required) Score 2: Moderate Risk (Intermittent/Pneumatic Compression Device OR Lovenox/Heparin/Coumadin) Score 3-4: High Risk (Intermittent/Pneumatic Compression Device AND Lovenox/Heparin/Coumadin) Score > or = 5: Highest Risk (Intermittent/Pneumatic Compression Device AND Lovenox/Heparin/Coumadin) Assessment/Plan Plan Assessment This is a 84-year-old male patient with past medical history of hypertension, hyperlipidemia, type 2 diabetes, peripheral artery disease, CKD, complete heart block s/p pacemaker transferred from [facility] for chest pain and shortness of breath with exertion. Patient was admitted for NSTEMI. Cardiac catheterization on 05/04 showed high grade lesions of the LAD, RCA, Circ, and ramus intermedius. CABG in bilateral chest tube placement was done by Dr. Molina on 05/07/2025. Patient had postprocedural ongoing bleeding through the left chest tube 4 units of blood transfused from 05/11/2025 to 05/12/2025. On 05/11/2025 patient was taken back to the OR for bleeding through chest tube, the bleeding was controlled. CAD: Status post CABG x4 on 05/07/2025 and bilateral chest tube thoracostomies 05/11/2025. Acute respiratory failure: Caused by bilateral pulmonary infiltrates that have further improved with fluid removal. Maybe a combination of pulmonary edema and/or pneumonia. Passed spontaneous breathing trial today, 05/17/2025. We have deferred extubation or decannulation for tomorrow after another 24 hours of fluid removal using CRRT. We will resume sedation with propofol and fentanyl. ID: Growing E coli in sputum. E coli sensitive to levofloxacin. ARDS: Resolving with antibiotic therapy and fluid removal. PEEP now down to five from 10 yesterday. ALVIN/ATN: On CRRT removing about 200 mL/hour of fluid. Anasarca improving. Nutrition: On vital AF at 75 mL/hour. Plan Continue AC/PRVC ventilation mode overnight and we will initiate another spontaneous breathing trial tomorrow morning with the intention of extubation. Resume sedation with low-dose propofol and fentanyl drips. Titrate to a RASS score of minus 2,-1 Continue CRRT Avoid nephrotoxin agents, avoid [place] or morphine for pain management Avoid MELLISSA/ARB Strict I&Os Vent bundle Code status: Full code Sedation/analgesia: Fentanyl and propofol drips IVs: P IVs and central line. Nutrition: Vital AF 1.2 at 75 mL/hour. Overall prognosis: Guarded Critical care time in excess of 35 minutes. Social: Had an opportunity talked with a relative and and given update. This note is for 16 May 2025. Expected Outcome/Goals Expected Outcomes/Goals: maintain stable wt, TF tolerance, bowel regularity, surgical wound healing, Glu 110-140mg/dl MARTA SANZ MD May 17, 2025 12:24
[2025-05-17 17:01] LABS: MEAN PLATELET VOLUME 7.9 FL (7.4-10.4); RED CELL DISTRIBUTION WIDTH 17.8 % (11.5-14.5)
[2025-05-17 17:13] LABS: CREATININE 1.11 MG/DL (0.60-1.10); PHOSPHORUS 2.9 MG/DL (2.3-4.5); TOTAL CARBON DIOXIDE 28.8 MMOL/L (24-32); eCRCL 46 ML/MIN; eGFR 63 ML/MIN
[2025-05-17] MEDS: heparin 10,000 units/1 ML INJ IV ONE ×4 (22:12→22:31)
[2025-05-18] VITALS (32 sets, daily range): BP systolic 81–138; BP diastolic 46–83; PULSE 77–97; RESP 12–29; O2SAT 94–100
[2025-05-18 02:23] LABS: MEAN PLATELET VOLUME 8.0 FL (7.4-10.4); RED CELL DISTRIBUTION WIDTH 17.7 % (11.5-14.5)
[2025-05-18 02:36] LABS: CREATININE 1.25 MG/DL (0.60-1.10); PHOSPHORUS 2.8 MG/DL (2.3-4.5); TOTAL CARBON DIOXIDE 30.4 MMOL/L (24-32); eCRCL 41 ML/MIN; eGFR 55 ML/MIN
[2025-05-18 03:42] LABS: ABG BASE EXCESS 2.3 mmol/L (-2.0-3.0); ABG HCO3 26.3 mmol/L (21.0-28.0); ABG OXYGEN SATURATION 97.3 % (94.0-98.0); ABG PCO2 (T) 40.1 mmHg (35.0-48.0); ABG PH (T) 7.439 (7.350-7.450); ABG PO2 (T) 100.7 mmHg (83.0-108.0); ALLEN'S TEST Yes; FCOHb 1.1 % (0.5-1.5); FHHb 2.7 % (0.0-5.0); FIO2 30.0 mmHg/%; FMetHb 0.3 % (0.0-1.5); FO2Hb 95.9 % (94.0-98.0); PATIENT TEMPERATURE 38.1; TOTAL HEMOGLOBIN 9.1 G/dl (13.5-17.5)
--- NOTE | 2025-05-18 06:16 | RADIOLOGY REPORT ---
EXAM: DI CHEST,SINGLE VIEW HISTORY: ET Tube PLacement COMPARISON: DI CHEST,SINGLE VIEW on DOS: 05/17/25, DI CHEST,SINGLE VIEW on DOS: 05/16/25, DI CHEST,SINGLE VIEW on DOS: 05/15/25, DI CHEST,SINGLE VIEW on DOS: 05/14/25, DI CHEST,SINGLE VIEW on DOS: 05/13/25 TECHNIQUE: Portable AP view of the chest was performed. FINDINGS: Endotracheal tube is re-identified with its tip 4.1 cm above the tarsha. Sternal wires, bilateral thoracostomy tubes, right chest pacemaker, left atrial appendage closure device, OG tube, and bilateral IJ central lines are re- identified. No pneumothorax. There are bilateral interstitial opacities and s mall left pleural effusion. The heart is borderline enlarged. IMPRESSION: 1. Mechanical ventilation with tubes and lines as above. 2. Postoperative changes of the heart with bilateral interstitial opacities and small left pleural effusion.
[2025-05-18] MEDS ORDERED: magnesium sulf-water 4G/100mL 100 ML IV PRN (08:35)
[2025-05-18] MEDS ORDERED: potassium Cl 40MEQ/1/2NS 520ml 520 ML IV PRN (08:35)
[2025-05-18] MEDS ORDERED: potassium CL 10mEq/100ml bag 100 ML IV PRN (08:35)
[2025-05-18] MEDS ORDERED: potassium Cl 40MEQ/270ML bag 250 ML IV PRN (08:35)
[2025-05-18] MEDS ORDERED: potassium Cl 20 mEq SR tablet PO PRN (08:35)
--- NOTE | 2025-05-18 08:39 | PROGRESS NOTE ---
Progress Note Dictate Providers to CC ~ Progress Note: Urine output has abruptly gone up to 200 an hour at about 7:00 a.m. today. I think part of this maybe spontaneous breathing trials which go to negative pressure ventilation and increase venous return to the lungs and hence to the body, and partly be the Lasix. CVVH went down yesterday numbers remain quite good. The urine has reasonably good color so I do not think it is terribly dilute. We may even be entering a post ATN diuresis though the spots studies suggested it was all prerenal. We will go to 40 twice a day on Lasix I will order spot urine studies today to see if there is an element of recovering from ATN which would show up as I saw urine osmolality close to serum and spilling a lot of sodium. We will follow the labs daily and may need to hold Lasix if the output remains excessive. I do not see any edema in his FiO2 is 30%. Antibiotic Ordered?: No Objective Vitals Vital Signs Date Time Temp Pulse Resp B/P (MAP) Pulse Ox O2 Delivery O2 Flow Rate FiO2 05/18/25 07:50 96 24 98 30 05/18/25 07:00 99.9 126/73 (90) Mechanical Ventilator 05/14/25 08:00 0.0 Lab Results: 05/18/25 0200 05/18/25 0200 Coagulation Studies Laboratory Tests Test 05/07/25 00:57 05/07/25 08:38 05/07/25 13:23 05/13/25 11:30 APTT (Heparin Protocol) 53 SECONDS (45-60) Patient Sex (Coag) M Patient Height (Coag) 170cm Patient Weight (Coag) 84.0k KG Patient Blood Volume 5799 ML Pump Volume 1500 ML Total Blood Volume 7299 ML Projected Heparin Concentration 1.8 MG/KG Heparin [place] 137 Calculated Heparin Bolus 97310 UNITS Activated Coagulation Time Baseline 141 SEC (101-148) Activated Coag Time 1.70 U/mL 323 SEC (193-297) H Activated Coag Time 2.84 U/mL 476 SEC (260-420) H Heparin Level (COAG) 0 MG/KG Calculated Heparin Req (Hep Assay) 98038 UNITS Calculated Protamine Req (Hep Assay 0 MG Activated Clotting Time 126 SEC (101-148) Prothrombin Time 12.5 SECONDS (9.0-12.0) H INR International Normalized Ratio 1.2 INR Activated Partial Thromboplast Time 29 SECONDS (22-32) Fibrinogen 251 MG/DL (177-424) Coagulation Comments Coagulation Clinical Comments Sepsis Screening Skin Color: Pale JAYESH WALLACE MD May 18, 2025 08:39
--- NOTE | 2025-05-18 09:08 | PROGRESS NOTE ---
Progress Note CV Providers to CC ~ Progress Note: S/P CABGx4 05/07/2025 Re-intubated 05/11 Began dialysis 05/[address] with return to OR to control bleeding 05/11 Finished dialysis 05/17 Antibiotics Ordered?: Yes If Yes, Indications?: pneumonia Objective Vitals Vital Signs Date Time Temp Pulse Resp B/P (MAP) Pulse Ox O2 Delivery O2 Flow Rate FiO2 05/18/25 07:50 96 24 98 30 05/18/25 07:00 99.9 126/73 (90) Mechanical Ventilator 05/14/25 08:00 0.0 Lab Results: 05/18/25 0200 05/18/25 0200 Objective CXR - stable slowly clearing Left chest tube - 100 mL total in the chamber. 100 mL in 24hr Right chest tube - 1350 mL total in chamber. 50 mL in 24hr CRRT has been terminated Drips: Propofol and fentanyl Neuro -sedated with Propofol/Fentanyl not very responsive at present Lungs - bilat BS present - coarse Vent: CPAP 30 %fio2 PEEP 5 Heart - RRR, paced internally AV at 80 Abd - soft mildly distended +bowel sounds Tube feeds flowing at 75 mL/hr (goal) Ext - 1+ edema x4, well perfused x4 fingers not dusky today Incisions - covered, clean and dry no sign of infection Coagulation Studies Laboratory Tests Test 05/07/25 00:57 05/07/25 08:38 05/07/25 13:23 05/13/25 11:30 APTT (Heparin Protocol) 53 SECONDS (45-60) Patient Sex (Coag) M Patient Height (Coag) 170cm Patient Weight (Coag) 84.0k KG Patient Blood Volume 5799 ML Pump Volume 1500 ML Total Blood Volume 7299 ML Projected Heparin Concentration 1.8 MG/KG Heparin [place] 137 Calculated Heparin Bolus 45592 UNITS Activated Coagulation Time Baseline 141 SEC (101-148) Activated Coag Time 1.70 U/mL 323 SEC (193-297) H Activated Coag Time 2.84 U/mL 476 SEC (260-420) H Heparin Level (COAG) 0 MG/KG Calculated Heparin Req (Hep Assay) 68088 UNITS Calculated Protamine Req (Hep Assay 0 MG Activated Clotting Time 126 SEC (101-148) Prothrombin Time 12.5 SECONDS (9.0-12.0) H INR International Normalized Ratio 1.2 INR Activated Partial Thromboplast Time 29 SECONDS (22-32) Fibrinogen 251 MG/DL (177-424) Coagulation Comments Coagulation Clinical Comments Cardiac Rhythm: AV Paced Problem\Assessment\Plan Problems/Diagnosis: (1) S/P CABG x 3 Assessment & Plan: POd #11 from CABG Now on CPAP - vent management per Dr. Diaz - extubation possibly today E. Coli Pneumonia - on IV Levaquin ALVIN / volume overload - definite improvement Thrombocytopenia -improving slowly - holding aspirin and heparin. still awaiting HIT panel result Ileus - seemingly resolved Bilat pleural effusions - bilat chest tubes in place - drainage is slowing - will probably remove R chest tube shortly after extubation - followed by left tube at some point Protein calorie malnutrition - tube feeds at goal now Acute blood loss anemia - monitoring, stable DM: adding scheduled Lantus for climbing blood sugars Proph: Protonix, No heparin due to low platelet count Continue support in ICU. Family at bedside and updated by Dr. Cano. (2) Pneumonia due to E. coli (3) Acute renal failure (4) NSTEMI (non-ST elevated myocardial infarction) Status: Acute (5) Acute hypoxic respiratory failure (6) Hemothorax, left (7) Thrombocytopenia (8) Shock liver (9) Postoperative ileus Status: Acute (10) Anemia due to acute blood loss (11) Protein calorie malnutrition (12) Diabetes mellitus Sepsis Screening Skin Color: Pale SHELLEYBAHUSSAIN Wilson May 18, 2025 09:08
[2025-05-18] MEDS: insulin glargine (Lantus) pen - multi-dose SQ SCH (09:15)
[2025-05-18] MEDS: potassium Cl 20 mEq SR tablet NG PRN (09:36)
[2025-05-18] MEDS: acetaminophen 325mg/10.15ml oral unit dose solution NG SCH (13:50)
[2025-05-18] MEDS ORDERED: acetaminophen 1,000mg/100ml IV 100 ML IV SCH (14:00)
[2025-05-18] MEDS ORDERED: acetaminophen 325mg/10.15ml oral unit dose solution OGT SCH (14:00)
--- NOTE | 2025-05-18 15:39 | PROGRESS NOTE ---
Subjective Subjective Patient was seen and examined at the bedside on 05/18/2025. Sedation was interrupted and a spontaneous breathing trial was initiated. Patient had excellent performance and was extubated today. He is on 4 L of oxygen per minute via nasal cannula with a pulse oximeter reading of 96%. He has some thin tracheal secretions and a good cough. Unfortunately he is too weak to suction himself. CRRT went down yesterday evening and was not resumed. He has good urine output. Reason for visit: Pulmonary critical care follow-up Reviewed: Care Plan, H&P, Labs, Radiology Daily Progress Note Exam Vitals Vital Signs Date Time Temp Pulse Resp B/P (MAP) Pulse Ox O2 Delivery O2 Flow Rate FiO2 05/18/25 15:00 23 30 05/18/25 15:00 99.9 81 133/68 (89) 97 Mechanical Ventilator 05/14/25 08:00 0.0 Result Diagram: 05/18/25 0200 05/18/25 0200 Exam HEENT examination: N/C/AT, PERRLA Neck: Supple with no jugular venous distention and no lymphadenopathy. Chest: Symmetric expansion bilaterally Pulmonary: Clear to auscultation bilaterally, with no wheezing no rales rhonchi. Cardiovascular: Regular rate and rhythm, patient in sinus rhythm Abdomen: Nondistended with normoactive bowel sounds soft nontender no organomegaly Extremities: Less anasarca Neurology: Awake alert and responsive after extubation. Results Coagulation Studies Laboratory Tests Test 05/07/25 00:57 05/07/25 08:38 05/07/25 13:23 05/13/25 11:30 APTT (Heparin Protocol) 53 SECONDS (45-60) Patient Sex (Coag) M Patient Height (Coag) 170cm Patient Weight (Coag) 84.0k KG Patient Blood Volume 5799 ML Pump Volume 1500 ML Total Blood Volume 7299 ML Projected Heparin Concentration 1.8 MG/KG Heparin [place] 137 Calculated Heparin Bolus 77402 UNITS Activated Coagulation Time Baseline 141 SEC (101-148) Activated Coag Time 1.70 U/mL 323 SEC (193-297) H Activated Coag Time 2.84 U/mL 476 SEC (260-420) H Heparin Level (COAG) 0 MG/KG Calculated Heparin Req (Hep Assay) 33361 UNITS Calculated Protamine Req (Hep Assay 0 MG Activated Clotting Time 126 SEC (101-148) Prothrombin Time 12.5 SECONDS (9.0-12.0) H INR International Normalized Ratio 1.2 INR Activated Partial Thromboplast Time 29 SECONDS (22-32) Fibrinogen 251 MG/DL (177-424) Coagulation Comments Coagulation Clinical Comments VTE VTE Risk Score VTE Risk Score Reference Ranges: Score 0-1 = Low Risk (Aggressive mobilization; early ambulation; no VTE prophylaxis required) Score 2: Moderate Risk (Intermittent/Pneumatic Compression Device OR Lovenox/Heparin/Coumadin) Score 3-4: High Risk (Intermittent/Pneumatic Compression Device AND Lovenox/Heparin/Coumadin) Score > or = 5: Highest Risk (Intermittent/Pneumatic Compression Device AND Lovenox/Heparin/Coumadin) Assessment/Plan Plan Assessment This is a 84-year-old male patient with past medical history of hypertension, hyperlipidemia, type 2 diabetes, peripheral artery disease, CKD, complete heart block s/p pacemaker transferred from [facility] for chest pain and shortness of breath with exertion. Patient was admitted for NSTEMI. Cardiac catheterization on 05/04 showed high grade lesions of the LAD, RCA, Circ, and ramus intermedius. CABG in bilateral chest tube placement was done by Dr. Molina on 05/07/2025. Patient had postprocedural ongoing bleeding through the left chest tube 4 units of blood transfused from 05/11/2025 to 05/12/2025. On 05/11/2025 patient was taken back to the OR for bleeding through chest tube, the bleeding was controlled. CAD: Status post CABG x4 on 05/07/2025 and bilateral chest tube thoracostomies 05/11/2025. Acute respiratory failure: Now extubated on 4 L of oxygen per minute nasal cannula with a pulse oximetry reading of 96%. Encouraged deep breathing and coughing and suction intermittently and as needed. ID: Growing E coli in sputum. E coli sensitive to levofloxacin. ARDS: Resolved. ALVIN/ATN: Urine output improved and now off CRRT. We will be assessed for intermittent hemodialysis by Nephrology starting tomorrow. Nutrition: Discontinued at the time of extubation. Might need an NG tube to continue nutritional support. Obtain speech therapy evaluation prior to initiation of p.o. diet. Plan Continue oxygen therapy and titrate to a a pulse oximetry reading of 88%. Elevate head of bed to at least 30 or higher to minimize the risk of aspiration. Continue hemodialysis as per Nephrology Services. Avoid nephrotoxin agents, avoid [place] or morphine for pain management Avoid MELLISSA/ARB Strict I&Os Vent bundle Code status: Full code Sedation/analgesia: P.r.n. Ultram. IVs: P IVs and central line. Nutrition: Vital AF 1.2 at 75 mL/hour. Overall prognosis: Guarded Critical care time in excess of 35 minutes. Social: Had an opportunity talked with son and and gave update. Expected Outcome/Goals Expected Outcomes/Goals: maintain stable wt, tolerance to TF, PO diet advancement following extubation, bowel regularity, surgical wound healing, Glu 110-140 mg/dL MARTA SANZ MD May 18, 2025 15:39
[2025-05-18 17:48] LABS: CREATININE,URINE RANDOM 20.0 MG/DL
[2025-05-18 17:55] LABS: OSMOLALITY UA 347.0 MOSM/K (50-1400)
[2025-05-19] VITALS (33 sets, daily range): BP systolic 113–150; BP diastolic 65–95; PULSE 80–113; RESP 17–31; O2SAT 93–100
[2025-05-19 02:14] LABS: MEAN PLATELET VOLUME 8.0 FL (7.4-10.4); RED CELL DISTRIBUTION WIDTH 17.3 % (11.5-14.5)
[2025-05-19 02:38] LABS: CREATININE 1.80 MG/DL (0.60-1.10); PHOSPHORUS 3.9 MG/DL (2.3-4.5); TOTAL CARBON DIOXIDE 31.6 MMOL/L (24-32); eCRCL 29 ML/MIN; eGFR 36 ML/MIN
[2025-05-19] MEDS: potassium Cl 20mEq/100mL bag 100 ML IV PRN (02:48)
--- NOTE | 2025-05-19 06:05 | RADIOLOGY REPORT ---
CHEST RADIOGRAPH Indication: ET Tube PLacement Technique: Single frontal view of the chest was obtained COMPARISON: DI CHEST,SINGLE VIEW on DOS: 05/18/25, DI CHEST,SINGLE VIEW on DOS: 05/17/25, DI CHEST,SINGLE VIEW on DOS: 05/16/25, DI CHEST,SINGLE VIEW on DOS: 05/15/25, DI CHEST,SINGLE VIEW on DOS: 05/14/25 FINDINGS: Lines and Tubes: Status post interval extubation. Remaining lines and tubes unchanged. Lungs: Moderate diffuse increased prominence of the pulmonary vasculature. Left basilar pulmonary airspace disease and pleural effusion. No pneumothorax. Cardiomediastinal contours: Cardiomegaly. Bones: Unremarkable IMPRESSION: 1. Status post interval extubation. Remaining lines and tubes unchanged. 2. Left basilar pulmonary airspace disease and pleural effusion. 3. Cardiomegaly.
--- NOTE | 2025-05-19 09:46 | PROGRESS NOTE ---
Progress Note CV Providers to CC ~ Progress Note: S/P CABGx4 05/07/2025 Re-intubated 05/11 Began dialysis 05/[address]'s with return to OR to control bleeding 05/11 Finished dialysis 05/17 Extubated again 05/18 Antibiotics Ordered?: Yes If Yes, Indications?: pneumonia Objective Vitals Vital Signs Date Time Temp Pulse Resp B/P (MAP) Pulse Ox O2 Delivery O2 Flow Rate FiO2 05/19/25 09:12 96 24 97 Nasal Cannula* 3 32 05/19/25 09:00 99.7 136/95 (109) Lab Results: 05/19/2515405/19/25154 Objective CXR - worsened atelectasis on the left Left chest tube - 150 mL total in the chamber. 50 mL in 24hr Right chest tube - 13624 mL total in chamber. 50 mL in 24hr Drips: none Neuro -awake and alert but quite lethargic Lungs - bilat BS present - some rhonchi on the left Now on 3L NC sat 97% Heart - RRR, v-reactive pacing at 96 Abd - soft mildly distended +bowel sounds, +BM Tube feeds flowing at 75 mL/hr (goal) Ext - 1+ edema x4, well perfused x4 Incisions - covered, clean and dry no sign of infection Coagulation Studies Laboratory Tests Test 05/07/25 00:57 05/07/25 08:38 05/07/25 13:23 05/13/25 11:30 APTT (Heparin Protocol) 53 SECONDS (45-60) Patient Sex (Coag) M Patient Height (Coag) 170cm Patient Weight (Coag) 84.0k KG Patient Blood Volume 5799 ML Pump Volume 1500 ML Total Blood Volume 7299 ML Projected Heparin Concentration 1.8 MG/KG Heparin [place] 137 Calculated Heparin Bolus 08978 UNITS Activated Coagulation Time Baseline 141 SEC (101-148) Activated Coag Time 1.70 U/mL 323 SEC (193-297) H Activated Coag Time 2.84 U/mL 476 SEC (260-420) H Heparin Level (COAG) 0 MG/KG Calculated Heparin Req (Hep Assay) 80255 UNITS Calculated Protamine Req (Hep Assay 0 MG Activated Clotting Time 126 SEC (101-148) Prothrombin Time 12.5 SECONDS (9.0-12.0) H INR International Normalized Ratio 1.2 INR Activated Partial Thromboplast Time 29 SECONDS (22-32) Fibrinogen 251 MG/DL (177-424) Coagulation Comments Coagulation Clinical Comments Cardiac Rhythm: V Paced, AV Paced Problem\Assessment\Plan Problems/Diagnosis: (1) S/P CABG x 3 Assessment & Plan: POd #12 from CABG extubated yesterday Atelectasis/ infiltrate on left side by CXR - will get sputum cx., aggressive pulm toilet -will get chest CT to evaluate lung bolton/effusions -remains on IV Levaquin for E.Coli pneumonia -WBC rising - noted ALVIN / volume overload - creatinine 1.8 today continue diuresis as per Nephrology Thrombocytopenia -improving - resuming aspirin today HIT negative Ileus -resolved stooling daily Bilat pleural effusions - bilat chest tubes in place - drainage is minimal- tubes placed on water seal this AM will probably remove them soon Protein calorie malnutrition - tube feeds at goal now will transition to oral feedings soon Acute blood loss anemia - monitoring, stable DM: increasing dose of scheduled Lantus for climbing blood sugars will get PICC line and d/c Left IJ Proph: Protonix, SCD's Continue support in ICU. Family at bedside and updated by Dr. Cano. (2) Pneumonia due to E. coli (3) Acute renal failure (4) NSTEMI (non-ST elevated myocardial infarction) Status: Acute (5) Acute hypoxic respiratory failure (6) Hemothorax, left (7) Thrombocytopenia (8) Shock liver (9) Postoperative ileus Status: Acute (10) Anemia due to acute blood loss (11) Protein calorie malnutrition (12) Diabetes mellitus Sepsis Screening Skin Color: Pale SHELLEYBAHUSSAIN Wilson May 19, 2025 09:46
[2025-05-19] MEDS: insulin glargine (Lantus) pen - multi-dose SQ ONE (10:02)
[2025-05-19 12:04] LABS: ABG BASE EXCESS 2.7 mmol/L (-2.0-3.0); ABG HCO3 26.6 mmol/L (21.0-28.0); ABG OXYGEN SATURATION 90.4 % (94.0-98.0); ABG PCO2 (T) 39.5 mmHg (35.0-48.0); ABG PH (T) 7.448 (7.350-7.450); ABG PO2 (T) 61.3 mmHg (83.0-108.0); ALLEN'S TEST POSITIVE; FCOHb 1.1 % (0.5-1.5); FHHb 9.5 % (0.0-5.0); FIO2 28.0 mmHg/%; FLOW 2 L/min; FMetHb 0.3 % (0.0-1.5); FO2Hb 89.1 % (94.0-98.0); MODE NASAL CANNULA; PATIENT TEMPERATURE 37.7; TOTAL HEMOGLOBIN 11.1 G/dl (13.5-17.5)
[2025-05-19] MEDS: ipratropium/albuterol 3ml nebule NEB SCH (12:07)
[2025-05-19] MEDS: guaiFENesin 200 MG/10 ML oral syrup UD cup PO SCH (12:50)
--- NOTE | 2025-05-19 16:51 | PROGRESS NOTE- Residence ---
Progress Note - Resident Providers to CC Resident Creating Document: LINDSEY HUITRON, FELISA ~ Antibiotic Timeout Antibiotic Ordered?: Yes Subjective Patient is seen and examined at the bedside. He is extubated yesterday currently on 3 L of oxygen with nasal cannula. He is awake and alert. CRRT discontinued yesterday., he is in polyuric phase, urine output 3827 mL, 1.99 mL/kg per hour. Creatinine increased from 1.25-1.8, patient was on CRRT for all this while which was keeping his creatinine down, he is likely reaching his baseline post CRRT. Objective Vital Signs Date Time Temp Pulse Resp B/P (MAP) Pulse Ox O2 Delivery O2 Flow Rate FiO2 05/19/25 16:32 97 22 93 Nasal Cannula* 3 32 05/19/25 16:00 100.0 143/81 (101) Result Diagram: 05/19/2515405/19/25154 General: Awake and Alert, on 4 L of oxygen. HEENT: Conjunctiva pink, Sclera clear, Mucus Membranes moist. Neck: Supple without masses and tenderness. Resp: On mechanical ventilator. Has bilateral chest tubes. Heart: Regular Rate and rhythm, normal S1 and S2 without murmur, rub or gallop. Abdomen: Soft and non tender no organomegaly, distended Extremities: 2+ pitting lower extremity peripheral edema. No cyanosis or clubbing. Skin: Warm and Dry. Surgical scar in the center of the chest, the wound dressing appears clean, no signs of inflammation or infection. Coagulation Studies Laboratory Tests Test 05/07/25 00:57 05/07/25 08:38 05/07/25 13:23 05/13/25 11:30 APTT (Heparin Protocol) 53 SECONDS (45-60) Patient Sex (Coag) M Patient Height (Coag) 170cm Patient Weight (Coag) 84.0k KG Patient Blood Volume 5799 ML Pump Volume 1500 ML Total Blood Volume 7299 ML Projected Heparin Concentration 1.8 MG/KG Heparin [place] 137 Calculated Heparin Bolus 70464 UNITS Activated Coagulation Time Baseline 141 SEC (101-148) Activated Coag Time 1.70 U/mL 323 SEC (193-297) H Activated Coag Time 2.84 U/mL 476 SEC (260-420) H Heparin Level (COAG) 0 MG/KG Calculated Heparin Req (Hep Assay) 89125 UNITS Calculated Protamine Req (Hep Assay 0 MG Activated Clotting Time 126 SEC (101-148) Prothrombin Time 12.5 SECONDS (9.0-12.0) H INR International Normalized Ratio 1.2 INR Activated Partial Thromboplast Time 29 SECONDS (22-32) Fibrinogen 251 MG/DL (177-424) Coagulation Comments Coagulation Clinical Comments Assessment Assessment BUN, Cr rising from artificially low level from CVVH. Still pretty confused, very concerned. Euvolemic, lasix stopped.? post-ATN diuresis, f/u weights and strict I&O Plan Plan Assessment This is a 84-year-old male patient with past medical history of hypertension, hyperlipidemia, type 2 diabetes, peripheral artery disease, CKD, complete heart block s/p pacemaker transferred from [facility] for chest pain and shortness of breath with exertion. Patient was admitted for NSTEMI. Cardiac catheterization on 05/04 showed high grade lesions of the LAD, RCA, Circ, and ramus intermedius. CABG in bilateral chest tube placement was done by Dr. Molina on 05/07/2025. Patient had postprocedural ongoing bleeding through the left chest tube 4 units of blood transfused from 05/11/2025 to 05/12/2025. On 05/11/2025 patient was taken back to the OR for bleeding through chest tube, the bleeding was controlled. The nephrology team has been consulted for ALVIN and hyperkalemia. The ALVIN was prerenal and was initiated on IV fluids initially, which she did not tolerate. Chest x-ray showed bilateral diffuse infiltrates. Was initiated on HD on 05/11/25 for oliguria and fluid overload, the patient is been initiated on norepinephrine drip. But continuous fluid overload and patient needing vasopressors, has been initiated on CRRT on 05/12/25. CRRT discontinued on 05/18/2025. Plan ALVIN/ATN ALVIN could be likely secondary to decreased perfusion secondary to NE vs contrast exposure during cardiac catheterization vs stress post surgically. Baseline kidney function is not known. Patient was initially in prerenal ALVIN with labs on 05/13/2025, was started on HD on 05/11/2025, with patient being on mechanical ventilation and requiring vasopressors, CRRT was initiated on 05/12/2025, CRRT discontinued on 05/18/2025. Plan Patient is currently in polyuric phase with urine output of 1.99 mL/kg per hour total urine output 3827 mL. Creatinine increased from 1.25-1.8, patient was on CRRT for all this while which was keeping his creatinine down, he is likely reaching his baseline post CRRT. Avoid nephrotoxin agents, avoid [place] or morphine for pain management Avoid MELLISSA/ARB Strict I&Os Patient is getting tube feedings. Electrolytes Hyperkalemia-improved Hyperphosphatemia.-improved Potassium, bicarb, phosphorus in the normal range We will follow up with the labs after the dialysis. CAD s/p CABGx4 on 05/07/2025, POD 5 Cardiac catheterization on 05/04 showed high grade lesions of the LAD, RCA, Circ, and ramus intermedius. CABG bilateral chest tube placement was done by Dr. Molina on 05/07/2025. Echo after CABG showed an ejection fraction of 45-50%, with the elevated right heart pressures., mild aortic stenosis. Patient had postprocedural ongoing bleeding through the left chest tube 4 units of blood transfused from 05/11/2025 to 05/12/2025. On 05/11/2025 patient was taken back to the OR for bleeding through chest tube, the bleeding was controlled. Has bilateral chest tubes. Acute hypoxemic respiratory failure secondary to bilateral pulmonary edema Extubated on 05/18/2025 Postop ileus-improved Nutrition On tube feeding Lindsey Huitron M.D PGY2 Nephrology Resident Date of Service: May 19, 2025 Billing Provider: JAYESH WALLACE MD, PRAVAHIKA, RES May 19, 2025 16:51 JAYESH WALLACE MD May 19, 2025 23:56
--- NOTE | 2025-05-19 18:21 | RADIOLOGY REPORT ---
Indication: Worsening CXR Technique: CT axial images of the chest are obtained without contrast. Coronal and sagittal reformats were obtained. Radiation Dose Information: CTDI volume is 19 mGy. Dose-length product is 653 mGy*cm Comparison: 05/14/2025 FINDINGS: Trachea is patent. Tiny bilateral pneumothoraces less than 10%. Patchy right lung airspace disease / ground-glass disease. Right chest tube which appears to be coursing along the horizontal fissure and then courses intraparenchymal through the Right lower lobe and terminating along the posterior right lung/pleural surface There is more pronounced left lung airspace consolidation and atelectasis. Small left pleural effusion. The left chest tube also appears to be coarse intraparenchymal through the left lower lobe. Heart enlarged. Small pericardial effusion. Coronary artery calcification disease. Nasogastric tube projecting towards stomach. Small to moderate hiatal hernia. Right pleural calcifications. No supraclavicular or axillary lymphadenopathy. Old right posterolateral rib fractures. Acute left lateral 4th and 5th rib fractures. Moderate thoracic degenerative disc disease. There is anterior disruption at T7- 8 which could represent fracture. Ankylosis of the thoracic vertebral bodies. Chronic T4 compression deformity with 80% loss and associated kyphosis. IMPRESSION: There are bilateral chest tubes as described above which appear to demonstrate intraparenchymal course within the lungs. Correlate clinically. Tiny bilateral pneumothoraces, less than 10%. In comparison to the chest CT from 05/14/2025 there is similar left upper and lower lobe consolidation and atelectatic changes with small left pleural effusion. The right lung demonstrates patchy airspace disease diffusely with ground-glass disease, roughly similar to the previous examination which can be secondary to combination of edema, infection, inflammatory changes. Cardiomegaly and small pericardial effusions. Acute left lateral rib fractures Possible Anterior disruption /distraction injury at T7-8. Recommend MRI of the thoracic spine to evaluate.
--- NOTE | 2025-05-19 20:14 | PROGRESS NOTE- Residence ---
Progress Note - Resident Providers to CC Resident Creating Document: ILANAIDAN CHAVEZ, FELISA ~ Antibiotic Timeout Antibiotic Ordered?: Yes Subjective Patient seen and examined at the bedside today he had and he was extubated yesterday and is currently on 4 L oxygen via nasal cannula. The patient is awake but appears to be significantly weak. When asked to call for the patient has very poor cough for. We have encouraged the patient to put more effort when coughing. Chest physical therapy to be done. CRRT was stopped yesterday, patient is making good amount of food in the with almost 3827 mL of urinary output to most likely due to possible aortic phase of ATN. Objective Vital Signs Date Time Temp Pulse Resp B/P (MAP) Pulse Ox O2 Delivery O2 Flow Rate FiO2 05/19/25 19:28 80 24 Nasal Cannula 3.0 05/19/25 19:17 98 32 05/19/25 18:00 99.9 135/79 (97) Result Diagram: 05/19/2515405/19/25154 General: Awake and Alert, on 4 L of oxygen. HEENT: Conjunctiva pink, Sclera clear, Mucus Membranes moist. Neck: Supple without masses and tenderness. Resp: Coarse bilateral breath sounds. Has bilateral chest tubes. Heart: Regular Rate and rhythm, normal S1 and S2 without murmur, rub or gallop. Abdomen: Soft and non tender no organomegaly, distended Extremities: 1+ pitting lower extremity peripheral edema. No cyanosis or clubbing. Skin: Warm and Dry. Surgical scar in the center of the chest, the wound dressing appears clean, no signs of inflammation or infection. Coagulation Studies Laboratory Tests Test 05/07/25 00:57 05/07/25 08:38 05/07/25 13:23 05/13/25 11:30 APTT (Heparin Protocol) 53 SECONDS (45-60) Patient Sex (Coag) M Patient Height (Coag) 170cm Patient Weight (Coag) 84.0k KG Patient Blood Volume 5799 ML Pump Volume 1500 ML Total Blood Volume 7299 ML Projected Heparin Concentration 1.8 MG/KG Heparin [place] 137 Calculated Heparin Bolus 00181 UNITS Activated Coagulation Time Baseline 141 SEC (101-148) Activated Coag Time 1.70 U/mL 323 SEC (193-297) H Activated Coag Time 2.84 U/mL 476 SEC (260-420) H Heparin Level (COAG) 0 MG/KG Calculated Heparin Req (Hep Assay) 53962 UNITS Calculated Protamine Req (Hep Assay 0 MG Activated Clotting Time 126 SEC (101-148) Prothrombin Time 12.5 SECONDS (9.0-12.0) H INR International Normalized Ratio 1.2 INR Activated Partial Thromboplast Time 29 SECONDS (22-32) Fibrinogen 251 MG/DL (177-424) Coagulation Comments Coagulation Clinical Comments Assessment Assessment 84 years old male with past medical history of hypertension, hyperlipidemia, type 2 diabetes mellitus, peripheral artery disease, CKD, complete heart block status post pacemaker was transferred from [facility] for evaluation management of instrument. The patient underwent a CABG by Dr. Rai on 05/07/2025. The patient developed bilateral pleural effusion and worsening respiratory respiratory failure and had to be intubated. The patient has a been extubated and continues to have bilateral chest tubes in orthopedics in the pleural effusions. He is also being treated for ALVIN. Plan Plan Acute hypoxemic respiratory failure Bilateral pleural effusion Pneumonia covering Gram-positive and Gram-negative bacteria Hypovolemic shock New onset lung atelectasis The patient was successfully extubated yesterday. Currently stable on 4 L oxygen via nasal cannula. Continues to have bilateral chest tubes which were placed on 12/14/2024. Additional minimal output from the bilateral chest tubes. Water-seal placed currently. We will re-evaluate tomorrow. Respiratory cultures growing E coli, patient currently on IV levofloxacin. Has been weaned off of pressors. Started the patient on midodrine 10 mg t.i.d.. Maintaining stable blood pressures. Repeat chest x-ray from today shows new infiltrate in the left lung bolton most likely secondary to atelectasis. The patient has been having this significantly weak cough reflex and is not able to clear his mucus. Started the patient on chest physical therapy. Follow up with a CT scan of the chest for further evaluation. NSTEMI Status post CABG on 05/07/2025 Continue management as per the Cardiothoracic surgery team. Continue telemetry monitoring. ALVIN Most likely secondary to ATN. Hyperkalemia Hyperphosphatemia The industrial controls technician team has been managing the patient's ALVIN. The patient was on CRRT until yesterday. The patient appears to be putting out large amount of urine most likely he is in polyuric phase of the acute tubular necrosis. Recommend a IV fluid replacement and strict monitoring of the patient's input and output. Continue management as per Nephrology recommendations. Shock liver Transaminitis The patient's liver enzymes are significantly improving. Currently is off of pressors. Restarted on IV albumin via the industrial controls technician. Continue to monitor the patient's CMP. Postop ileus -resolved Nutrition Continue tube feeds. Continue as per the regional sales engineer recommendations. Acute blood loss anemia Patient received a total of 7 units of PRBC, 2 units of fresh frozen plasma , 3 units of platelets and one cryoprecipitate transfusion. We will continue monitoring for H and H closely. Type 2 diabetes mellitus [id number] On Lantus 20 units b.i.d. and insulin protocol. Hypertension Hyperlipidemia Peripheral artery disease s/p angioplasty in the left SFA and popliteal arteries in [address] Carias Complete heart block status post pacemaker Continue supportive care and management. CODE STATUS: Full code DVT prophylaxis: SCDs GI prophylaxis: Protonix IV Diet: Tube feeds Disposition: Continue management in intensive care unit. Aidan Portillo MD Internal Medicine Resident, PGY-3 Note reviewed and agree with residents assessment and plan Critical care time in excess of 35 minutes. Date of Service: May 19, 2025 Billing Provider: MARTA SANZ MD,AIDAN BYRNE, RES May 19, 2025 20:14
[2025-05-20] VITALS (34 sets, daily range): BP systolic 105–145; BP diastolic 62–92; PULSE 80–102; RESP 0–33; O2SAT 91–99
[2025-05-20 02:31] LABS: MEAN PLATELET VOLUME 7.7 FL (7.4-10.4); RED CELL DISTRIBUTION WIDTH 17.9 % (11.5-14.5)
[2025-05-20 02:56] LABS: CREATININE 2.00 MG/DL (0.60-1.10); TOTAL CARBON DIOXIDE 30.9 MMOL/L (24-32); eCRCL 26 ML/MIN; eGFR 32 ML/MIN
[2025-05-20] MEDS: magnesium sulf-water 2g/50mL 50 ML IV PRN (04:48)
--- NOTE | 2025-05-20 06:26 | RADIOLOGY REPORT ---
CHEST RADIOGRAPH Indication: ET Tube PLacement Technique: Single frontal view of the chest was obtained Comparison: CT CT CHEST on DOS: 05/19/25 FINDINGS: Lines and Tubes: There is a left central venous catheter with tip overlying the SVC / brachiocephalic junction similar to prior study. Left chest tube, enteric tube and right chest tube are unchanged in position. Lungs: Patchy bilateral airspace disease, similar to prior exam. Pleura: No effusion. No pneumothorax. Cardiomediastinal contours: Cardiomegaly. Bones: No acute osseous abnormality. IMPRESSION: 1. No significant change in bilateral airspace disease.
[2025-05-20] MEDS: insulin glargine (Lantus) pen - multi-dose SQ SCH (08:18)
[2025-05-20 08:30] LABS: PHOSPHORUS 3.6 MG/DL (2.3-4.5)
--- NOTE | 2025-05-20 09:01 | PROGRESS NOTE ---
Progress Note CV Providers to CC ~ Progress Note: S/P CABGx4 05/07/2025 Re-intubated 05/11 Began dialysis 05/[address] with return to OR to control bleeding 05/11 Finished dialysis 05/17 Extubated again 05/18 Antibiotics Ordered?: Yes If Yes, Indications?: pneumonia Objective Vitals Vital Signs Date Time Temp Pulse Resp B/P (MAP) Pulse Ox O2 Delivery O2 Flow Rate FiO2 05/20/25 08:23 81 26 Nasal Cannula 3.0 05/20/25 08:00 99.5 127/78 (94) 97 05/20/25 07:59 32 Lab Results: 05/20/25 0200 05/20/25 0200 Objective CXR - ongoing atelectasis on the left Left chest tube - minimal output, no air leak Right chest tube - minimal output, no air leak Drips: none Neuro -awake and alert remains but quite lethargic Lungs - essentially absent BS on the left Now on 3L NC sat 97% Heart - RRR, AV pacing at 80 Abd - soft mildly distended +bowel sounds, +BM Tube feeds flowing at 75 mL/hr (goal) Ext - 1+ edema x4, well perfused x4 Incisions - covered, clean and dry no sign of infection Coagulation Studies Laboratory Tests Test 05/07/25 00:57 05/07/25 08:38 05/07/25 13:23 05/13/25 11:30 APTT (Heparin Protocol) 53 SECONDS (45-60) Patient Sex (Coag) M Patient Height (Coag) 170cm Patient Weight (Coag) 84.0k KG Patient Blood Volume 5799 ML Pump Volume 1500 ML Total Blood Volume 7299 ML Projected Heparin Concentration 1.8 MG/KG Heparin [place] 137 Calculated Heparin Bolus 27884 UNITS Activated Coagulation Time Baseline 141 SEC (101-148) Activated Coag Time 1.70 U/mL 323 SEC (193-297) H Activated Coag Time 2.84 U/mL 476 SEC (260-420) H Heparin Level (COAG) 0 MG/KG Calculated Heparin Req (Hep Assay) 29648 UNITS Calculated Protamine Req (Hep Assay 0 MG Activated Clotting Time 126 SEC (101-148) Prothrombin Time 12.5 SECONDS (9.0-12.0) H INR International Normalized Ratio 1.2 INR Activated Partial Thromboplast Time 29 SECONDS (22-32) Fibrinogen 251 MG/DL (177-424) Coagulation Comments Coagulation Clinical Comments Cardiac Rhythm: V Paced, AV Paced Problem\Assessment\Plan Problems/Diagnosis: (1) S/P CABG x 3 Assessment & Plan: POd #13 from CABG Atelectasis/ infiltrate on left side by CXR and CT - trying to get sputum cx., aggressive pulm toilet VERY POOR COUGH EFFORT -would benefit from bronchoscopy as planned by Dr. Cano -remains on IV Levaquin for E.Coli pneumonia. Bilat pleural effusions - bilat chest tubes in place - drainage is minimal- have never had an airleak - will remove tubes later today Protein calorie malnutrition - tube feeds at goal now will transition to oral feedings soon Acute blood loss anemia - monitoring, stable DM: increasing dose of scheduled Lantus for climbing blood sugars ALVIN- nephrology following excellent UOP will get PICC line and d/c Left IJ Proph: Protonix, SCD's Continue support in ICU. Family at bedside and updated by Dr. Cano. (2) Pneumonia due to E. coli (3) Acute renal failure (4) NSTEMI (non-ST elevated myocardial infarction) Status: Acute (5) Acute hypoxic respiratory failure (6) Hemothorax, left (7) Thrombocytopenia (8) Shock liver (9) Postoperative ileus Status: Acute (10) Anemia due to acute blood loss (11) Protein calorie malnutrition (12) Diabetes mellitus Sepsis Screening Skin Color: Pale SHELLEYBAHUSSAIN Wilson May 20, 2025 09:01
[2025-05-20] MEDS: LIDOcaine 4% (40 mg/ml) topical solution 50ml INH ONE (09:10)
[2025-05-20] MEDS: phenylephrine 1% (X-tra strg) 15ml nasal spray NS ONE (09:10)
[2025-05-20] MEDS: LIDOcaine 4% (40 mg/ml) topical solution 50ml MM ONE (09:10)
[2025-05-20] MEDS: LIDOCAINE 4% (40MG/ML) topical solution 50ml **BRONCH ONLY ONE (09:41)
[2025-05-20] MEDS: epiNEPHrine 1 MG/ML 1 ml ampule **BRONCH ONLY ONE (09:41)
[2025-05-20] MEDS: lidocaine 2% viscous 15 ML cup ***bronch room only MM ONE (09:41)
[2025-05-20] MEDS: phenylephrine 1% Nasal spray (extra-strength) 15 ML bottle **bronch room NS ONE (09:42)
--- NOTE | 2025-05-20 11:29 | PROGRESS NOTE- Residence ---
Progress Note - Resident Providers to CC Resident Creating Document: LINDSEY WAYNE, FELISA ~ Antibiotic Timeout Antibiotic Ordered?: No Subjective Patient seen and examined at the bedside today. He is awake and alert. He is on 3 L with nasal cannula PA. He has a NG tube for tube feeding, also has bilateral chest tubes and is on Early's. CRRT was stopped on 05/18/2025. Creatinine today is 2.0, increased from 1.8. Total urine output in the last 24 hours is 2418 mL. We will hold off on the dialysis and monitor daily labs. Objective Vital Signs Date Time Temp Pulse Resp B/P (MAP) Pulse Ox O2 Delivery O2 Flow Rate FiO2 05/20/25 11:00 99.5 99 0 105/72 (83) 98 Nasal Cannula 3.0 05/20/25 07:59 32 Result Diagram: 05/20/2519905/20/25199 General: Awake and Alert, on 3 L of oxygen. HEENT: Conjunctiva pink, Sclera clear, Mucus Membranes moist. Neck: Supple without masses and tenderness. Resp: Bilateral lung sounds are clear. Has bilateral chest tubes. Heart: Regular Rate and rhythm, normal S1 and S2 without murmur, rub or gallop. Abdomen: Soft and non tender no organomegaly, distended Extremities: 1+ pitting lower extremity peripheral edema. No cyanosis or clubbing. Skin: Warm and Dry. Surgical scar in the center of the chest, the wound dressing appears clean, no signs of inflammation or infection. Coagulation Studies Laboratory Tests Test 05/07/25 00:57 05/07/25 08:38 05/07/25 13:23 05/13/25 11:30 APTT (Heparin Protocol) 53 SECONDS (45-60) Patient Sex (Coag) M Patient Height (Coag) 170cm Patient Weight (Coag) 84.0k KG Patient Blood Volume 5799 ML Pump Volume 1500 ML Total Blood Volume 7299 ML Projected Heparin Concentration 1.8 MG/KG Heparin [place] 137 Calculated Heparin Bolus 95689 UNITS Activated Coagulation Time Baseline 141 SEC (101-148) Activated Coag Time 1.70 U/mL 323 SEC (193-297) H Activated Coag Time 2.84 U/mL 476 SEC (260-420) H Heparin Level (COAG) 0 MG/KG Calculated Heparin Req (Hep Assay) 43696 UNITS Calculated Protamine Req (Hep Assay 0 MG Activated Clotting Time 126 SEC (101-148) Prothrombin Time 12.5 SECONDS (9.0-12.0) H INR International Normalized Ratio 1.2 INR Activated Partial Thromboplast Time 29 SECONDS (22-32) Fibrinogen 251 MG/DL (177-424) Coagulation Comments Coagulation Clinical Comments Plan Plan Assessment This is a 84-year-old male patient with past medical history of hypertension, hyperlipidemia, type 2 diabetes, peripheral artery disease, CKD, complete heart block s/p pacemaker transferred from [facility] for chest pain and shortness of breath with exertion. Patient was admitted for NSTEMI. Cardiac catheterization on 05/04 showed high grade lesions of the LAD, RCA, Circ, and ramus intermedius. CABG in bilateral chest tube placement was done by Dr. Molina on 05/07/2025. Patient had postprocedural ongoing bleeding through the left chest tube 4 units of blood transfused from 05/11/2025 to 05/12/2025. On 05/11/2025 patient was taken back to the OR for bleeding through chest tube, the bleeding was controlled. The nephrology team has been consulted for ALVIN and hyperkalemia. The ALVIN was prerenal and was initiated on IV fluids initially, which she did not tolerate. Chest x-ray showed bilateral diffuse infiltrates. Was initiated on HD on 05/11/25 for oliguria and fluid overload, the patient is been initiated on norepinephrine drip. But continuous fluid overload and patient needing vasopressors, has been initiated on CRRT on 05/12/25. CRRT discontinued on 05/18/2025. Plan ALVIN/ATN Creatinine today is 2.0, increased from 1.8. Creatinine increasing after the CRRT was stopped on 05/18, the CRRT was likely artificially keeping his creatinine low and he is reaching his baseline. Total urine output in the last 24 hours is 2418 mL. Likely currently in polyuric phase, Post ATN diuresis. Patient was initially in prerenal ALVIN with labs on 05/13/2025, was started on HD on 05/11/2025, with patient being on mechanical ventilation and requiring vasopressors, CRRT was initiated on 05/12/2025, CRRT discontinued on 05/18/2025. Plan Avoid nephrotoxin agents, avoid Ventura or morphine for pain management Avoid MELLISSA/ARB Strict I&Os Patient is getting tube feedings. Electrolytes Hyperkalemia-improved Hyperphosphatemia.-improved Potassium, bicarb, phosphorus in the normal range We will follow up with the labs after the dialysis. CAD s/p CABGx4 on 05/07/2025, POD 5 Cardiac catheterization on 05/04 showed high grade lesions of the LAD, RCA, Circ, and ramus intermedius. CABG bilateral chest tube placement was done by Dr. Molina on 05/07/2025. Echo after CABG showed an ejection fraction of 45-50%, with the elevated right heart pressures., mild aortic stenosis. Patient had postprocedural ongoing bleeding through the left chest tube 4 units of blood transfused from 05/11/2025 to 05/12/2025. On 05/11/2025 patient was taken back to the OR for bleeding through chest tube, the bleeding was controlled. Has bilateral chest tubes. Acute hypoxemic respiratory failure secondary to bilateral pulmonary edema Extubated on 05/18/2025 Patient unable to cough, getting chest physical therapy Continues to have bilateral chest tube Respiratory culture positive for E coli, on levofloxacin. Postop ileus-improved Nutrition On tube feeding Lindsey Wayne M.D PGY2 Nephrology Resident Date of Service: May 20, 2025 Billing Provider: JENS BLAS III, PRAVAHIKA, RES May 20, 2025 11:29
--- NOTE | 2025-05-20 13:18 | OPERATIVE REPORT ---
Operative Report Providers to CC ~ Date of Procedure: May 20, 2025 Pre-Operative Diagnosis: Left mainstem bronchus occlusion, left lung atelectasis, E. 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 Obstruction of left main bronchus by foamy white mucoid secretions emanating from left lower lobe of lung. 2. Edematous, erythematous mucosa at level of left lower lobe bronchus extending into segmental bronchi. 3. 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 4. Swollen, edematous vocal chords moving symmetrically with speech. Complications None Prosthetics\Implants used: None Estimated Blood Loss: None Specimen Removed: 1. Left mainstem bronchus secretions 2. Left lower lobe bronchoalveolar lavage Description of Procedure: The indication for the procedure as well as the risks benefits and alternatives to undergoing the above procedure were discussed in detail with the patient's and the patient at the bedside in the CVICU. All were in agreement to proceed. The patient was positioned in a sitting position in his CVICU bed with a 100% non-rebreather mask and a hole cut in the mask to allow access to the left nares. Nebulized lidocaine was administered by respiratory therapy and 1% lidocaine with Tae-Synephrine was applied to the left nares. Additional 1% lidocaine was sprayed on the vocal cords. The large-bore disposable fiberoptic bronchoscope was advanced through the non-rebreather mask into the left nares, posterior nasopharynx, epiglottis, and through the vocal cords into the trachea. The above findings were noted. Obstructive secretions were aspirated from the left mainstem bronchus extending into the left lower lobe and collected into a Lukens trap for laboratory examination. Bronchoalveolar lavage of the left lower lobe was performed using saline, aspirated, and sent as a 2nd specimen. The entire tracheobronchial tree was then examined and cleared of all remaining secretions. The scope was removed to the level of the glottis and the vocal cords examined during speech and noted to move equally. All secretions were then aspirated from the nasopharynx on scope removal. Patient tolerated the procedure well. In light of the above findings, we will broaden antibiotic coverage pending culture and sensitivity of the current respiratory specimens. We will also discontinue the scheduled nebulized bronchodilator and Mucomyst treatments at this time as these have the potential for exacerbation of the Excessive Dynamic Airway Collapse noted on the left mainstem bronchus. We will also add CPAP as tolerated to facilitate pneumatic stenting of the left mainstem bronchus. Continue secretion management with guaifenesin to facilitate patient expectoration. Counts repoted as correct: Yes HAND,ZACHARY Hanna MD May 20, 2025 13:18
[2025-05-20] MEDS: MEROPENEM 1GM/NACL 50ML IVPB 50 ML IV SCH (15:02)
--- NOTE | 2025-05-20 15:16 | RADIOLOGY REPORT ---
CHEST RADIOGRAPH Indication: Post chest tube removal Technique: Single frontal view of the chest was obtained COMPARISON: DI CHEST,SINGLE VIEW on DOS: 05/20/25, CT CT CHEST on DOS: 05/19/25, DI CHEST,SINGLE VIEW on DOS: 05/19/25, DI CHEST,SINGLE VIEW on DOS: 05/18/25, DI CHEST,SINGLE VIEW on DOS: 05/17/25 FINDINGS: Lines and Tubes: Endotracheal tube and enteric catheter in satisfactory position. Lungs: Unchanged multifocal airspace disease. Pleura: No effusion.No pneumothorax. Cardiomediastinal contours: Unremarkable Bones: Unremarkable IMPRESSION: Unchanged multifocal airspace disease.
--- NOTE | 2025-05-20 20:13 | PROGRESS NOTE- Residence ---
Progress Note - Resident Providers to CC Resident Creating Document: AIDAN PORTILLO, RES ~ Antibiotic Timeout Antibiotic Ordered?: Yes Subjective Patient seen and examined at the bedside today. The patient continues to have weak cough reflex. He denies any new concerns or complaints. Objective Vital Signs Date Time Temp Pulse Resp B/P (MAP) Pulse Ox O2 Delivery O2 Flow Rate FiO2 05/20/25 19:23 80 28 98 32 28 05/20/25 18:00 99.9 145/79 (101) Bi-pap/CPAP 05/20/25 12:55 4.0 Result Diagram: 05/20/25 02005/20/25 020 General: Awake and Alert, on 3 L of oxygen. HEENT: Conjunctiva pink, Sclera clear, Mucus Membranes moist. Neck: Supple without masses and tenderness. Resp/chest: On 3 L oxygen, has coarse bilateral breath sounds. Has bilateral chest tubes present. Heart: Regular Rate and rhythm, normal S1 and S2 without murmur, rub or gallop. Abdomen: Soft and non tender no organomegaly, distended Extremities: 1+ pitting lower extremity peripheral edema. No cyanosis or clubbing. Skin: Warm and Dry. Surgical scar in the center of the chest, the wound dressing appears clean, no signs of inflammation or infection. Coagulation Studies Laboratory Tests Test 05/07/25 00:57 05/07/25 08:38 05/07/25 13:23 05/13/25 11:30 APTT (Heparin Protocol) 53 SECONDS (45-60) Patient Sex (Coag) M Patient Height (Coag) 170cm Patient Weight (Coag) 84.0k KG Patient Blood Volume 5799 ML Pump Volume 1500 ML Total Blood Volume 7299 ML Projected Heparin Concentration 1.8 MG/KG Heparin [place] 137 Calculated Heparin Bolus 21196 UNITS Activated Coagulation Time Baseline 141 SEC (101-148) Activated Coag Time 1.70 U/mL 323 SEC (193-297) H Activated Coag Time 2.84 U/mL 476 SEC (260-420) H Heparin Level (COAG) 0 MG/KG Calculated Heparin Req (Hep Assay) 03509 UNITS Calculated Protamine Req (Hep Assay 0 MG Activated Clotting Time 126 SEC (101-148) Prothrombin Time 12.5 SECONDS (9.0-12.0) H INR International Normalized Ratio 1.2 INR Activated Partial Thromboplast Time 29 SECONDS (22-32) Fibrinogen 251 MG/DL (177-424) Coagulation Comments Coagulation Clinical Comments Assessment Assessment 84 years old male with past medical history of hypertension, hyperlipidemia, type 2 diabetes mellitus, peripheral artery disease, CKD, complete heart block status post pacemaker was transferred from [facility] for evaluation management of instrument. The patient underwent a CABG by Dr. Rai on 05/07/2025. The patient developed bilateral pleural effusion and worsening respiratory respiratory failure and had to be intubated. The patient has a been extubated and continues to have bilateral chest tubes in orthopedics in the pleural effusions. He is also being treated for ALVIN. Plan Plan Acute hypoxemic respiratory failure Bilateral pleural effusion Pneumonia covering Gram-positive and Gram-negative bacteria Hypovolemic shock New onset lung atelectasis The patient was successfully extubated and is currently stable on 3 L oxygen via nasal cannula. Continues to have bilateral chest tubes which were placed on 12/14/2024. Additional minimal output from the bilateral chest tubes. Bilateral chest tubes have minimal output in the last 24 hours. Respiratory cultures growing E coli, patient currently on IV levofloxacin. Has been weaned off of pressors. Started the patient on midodrine 10 mg t.i.d.. Maintaining stable blood pressures. Repeat CT scan of the chest shows inspissated mucus in the left main stream bronchus which is possibly causing the new onset atelectasis due to obstruction. Recommendations from guidelines suggest that a bronchoscopy is only needed after 48 hours after bronchodilators, Mucomyst and chest physical therapy and we will not yield any better results if used prior to 48 hours of conservative management. Recommendations and has been relayed to the CT surgeon. NSTEMI Status post CABG on 05/07/2025 Continue management as per the Cardiothoracic surgery team. Continue telemetry monitoring. ALVIN Most likely secondary to ATN. Hyperkalemia Hyperphosphatemia The stuffed casing tier team has been managing the patient's ALVIN. Creatinine is trending up. Patient has been off of CRRT X two days.. The patient appears to be putting out large amount of urine most likely he is in polyuric phase of the acute tubular necrosis. Recommend a IV fluid replacement and strict monitoring of the patient's input and output. Continue management as per Nephrology recommendations. Shock liver Transaminitis The patient's liver enzymes have improved significantly. Currently is off of pressors. Restarted on IV albumin via the stuffed casing tier. Continue to monitor the patient's CMP. Postop ileus -resolved Nutrition Continue tube feeds. Continue as per the coal washer tender recommendations. Acute blood loss anemia Patient received a total of 7 units of PRBC, 2 units of fresh frozen plasma , 3 units of platelets and one cryoprecipitate transfusion. We will continue monitoring for H and H closely. Type 2 diabetes mellitus [id number] On Lantus 20 units b.i.d. and insulin protocol. Hypertension Hyperlipidemia Peripheral artery disease s/p angioplasty in the left SFA and popliteal arteries in [address] Carias Complete heart block status post pacemaker Continue supportive care and management. CODE STATUS: Full code DVT prophylaxis: SCDs GI prophylaxis: Protonix IV Diet: Tube feeds Disposition: Continue management in intensive care unit. The roll up guider operator/pulmonology team is signing off of the patient. Patient is being managed by the Cardiothoracic Surgeons. Continue care as per their recommendations. Aidan Portillo MD Internal Medicine Resident, PGY-3 Note reviewed and agree with residents assessment and plan Critical care time in excess of 35 minutes. Date of Service: May 20, 2025 Billing Provider: MARTA SANZ MD,AIDAN BYRNE, RES May 20, 2025 20:13
[2025-05-21] VITALS (31 sets, daily range): BP systolic 99–146; BP diastolic 65–86; PULSE 80–107; RESP 16–32; O2SAT 93–99
[2025-05-21 02:54] LABS: CREATININE 1.81 MG/DL (0.60-1.10); PHOSPHORUS 3.5 MG/DL (2.3-4.5); TOTAL CARBON DIOXIDE 32.0 MMOL/L (24-32); eCRCL 28 ML/MIN; eGFR 36 ML/MIN
[2025-05-21 03:03] LABS: MEAN PLATELET VOLUME 7.9 FL (7.4-10.4); RED CELL DISTRIBUTION WIDTH 17.7 % (11.5-14.5)
--- NOTE | 2025-05-21 06:00 | RADIOLOGY REPORT ---
CHEST RADIOGRAPH Indication: atelectasis s/p bronch Technique: Single frontal view of the chest was obtained COMPARISON: DI CHEST,SINGLE VIEW on DOS: 05/20/25, DI CHEST,SINGLE VIEW on DOS: 05/20/25, CT CT CHEST on DOS: 05/19/25, DI CHEST,SINGLE VIEW on DOS: 05/19/25, DI CHEST,SINGLE VIEW on DOS: 05/18/25 FINDINGS: Lines and Tubes: Enteric catheter in satisfactory position. Left central venous catheter in satisfactory position. Right chest wall pacemaker. Lungs: Unchanged multifocal airspace disease, [id number]-right. Pleura: Small left pleural effusion. No pneumothorax. Cardiomediastinal contours: Unremarkable. Bones: Unremarkable. IMPRESSION: Unchanged multifocal airspace disease, [id number]-right.
--- NOTE | 2025-05-21 07:49 | PROGRESS NOTE ---
Progress Note CV Providers to CC ~ Progress Note: S/P CABGx4 05/07/2025 Re-intubated 05/11 Began dialysis 05/[address] with return to OR to control bleeding 05/11 Finished dialysis 05/17 Extubated again 05/18 Therapeutic bronchoscopy 05/21 Antibiotics Ordered?: Yes If Yes, Indications?: pneumonia Objective Vitals Vital Signs Date Time Temp Pulse Resp B/P (MAP) Pulse Ox O2 Delivery O2 Flow Rate FiO2 05/21/25 07:00 99.7 95 23 139/81 (100) 97 Bi-pap/CPAP 05/21/25 03:10 32 05/20/25 12:55 4.0 Lab Results: 05/21/25 0215 05/21/25 021 Objective CXR - somewhat improved aeration on the left chest tubes removed yesterday Drips: none Neuro -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 Tube feeds flowing at 75 mL/hr (goal) Ext - 1+ edema x4, well perfused x4 Incisions - covered, dressing is clean and dry sternum is stable. no signs of infection Coagulation Studies Laboratory Tests Test 05/07/25 00:57 05/07/25 08:38 05/07/25 13:23 05/13/25 11:30 APTT (Heparin Protocol) 53 SECONDS (45-60) Patient Sex (Coag) M Patient Height (Coag) 170cm Patient Weight (Coag) 84.0k KG Patient Blood Volume 5799 ML Pump Volume 1500 ML Total Blood Volume 7299 ML Projected Heparin Concentration 1.8 MG/KG Heparin [place] 137 Calculated Heparin Bolus 56605 UNITS Activated Coagulation Time Baseline 141 SEC (101-148) Activated Coag Time 1.70 U/mL 323 SEC (193-297) H Activated Coag Time 2.84 U/mL 476 SEC (260-420) H Heparin Level (COAG) 0 MG/KG Calculated Heparin Req (Hep Assay) 11260 UNITS Calculated Protamine Req (Hep Assay 0 MG Activated Clotting Time 126 SEC (101-148) Prothrombin Time 12.5 SECONDS (9.0-12.0) H INR International Normalized Ratio 1.2 INR Activated Partial Thromboplast Time 29 SECONDS (22-32) Fibrinogen 251 MG/DL (177-424) Coagulation Comments Coagulation Clinical Comments Cardiac Rhythm: V Paced, AV Paced Problem\Assessment\Plan Problems/Diagnosis: (1) S/P CABG x 3 Assessment & Plan: POd #14 from CABG Atelectasis / infiltrate on left side with poor cough effort -underwent bronchoscopy / BAL yesterday with evacuation of mucus from Left bronchial tree -remains on IV Levaquin for previously identified E.Coli pneumonia. -started on Merrem for broad spectrum coverage with suspicion of additional pathogen- cultures pending gram stain showed no organisms however. -using CPAP for pneumatic stenting purposes Bilat pleural effusions - chest tubes removed yesterday Protein calorie malnutrition - tube feeds at goal now via NG tube -failed swallow eval a few days ago. Seems stronger now so maybe we can try again today- will discuss with Dr. Cano -If ongoing tube feeds are necessary may need to consider Dobhoff/post-pyloric feeds DM: getting Lantus at 20 mg daily blood sugars continue to climb- will increase Lantus to 30u daily ALVIN- nephrology following excellent UOP creatinine at 1.8 today We ordered PICC line 48 hours ago and it is still not placed - the current CVL has to come out today regardless. Proph: Protonix / SCD's Continue support in ICU. Family at bedside and updated by Dr. Cano. (2) Pneumonia due to E. coli (3) Acute renal failure (4) NSTEMI (non-ST elevated myocardial infarction) Status: Acute (5) Acute hypoxic respiratory failure (6) Hemothorax, left (7) Thrombocytopenia (8) Shock liver (9) Postoperative ileus Status: Acute (10) Anemia due to acute blood loss (11) Protein calorie malnutrition (12) Diabetes mellitus Sepsis Screening Skin Color: Pale OVERBAYHUSSAIN May 21, 2025 07:49
[2025-05-21] MEDS: budesonide 0.5mg/2ml UD nebule IH SCH (09:25)
[2025-05-21] MEDS: insulin glargine (Lantus) pen - multi-dose SQ ONE (10:31)
--- NOTE | 2025-05-21 11:19 | RADIOLOGY REPORT ---
EXAM: DI CHEST,SINGLE VIEW Indication: LEFT PICC PLACEMENT VERIFICATION Technique: Single frontal view of the chest was obtained Comparison: DI CHEST,SINGLE VIEW on DOS: 05/21/25, DI CHEST,SINGLE VIEW on DOS: 05/20/25, DI CHEST,SINGLE VIEW on DOS: 05/20/25, CT CT CHEST on DOS: 05/19/25, DI CHEST,SINGLE VIEW on DOS: 05/19/25, DI CHEST,SINGLE VIEW on DOS: 05/21/25 FINDINGS: Lines and Tubes: Enteric catheter in satisfactory position. Left central venous catheter in satisfactory position. Right chest wall pacemaker. Lungs: Unchanged multifocal airspace disease, [id number]-right. Pleura: Small left pleural effusion. No pneumothorax. Cardiomediastinal contours: Unremarkable. Bones: Unremarkable. IMPRESSION: No significant change compared to prior exam allowing for differences in technique.
--- NOTE | 2025-05-21 12:20 | PROGRESS NOTE- Residence ---
Progress Note - Resident Providers to CC Resident Creating Document: LINDSEY HUITRON RES ~ Antibiotic Timeout Antibiotic Ordered?: No Subjective Patient seen and examined at the bedside today. Kidney function continues to improve without dialysis. Chest tubes were removed. Patient had left bronchoscopy done for left main stem bronchus occlusion and left lung atelectasis on 05/20/2025. Objective Vital Signs Date Time Temp Pulse Resp B/P (MAP) Pulse Ox O2 Delivery O2 Flow Rate FiO2 05/21/25 11:00 99.7 102 29 132/79 (96) 96 Nasal Cannula 3.0 05/21/25 08:57 32 Result Diagram: 05/21/2521405/21/25214 General: Awake and Alert, on 3 L of oxygen. HEENT: Conjunctiva pink, Sclera clear, Mucus Membranes moist. Neck: Supple without masses and tenderness. Resp: Bilateral lung sounds are clear. Has bilateral chest tubes. Heart: Regular Rate and rhythm, normal S1 and S2 without murmur, rub or gallop. Abdomen: Soft and non tender no organomegaly, distended Extremities: 1+ pitting lower extremity peripheral edema. No cyanosis or clubbing. Skin: Warm and Dry. Surgical scar in the center of the chest, the wound dressing appears clean, no signs of inflammation or infection. Coagulation Studies Laboratory Tests Test 05/07/25 00:57 05/07/25 08:38 05/07/25 13:23 05/13/25 11:30 APTT (Heparin Protocol) 53 SECONDS (45-60) Patient Sex (Coag) M Patient Height (Coag) 170cm Patient Weight (Coag) 84.0k KG Patient Blood Volume 5799 ML Pump Volume 1500 ML Total Blood Volume 7299 ML Projected Heparin Concentration 1.8 MG/KG Heparin [place] 137 Calculated Heparin Bolus 35486 UNITS Activated Coagulation Time Baseline 141 SEC (101-148) Activated Coag Time 1.70 U/mL 323 SEC (193-297) H Activated Coag Time 2.84 U/mL 476 SEC (260-420) H Heparin Level (COAG) 0 MG/KG Calculated Heparin Req (Hep Assay) 38504 UNITS Calculated Protamine Req (Hep Assay 0 MG Activated Clotting Time 126 SEC (101-148) Prothrombin Time 12.5 SECONDS (9.0-12.0) H INR International Normalized Ratio 1.2 INR Activated Partial Thromboplast Time 29 SECONDS (22-32) Fibrinogen 251 MG/DL (177-424) Coagulation Comments Coagulation Clinical Comments Plan Plan Assessment This is a 84-year-old male patient with past medical history of hypertension, hyperlipidemia, type 2 diabetes, peripheral artery disease, CKD, complete heart block s/p pacemaker transferred from [facility] for chest pain and shortness of breath with exertion. Patient was admitted for NSTEMI. Cardiac catheterization on 05/04 showed high grade lesions of the LAD, RCA, Circ, and ramus intermedius. CABG in bilateral chest tube placement was done by Dr. Molina on 05/07/2025. Patient had postprocedural ongoing bleeding through the left chest tube 4 units of blood transfused from 05/11/2025 to 05/12/2025. On 05/11/2025 patient was taken back to the OR for bleeding through chest tube, the bleeding was controlled. The nephrology team has been consulted for ALVIN and hyperkalemia. The ALVIN was prerenal and was initiated on IV fluids initially, which she did not tolerate. Chest x-ray showed bilateral diffuse infiltrates. Was initiated on HD on 05/11/25 for oliguria and fluid overload, the patient is been initiated on norepinephrine drip. But continuous fluid overload and patient needing vasopressors, has been initiated on CRRT on 05/12/25. CRRT discontinued on 05/18/2025. Plan ALVIN/ATN Creatinine today is 2.0, increased from 1.8. Creatinine increasing after the CRRT was stopped on 05/18, the CRRT was likely artificially keeping his creatinine low and he is reaching his baseline. Total urine output in the last 24 hours is 2418 mL. Likely currently in polyuric phase, Post ATN diuresis. Patient was initially in prerenal ALVIN with labs on 05/13/2025, was started on HD on 05/11/2025, with patient being on mechanical ventilation and requiring vasopressors, CRRT was initiated on 05/12/2025, CRRT discontinued on 05/18/2025. Plan Avoid nephrotoxin agents, avoid [place] or morphine for pain management Avoid MELLISSA/ARB Strict I&Os Patient is getting tube feedings. Electrolytes Hyperkalemia-improved Hyperphosphatemia.-improved Potassium, bicarb, phosphorus in the normal range We will follow up with the labs after the dialysis. CAD s/p CABGx4 on 05/07/2025, POD 5 Cardiac catheterization on 05/04 showed high grade lesions of the LAD, RCA, Circ, and ramus intermedius. CABG bilateral chest tube placement was done by Dr. Molina on 05/07/2025. Echo after CABG showed an ejection fraction of 45-50%, with the elevated right heart pressures., mild aortic stenosis. Patient had postprocedural ongoing bleeding through the left chest tube 4 units of blood transfused from 05/11/2025 to 05/12/2025. On 05/11/2025 patient was taken back to the OR for bleeding through chest tube, the bleeding was controlled. Has bilateral chest tubes. Acute hypoxemic respiratory failure secondary to bilateral pulmonary edema Extubated on 05/18/2025 Patient unable to cough, getting chest physical therapy Continues to have bilateral chest tube Respiratory culture positive for E coli, on levofloxacin. Postop ileus-improved Nutrition On tube feeding Lindsey Huitron M.D PGY2 Nephrology Resident Date of Service: May 21, 2025 Billing Provider: JENS BLAS III, PRAVAHIKA, RES May 21, 2025 12:19
--- NOTE | 2025-05-21 15:15 | RADIOLOGY REPORT ---
CHEST RADIOGRAPH Indication: LEFT PICC ADVANCED, VERIFICATION OF PLACEMENT Technique: Single frontal view of the chest was obtained COMPARISON: ANGIO LINE PLACEMENT(PICC NURSE) on DOS: 05/21/25, DI CHEST,SINGLE VIEW on DOS: 05/21/25, DI CHEST,SINGLE VIEW on DOS: 05/21/25, DI CHEST,SINGLE VIEW on DOS: 05/20/25, DI CHEST,SINGLE VIEW on DOS: 05/20/25 FINDINGS: Lines and Tubes: Right chest pacemaker. Left central venous catheter and left PICC in satisfactory position. Lungs: Slightly improved aeration of the left lung. Pleura: No effusion. No pneumothorax. Cardiomediastinal contours: Cardiomegaly. Bones: Unremarkable. IMPRESSION: Left PICC in satisfactory position overlying the proximal superior vena cava.
[2025-05-22] VITALS (30 sets, daily range): BP systolic 101–163; BP diastolic 42–104; PULSE 80–106; RESP 17–29; O2SAT 94–99
[2025-05-22 02:51] LABS: MEAN PLATELET VOLUME 7.7 FL (7.4-10.4); RED CELL DISTRIBUTION WIDTH 17.5 % (11.5-14.5)
[2025-05-22 03:14] LABS: CREATININE 1.80 MG/DL (0.60-1.10); PHOSPHORUS 3.2 MG/DL (2.3-4.5); TOTAL CARBON DIOXIDE 33.0 MMOL/L (24-32); eCRCL 29 ML/MIN; eGFR 36 ML/MIN
--- NOTE | 2025-05-22 07:21 | RADIOLOGY REPORT ---
EXAM: DI CHEST,SINGLE VIEW HISTORY: Left lung atelectasis COMPARISON: DI CHEST,SINGLE VIEW on DOS: 05/21/25, ANGIO LINE PLACEMENT(PICC NURSE) on DOS: 05/21/25, DI CHEST,SINGLE VIEW on DOS: 05/21/25, DI CHEST,SINGLE VIEW on DOS: 05/21/25, DI CHEST,SINGLE VIEW on DOS: 05/20/25 TECHNIQUE: Portable upright AP view of the chest was performed. FINDINGS: Right IJ central line, OG tube, left upper extremity PICC line, right chest pacemaker, sternal wires, and left atrial appendage closure device are re- identified. There is stable opacification in the left mid to lower lung obscuring the left hemidiaphragm and left heart border. There is minimal right basilar opacity. No pneumothorax. The heart is enlarged. IMPRESSION: 1. Stable opacity in the left mid to lower lung likely representing a combination of consolidation and effusion. 2. Minimal right basilar atelectasis or pneumonia. 3. Cardiomegaly and postoperative changes of the chest as detailed above.
[2025-05-22] MEDS: nystatin 500,000 unit/5ML UD oral suspension PO SCH (07:52)
[2025-05-22] MEDS ORDERED: insulin glargine (Lantus) pen - multi-dose SQ SCH (08:00)
[2025-05-22] MEDS: insulin glargine (Lantus) pen - multi-dose SQ SCH (08:00)
--- NOTE | 2025-05-22 08:01 | PROGRESS NOTE ---
Progress Note CV Providers to CC ~ Antibiotics Ordered?: Yes Subjective Subjective S/P CABG x 4 POD # 15. He is on CPAP as usual overnight, but RT says he wanted to continue on it this morning. PT notes indicate he is very weak. Creat 1.8 Objective Vitals Vital Signs Date Time Temp Pulse Resp B/P (MAP) Pulse Ox O2 Delivery O2 Flow Rate FiO2 05/22/25 07:48 99 26 99 BiPAP+ 8 32 05/22/25 06:00 99.7 135/76 (95) Lab Results: 05/22/25 0235 05/22/25 0235 Objective Lungs - diminished L base Heart - RRR, paced Abd - soft, + BS Extr - warm, minimal edema Incisions - CDI Coagulation Studies Laboratory Tests Test 05/07/25 00:57 05/07/25 08:38 05/07/25 13:23 05/13/25 11:30 APTT (Heparin Protocol) 53 SECONDS (45-60) Patient Sex (Coag) M Patient Height (Coag) 170cm Patient Weight (Coag) 84.0k KG Patient Blood Volume 5799 ML Pump Volume 1500 ML Total Blood Volume 7299 ML Projected Heparin Concentration 1.8 MG/KG Heparin [place] 137 Calculated Heparin Bolus 81222 UNITS Activated Coagulation Time Baseline 141 SEC (101-148) Activated Coag Time 1.70 U/mL 323 SEC (193-297) H Activated Coag Time 2.84 U/mL 476 SEC (260-420) H Heparin Level (COAG) 0 MG/KG Calculated Heparin Req (Hep Assay) 38497 UNITS Calculated Protamine Req (Hep Assay 0 MG Activated Clotting Time 126 SEC (101-148) Prothrombin Time 12.5 SECONDS (9.0-12.0) H INR International Normalized Ratio 1.2 INR Activated Partial Thromboplast Time 29 SECONDS (22-32) Fibrinogen 251 MG/DL (177-424) Coagulation Comments Coagulation Clinical Comments Cardiac Rhythm: V Paced, AV Paced Problem\Assessment\Plan Additional Plan POD # 15 Stable appearing CXR Off HD, creat 1.8 Hyperglycemic Continue Lantus @ 40 daily. Nutritional support continues. Continues on abx for E. coli pna. GI prophylaxis. Platelets are recovering. Will d/w Dr. Cano regarding heparin. Will certainly require rehab placement. Sepsis Screening Reassessment Date: May 22, 2025 Skin Color: Pale Supervising MD Co-signing Provider: ANA Zepeda May 22, 2025 08:01
[2025-05-22] MEDS: insulin glargine (Lantus) pen - multi-dose SQ ONE (08:02)
[2025-05-22 15:08] LABS: OSMOLALITY UA 563 MOSM/K (50-1400)
[2025-05-22 15:18] LABS: CREATININE,URINE RANDOM 73.0 MG/DL; UA UREA RANDOM 1091.0 MG/DL
--- NOTE | 2025-05-22 19:50 | PROGRESS NOTE- Residence ---
Progress Note - Resident Providers to CC Resident Creating Document: LINDSEY WAYNE RES ~ Central Line/PICC still needed: Yes Central Line/PICC Necessity: Prolonged IV access req Early-Non Protocol Early Indications Met/Not Met: F/C Indications Met Antibiotic Timeout Antibiotic Ordered?: No Subjective Patient seen and examined at the bedside today. Patient appears to be confused. Kidney function continues to improve without any dialysis. Chest x-ray shows some improvement after the bronchoscopy. Objective Vital Signs Date Time Temp Pulse Resp B/P (MAP) Pulse Ox O2 Delivery O2 Flow Rate FiO2 05/22/25 19:00 99.5 103 21 126/80 (95) 98 Nasal Cannula 3.0 05/22/25 07:56 32 Result Diagram: 05/22/2523405/22/25234 General: Awake and Alert, on 3 L of oxygen. HEENT: Conjunctiva pink, Sclera clear, Mucus Membranes moist. Neck: Supple without masses and tenderness. Resp: Bilateral lung sounds are clear. Has bilateral chest tubes. Heart: Regular Rate and rhythm, normal S1 and S2 without murmur, rub or gallop. Abdomen: Soft and non tender no organomegaly, distended Extremities: 1+ pitting lower extremity peripheral edema. No cyanosis or clubbing. Skin: Warm and Dry. Surgical scar in the center of the chest, the wound dressing appears clean, no signs of inflammation or infection. Coagulation Studies Laboratory Tests Test 05/07/25 00:57 05/07/25 08:38 05/07/25 13:23 05/13/25 11:30 APTT (Heparin Protocol) 53 SECONDS (45-60) Patient Sex (Coag) M Patient Height (Coag) 170cm Patient Weight (Coag) 84.0k KG Patient Blood Volume 5799 ML Pump Volume 1500 ML Total Blood Volume 7299 ML Projected Heparin Concentration 1.8 MG/KG Heparin [place] 137 Calculated Heparin Bolus 74446 UNITS Activated Coagulation Time Baseline 141 SEC (101-148) Activated Coag Time 1.70 U/mL 323 SEC (193-297) H Activated Coag Time 2.84 U/mL 476 SEC (260-420) H Heparin Level (COAG) 0 MG/KG Calculated Heparin Req (Hep Assay) 39632 UNITS Calculated Protamine Req (Hep Assay 0 MG Activated Clotting Time 126 SEC (101-148) Prothrombin Time 12.5 SECONDS (9.0-12.0) H INR International Normalized Ratio 1.2 INR Activated Partial Thromboplast Time 29 SECONDS (22-32) Fibrinogen 251 MG/DL (177-424) Coagulation Comments Coagulation Clinical Comments Advance Care Planning Advanced Care plannin - 30 Minutes Plan Plan Assessment This is a 84-year-old male patient with past medical history of hypertension, hyperlipidemia, type 2 diabetes, peripheral artery disease, CKD, complete heart block s/p pacemaker transferred from [facility] for chest pain and shortness of breath with exertion. Patient was admitted for NSTEMI. Cardiac catheterization on 05/04 showed high grade lesions of the LAD, RCA, Circ, and ramus intermedius. CABG in bilateral chest tube placement was done by Dr. Molina on 05/07/2025. Patient had postprocedural ongoing bleeding through the left chest tube 4 units of blood transfused from 05/11/2025 to 05/12/2025. On 05/11/2025 patient was taken back to the OR for bleeding through chest tube, the bleeding was controlled. The nephrology team has been consulted for ALVIN and hyperkalemia. The ALVIN was prerenal and was initiated on IV fluids initially, which she did not tolerate. Chest x-ray showed bilateral diffuse infiltrates. Was initiated on HD on 05/11/25 for oliguria and fluid overload, the patient is been initiated on norepinephrine drip. But continuous fluid overload and patient needing vasopressors, has been initiated on CRRT on 05/12/25. CRRT discontinued on 05/18/2025. Plan ALVIN/ATN Creatinine today improved to 1.8. Creatinine increasing after the CRRT was stopped on 05/18, the CRRT was likely artificially keeping his creatinine low and he is reaching his baseline. Total urine output in the last 24 hours is 1872 mL Patient was initially in prerenal ALVIN with labs on 05/13/2025, was started on HD on 05/11/2025, with patient being on mechanical ventilation and requiring vasopressors, CRRT was initiated on 05/12/2025, CRRT discontinued on 05/18/2025. Plan Avoid nephrotoxin agents, avoid [place] or morphine for pain management Avoid EMLLISSA/ARB Strict I&Os Patient is getting tube feedings. Electrolytes Hyperkalemia-improved Hyperphosphatemia.-improved Potassium, bicarb, phosphorus in the normal range We will follow up with the labs after the dialysis. CAD s/p CABGx4 on 05/07/2025, POD 5 Cardiac catheterization on 05/04 showed high grade lesions of the LAD, RCA, Circ, and ramus intermedius. CABG bilateral chest tube placement was done by Dr. Molina on 05/07/2025. Echo after CABG showed an ejection fraction of 45-50%, with the elevated right heart pressures., mild aortic stenosis. Patient had postprocedural ongoing bleeding through the left chest tube 4 units of blood transfused from 05/11/2025 to 05/12/2025. On 05/11/2025 patient was taken back to the OR for bleeding through chest tube, the bleeding was controlled. Chest tube has been removed. Acute hypoxemic respiratory failure secondary to bilateral pulmonary edema Lung atelectasis,s/p bronchoscopy Extubated on 05/18/2025 Patient unable to cough, getting chest physical therapy Chest CT showed inspissated mucus in the left mainstem bronchus leading to atelectasis. Bronchoscopy was done. Chest x-ray shows improvement after the bronchoscopy. Respiratory culture positive for E coli, On meropenem 1 g q.12, recommended renal dosing. Nutrition On tube feeding Postop ileus-improved Shock liver-liver enzymes trending down Type 2 DM-on Lantus and insulin protocol Hypertension Hyperlipidemia Peripheral artery disease s/p angioplasty in the left SFA and popliteal arteries in [address] Carias Complete heart block status post pacemaker Continue supportive care and management. Lindsey Wayne M.D PGY2 Nephrology Resident Nephrology attending: The patient is seen and examined with resident. care plan reviewed. as above. hold off dialyiss and remove the román catheter at this time. Ramon Durbin MD Date of Service: May 22, 2025 Billing Provider: RAMON DURBIN MD, PRAVAHIKA, RES May 22, 2025 19:50 RAMON DURBIN MD May 22, 2025 20:49
[2025-05-22] MEDS: LOPERAMIDE 2 mg/15 ml oral solution UD PO ONE (21:21)
[2025-05-23] VITALS (33 sets, daily range): BP systolic 109–148; BP diastolic 63–89; PULSE 84–103; RESP 14–28; O2SAT 92–100
[2025-05-23 02:27] LABS: MEAN PLATELET VOLUME 7.6 FL (7.4-10.4); RED CELL DISTRIBUTION WIDTH 18.2 % (11.5-14.5)
[2025-05-23 02:44] LABS: CREATININE 1.93 MG/DL (0.60-1.10); PHOSPHORUS 3.4 MG/DL (2.3-4.5); TOTAL CARBON DIOXIDE 33.3 MMOL/L (24-32); eCRCL 27 ML/MIN; eGFR 33 ML/MIN
--- NOTE | 2025-05-23 07:53 | PROGRESS NOTE ---
Progress Note CV Providers to CC ~ Antibiotics Ordered?: Yes Subjective Subjective S/P CABG x 4 POD # 16. He is awake and giving us a thumbs up this morning. Still quite weak generally but strength appears equal bilat. I could not eval facial symmetry well at this moment since he is still on CPAP this morning. Objective Vitals Vital Signs Date Time Temp Pulse Resp B/P (MAP) Pulse Ox O2 Delivery O2 Flow Rate FiO2 05/23/25 06:00 97.7 98 24 130/78 (95) 98 Bi-pap/CPAP 05/23/25 05:00 30 05/22/25 21:00 3.0 Lab Results: 05/23/25 0200 05/23/25 0200 Objective Lungs - a bit diminished L base Heart - RRR, paced Abd - soft, + BS Extr - OK Incisions - CDI Coagulation Studies Laboratory Tests Test 05/07/25 00:57 05/07/25 08:38 05/07/25 13:23 05/13/25 11:30 APTT (Heparin Protocol) 53 SECONDS (45-60) Patient Sex (Coag) M Patient Height (Coag) 170cm Patient Weight (Coag) 84.0k KG Patient Blood Volume 5799 ML Pump Volume 1500 ML Total Blood Volume 7299 ML Projected Heparin Concentration 1.8 MG/KG Heparin [place] 137 Calculated Heparin Bolus 48620 UNITS Activated Coagulation Time Baseline 141 SEC (101-148) Activated Coag Time 1.70 U/mL 323 SEC (193-297) H Activated Coag Time 2.84 U/mL 476 SEC (260-420) H Heparin Level (COAG) 0 MG/KG Calculated Heparin Req (Hep Assay) 38258 UNITS Calculated Protamine Req (Hep Assay 0 MG Activated Clotting Time 126 SEC (101-148) Prothrombin Time 12.5 SECONDS (9.0-12.0) H INR International Normalized Ratio 1.2 INR Activated Partial Thromboplast Time 29 SECONDS (22-32) Fibrinogen 251 MG/DL (177-424) Coagulation Comments Coagulation Clinical Comments Cardiac Rhythm: Paced Problem\Assessment\Plan Additional Plan POD # 16 Continues on CPAP at night. Hypernatremic. Creat rising slightly.\ Getting free water. Swallow eval. Sepsis Screening Skin Color: Pale Supervising Co-signing Provider: ANA Zepeda May 23, 2025 07:53
[2025-05-23] MEDS: insulin glargine (Lantus) pen - multi-dose SQ SCH (09:24)
--- NOTE | 2025-05-23 10:23 | RADIOLOGY REPORT ---
EXAM: DI CHEST,SINGLE VIEW Indication: s/p CABG Technique: Single frontal view of the chest was obtained Comparison: DI CHEST,SINGLE VIEW on DOS: 05/22/25, DI CHEST,SINGLE VIEW on DOS: 05/21/25, ANGIO LINE PLACEMENT(PICC NURSE) on DOS: 05/21/25, DI CHEST,SINGLE VIEW on DOS: 05/21/25, DI CHEST,SINGLE VIEW on DOS: 05/21/25 FINDINGS/IMPRESSION: Lines and Tubes: Enteric tube tip projects over the distal stomach versus proximal duodenum. Interval removal of right internal jugular central venous catheter. Cardiac pacemaker projects over the right chest wall. Lungs: Multifocal interstitial opacities. Small left pleural effusion. No pneumothorax. Cardiomediastinal contours: Unchanged. Bones: No acute osseous abnormality.
[2025-05-23] MEDS: LOPERAMIDE 2 mg/15 ml oral solution UD PO PRN (15:46)
--- NOTE | 2025-05-23 19:23 | PROGRESS NOTE- Residence ---
Progress Note - Resident Providers to CC Resident Creating Document: LINDSEY WAYNE RES ~ Antibiotic Timeout Antibiotic Ordered?: Yes Subjective Patient seen and examined at the bedside today. Kidney function remains stable. Patient has hypernatremia, has been initiated on D5W. Objective Vital Signs Date Time Temp Pulse Resp B/P (MAP) Pulse Ox O2 Delivery O2 Flow Rate FiO2 05/23/25 19:00 99.7 96 26 125/73 (90) 100 Nasal Cannula 3.0 05/23/25 16:22 30 Result Diagram: 05/23/25 0200 05/23/25 0200 General: Awake and Alert, on 3 L of oxygen. HEENT: Conjunctiva pink, Sclera clear, Mucus Membranes moist. Neck: Supple without masses and tenderness. Resp: Bilateral lung sounds are clear. Has bilateral chest tubes. Heart: Regular Rate and rhythm, normal S1 and S2 without murmur, rub or gallop. Abdomen: Soft and non tender no organomegaly, distended Extremities: 1+ pitting lower extremity peripheral edema. No cyanosis or clubbing. Skin: Warm and Dry. Surgical scar in the center of the chest, the wound dressing appears clean, no signs of inflammation or infection. Coagulation Studies Laboratory Tests Test 05/07/25 00:57 05/07/25 08:38 05/07/25 13:23 05/13/25 11:30 APTT (Heparin Protocol) 53 SECONDS (45-60) Patient Sex (Coag) M Patient Height (Coag) 170cm Patient Weight (Coag) 84.0k KG Patient Blood Volume 5799 ML Pump Volume 1500 ML Total Blood Volume 7299 ML Projected Heparin Concentration 1.8 MG/KG Heparin [place] 137 Calculated Heparin Bolus 44726 UNITS Activated Coagulation Time Baseline 141 SEC (101-148) Activated Coag Time 1.70 U/mL 323 SEC (193-297) H Activated Coag Time 2.84 U/mL 476 SEC (260-420) H Heparin Level (COAG) 0 MG/KG Calculated Heparin Req (Hep Assay) 92022 UNITS Calculated Protamine Req (Hep Assay 0 MG Activated Clotting Time 126 SEC (101-148) Prothrombin Time 12.5 SECONDS (9.0-12.0) H INR International Normalized Ratio 1.2 INR Activated Partial Thromboplast Time 29 SECONDS (22-32) Fibrinogen 251 MG/DL (177-424) Coagulation Comments Coagulation Clinical Comments Advance Care Planning Advanced Care plannin - 30 Minutes Plan Plan Assessment This is a 84-year-old male patient with past medical history of hypertension, hyperlipidemia, type 2 diabetes, peripheral artery disease, CKD, complete heart block s/p pacemaker transferred from [facility] for chest pain and shortness of breath with exertion. Patient was admitted for NSTEMI. Cardiac catheterization on 05/04 showed high grade lesions of the LAD, RCA, Circ, and ramus intermedius. CABG in bilateral chest tube placement was done by Dr. Molina on 05/07/2025. Patient had postprocedural ongoing bleeding through the left chest tube 4 units of blood transfused from 05/11/2025 to 05/12/2025. On 05/11/2025 patient was taken back to the OR for bleeding through chest tube, the bleeding was controlled. The nephrology team has been consulted for ALVIN and hyperkalemia. The ALVIN was prerenal and was initiated on IV fluids initially, which she did not tolerate. Chest x-ray showed bilateral diffuse infiltrates. Was initiated on HD on 05/11/25 for oliguria and fluid overload, the patient is been initiated on norepinephrine drip. But continuous fluid overload and patient needing vasopressors, has been initiated on CRRT on 05/12/25. CRRT discontinued on 05/18/2025. Plan ALVIN/ATN Creatinine remained stable, 1.93. Total urine output in the last 24 hours is 1110ml Patient was initially in prerenal ALVIN with labs on 05/13/2025, was started on HD on 05/11/2025, with patient being on mechanical ventilation and requiring vasopressors, CRRT was initiated on 05/12/2025, CRRT discontinued on 05/18/2025. Plan Avoid nephrotoxin agents, avoid [place] or morphine for pain management Avoid MELLISSA/ARB Strict I&Os Patient is getting tube feedings. Hypernatremia, hyperchloremia, Sodium today is 154 D5W@ 100 mL/hour. CAD s/p CABGx4 on 05/07/2025 Cardiac catheterization on 05/04 showed high grade lesions of the LAD, RCA, Circ, and ramus intermedius. CABG bilateral chest tube placement was done by Dr. Molina on 05/07/2025. Echo after CABG showed an ejection fraction of 45-50%, with the elevated right heart pressures., mild aortic stenosis. Patient had postprocedural ongoing bleeding through the left chest tube 4 units of blood transfused from 05/11/2025 to 05/12/2025. On 05/11/2025 patient was taken back to the OR for bleeding through chest tube, the bleeding was controlled. Chest tube has been removed. Acute hypoxemic respiratory failure secondary to bilateral pulmonary edema Lung atelectasis,s/p bronchoscopy Extubated on 05/18/2025 Patient unable to cough, getting chest physical therapy Chest CT showed inspissated mucus in the left mainstem bronchus leading to atelectasis. Bronchoscopy was done. Chest x-ray shows improvement after the bronchoscopy. Respiratory culture positive for E coli, On meropenem 1 g q.12, recommended renal dosing. Nutrition On tube feeding Postop ileus-improved Shock liver-liver enzymes trending down Type 2 DM-on Lantus and insulin protocol Hypertension Hyperlipidemia Peripheral artery disease s/p angioplasty in the left SFA and popliteal arteries [place] [address] Carias Complete heart block status post pacemaker Continue supportive care and management. Lindsey Wayne M.D PGY2 Nephrology Resident Nephrology attending: the patient was seen and examined. care plan reviewed with resident. the patient has hypernatremia and ALVIN that is better. dialysis cath is out. hydration with D5W and free water replacement via NG. will follow. Ramon Durbin MD Date of Service: May 23, 2025 Billing Provider: RAMON DURBIN MD, PRAVAHIKA, RES May 23, 2025 19:23 RAMON DURBIN MD May 23, 2025 21:02
[2025-05-24] VITALS (33 sets, daily range): BP systolic 97–136; BP diastolic 53–81; PULSE 75–98; RESP 17–27; O2SAT 96–100
[2025-05-24 04:59] LABS: CREATININE 1.78 MG/DL (0.60-1.10); PHOSPHORUS 3.8 MG/DL (2.3-4.5); TOTAL CARBON DIOXIDE 34.2 MMOL/L (24-32); eCRCL 29 ML/MIN; eGFR 37 ML/MIN
--- NOTE | 2025-05-24 06:54 | RADIOLOGY REPORT ---
CHEST RADIOGRAPH Indication: s/p CABG Technique: Single frontal view of the chest was obtained COMPARISON: DI CHEST,SINGLE VIEW on DOS: 05/23/25, DI CHEST,SINGLE VIEW on DOS: 05/22/25, DI CHEST,SINGLE VIEW on DOS: 05/21/25, ANGIO LINE PLACEMENT(PICC NURSE) on DOS: 05/21/25, DI CHEST,SINGLE VIEW on DOS: 05/21/25 FINDINGS: Lines and Tubes: Unchanged. Lungs: Stable appearing left pleural effusion and middle and lower lung zone pulmonary airspace disease. No pneumothorax. Cardiomediastinal contours: Cardiomegaly. Bones: Unremarkable IMPRESSION: 1. Stable left pleural effusion and middle and lower lung zone pulmonary airspace disease. 2. Cardiomegaly. 3. Lines and tubes unchanged.
[2025-05-24] MEDS ORDERED: dextrose 50%-water 50ml dispensing syringe IV PRN (08:40)
[2025-05-24] MEDS: INSULIN LISPRO 100 UNIT/ML INSULN.PEN MULTI-DOSE SQ SCH (09:00)
[2025-05-24] MEDS: Insulin Reg/NS 100units/100mL 100 ML IV SCH (10:06)
[2025-05-24 10:45] LABS: CREATININE 1.81 MG/DL (0.60-1.10); TOTAL CARBON DIOXIDE 34.7 MMOL/L (24-32); eCRCL 28 ML/MIN; eGFR 36 ML/MIN
[2025-05-24] MEDS: bacitracin/polymyxin B 15 GM ointment TP SCH (11:49)
--- NOTE | 2025-05-24 13:57 | PROGRESS NOTE ---
Progress Note Dictate Providers to CC ~ Central Line/PICC still needed: Yes Central Line/PICC Necessity: Prolonged IV access req Early Indications Met/Not Met: F/C Indications Met Antibiotic Ordered?: N/A Subjective Subjective free water being given. helping the creatinine to get better to 1.7. Na is down to 149. ON Ng free water as well. Objective Vitals Vital Signs Date Time Temp Pulse Resp B/P (MAP) Pulse Ox O2 Delivery O2 Flow Rate FiO2 05/24/25 13:00 77 25 97/63 (74) 99 Bi-pap/CPAP 30 05/24/25 11:00 3.0 05/24/25 10:00 99.3 Lab Results: 05/23/25 0200 05/24/25 0956 Objective Vital Signs: As above General: Normal body habitus, no acute distress. Skin: No rashes, lumps, ulcers, blisters, purpura or petechiae HEENT: Anicteric sclera, RADHA Neck: Supple and nontender without enlargement of the thyroid, or lymphadenopathy. Chest: Normal size and shape, no tenderness, CTA bilaterally, decreased BS in the left base Heart: Regular. No jugular venous distention, S1 and S2 heard , no gallop Abdomen: Soft and non tender no organomegaly,BS+ Extremities: + pedal edema Neuro: encephalopathic Coagulation Studies Laboratory Tests Test 05/07/25 00:57 05/07/25 08:38 05/07/25 13:23 05/13/25 11:30 APTT (Heparin Protocol) 53 SECONDS (45-60) Patient Sex (Coag) M Patient Height (Coag) 170cm Patient Weight (Coag) 84.0k KG Patient Blood Volume 5799 ML Pump Volume 1500 ML Total Blood Volume 7299 ML Projected Heparin Concentration 1.8 MG/KG Heparin [place] 137 Calculated Heparin Bolus 87150 UNITS Activated Coagulation Time Baseline 141 SEC (101-148) Activated Coag Time 1.70 U/mL 323 SEC (193-297) H Activated Coag Time 2.84 U/mL 476 SEC (260-420) H Heparin Level (COAG) 0 MG/KG Calculated Heparin Req (Hep Assay) 48253 UNITS Calculated Protamine Req (Hep Assay 0 MG Activated Clotting Time 126 SEC (101-148) Prothrombin Time 12.5 SECONDS (9.0-12.0) H INR International Normalized Ratio 1.2 INR Activated Partial Thromboplast Time 29 SECONDS (22-32) Fibrinogen 251 MG/DL (177-424) Coagulation Comments Coagulation Clinical Comments Advance Care Planning Advanced Care plannin - 30 Minutes Problem\Assessment\Plan Problems/Diagnosis: (1) ALVIN (acute kidney injury) Assessment & Plan: creatinine continues to drop. román is out. HD has been stopped for a few days now. NG feeds are being done. Avoid NSAIds. (2) Acute hypernatremia Assessment & Plan: getting better with free water replacement. (3) Acute hypoxic respiratory failure Assessment & Plan: extubated. remains encephalopathic. had left lung atelectasis s/p Bronchoscopy. (4) Anemia due to acute blood loss Assessment & Plan: hb is stable at 10.g/dl (5) Protein calorie malnutrition Assessment & Plan: on ng nutrition (6) S/P CABG x 3 Assessment & Plan: recuperating Sepsis Screening Skin Color: Pale BRIAN DURBIN MD May 24, 2025 13:57
[2025-05-24 14:44] LABS: CREATININE 1.74 MG/DL (0.60-1.10); TOTAL CARBON DIOXIDE 33.4 MMOL/L (24-32); eCRCL 30 ML/MIN; eGFR 38 ML/MIN
--- NOTE | 2025-05-24 16:37 | PROGRESS NOTE ---
Progress Note CV Providers to CC ~ Progress Note: Cardiothoracic Surgery Central Line/PICC still needed: Yes Central Line/Picc Necessity: Irritate solution deliver Early Indications Met/Not Met: F/C Indications Met Antibiotics Ordered?: Yes Subjective Subjective POD 17 CABG x [address] Molina 05/07/2025 Re-intubated 05/11 Began dialysis 05/[address] with return to OR to control bleeding 05/11 Finished dialysis 05/17 Extubated again 05/18 Therapeutic bronchoscopy 05/21 Objective Vitals Vital Signs Date Time Temp Pulse Resp B/P (MAP) Pulse Ox O2 Delivery O2 Flow Rate FiO2 05/24/25 15:53 90 20 98 Nasal Cannula* 3 32 05/24/25 14:00 99.1 107/56 (73) Lab Results: 05/23/25 0200 05/24/25 1404 Objective Awake, following simple commands HEENT Right nares NGT, dry mucous membranes Neck central lines out Lungs: clear breath sounds, decreased left lower chest Cor: RRR paced, no murmurs Abd soft, non distended, BS positive, stooling Ext no edema dorsal shaft penis black crusty lesion Coagulation Studies Laboratory Tests Test 05/07/25 00:57 05/07/25 08:38 05/07/25 13:23 05/13/25 11:30 APTT (Heparin Protocol) 53 SECONDS (45-60) Patient Sex (Coag) M Patient Height (Coag) 170cm Patient Weight (Coag) 84.0k KG Patient Blood Volume 5799 ML Pump Volume 1500 ML Total Blood Volume 7299 ML Projected Heparin Concentration 1.8 MG/KG Heparin [place] 137 Calculated Heparin Bolus 04023 UNITS Activated Coagulation Time Baseline 141 SEC (101-148) Activated Coag Time 1.70 U/mL 323 SEC (193-297) H Activated Coag Time 2.84 U/mL 476 SEC (260-420) H Heparin Level (COAG) 0 MG/KG Calculated Heparin Req (Hep Assay) 22187 UNITS Calculated Protamine Req (Hep Assay 0 MG Activated Clotting Time 126 SEC (101-148) Prothrombin Time 12.5 SECONDS (9.0-12.0) H INR International Normalized Ratio 1.2 INR Activated Partial Thromboplast Time 29 SECONDS (22-32) Fibrinogen 251 MG/DL (177-424) Coagulation Comments Coagulation Clinical Comments Cardiac Rhythm: Paced Problem\Assessment\Plan Additional Plan Hypernatremia: free water down NGT with tube feeds, D5W increased to 150 ml/hr, high Na down trending accompanied with improvement in confusion, DM Hyperglycemia: unable to control with Lantus/sliding scale with D5W correction above. Insulin drip protocol restarted. Nutrition: tube feeds, would not cooperate for swallow study yesterday, tolerated small sip water today. Left lower lobe pneumonia: likely aspiration of upper respiratory/oral [place] as BAL from FOB was positive, WBC back to normal since change from levaquin to Merropenem. Excessive Dynamic Airway Collapse: improved with CPAP at night and PRN. Penile wound: Polysporin ointment BID Slow progress. Spouse is considering rehab options near home. Sepsis Screening Skin Color: Pale HAND,JASWANT Hanna MD May 24, 2025 16:37
[2025-05-24 19:23] LABS: CREATININE 1.70 MG/DL (0.60-1.10); TOTAL CARBON DIOXIDE 33.8 MMOL/L (24-32); eCRCL 30 ML/MIN; eGFR 39 ML/MIN
[2025-05-25] VITALS (30 sets, daily range): BP systolic 98–133; BP diastolic 52–77; PULSE 77–100; RESP 17–33; O2SAT 90–100
[2025-05-25 02:52] LABS: CREATININE 1.49 MG/DL (0.60-1.10); TOTAL CARBON DIOXIDE 35.1 MMOL/L (24-32); eCRCL 35 ML/MIN; eGFR 45 ML/MIN
[2025-05-25 02:55] LABS: MEAN PLATELET VOLUME 8.3 FL (7.4-10.4); RED CELL DISTRIBUTION WIDTH 17.8 % (11.5-14.5)
[2025-05-25] MEDS: POTASSIUM CHLORIDE 20 MEQ/15 ML oral solution PO ONE (04:26)
--- NOTE | 2025-05-25 06:11 | RADIOLOGY REPORT ---
CHEST RADIOGRAPH Indication: s/p CABG Technique: Single frontal view of the chest was obtained Comparison: DI CHEST,SINGLE VIEW on DOS: 05/24/25, DI CHEST,SINGLE VIEW on DOS: 05/23/25, DI CHEST,SINGLE VIEW on DOS: 05/22/25 IMPRESSION: No significant interval change. Cardiomegaly with bilateral effusions left greater than right. Moderate pulmonary vascular congestion. Possible airspace opacity or atelectasis left lung base. No pneumothorax. Enteric tube tip is difficult to visualized.
--- NOTE | 2025-05-25 08:02 | PROGRESS NOTE ---
Progress Note Dictate Providers to CC ~ Central Line/PICC still needed: Yes Central Line/PICC Necessity: Prolonged IV access req Early Indications Met/Not Met: F/C Indications Met Antibiotic Ordered?: N/A Subjective Subjective the patient is awake, more alert. sodium came down to 136. creatinine is down to 1.4. Objective Vitals Vital Signs Date Time Temp Pulse Resp B/P (MAP) Pulse Ox O2 Delivery O2 Flow Rate FiO2 05/25/25 21:04 79 21 125/71 (89) 93 Room Air 05/25/25 20:00 98.4 05/25/25 19:46 0.0 05/25/25 19:21 21 Lab Results: 05/25/25 0200 05/25/25 0935 Objective Vital Signs: As above General: Normal body habitus, no acute distress. Skin: No rashes, lumps, ulcers, blisters, purpura or petechiae HEENT: Anicteric sclera, RADHA Neck: Supple and nontender without enlargement of the thyroid, or lymphadenopathy. Chest: Normal size and shape, no tenderness, CTA bilaterally, decreased BS in the left base Heart: Regular. No jugular venous distention, S1 and S2 heard , no gallop Abdomen: Soft and non tender no organomegaly,BS+ Extremities: + pedal edema Neuro: encephalopathic Coagulation Studies Laboratory Tests Test 05/07/25 00:57 05/07/25 08:38 05/07/25 13:23 05/13/25 11:30 APTT (Heparin Protocol) 53 SECONDS (45-60) Patient Sex (Coag) M Patient Height (Coag) 170cm Patient Weight (Coag) 84.0k KG Patient Blood Volume 5799 ML Pump Volume 1500 ML Total Blood Volume 7299 ML Projected Heparin Concentration 1.8 MG/KG Heparin [place] 137 Calculated Heparin Bolus 33317 UNITS Activated Coagulation Time Baseline 141 SEC (101-148) Activated Coag Time 1.70 U/mL 323 SEC (193-297) H Activated Coag Time 2.84 U/mL 476 SEC (260-420) H Heparin Level (COAG) 0 MG/KG Calculated Heparin Req (Hep Assay) 48447 UNITS Calculated Protamine Req (Hep Assay 0 MG Activated Clotting Time 126 SEC (101-148) Prothrombin Time 12.5 SECONDS (9.0-12.0) H INR International Normalized Ratio 1.2 INR Activated Partial Thromboplast Time 29 SECONDS (22-32) Fibrinogen 251 MG/DL (177-424) Coagulation Comments Coagulation Clinical Comments Advance Care Planning Advanced Care plannin - 30 Minutes Problem\Assessment\Plan Problems/Diagnosis: (1) ALVIN (acute kidney injury) Assessment & Plan: creatinine continues to drop. román is out. HD has been stopped for a few days now. Avoid NSAIds. (2) Acute hypernatremia Assessment & Plan: normalized. stop iv d5w. will sign off from renal standpoint. (3) Acute hypoxic respiratory failure Assessment & Plan: extubated. remains encephalopathic. had left lung atelectasis s/p Bronchoscopy. (4) Anemia due to acute blood loss Assessment & Plan: hb dropped to 7.9 with the D5W. will give reetacrit. (5) Protein calorie malnutrition Assessment & Plan: on ng nutrition. now ng is out. (6) S/P CABG x 3 Assessment & Plan: recuperating Sepsis Screening Skin Color: Pale BRIAN DURBIN MD May 25, 2025 08:02
--- NOTE | 2025-05-25 09:28 | PROGRESS NOTE ---
Progress Note CV Providers to CC ~ Antibiotics Ordered?: Yes Subjective Subjective S/P CABG x 4 POD # 18. He is very sleepy at the moment. Was quite restless last night. There is a sitter present. He is off D5 as his Na+ is now WNL. Insulin gtt running. BG 111 noted presently. He was drinking water yesterday. His is still wanting rehab at [place]. Objective Vitals Vital Signs Date Time Temp Pulse Resp B/P (MAP) Pulse Ox O2 Delivery O2 Flow Rate FiO2 05/25/25 07:46 100 22 Nasal Cannula 3.0 05/25/25 07:35 100 32 05/25/25 07:00 118/63 (81) 05/25/25 04:00 98.6 Lab Results: 05/25/25 0200 05/25/25 0200 Objective Lungs - diminished L, some consolidation L base remain on CXR. Heart - RRR, paced Abd - soft, + BS, TF running via NGT. Extr - tr edema, warm Incisioins - CDI Coagulation Studies Laboratory Tests Test 05/07/25 00:57 05/07/25 08:38 05/07/25 13:23 05/13/25 11:30 APTT (Heparin Protocol) 53 SECONDS (45-60) Patient Sex (Coag) M Patient Height (Coag) 170cm Patient Weight (Coag) 84.0k KG Patient Blood Volume 5799 ML Pump Volume 1500 ML Total Blood Volume 7299 ML Projected Heparin Concentration 1.8 MG/KG Heparin [place] 137 Calculated Heparin Bolus 27063 UNITS Activated Coagulation Time Baseline 141 SEC (101-148) Activated Coag Time 1.70 U/mL 323 SEC (193-297) H Activated Coag Time 2.84 U/mL 476 SEC (260-420) H Heparin Level (COAG) 0 MG/KG Calculated Heparin Req (Hep Assay) 20444 UNITS Calculated Protamine Req (Hep Assay 0 MG Activated Clotting Time 126 SEC (101-148) Prothrombin Time 12.5 SECONDS (9.0-12.0) H INR International Normalized Ratio 1.2 INR Activated Partial Thromboplast Time 29 SECONDS (22-32) Fibrinogen 251 MG/DL (177-424) Coagulation Comments Coagulation Clinical Comments Cardiac Rhythm: Paced Problem\Assessment\Plan Additional Plan POD # 18 DC Insulin gtt and change back to Lantus and Med dose scale. Continues on Meropenem. WBC's nl Na+ 136 D5W is off. Will repeat swallow eval tomorrow. Will benefit from rehab placement. Sepsis Screening Reassessment Date: May 25, 2025 Skin Color: Pale Supervising MD Co-signing Provider: ANA Zepeda May 25, 2025 09:28
[2025-05-25] MEDS: insulin glargine (Lantus) pen - multi-dose SQ SCH (09:54)
[2025-05-25 10:53] LABS: CREATININE 1.50 MG/DL (0.60-1.10); PHOSPHORUS 3.9 MG/DL (2.3-4.5); TOTAL CARBON DIOXIDE 33.2 MMOL/L (24-32); eCRCL 34 ML/MIN; eGFR 45 ML/MIN
[2025-05-25] MEDS: INSULIN LISPRO 100 UNIT/ML INSULN.PEN MULTI-DOSE SQ SCH (12:00)
[2025-05-25] MEDS: EPOETIN ALFA-EPBX 20,000 UNIT/ML 1 ML MDV SQ ONE (22:19)
[2025-05-26] VITALS (30 sets, daily range): BP systolic 94–138; BP diastolic 40–75; PULSE 79–95; RESP 14–35; O2SAT 90–99
[2025-05-26 02:14] LABS: MEAN PLATELET VOLUME 8.3 FL (7.4-10.4); RED CELL DISTRIBUTION WIDTH 16.7 % (11.5-14.5)
[2025-05-26 02:28] LABS: % IRON SATURATION 32 % (11-46); CREATININE 1.58 MG/DL (0.60-1.10); PHOSPHORUS 3.7 MG/DL (2.3-4.5); TOTAL CARBON DIOXIDE 32.3 MMOL/L (24-32); eCRCL 33 ML/MIN; eGFR 42 ML/MIN
--- NOTE | 2025-05-26 07:39 | PROGRESS NOTE ---
Progress Note CV Providers to CC ~ Antibiotics Ordered?: Yes Subjective Subjective S/P CABG x 4 POD # 19. He is just coming off the CPAP mask. Got confused and pulled and broke the mask last night. He is presently confused. There is a sitter present. The NGT is out and a diet was started yesterday. Objective Vitals Vital Signs Date Time Temp Pulse Resp B/P (MAP) Pulse Ox O2 Delivery O2 Flow Rate FiO2 05/26/25 07:32 86 24 Nasal Cannula 2.0 05/26/25 07:18 98 32 05/26/25 06:00 133/71 (91) 05/26/25 04:00 98.4 Lab Results: 05/26/25 0200 05/26/25 0200 Objective Lungs - mildly diminished L base, CXR is pending. Heart - RRR, paced Abd - soft + BS Extr - tr edema Incisions - dsgs CDI Coagulation Studies Laboratory Tests Test 05/07/25 00:57 05/07/25 08:38 05/07/25 13:23 05/13/25 11:30 APTT (Heparin Protocol) 53 SECONDS (45-60) Patient Sex (Coag) M Patient Height (Coag) 170cm Patient Weight (Coag) 84.0k KG Patient Blood Volume 5799 ML Pump Volume 1500 ML Total Blood Volume 7299 ML Projected Heparin Concentration 1.8 MG/KG Heparin [place] 137 Calculated Heparin Bolus 16505 UNITS Activated Coagulation Time Baseline 141 SEC (101-148) Activated Coag Time 1.70 U/mL 323 SEC (193-297) H Activated Coag Time 2.84 U/mL 476 SEC (260-420) H Heparin Level (COAG) 0 MG/KG Calculated Heparin Req (Hep Assay) 44341 UNITS Calculated Protamine Req (Hep Assay 0 MG Activated Clotting Time 126 SEC (101-148) Prothrombin Time 12.5 SECONDS (9.0-12.0) H INR International Normalized Ratio 1.2 INR Activated Partial Thromboplast Time 29 SECONDS (22-32) Fibrinogen 251 MG/DL (177-424) Coagulation Comments Coagulation Clinical Comments Cardiac Rhythm: AV Paced, Paced Problem\Assessment\Plan Additional Plan POD # 19 Creat stable BUN 81 NGT out and on a minced moist grind diet Being evaluated for LTAC. Continues on Abx, CXR pending for today. Sepsis Screening Reassessment Date: May 26, 2025 Skin Color: Pale Supervising MD Co-signing Provider: ANA Zepeda May 26, 2025 07:39
--- NOTE | 2025-05-26 12:07 | PROGRESS NOTE ---
Progress Note Dictate Providers to CC ~ Central Line/PICC still needed: Yes Central Line/PICC Necessity: Prolonged IV access req Early Indications Met/Not Met: F/C Indications Not Met Antibiotic Ordered?: N/A Subjective Subjective The bUN to creatinine ratio was elevated today and was called by CT Sx team earlier today and his encephalopathy. He has been encephalopathic for a while. REviewed and I don't see steroids. Hb did drop from 10 to 7.5 which initially I interpreted as the iv d5W + free water via NG contributing. But we need to consider occult Gi loss of blood as well that would explain the higher BUN. stool guaiac if needed. checked iron profile and isat is good at least for now. This doesn't appear to be due to uremia related. will continue to monitor. Objective Vitals Vital Signs Date Time Temp Pulse Resp B/P (MAP) Pulse Ox O2 Delivery O2 Flow Rate FiO2 05/26/25 11:00 99.3 82 19 118/60 (79) 98 Room Air 05/26/25 10:48 3.0 05/26/25 10:42 32 Lab Results: 05/26/25 0200 05/26/25 0200 Objective Vital Signs: As above General: Normal body habitus, no acute distress. Skin: No rashes, lumps, ulcers, blisters, purpura or petechiae HEENT: Anicteric sclera, RADHA Neck: Supple and nontender without enlargement of the thyroid, or lymphadenopathy. Chest: Normal size and shape, no tenderness, CTA bilaterally, decreased BS in the left base Heart: Regular. No jugular venous distention, S1 and S2 heard , no gallop Abdomen: Soft and non tender no organomegaly,BS+ Extremities: + pedal edema Neuro: encephalopathic Coagulation Studies Laboratory Tests Test 05/07/25 00:57 05/07/25 08:38 05/07/25 13:23 05/13/25 11:30 APTT (Heparin Protocol) 53 SECONDS (45-60) Patient Sex (Coag) M Patient Height (Coag) 170cm Patient Weight (Coag) 84.0k KG Patient Blood Volume 5799 ML Pump Volume 1500 ML Total Blood Volume 7299 ML Projected Heparin Concentration 1.8 MG/KG Heparin [place] 137 Calculated Heparin Bolus 39174 UNITS Activated Coagulation Time Baseline 141 SEC (101-148) Activated Coag Time 1.70 U/mL 323 SEC (193-297) H Activated Coag Time 2.84 U/mL 476 SEC (260-420) H Heparin Level (COAG) 0 MG/KG Calculated Heparin Req (Hep Assay) 52394 UNITS Calculated Protamine Req (Hep Assay 0 MG Activated Clotting Time 126 SEC (101-148) Prothrombin Time 12.5 SECONDS (9.0-12.0) H INR International Normalized Ratio 1.2 INR Activated Partial Thromboplast Time 29 SECONDS (22-32) Fibrinogen 251 MG/DL (177-424) Coagulation Comments Coagulation Clinical Comments Advance Care Planning Advanced Care plannin - 30 Minutes Problem\Assessment\Plan Problems/Diagnosis: (1) ALVIN (acute kidney injury) Assessment & Plan: creatinine has come down to 1.4 and is hovering at 1.5 today. It dropped from 1.9 when he received iv fluids with D5w. hb has also dropped. will give retacrit. (2) Acute hypernatremia Assessment & Plan: normalized. stop iv d5w. will continue to monitor (3) Acute hypoxic respiratory failure Assessment & Plan: extubated. remains encephalopathic. had left lung atelectasis s/p Bronchoscopy. (4) Anemia due to acute blood loss Assessment & Plan: hb dropped to 7.5 will give retacrit (5) Protein calorie malnutrition Assessment & Plan: dietitian eval and treat. (6) S/P CABG x 3 Assessment & Plan: recuperating Sepsis Screening Skin Color: Pale BRIAN DURBIN MD May 26, 2025 12:07
[2025-05-26] MEDS: EPOETIN ALFA-EPBX 20,000 UNIT/ML 1 ML MDV SQ ONE (13:40)
[2025-05-26] MEDS: Ensure Enlive - 237ML PO SCH (13:40)
[2025-05-26] MEDS: ferrous sulfate 300mg/5ml UD oral liquid PO SCH (19:31)
[2025-05-26] MEDS: haloperidol lactate 5mg/ml inj IM ONE ×2 (22:16→22:54)
[2025-05-27] VITALS (49 sets, daily range): BP systolic 96–163; BP diastolic 42–85; PULSE 85–111; RESP 15–40; TEMP 97–99; O2SAT 83–100
[2025-05-27 02:25] LABS: CREATININE 2.00 MG/DL (0.60-1.10); PHOSPHORUS 3.4 MG/DL (2.3-4.5); TOTAL CARBON DIOXIDE 26.4 MMOL/L (24-32); eCRCL 26 ML/MIN; eGFR 32 ML/MIN
[2025-05-27 02:49] LABS: MEAN PLATELET VOLUME 8.8 FL (7.4-10.4); RED CELL DISTRIBUTION WIDTH 16.9 % (11.5-14.5)
[2025-05-27 03:01] LABS: CREATININE 1.87 MG/DL (0.60-1.10); PHOSPHORUS 3.3 MG/DL (2.3-4.5); TOTAL CARBON DIOXIDE 27.4 MMOL/L (24-32); eCRCL 27 ML/MIN; eGFR 35 ML/MIN
[2025-05-27 03:46] LABS: ABG BASE EXCESS 1.0 mmol/L (-2.0-3.0); ABG HCO3 24.3 mmol/L (21.0-28.0); ABG OXYGEN SATURATION 97.1 % (94.0-98.0); ABG PCO2 (T) 30.9 mmHg (35.0-48.0); ABG PH (T) 7.511 (7.350-7.450); ABG PO2 (T) 90.9 mmHg (83.0-108.0); ALLEN'S TEST Modified; FCOHb 2.6 % (0.5-1.5); FHHb 2.8 % (0.0-5.0); FIO2 31.0 mmHg/%; FMetHb 0.3 % (0.0-1.5); FO2Hb 94.3 % (94.0-98.0); MODE MASK - VENTI; PATIENT TEMPERATURE 36.4; TOTAL HEMOGLOBIN 5.5 G/dl (13.5-17.5)
--- NOTE | 2025-05-27 03:49 | RADIOLOGY REPORT ---
CHEST RADIOGRAPH Indication: s/p CABG Technique: Single frontal view of the chest was obtained COMPARISON: DI CHEST,SINGLE VIEW on DOS: 05/25/25, DI CHEST,SINGLE VIEW on DOS: 05/24/25, DI CHEST,SINGLE VIEW on DOS: 05/23/25, DI CHEST,SINGLE VIEW on DOS: 05/22/25, DI CHEST,SINGLE VIEW on DOS: 05/21/25 FINDINGS: Lines and Tubes: None. Right anterior chest wall dual lead cardiac pacing device. Lungs: Small bilateral pleural effusions. Diffuse increased prominence of the pulmonary vasculature. No pneumothorax. Cardiomediastinal contours: Cardiomegaly status post median sternotomy. Bones: Unremarkable IMPRESSION: 1. Cardiomegaly with pulmonary vascular congestion and small bilateral pleural effusions.
[2025-05-27] MEDS: CALCIUM GLUC 1gm/50ml NACL,iso 50 ML IV ONE (04:40)
[2025-05-27] MEDS: sodium bicarbonate (8.4%) 1 mEq/ml syringe IV ONE (04:40)
[2025-05-27] MEDS: albuterol 2.5 MG/3 ML nebule NEB ONE (04:41)
[2025-05-27] MEDS: dextrose 50%-water 50ml dispensing syringe IV ONE (04:44)
[2025-05-27] MEDS: insulin regular, human U-100 10ml vial - multi-dose IV ONE (04:44)
[2025-05-27 04:45] LABS: ABSOLUTE RETICS # 68200 /CUMM (23000-93000)
[2025-05-27] MEDS: sodium polystyrene sulfonate 15gm/60ml oral suspension PO PRN (04:51)
[2025-05-27 05:23] LABS: EOSINOPHILS % (MANUAL) 1.0 % (0-6); LYMPHOCYTES % (MANUAL) 10.0 % (21-51); MONOCYTES % (MANUAL) 4.0 % (2-12); NEUTROPHILS % (MANUAL) 85.0 % (42-75); PLATELET ESTIMATE NORMAL
[2025-05-27 06:25] LABS: APTT 23 SECONDS (22-32); INR 1.3 INR
[2025-05-27 06:57] LABS: MEAN PLATELET VOLUME 8.7 FL (7.4-10.4); RED CELL DISTRIBUTION WIDTH 15.1 % (11.5-14.5)
[2025-05-27] MEDS ORDERED: insulin glargine (Lantus) pen - multi-dose SQ PRN (07:00)
[2025-05-27] MEDS ORDERED: dextrose 50%-water 50ml dispensing syringe IV PRN (07:00)
[2025-05-27 07:07] LABS: CREATININE 1.94 MG/DL (0.60-1.10); TOTAL CARBON DIOXIDE 28.7 MMOL/L (24-32); eCRCL 27 ML/MIN; eGFR 33 ML/MIN
[2025-05-27] MEDS: albuterol 2.5 MG/3 ML nebule CONTNEB ONE (07:48)
--- NOTE | 2025-05-27 08:21 | PROGRESS NOTE ---
Progress Note CV Providers to CC ~ Antibiotics Ordered?: No Subjective Subjective S/P CABG x 4 POD # 20. Melanotic stools last night and drop in Hgb to 4.9 Rec'd 2 units of PRBC's. Now Hgb 7.5. Getting 1 more unit PRBC's. ASA was stopped. He is now on a Protonix gtt. Has been changed to IV insulin since he is currently NPO. Kayexalate given for elevated K+ to 6.0 Objective Vitals Vital Signs Date Time Temp Pulse Resp B/P (MAP) Pulse Ox O2 Delivery O2 Flow Rate FiO2 05/27/25 07:53 109 34 100 BiPAP+ 24 05/27/25 07:24 98.0 122/65 05/27/25 04:56 8.0 Lab Results: 05/27/25 0645 05/27/25 0645 Objective Lungs - a bit diminished L base Heart - RRR, paced Extr - OK Incisions - CDI, all dressings removed yesterday and examined. L CT sit still draining some dark blood. Dry dressing replaced. Coagulation Studies Laboratory Tests Test 05/07/25 00:57 05/07/25 08:38 05/07/25 13:23 05/27/25 04:22 APTT (Heparin Protocol) 53 SECONDS (45-60) Patient Sex (Coag) M Patient Height (Coag) 170cm Patient Weight (Coag) 84.0k KG Patient Blood Volume 5799 ML Pump Volume 1500 ML Total Blood Volume 7299 ML Projected Heparin Concentration 1.8 MG/KG Heparin [place] 137 Calculated Heparin Bolus 48195 UNITS Activated Coagulation Time Baseline 141 SEC (101-148) Activated Coag Time 1.70 U/mL 323 SEC (193-297) H Activated Coag Time 2.84 U/mL 476 SEC (260-420) H Heparin Level (COAG) 0 MG/KG Calculated Heparin Req (Hep Assay) 95188 UNITS Calculated Protamine Req (Hep Assay 0 MG Activated Clotting Time 126 SEC (101-148) Prothrombin Time 12.7 SECONDS (9.0-12.0) H INR International Normalized Ratio 1.3 INR Activated Partial Thromboplast Time 23 SECONDS (22-32) Fibrinogen 295 MG/DL (177-424) Coagulation Comments Coagulation Clinical Comments Cardiac Rhythm: AV Paced, Paced Problem\Assessment\Plan Additional Plan POD # 20 GI bleed. He is NPO. Confused/ agitated again last night. Transfused. He is on a Protonix gtt Will add Sandostatin. GI consult pending. Met with pt's along with ICU director and case management regarding plans for rehab placement. prefers rehab in [place] and has spoken to that facility already. Will continue to follow. Currently GI issue obviously takes precedence. Sepsis Screening Reassessment Date: May 27, 2025 Skin Color: Pale Supervising MD Co-signing Provider: ANA Cedillo May 27, 2025 08:21
[2025-05-27] MEDS: pantoprazole 40MG/NS 100ML BAG 100 ML IV SCH (08:22)
[2025-05-27] MEDS: Insulin Reg/NS 100units/100mL 100 ML IV SCH (08:30)
[2025-05-27] MEDS: octreotide inj. 500 MCG in normal saline 100ml IV soln 97.5 ML IV SCH (09:36)
--- NOTE | 2025-05-27 09:49 | PROGRESS NOTE ---
Progress Note Dictate Providers to CC ~ Central Line/PICC still needed: Yes Central Line/PICC Necessity: Prolonged IV access req Early Indications Met/Not Met: F/C Indications Met Antibiotic Ordered?: N/A Subjective Subjective As strongly suspected, he started having GI bleeds and work up is in progress. see below. Objective Vitals Vital Signs Date Time Temp Pulse Resp B/P (MAP) Pulse Ox O2 Delivery O2 Flow Rate FiO2 05/27/25 09:00 97.3 108 127/56 (79) 96 Nasal Cannula 1.0 05/27/25 08:39 25 05/27/25 08:00 24 Lab Results: 05/27/25 0645 05/27/25 0645 Objective Vital Signs: As above General: Normal body habitus, no acute distress. Skin: No rashes, lumps, ulcers, blisters, purpura or petechiae HEENT: Anicteric sclera, RADHA Neck: Supple and nontender without enlargement of the thyroid, or lymphadenopathy. Chest: Normal size and shape, no tenderness, CTA bilaterally, decreased BS in the left base Heart: Regular. No jugular venous distention, S1 and S2 heard , no gallop Abdomen: Soft and non tender no organomegaly,BS+ Extremities: + pedal edema Neuro: encephalopathic Coagulation Studies Laboratory Tests Test 05/07/25 00:57 05/07/25 08:38 05/07/25 13:23 05/27/25 04:22 APTT (Heparin Protocol) 53 SECONDS (45-60) Patient Sex (Coag) M Patient Height (Coag) 170cm Patient Weight (Coag) 84.0k KG Patient Blood Volume 5799 ML Pump Volume 1500 ML Total Blood Volume 7299 ML Projected Heparin Concentration 1.8 MG/KG Heparin [place] 137 Calculated Heparin Bolus 79775 UNITS Activated Coagulation Time Baseline 141 SEC (101-148) Activated Coag Time 1.70 U/mL 323 SEC (193-297) H Activated Coag Time 2.84 U/mL 476 SEC (260-420) H Heparin Level (COAG) 0 MG/KG Calculated Heparin Req (Hep Assay) 03383 UNITS Calculated Protamine Req (Hep Assay 0 MG Activated Clotting Time 126 SEC (101-148) Prothrombin Time 12.7 SECONDS (9.0-12.0) H INR International Normalized Ratio 1.3 INR Activated Partial Thromboplast Time 23 SECONDS (22-32) Fibrinogen 295 MG/DL (177-424) Coagulation Comments Coagulation Clinical Comments Advance Care Planning Advanced Care plannin - 30 Minutes Problem\Assessment\Plan Problems/Diagnosis: (1) ALVIN (acute kidney injury) Assessment & Plan: the patient has, as strongly suspected started having GI bleeds now. This explains the worsening BUN to creatinine ratio, clearly from upper GI source. GEtting EGD. Got trsnfusions overnight. Hb is up to 7.5 now. melenotic stools. Potassium went up because of the blood in the gut. treated. will continue to treat with albuterol 10mg nebuliZers now. would not give kayexalate at this time, until we rule out the source with EGD. Started Protonix Drip this am. (2) Acute hypernatremia Assessment & Plan: normalized. (3) Acute hypoxic respiratory failure Assessment & Plan: extubated. remains encephalopathic. had left lung atelectasis s/p Bronchoscopy. (4) Anemia due to acute blood loss Assessment & Plan: hb dropped due to GI bleeds. on protonix drip and prbcs transfusion. (5) Protein calorie malnutrition Assessment & Plan: dietitian eval and treat. (6) S/P CABG x 3 Assessment & Plan: recuperating Sepsis Screening Skin Color: Pale BRIAN DURBIN MD May 27, 2025 09:49
--- NOTE | 2025-05-27 10:43 | PROGRESS NOTE ---
Progress Note CV Providers to CC ~ Antibiotics Ordered?: No Objective Vitals Vital Signs Date Time Temp Pulse Resp B/P (MAP) Pulse Ox O2 Delivery O2 Flow Rate FiO2 05/27/25 10:28 97.0 102 21 112/58 05/27/25 10:14 98 Nasal Cannula 1.0 05/27/25 08:00 24 Lab Results: 05/27/25 0645 05/27/25 0645 Coagulation Studies Laboratory Tests Test 05/07/25 00:57 05/07/25 08:38 05/07/25 13:23 05/27/25 04:22 APTT (Heparin Protocol) 53 SECONDS (45-60) Patient Sex (Coag) M Patient Height (Coag) 170cm Patient Weight (Coag) 84.0k KG Patient Blood Volume 5799 ML Pump Volume 1500 ML Total Blood Volume 7299 ML Projected Heparin Concentration 1.8 MG/KG Heparin [place] 137 Calculated Heparin Bolus 94699 UNITS Activated Coagulation Time Baseline 141 SEC (101-148) Activated Coag Time 1.70 U/mL 323 SEC (193-297) H Activated Coag Time 2.84 U/mL 476 SEC (260-420) H Heparin Level (COAG) 0 MG/KG Calculated Heparin Req (Hep Assay) 51013 UNITS Calculated Protamine Req (Hep Assay 0 MG Activated Clotting Time 126 SEC (101-148) Prothrombin Time 12.7 SECONDS (9.0-12.0) H INR International Normalized Ratio 1.3 INR Activated Partial Thromboplast Time 23 SECONDS (22-32) Fibrinogen 295 MG/DL (177-424) Coagulation Comments Coagulation Clinical Comments Cardiac Rhythm: AV Paced, Paced Problem\Assessment\Plan Additional Plan Nursing reports pt. is still having some drainage from L CT insertion site. When examined, current dressing is dry, but when re-covering there was some dark serous drainage from site. Dressing replaced. Will leave instructions for BID dressing changes until no further drainage. PRBC's still running. Repeating H/H after unit is in. Sepsis Screening Skin Color: Pale Supervising MD Co-signing Provider: ANA Cedillo May 27, 2025 10:43
--- NOTE | 2025-05-27 11:16 | HISTORY AND PHYSICAL-Residence ---
History & Physical Providers to CC Resident Creating Document: AVIS FONSECA RES ~ History of Present Illness Reason for Admit\Complaint: Acute blood loss, black tarry stools History of Present Illness This is an 84-year-old male with past medical history of hypertension, hyperlipidemia, type 2 diabetes, peripheral artery disease, CKD, complete heart block status post pacemaker who was transferred from [facility] for evaluation and management of NSTEMI. He underwent cardiac catheterization on 05/04/2025, and CABG on 05/07/2025. He has a complex hospital stay after CABG. He developed lung atelectasis with worsening respiratory failure, needing bilateral chest tube placement and intubation on 05/11/2025. The patient was extubated on 05/18/2025. He is being treated by nephrology for ALVIN most likely due to ATN and hyperkalemia . He was receiving feeds through NG tube. He passed his swallow study yesterday and has consumed 5 meals since then. Currently appears to be confused, and most of the history was obtained through his , nurses in his chart. He had an acute drop in hemoglobin to 4.5 overnight. He has received 3 units of blood transfusion and his hemoglobin is 7.5 today morning. His and the nurse noticed 1 episode of black tarry stools today morning. Previously, GI consulted 1 week ago in view of constipation since [address] abdomen pelvis with oral Gastrografin, which resolved his constipation. CT abdomen pelvis was essentially normal. Allergies: Coded Allergies: chlorhexidine (Verified Allergy, Severe, SEVERE RASH WITH BLISTERS, 05/03/25) Home Medications Home Medications Active Reported [Garlic] 1 Tab PO Q12H Glucosamine-Chondroitin Tab (Glucosamine/Chondro Forrest A) 500 Mg-400 Mg Tablet 2 Tab PO DAILY Preservision Areds 2 Softgel (Vit C/E/Zn/Coppr/Lutein/Zeaxan) 250MG-90MG Capsule 1 Cap PO Q12H Vitamin E (Vitamin E Acetate) 180 Mg (400 Unit) Capsule 2 Cap PO DAILY Lipitor* (Atorvastatin Calcium) 40 Mg Tablet 1 Tab PO HS Chlorpheniramine Maleate 4 Mg Tablet 1 Tab PO DAILY PRN Metoprolol Succinate 50 Mg Tab.sr.24h 1 Tab PO BID Neurontin (Gabapentin) 300 Mg Capsule 300 Mg PO TID Losartan-Hctz 50-12.5 Mg Tab (Losartan/Hydrochlorothiazide) 50 Mg-12.5 Mg Tablet 1 Tab PO DAILY Metformin Hcl 500 Mg Tablet 1 Tab PO Q12H Aspirin 81 Mg Tab.chew 1 Tab PO DAILY Fish Oil 1,000 Mg Softgel (Docosahexanoic Acid/Epa) 1 Each Capsule 1 Cap PO DAILY 30 Days WITH MEALS [prevagen] 50 Mcg PO DAILY [facility] Prostate Health Formula Tb (Saw/Pygeum/Nettle/Pumpkn/Aa#17) 1 Each Tablet 1 Each PO DAILY Vitamin C (Ascorbic Acid) 2,000 Mg Tablet.sa 2,000 Mg PO DAILY Multi-Vitamin Daily (Multivitamin) 1 Each Tablet 1 Each PO DAILY Claritin* (Loratadine) 10 Mg Tablet 10 Mg PO DAILY Prilosec* (Omeprazole) 20 Mg Capsule.dr 20 Mg PO BID Past Social History Smoking: Less than 1 pack/day (Patient smokes half a pack daily) Alcohol Use: None Drug Use: None Lives with: Spouse Lives In: Home Occupation: retired ROS Constitutional: Reports: no symptoms reported; Denies: fever Eyes: Reports: no symptoms reported ENT: Reports: no symptoms reported Respiratory: Reports: shortness of breath, SOB with exertion Cardiovascular: Reports: chest pain, lightheadedness Gastrointestinal: Reports: no symptoms reported Genitourinary: Reports: no symptoms reported Male Genitalia: Reports: no symptoms reported Neurological: Reports: no symptoms reported Musculoskeletal: Reports: no symptoms reported Integumentary: Reports: no symptoms reported Allergic/Immunologic: Reports: no symptoms reported Hematologic/Lymphatic: Reports: no symptoms reported Endocrine: Reports: no symptoms reported Psychiatric: Reports: no symptoms reported Exam Vitals: Vital Signs Date Time Temp Pulse Resp B/P (MAP) Pulse Ox O2 Delivery O2 Flow Rate FiO2 05/27/25 11:04 99.3 100 17 134/69 (90) 97 Nasal Cannula 1.0 05/27/25 08:00 24 General: General: Awake and Alert, on 3 L of oxygen. HEENT: Conjunctiva pale, Sclera clear, Mucus Membranes moist. Neck: Supple without masses and tenderness. Resp/chest: On 1 L oxygen, has coarse bilateral breath sounds. Heart: Regular Rate and rhythm, normal S1 and S2 without murmur, rub or gallop. Abdomen: Soft and non tender no organomegaly, distended Extremities: 1+ pitting lower extremity peripheral edema. No cyanosis or clubbing. Skin: Warm and Dry. Surgical scar in the center of the chest, no signs of inflammation or infection. Diagnostic Data Last Recorded Lab Results: 05/27/2564405/27/25644 Diagnostic Data: Laboratory Tests Test 05/07/25 00:57 05/07/25 08:38 05/07/25 13:23 05/27/25 04:22 APTT (Heparin Protocol) 53 SECONDS (45-60) Patient Sex (Coag) M Patient Height (Coag) 170cm Patient Weight (Coag) 84.0k KG Patient Blood Volume 5799 ML Pump Volume 1500 ML Total Blood Volume 7299 ML Projected Heparin Concentration 1.8 MG/KG Heparin [place] 137 Calculated Heparin Bolus 27876 UNITS Activated Coagulation Time Baseline 141 SEC (101-148) Activated Coag Time 1.70 U/mL 323 SEC (193-297) H Activated Coag Time 2.84 U/mL 476 SEC (260-420) H Heparin Level (COAG) 0 MG/KG Calculated Heparin Req (Hep Assay) 64370 UNITS Calculated Protamine Req (Hep Assay 0 MG Activated Clotting Time 126 SEC (101-148) Prothrombin Time 12.7 SECONDS (9.0-12.0) H INR International Normalized Ratio 1.3 INR Activated Partial Thromboplast Time 23 SECONDS (22-32) Fibrinogen 295 MG/DL (177-424) Coagulation Comments Coagulation Clinical Comments Counseling Services Smoking & Tobacco Cessation: N/A Advance Care Planning Advanced Care planning: N/A Additional Plan Acute blood loss, most likely upper GI bleed Hemodynamically stable Vitals: Tachycardia with heart rate in 100s, blood pressure maintained. Patient received a total of 7 units of PRBC, 2 units of fresh frozen plasma , 3 units of platelets and one cryoprecipitate transfusion during the hospital stay. Hemoglobin dropped to 4.9 a 2:30 in the morning. Received 3 units of blood transfusion. H and H now at 7.5 and 21.9 1 episode of black tarry stools today morning, most likely upper GI bleed possibly secondary to peptic ulcer disease, gastroesophageal reflux disease, stress ulcerations. In the Patient was on Protonix 40 mg b.i.d. IV and sucralfate 1 g t.i.d., currently on Protonix drip. On aspirin 81 mg, and no other blood thinners. On ferrous sulfate 300 mg p.o. b.i.d., which might have caused gastric irritation and is currently being withheld. Patient was receiving nutrition through NG tube till yesterday. Nutrition team on board. He passed his swallow study yesterday, taken 5 meals orally. Patient is NPO, EGD at 1:00 p.m. today. Acute hypoxemic respiratory failure Bilateral pleural effusion Bilateral lung atelectasis NSTEMI status post cardiac catheterization on 05/04/2025 Status post CABG on 05/07/2025 Management as per primary team ALVIN Most likely secondary to ATN. Hyperkalemia Hyperphosphatemia Management as per nephro team Hypertension Hyperlipidemia Peripheral artery disease s/p angioplasty in the left SFA and popliteal arteries [place] [address] Carias Complete heart block status post pacemaker Continue supportive care and management. CODE STATUS: Full code DVT prophylaxis: SCDs Diet: NPO Disposition: Continue management in intensive care unit. Patient is being managed by the Cardiothoracic Surgeons. Plan for endoscopy today in view of acute drop in hemoglobin levels. Date of Service: May 27, 2025 Billing Provider: KENA SWAN MD, SHIVANI, RES May 27, 2025 11:16 KENA SWAN MD May 27, 2025 15:55
[2025-05-27 12:12] LABS: MEAN PLATELET VOLUME 8.7 FL (7.4-10.4); RED CELL DISTRIBUTION WIDTH 14.7 % (11.5-14.5)
[2025-05-27] MEDS ORDERED: propofol inj 20 ML IV ONE (13:25)
[2025-05-27] MEDS: morphine 4 MG/ML inj SYRINge IV PRN (13:34)
[2025-05-27 15:34] LABS: MEAN PLATELET VOLUME 8.9 FL (7.4-10.4); RED CELL DISTRIBUTION WIDTH 14.3 % (11.5-14.5)
[2025-05-27 15:57] LABS: CREATININE 1.67 MG/DL (0.60-1.10); PHOSPHORUS 3.5 MG/DL (2.3-4.5); TOTAL CARBON DIOXIDE 30.6 MMOL/L (24-32); eCRCL 31 ML/MIN; eGFR 39 ML/MIN
[2025-05-27 21:55] LABS: MEAN PLATELET VOLUME 8.6 FL (7.4-10.4); RED CELL DISTRIBUTION WIDTH 14.8 % (11.5-14.5)
[2025-05-27] MEDS ORDERED: HYDROcodone/acetaminophen 7.5MG/325MG per 15ml UD CUP PO PRN (23:15)
[2025-05-27] MEDS: HYDROcodone/acetaminophen 7.5MG/325MG per 15ml UD CUP PO PRN (23:43)
[2025-05-28] VITALS (29 sets, daily range): BP systolic 96–145; BP diastolic 45–88; PULSE 80–100; RESP 12–31; O2SAT 92–100
[2025-05-28 03:11] LABS: MEAN PLATELET VOLUME 8.8 FL (7.4-10.4); RED CELL DISTRIBUTION WIDTH 14.7 % (11.5-14.5)
[2025-05-28 03:17] LABS: CREATININE 1.58 MG/DL (0.60-1.10); PHOSPHORUS 3.6 MG/DL (2.3-4.5); TOTAL CARBON DIOXIDE 28.9 MMOL/L (24-32); eCRCL 33 ML/MIN; eGFR 42 ML/MIN
--- NOTE | 2025-05-28 09:10 | PROGRESS NOTE ---
Progress Note Dictate Providers to CC ~ Central Line/PICC still needed: Yes Central Line/PICC Necessity: Prolonged IV access req Early Indications Met/Not Met: F/C Indications Not Met Antibiotic Ordered?: N/A Subjective Subjective slowly coming up. it is 7.5. no burgundy stools reported today. hemodynamically stable. sitting up on the chair. more alert. tired and fatigued. BUn is slowly coming down. creatinine is stable at 1.5. Objective Vitals Vital Signs Date Time Temp Pulse Resp B/P (MAP) Pulse Ox O2 Delivery O2 Flow Rate FiO2 05/28/25 17:39 22 05/28/25 17:28 26 05/28/25 17:10 98.6 114/65 (81) 92 Nasal Cannula 2.0 05/28/25 07:35 28 Lab Results: 05/28/25 1425 05/28/25 0205 Objective Vital Signs: As above General: Normal body habitus, no acute distress. Skin: No rashes, lumps, ulcers, blisters, purpura or petechiae HEENT: Anicteric sclera, RADHA Neck: Supple and nontender without enlargement of the thyroid, or lymphadenopathy. Chest: Normal size and shape, no tenderness, CTA bilaterally, decreased BS in the left base Heart: Regular. No jugular venous distention, S1 and S2 heard , no gallop Abdomen: Soft and non tender no organomegaly,BS+ Extremities: + pedal edema Neuro: encephalopathic Coagulation Studies Laboratory Tests Test 05/07/25 00:57 05/07/25 08:38 05/07/25 13:23 05/27/25 04:22 APTT (Heparin Protocol) 53 SECONDS (45-60) Patient Sex (Coag) M Patient Height (Coag) 170cm Patient Weight (Coag) 84.0k KG Patient Blood Volume 5799 ML Pump Volume 1500 ML Total Blood Volume 7299 ML Projected Heparin Concentration 1.8 MG/KG Heparin [place] 137 Calculated Heparin Bolus 20316 UNITS Activated Coagulation Time Baseline 141 SEC (101-148) Activated Coag Time 1.70 U/mL 323 SEC (193-297) H Activated Coag Time 2.84 U/mL 476 SEC (260-420) H Heparin Level (COAG) 0 MG/KG Calculated Heparin Req (Hep Assay) 91373 UNITS Calculated Protamine Req (Hep Assay 0 MG Activated Clotting Time 126 SEC (101-148) Prothrombin Time 12.7 SECONDS (9.0-12.0) H INR International Normalized Ratio 1.3 INR Activated Partial Thromboplast Time 23 SECONDS (22-32) Fibrinogen 295 MG/DL (177-424) Coagulation Comments Coagulation Clinical Comments Advance Care Planning Advanced Care plannin - 30 Minutes Problem\Assessment\Plan Problems/Diagnosis: (1) ALVIN (acute kidney injury) Assessment & Plan: the patient has, as strongly suspected started having GI bleeds now. This explains the worsening BUN to creatinine ratio, clearly from upper GI source. GEtting EGD. Got trsnfusions overnight. Hb is up to 7.5 now. melenotic stools. Potassium went up because of the blood in the gut. treated. . on Protonix drip (2) Acute hypernatremia Assessment & Plan: again going up. when GI okays PO intake, we can start free water. Meanwhile, restart D5W. (3) Acute hypoxic respiratory failure Assessment & Plan: extubated. remains encephalopathic. had left lung atelectasis s/p Bronchoscopy. (4) Anemia due to acute blood loss Assessment & Plan: hb dropped due to GI bleeds. on protonix drip and prbcs transfusion. (5) Protein calorie malnutrition Assessment & Plan: dietitian eval and treat. (6) S/P CABG x 3 Assessment & Plan: recuperating Sepsis Screening Skin Color: Pale BRIAN DURBIN MD May 28, 2025 09:10
--- NOTE | 2025-05-28 09:14 | PROGRESS NOTE ---
Progress Note CV Providers to CC ~ Antibiotics Ordered?: No Subjective Subjective S/P CABG x 4 POD # 21. He is more alert and interactive today. is present and feeding him. No further melana reported overnight although Hgb did drop to 7.4. Objective Vitals Vital Signs Date Time Temp Pulse Resp B/P (MAP) Pulse Ox O2 Delivery O2 Flow Rate FiO2 05/28/25 07:43 90 24 Nasal Cannula 2.0 05/28/25 07:35 98 28 05/28/25 05:52 97.7 145/75 (98) Lab Results: 05/28/25 0205 05/28/25 0205 Objective Lungs - diminished L base Heart - RRR, paced. not as tachy today. Abd - soft, + BS Extr - tr edema Incisions - healing well, though L CT site is still draining. Dressing removed and replaced. Coagulation Studies Laboratory Tests Test 05/07/25 00:57 05/07/25 08:38 05/07/25 13:23 05/27/25 04:22 APTT (Heparin Protocol) 53 SECONDS (45-60) Patient Sex (Coag) M Patient Height (Coag) 170cm Patient Weight (Coag) 84.0k KG Patient Blood Volume 5799 ML Pump Volume 1500 ML Total Blood Volume 7299 ML Projected Heparin Concentration 1.8 MG/KG Heparin [place] 137 Calculated Heparin Bolus 89554 UNITS Activated Coagulation Time Baseline 141 SEC (101-148) Activated Coag Time 1.70 U/mL 323 SEC (193-297) H Activated Coag Time 2.84 U/mL 476 SEC (260-420) H Heparin Level (COAG) 0 MG/KG Calculated Heparin Req (Hep Assay) 38985 UNITS Calculated Protamine Req (Hep Assay 0 MG Activated Clotting Time 126 SEC (101-148) Prothrombin Time 12.7 SECONDS (9.0-12.0) H INR International Normalized Ratio 1.3 INR Activated Partial Thromboplast Time 23 SECONDS (22-32) Fibrinogen 295 MG/DL (177-424) Coagulation Comments Coagulation Clinical Comments Cardiac Rhythm: AV Paced, Paced Problem\Assessment\Plan Additional Plan POD # 21 s/p GI bleed. s/p tranfusions. He continues on IV protonix. Diet has been resumed. Will need extensive PT/ rehab when ready for discharge Consider transfer to PCU. Sepsis Screening Reassessment Date: May 28, 2025 Skin Color: Pale Supervising MD Co-signing Provider: ANA Cedillo May 28, 2025 09:14
[2025-05-28 09:25] LABS: MEAN PLATELET VOLUME 8.5 FL (7.4-10.4); RED CELL DISTRIBUTION WIDTH 14.9 % (11.5-14.5)
[2025-05-28] MEDS ORDERED: potassium CL 10mEq/100ml bag 100 ML IV PRN (10:30)
[2025-05-28] MEDS ORDERED: potassium Cl 40MEQ/270ML bag 250 ML IV PRN (10:30)
[2025-05-28] MEDS ORDERED: potassium Cl 20 mEq SR tablet PO PRN (10:30)
[2025-05-28] MEDS ORDERED: potassium Cl 40MEQ/1/2NS 520ml 520 ML IV PRN (10:30)
[2025-05-28] MEDS ORDERED: potassium Cl 20mEq/100mL bag 100 ML IV PRN (10:30)
[2025-05-28] MEDS: insulin glargine (Lantus) pen - multi-dose SQ SCH (10:52)
[2025-05-28] MEDS: INSULIN LISPRO 100 UNIT/ML INSULN.PEN MULTI-DOSE SQ SCH (10:53)
--- NOTE | 2025-05-28 13:18 | PROGRESS NOTE- Residence ---
Progress Note - Resident Providers to CC Resident Creating Document: AVIS HOPPER RES ~ Antibiotic Timeout Antibiotic Ordered?: Yes Subjective Patient seen and examined at the bedside today. He is more alert and oriented than yesterday. Oriented x3. He had bowel movement today, black and tarry. Tolerating oral diet. Bedside endoscopy done yesterday to evaluate the GI bleeding, distal esophageal ulcer was noted. Patient has not had any recurrent bleeding since then. Hemoglobin has remained stable. Patient has not received any additional packed red blood cell transfusions. Objective Vital Signs Date Time Temp Pulse Resp B/P (MAP) Pulse Ox O2 Delivery O2 Flow Rate FiO2 05/28/25 12:10 98.2 94 26 106/59 (75) 93 Nasal Cannula 2.0 05/28/25 07:35 28 Result Diagram: 05/28/25 0830 05/28/25 0205 General: Awake and Alert, on 3 L of oxygen. HEENT: Conjunctiva pale, Sclera clear, Mucus Membranes moist. Neck: Supple without masses and tenderness. Resp/chest: On 1 L oxygen, has coarse bilateral breath sounds. Heart: Regular Rate and rhythm, normal S1 and S2 without murmur, rub or gallop. Abdomen: Soft and non tender no organomegaly, distended Extremities: 1+ pitting lower extremity peripheral edema. No cyanosis or clubbing. Skin: Warm and Dry. Surgical scar in the center of the chest, no signs of inflammation or infection. Coagulation Studies Laboratory Tests Test 05/07/25 00:57 05/07/25 08:38 05/07/25 13:23 05/27/25 04:22 APTT (Heparin Protocol) 53 SECONDS (45-60) Patient Sex (Coag) M Patient Height (Coag) 170cm Patient Weight (Coag) 84.0k KG Patient Blood Volume 5799 ML Pump Volume 1500 ML Total Blood Volume 7299 ML Projected Heparin Concentration 1.8 MG/KG Heparin [place] 137 Calculated Heparin Bolus 75725 UNITS Activated Coagulation Time Baseline 141 SEC (101-148) Activated Coag Time 1.70 U/mL 323 SEC (193-297) H Activated Coag Time 2.84 U/mL 476 SEC (260-420) H Heparin Level (COAG) 0 MG/KG Calculated Heparin Req (Hep Assay) 65850 UNITS Calculated Protamine Req (Hep Assay 0 MG Activated Clotting Time 126 SEC (101-148) Prothrombin Time 12.7 SECONDS (9.0-12.0) H INR International Normalized Ratio 1.3 INR Activated Partial Thromboplast Time 23 SECONDS (22-32) Fibrinogen 295 MG/DL (177-424) Coagulation Comments Coagulation Clinical Comments Plan Plan Patient has had a CABG, has had postoperative complications including atelectasis, pleural effusion and chest tube placement. Patient also was treated with possible pneumonia with antibiotics. Patient developed black tarry stools 2 days ago, diagnostic endoscopy revealed a distal esophageal ulcer which was not actively bleeding. Overnight he has done well without any recurrent bleeding. Recommendations: Continue the PPI therapy. Continue to monitor for any recurrent GI bleeding. Monitor hemoglobin hematocrit. No further GI interventions if no recurrent bleeding. Rest of the comorbid conditions being managed by the thoracic surgeon. Avis Hopper MD Internal Medicine, PGY1 [facility] Date of Service: May 28, 2025 Billing Provider: KENA SWAN MD, SHIVANI, RES May 28, 2025 13:18 KENA SWAN MD May 28, 2025 15:07
[2025-05-28 14:35] LABS: MEAN PLATELET VOLUME 8.5 FL (7.4-10.4); RED CELL DISTRIBUTION WIDTH 15.0 % (11.5-14.5)
[2025-05-28 18:24] LABS: MEAN PLATELET VOLUME 8.5 FL (7.4-10.4); RED CELL DISTRIBUTION WIDTH 15.3 % (11.5-14.5)
--- NOTE | 2025-05-28 18:54 | RADIOLOGY REPORT ---
CHEST RADIOGRAPH Indication: sudden desat increase O2 demands Technique: Single frontal view of the chest was obtained COMPARISON: DI CHEST,SINGLE VIEW on DOS: 05/27/25, DI CHEST,SINGLE VIEW on DOS: 05/25/25, DI CHEST,SINGLE VIEW on DOS: 05/24/25, DI CHEST,SINGLE VIEW on DOS: 05/23/25, DI CHEST,SINGLE VIEW on DOS: 05/22/25 FINDINGS: Lines and Tubes: Right chest pacemaker. Lungs: Unchanged multifocal airspace disease. Pleura: No effusion. No pneumothorax. Cardiomediastinal contours: Median sternotomy. Cardiomegaly. Bones: Unremarkable IMPRESSION: Unchanged multifocal airspace disease.
[2025-05-28] MEDS: magnesium Cl slow-release 64mg tablet PO SCH (19:38)
[2025-05-29] VITALS (30 sets, daily range): BP systolic 75–154; BP diastolic 43–118; PULSE 81–100; RESP 13–31; O2SAT 88–100
[2025-05-29 03:16] LABS: MEAN PLATELET VOLUME 8.7 FL (7.4-10.4); RED CELL DISTRIBUTION WIDTH 15.6 % (11.5-14.5)
[2025-05-29 03:21] LABS: CREATININE 1.46 MG/DL (0.60-1.10); TOTAL CARBON DIOXIDE 29.8 MMOL/L (24-32); eCRCL 35 ML/MIN; eGFR 46 ML/MIN
[2025-05-29 09:07] LABS: MEAN PLATELET VOLUME 8.2 FL (7.4-10.4); RED CELL DISTRIBUTION WIDTH 15.6 % (11.5-14.5)
--- NOTE | 2025-05-29 09:08 | PROGRESS NOTE ---
Progress Note CV Providers to CC ~ Antibiotics Ordered?: No Subjective Subjective S/P CABG x 4 POD # 22. Up to chair for breakfast. He was quite agitated last night and transfer was held. Had some issues with low BG's this morning and Lantus dose decreased. notes that Suzanne indicates they do not wish to accept pt at this time. She is open to considering [facility]PA and then transferring to [facility] when more stable. Objective Vitals Vital Signs Date Time Temp Pulse Resp B/P (MAP) Pulse Ox O2 Delivery O2 Flow Rate FiO2 05/29/25 07:54 88 22 Nasal Cannula 4.0 05/29/25 07:43 99 28 05/29/25 07:00 97.5 151/66 (94) Lab Results: 05/29/25 0212 05/29/25 021 Objective Lungs - Continued LLL collapse. He does still have some drainage from L CT site. Heart - RRR, paced Abd/Extr - OK Incisions - healing well, monitoring L CT site. Coagulation Studies Laboratory Tests Test 05/07/25 00:57 05/07/25 08:38 05/07/25 13:23 05/27/25 04:22 APTT (Heparin Protocol) 53 SECONDS (45-60) Patient Sex (Coag) M Patient Height (Coag) 170cm Patient Weight (Coag) 84.0k KG Patient Blood Volume 5799 ML Pump Volume 1500 ML Total Blood Volume 7299 ML Projected Heparin Concentration 1.8 MG/KG Heparin [place] 137 Calculated Heparin Bolus 30890 UNITS Activated Coagulation Time Baseline 141 SEC (101-148) Activated Coag Time 1.70 U/mL 323 SEC (193-297) H Activated Coag Time 2.84 U/mL 476 SEC (260-420) H Heparin Level (COAG) 0 MG/KG Calculated Heparin Req (Hep Assay) 84482 UNITS Calculated Protamine Req (Hep Assay 0 MG Activated Clotting Time 126 SEC (101-148) Prothrombin Time 12.7 SECONDS (9.0-12.0) H INR International Normalized Ratio 1.3 INR Activated Partial Thromboplast Time 23 SECONDS (22-32) Fibrinogen 295 MG/DL (177-424) Coagulation Comments Coagulation Clinical Comments Cardiac Rhythm: V Paced, AV Paced Problem\Assessment\Plan Additional Plan POD # 22 Hgb uprending and no further melana. Decreasing insulin requirements. Will need extensive rehab. DC planning arranging. Sepsis Screening Reassessment Date: May 29, 2025 Skin Color: Pale Supervising MD Co-signing Provider: ANA Cedillo May 29, 2025 09:08
--- NOTE | 2025-05-29 17:46 | PROGRESS NOTE- Residence ---
Progress Note - Resident Providers to CC Resident Creating Document: JESSICA ADAIR RES ~ Antibiotic Timeout Antibiotic Ordered?: Yes Subjective Nephrology Consult Patient seen and examined at the bedside today. Patient is alert and oriented. Today Creatine 1.46 and BUN 84 trending down Bedside endoscopy shows distal esophageal ulcer Objective Vital Signs Date Time Temp Pulse Resp B/P (MAP) Pulse Ox O2 Delivery O2 Flow Rate FiO2 05/29/25 16:00 99.0 85 20 124/73 (90) 97 Nasal Cannula 2.0 05/29/25 15:00 Result Diagram: 05/29/25 0753 05/29/25 0215 General: Awake and Alert, on 3 L of oxygen. HEENT: Conjunctiva pale, Sclera clear, Mucus Membranes moist. Neck: Supple without masses and tenderness. Resp/chest: On 1 L oxygen, has coarse bilateral breath sounds. Heart: Regular Rate and rhythm, normal S1 and S2 without murmur, rub or gallop. Abdomen: Soft and non tender no organomegaly, distended Extremities: 1+ pitting lower extremity peripheral edema. No cyanosis or clubbing. Skin: Warm and Dry. Surgical scar in the center of the chest, no signs of inflammation or infection. Coagulation Studies Laboratory Tests Test 05/07/25 00:57 05/07/25 08:38 05/07/25 13:23 05/27/25 04:22 APTT (Heparin Protocol) 53 SECONDS (45-60) Patient Sex (Coag) M Patient Height (Coag) 170cm Patient Weight (Coag) 84.0k KG Patient Blood Volume 5799 ML Pump Volume 1500 ML Total Blood Volume 7299 ML Projected Heparin Concentration 1.8 MG/KG Heparin [place] 137 Calculated Heparin Bolus 14666 UNITS Activated Coagulation Time Baseline 141 SEC (101-148) Activated Coag Time 1.70 U/mL 323 SEC (193-297) H Activated Coag Time 2.84 U/mL 476 SEC (260-420) H Heparin Level (COAG) 0 MG/KG Calculated Heparin Req (Hep Assay) 03190 UNITS Calculated Protamine Req (Hep Assay 0 MG Activated Clotting Time 126 SEC (101-148) Prothrombin Time 12.7 SECONDS (9.0-12.0) H INR International Normalized Ratio 1.3 INR Activated Partial Thromboplast Time 23 SECONDS (22-32) Fibrinogen 295 MG/DL (177-424) Coagulation Comments Coagulation Clinical Comments Advance Care Planning Advanced Care plannin - 30 Minutes Plan Plan 84 years Old female is currently evaluating for ALVIN ALVIN (acute kidney injury) Today patient Cr-1.46 Stable and BUN 84- Improving EGD Shows- distal esophageal ulcer Elevated BUN is Likley Due to Upper GI bleed Hb-7.2, Continue the PPI therapy. Continue to monitor for any recurrent GI bleeding. Monitor hemoglobin hematocrit. Acute hypernatremia Today Na-149 continue D5W. increased to 80 cc per hour. Acute hypoxic respiratory failure Anemia due to acute blood loss Protein calorie malnutrition Continue Manage the patient according to primary Care Givers plan Jessica Adair Pgy1 Nephroloyg attending: Appreciate the above. Patient seen and exxamined with rsident. He is doing his cardiac rehab as usual. He is ofund to have no active bleeds in EGD. with distal esophageal ulcer. BUN to creatinine ratio has started reducing again. Ramon Rosa MD Date of Service: May 29, 2025 Billing Provider: RAMON ROSA MD, SATISH, RES May 29, 2025 17:46 RAMON ROSA MD May 29, 2025 18:08
[2025-05-29 18:01] LABS: MEAN PLATELET VOLUME 8.9 FL (7.4-10.4); RED CELL DISTRIBUTION WIDTH 15.4 % (11.5-14.5)
[2025-05-30] VITALS (53 sets, daily range): BP systolic 101–170; BP diastolic 53–112; PULSE 72–99; RESP 7–33; TEMP 97.3–98.6; O2SAT 87–100
[2025-05-30 02:45] LABS: MEAN PLATELET VOLUME 8.3 FL (7.4-10.4); RED CELL DISTRIBUTION WIDTH 15.8 % (11.5-14.5)
[2025-05-30 02:51] LABS: CREATININE 1.43 MG/DL (0.60-1.10); TOTAL CARBON DIOXIDE 30.4 MMOL/L (24-32); eCRCL 36 ML/MIN; eGFR 47 ML/MIN
[2025-05-30] MEDS: magnesium sulf-water 4G/100mL 100 ML IV PRN (03:42)
[2025-05-30] MEDS: potassium Cl 20 mEq SR tablet PO PRN (03:48)
[2025-05-30] MEDS: insulin glargine (Lantus) pen - multi-dose SQ SCH (08:00)
--- NOTE | 2025-05-30 08:53 | PROGRESS NOTE ---
Progress Note CV Providers to CC ~ Antibiotics Ordered?: No Subjective Subjective S/P CABG X 4 POD # 23. Reportedly not as agitated last night. He is up to the chair this morning. is at bedside feeding him. Hgb dropped again last night. Reportedly had a large stool which was not described. Transfusion beginning now. Objective Vitals Vital Signs Date Time Temp Pulse Resp B/P (MAP) Pulse Ox O2 Delivery O2 Flow Rate FiO2 05/30/25 06:01 82 14 149/83 (105) 95 05/30/25 04:01 99.3 Nasal Cannula 2.0 05/30/25 02:48 36 Lab Results: 05/30/25 0200 05/30/25 0200 Objective Lungs - decreased L base, CXR pending. Heart - RRR, SR Abd - soft, denies pain Extr - OK Incisions - CDI, L CT site with some serous drainage but less than there has been Coagulation Studies Laboratory Tests Test 05/07/25 00:57 05/07/25 08:38 05/07/25 13:23 05/27/25 04:22 APTT (Heparin Protocol) 53 SECONDS (45-60) Patient Sex (Coag) M Patient Height (Coag) 170cm Patient Weight (Coag) 84.0k KG Patient Blood Volume 5799 ML Pump Volume 1500 ML Total Blood Volume 7299 ML Projected Heparin Concentration 1.8 MG/KG Heparin [place] 137 Calculated Heparin Bolus 28146 UNITS Activated Coagulation Time Baseline 141 SEC (101-148) Activated Coag Time 1.70 U/mL 323 SEC (193-297) H Activated Coag Time 2.84 U/mL 476 SEC (260-420) H Heparin Level (COAG) 0 MG/KG Calculated Heparin Req (Hep Assay) 50403 UNITS Calculated Protamine Req (Hep Assay 0 MG Activated Clotting Time 126 SEC (101-148) Prothrombin Time 12.7 SECONDS (9.0-12.0) H INR International Normalized Ratio 1.3 INR Activated Partial Thromboplast Time 23 SECONDS (22-32) Fibrinogen 295 MG/DL (177-424) Coagulation Comments Coagulation Clinical Comments Cardiac Rhythm: V Paced Problem\Assessment\Plan Additional Plan POD # 23 Hgb dropped again. Getting transfused this morning. Continues on IV protonix. Re-consult GI? Will d/w Dr. Steiner. Sepsis Screening Reassessment Date: May 30, 2025 Skin Color: Pale Supervising MD Co-signing Provider: ANA Cedillo May 30, 2025 08:53
[2025-05-30] MEDS ORDERED: HYDROcodone/acetaminophen 7.5MG/325MG per 15ml UD CUP NG PRN (09:36)
[2025-05-30] MEDS ORDERED: LOPERAMIDE 2 mg/15 ml oral solution UD NG PRN (09:37)
--- NOTE | 2025-05-30 11:27 | RADIOLOGY REPORT ---
EXAM: DI CHEST,SINGLE VIEW Indication: L effusion Technique: Single frontal view of the chest was obtained Comparison: DI CHEST,SINGLE VIEW on DOS: 05/28/25, DI CHEST,SINGLE VIEW on DOS: 05/27/25, DI CHEST,SINGLE VIEW on DOS: 05/25/25, DI CHEST,SINGLE VIEW on DOS: 05/24/25, DI CHEST,SINGLE VIEW on DOS: 05/23/25 FINDINGS: Lines and Tubes: Cardiac pacemaker projects over the right chest wall. Lungs: Moderate left pleural effusion and multifocal left consolidative opacities. Small right pleural effusion. Cardiomediastinal contours: Cardiomegaly. Bones: No acute osseous abnormality. IMPRESSION: Cardiomegaly with moderate left and small right pleural effusion and multifocal consolidative opacities.
[2025-05-31] VITALS (20 sets, daily range): BP systolic 131–172; BP diastolic 59–94; PULSE 81–97; RESP 14–27; TEMP 97–97.7; O2SAT 93–98
[2025-05-31 06:06] LABS: MEAN PLATELET VOLUME 8.2 FL (7.4-10.4); RED CELL DISTRIBUTION WIDTH 16.7 % (11.5-14.5)
--- NOTE | 2025-05-31 06:29 | RADIOLOGY REPORT ---
CHEST RADIOGRAPH Indication: L effusion Technique: Single frontal view of the chest was obtained COMPARISON: DI CHEST,SINGLE VIEW on DOS: 05/30/25, DI CHEST,SINGLE VIEW on DOS: 05/28/25, DI CHEST,SINGLE VIEW on DOS: 05/27/25, DI CHEST,SINGLE VIEW on DOS: 05/25/25, DI CHEST,SINGLE VIEW on DOS: 05/24/25 FINDINGS: Lines and Tubes: None Lungs: Stable appearing left mid lung and right basilar pulmonary airspace disease. Pleura: No effusion. No pneumothorax. Cardiomediastinal contours: Cardiomegaly. Bones: Unremarkable IMPRESSION: 1. Stable appearing left mid lung and right basilar pulmonary airspace disease. 2. Cardiomegaly.
[2025-05-31 06:41] LABS: CREATININE 1.26 MG/DL (0.60-1.10); TOTAL CARBON DIOXIDE 29.8 MMOL/L (24-32); eCRCL 41 ML/MIN; eGFR 55 ML/MIN
[2025-05-31] MEDS: magnesium sulf-water 2g/50mL 50 ML IV PRN (07:49)
[2025-05-31] MEDS: HYDROcodone/acetaminophen 7.5MG/325MG per 15ml UD CUP NG PRN (07:49)
--- NOTE | 2025-05-31 09:40 | PROGRESS NOTE ---
Progress Note CV Providers to CC ~ Central Line/PICC still needed: No Early Indications Met/Not Met: F/C Indications Not Met Antibiotics Ordered?: No Subjective Subjective Patient is a bit more alert this morning. Answers appropriately Objective Vitals Vital Signs Date Time Temp Pulse Resp B/P (MAP) Pulse Ox O2 Delivery O2 Flow Rate FiO2 05/31/25 08:50 24 05/31/25 07:48 86 Nasal Cannula 4.0 05/31/25 07:39 98 36 05/31/25 02:00 97.5 131/92 (105) Lab Results: 05/31/25 0530 05/31/25 0530 Objective Lungs still very decreased with tubular breath sounds at left base. Right side with a occasional crackles but reasonably clear. Cardiac exam regular rate and rhythm without rub. Sternal incision clean and dry. No peripheral edema Coagulation Studies Laboratory Tests Test 05/07/25 00:57 05/07/25 08:38 05/07/25 13:23 05/27/25 04:22 APTT (Heparin Protocol) 53 SECONDS (45-60) Patient Sex (Coag) M Patient Height (Coag) 170cm Patient Weight (Coag) 84.0k KG Patient Blood Volume 5799 ML Pump Volume 1500 ML Total Blood Volume 7299 ML Projected Heparin Concentration 1.8 MG/KG Heparin [place] 137 Calculated Heparin Bolus 08042 UNITS Activated Coagulation Time Baseline 141 SEC (101-148) Activated Coag Time 1.70 U/mL 323 SEC (193-297) H Activated Coag Time 2.84 U/mL 476 SEC (260-420) H Heparin Level (COAG) 0 MG/KG Calculated Heparin Req (Hep Assay) 48652 UNITS Calculated Protamine Req (Hep Assay 0 MG Activated Clotting Time 126 SEC (101-148) Prothrombin Time 12.7 SECONDS (9.0-12.0) H INR International Normalized Ratio 1.3 INR Activated Partial Thromboplast Time 23 SECONDS (22-32) Fibrinogen 295 MG/DL (177-424) Coagulation Comments Coagulation Clinical Comments Cardiac Rhythm: Sinus Rhythm, AV Paced Problem\Assessment\Plan Additional Plan 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 Hemodynamics satisfactory. Urine output excellent. Creatinine continues to gradually decline. Hemoglobin stable at 9.9 following transfusion yesterday. No further melanotic stools. Need to continue physical therapy and incentive spirometry. Out of chair as tolerated. We will need to go to rehab when ready for discharge. Sepsis Screening Skin Color: Pale KYLE HAQUE III, MD May 31, 2025 09:40
--- NOTE | 2025-05-31 15:18 | PROGRESS NOTE ---
Progress Note Dictate Providers to CC ~ Antibiotic Ordered?: N/A Subjective Subjective Confused state, nurses report no new events since last evaluation Objective Vitals Vital Signs Date Time Temp Pulse Resp B/P (MAP) Pulse Ox O2 Delivery O2 Flow Rate FiO2 05/31/25 16:12 20 05/31/25 15:00 97.7 81 146/90 (108) 96 Nasal Cannula 1.0 05/31/25 08:00 24 Somnolent, confused RRR w/o murmur, no JVD CTA B, no wheezes +BS, NT No edema Lab Results: 05/31/25 0530 05/31/25 0530 Coagulation Studies Laboratory Tests Test 05/07/25 00:57 05/07/25 08:38 05/07/25 13:23 05/27/25 04:22 APTT (Heparin Protocol) 53 SECONDS (45-60) Patient Sex (Coag) M Patient Height (Coag) 170cm Patient Weight (Coag) 84.0k KG Patient Blood Volume 5799 ML Pump Volume 1500 ML Total Blood Volume 7299 ML Projected Heparin Concentration 1.8 MG/KG Heparin [place] 137 Calculated Heparin Bolus 52947 UNITS Activated Coagulation Time Baseline 141 SEC (101-148) Activated Coag Time 1.70 U/mL 323 SEC (193-297) H Activated Coag Time 2.84 U/mL 476 SEC (260-420) H Heparin Level (COAG) 0 MG/KG Calculated Heparin Req (Hep Assay) 11358 UNITS Calculated Protamine Req (Hep Assay 0 MG Activated Clotting Time 126 SEC (101-148) Prothrombin Time 12.7 SECONDS (9.0-12.0) H INR International Normalized Ratio 1.3 INR Activated Partial Thromboplast Time 23 SECONDS (22-32) Fibrinogen 295 MG/DL (177-424) Coagulation Comments Coagulation Clinical Comments Other Results I & O 05/31/25 07:00 Intake Total 1280 ml Output Total 1700 ml Balance -420 ml Intake Oral 580 ml IV Total 100 ml Blood Product 600 ml Output Urine Total 1700 ml Problem\Assessment\Plan Problems/Diagnosis: (1) ALVIN (acute kidney injury) Assessment & Plan: He is strongly suspected of having a gastrointestinal bleed, with a rising FLQ-gy-wrqslsqwoq ratio suggestive of an upper GI source. He is scheduled for EGD. He has received blood transfusions; his current hemoglobin is 7.5 g/dL. He continues to have melanotic stools. He is also experiencing hyperkalemia, likely related to both impaired renal clearance and increased potassium absorption from GI bleeding. Monitor UOP and try to match his intake as close as possible (2) Acute hypernatremia Assessment & Plan: Improved with free water, now 138 (3) Acute hypoxic respiratory failure Assessment & Plan: Extubated, still encephalopathic,had bronchoscopy (4) Anemia due to acute blood loss Assessment & Plan: He is strongly suspected of having a gastrointestinal bleed, with a rising YUC-od-grxbdtmcwq ratio suggestive of an upper GI source. He is scheduled for EGD. He has received blood transfusions; his current hemoglobin is 7.5 g/dL. He continues to have melanotic stools. He is also experiencing hyperkalemia, likely related to both impaired renal clearance and increased potassium absorption from GI bleeding. (5) Protein calorie malnutrition Assessment & Plan: Shaker Repairer consultation to help with a comprehensive nutritional plan during this admission and after he is discharged. Sepsis Screening Skin Color: Pale WALL,JENS M III DO May 31, 2025 15:18
[2025-05-31] MEDS: magnesium hydroxide 30ml (MOM) UD suspension PO PRN (16:14)
[2025-06-01] VITALS (17 sets, daily range): BP systolic 130–178; BP diastolic 71–100; PULSE 88–100; RESP 17–32; TEMP 97.3–97.9; O2SAT 92–97
--- NOTE | 2025-06-01 07:32 | RADIOLOGY REPORT ---
DI CHEST,SINGLE VIEW, HISTORY: L effusion COMPARISON: DI CHEST,SINGLE VIEW on DOS: 05/31/25, DI CHEST,SINGLE VIEW on DOS: 05/30/25, DI CHEST,SINGLE VIEW on DOS: 05/28/25 DI CHEST,SINGLE VIEW on DOS: 05/31/25, DI CHEST,SINGLE VIEW on DOS: 05/30/25, DI CHEST,SINGLE VIEW on DOS: 05/28/25 TECHNICAL DATA: 1 view of the chest was obtained. FINDINGS: Lines and tubes: None Cardiomediastinal silhouette: Enlarged Pulmonary vasculature: Prominent Lung expansion: Low Lung airspace: Similar left basilar airspace opacity. Lung interstitium: normal Pleura: Small left pleural effusion. Pneumothorax: no Bones: Unremarkable Other: no IMPRESSION: Similar left basilar airspace opacity. Small left pleural effusion. Cardiomegaly.
[2025-06-01 09:05] LABS: MEAN PLATELET VOLUME 8.1 FL (7.4-10.4); RED CELL DISTRIBUTION WIDTH 17.1 % (11.5-14.5)
[2025-06-01 09:18] LABS: CREATININE 1.25 MG/DL (0.60-1.10); TOTAL CARBON DIOXIDE 28.3 MMOL/L (24-32); eCRCL 41 ML/MIN; eGFR 55 ML/MIN
--- NOTE | 2025-06-01 11:06 | PROGRESS NOTE ---
Progress Note CV Providers to CC ~ Antibiotics Ordered?: No Subjective Subjective S/P CABG X 4 POD # 25. is at bedside. Right now he is on nasal bipap. No new complaints. Eating OK. No further melananotic stools. No BM's for several days now. MOM was given. Objective Vitals Vital Signs Date Time Temp Pulse Resp B/P (MAP) Pulse Ox O2 Delivery O2 Flow Rate FiO2 06/01/25 08:20 96 26 Nasal Cannula 2.0 06/01/25 08:10 96 28 06/01/25 06:00 164/94 (117) 06/01/25 02:00 97.5 Lab Results: 06/01/25 0843 06/01/25 0843 Objective Lungs - diminished L base Heart - RRR, paced. Abd/Extr - OK Incisions - CDI Coagulation Studies Laboratory Tests Test 05/07/25 00:57 05/07/25 08:38 05/07/25 13:23 05/27/25 04:22 APTT (Heparin Protocol) 53 SECONDS (45-60) Patient Sex (Coag) M Patient Height (Coag) 170cm Patient Weight (Coag) 84.0k KG Patient Blood Volume 5799 ML Pump Volume 1500 ML Total Blood Volume 7299 ML Projected Heparin Concentration 1.8 MG/KG Heparin [place] 137 Calculated Heparin Bolus 39945 UNITS Activated Coagulation Time Baseline 141 SEC (101-148) Activated Coag Time 1.70 U/mL 323 SEC (193-297) H Activated Coag Time 2.84 U/mL 476 SEC (260-420) H Heparin Level (COAG) 0 MG/KG Calculated Heparin Req (Hep Assay) 18529 UNITS Calculated Protamine Req (Hep Assay 0 MG Activated Clotting Time 126 SEC (101-148) Prothrombin Time 12.7 SECONDS (9.0-12.0) H INR International Normalized Ratio 1.3 INR Activated Partial Thromboplast Time 23 SECONDS (22-32) Fibrinogen 295 MG/DL (177-424) Coagulation Comments Coagulation Clinical Comments Cardiac Rhythm: V Paced, AV Paced Problem\Assessment\Plan Additional Plan POD # 25 No further melena. Hgb up to 11.1 Eating well. Advance to moist minced diet. Continue PT/ rehab. Minimize sitter. Sepsis Screening Skin Color: Pale Supervising Co-signing Provider: ANA Cedillo Jun 01, 2025 11:06
--- NOTE | 2025-06-01 11:16 | PROGRESS NOTE ---
Progress Note Dictate Providers to CC ~ Antibiotic Ordered?: N/A Subjective Subjective Much more conversant since yesterday, he states he feels better, nurses report no new events since last evaluation. Objective Vitals Vital Signs Date Time Temp Pulse Resp B/P (MAP) Pulse Ox O2 Delivery O2 Flow Rate FiO2 06/01/25 08:20 96 26 Nasal Cannula 2.0 06/01/25 08:10 96 28 06/01/25 06:00 164/94 (117) 06/01/25 02:00 97.5 Alert, appears comfortable RRR w/o murmur, no JVD CTAB, no wheezes +BS No edema Lab Results: 06/01/25 0843 06/01/25 0843 Coagulation Studies Laboratory Tests Test 05/07/25 00:57 05/07/25 08:38 05/07/25 13:23 05/27/25 04:22 APTT (Heparin Protocol) 53 SECONDS (45-60) Patient Sex (Coag) M Patient Height (Coag) 170cm Patient Weight (Coag) 84.0k KG Patient Blood Volume 5799 ML Pump Volume 1500 ML Total Blood Volume 7299 ML Projected Heparin Concentration 1.8 MG/KG Heparin [place] 137 Calculated Heparin Bolus 71817 UNITS Activated Coagulation Time Baseline 141 SEC (101-148) Activated Coag Time 1.70 U/mL 323 SEC (193-297) H Activated Coag Time 2.84 U/mL 476 SEC (260-420) H Heparin Level (COAG) 0 MG/KG Calculated Heparin Req (Hep Assay) 14040 UNITS Calculated Protamine Req (Hep Assay 0 MG Activated Clotting Time 126 SEC (101-148) Prothrombin Time 12.7 SECONDS (9.0-12.0) H INR International Normalized Ratio 1.3 INR Activated Partial Thromboplast Time 23 SECONDS (22-32) Fibrinogen 295 MG/DL (177-424) Coagulation Comments Coagulation Clinical Comments Other Results I & O 06/01/25 07:00 Intake Total 1630 ml Output Total 2300 ml Balance -670 ml Intake Oral 1140 ml IV Total 490 ml Output Urine Total 2300 ml Problem\Assessment\Plan Problems/Diagnosis: (1) ALVIN (acute kidney injury) Assessment & Plan: Gastrointestinal bleed, had a rising THW-de-aspkvuuecr ratio suggestive of an upper GI source, EGD. He has received blood transfusions; his current hemoglobin is improved 11.1 g/dL. He does not have melanotic stools, nor hyperkalemia from a GI source. Monitor UOP and try to match his intake as close as possible (2) Acute hypernatremia Assessment & Plan: Improved with free water, now 138 (3) Acute hypoxic respiratory failure Assessment & Plan: Extubated, still encephalopathic,had bronchoscopy (4) Anemia due to acute blood loss Assessment & Plan: GI source, improved, Hgb 11.1 gm/dL, monitor closely (5) Protein calorie malnutrition Assessment & Plan: Finish Inspector consultation to help with a comprehensive nutritional plan during this admission and after he is discharged. Sepsis Screening Skin Color: Pale WALL,JENS M III DO Jun 01, 2025 11:16
[2025-06-01] MEDS: lactulose 20gm/30ml cup PO ONE (16:28)
[2025-06-02] VITALS (15 sets, daily range): BP systolic 147–182; BP diastolic 76–99; PULSE 88–104; RESP 18–32; TEMP 96.8–98.2; O2SAT 92–99
--- NOTE | 2025-06-02 08:09 | PROGRESS NOTE ---
Progress Note CV Providers to CC ~ Antibiotics Ordered?: No Subjective Subjective S/P CABG X 4 POD # 26. He was restless again last night. Presently he is on room air. Remains somewhat tachypneic. Has no specific complaint. He says a few words to me this morning. Wasn't able to cooperate with PT much yesterday per their notes. Objective Vitals Vital Signs Date Time Temp Pulse Resp B/P (MAP) Pulse Ox O2 Delivery O2 Flow Rate FiO2 06/02/25 07:38 95 22 Nasal Cannula 2.0 06/02/25 07:30 98 28 06/02/25 07:21 97.1 164/93 (116) Lab Results: 06/01/25 0843 06/01/25 0843 Objective Lungs - diminished at L base, some exp. wheezes Heart - RRR, paced Abd - softer today, + BS Extr - OK Incisions - CDI, L CT site no further drainage. Coagulation Studies Laboratory Tests Test 05/07/25 00:57 05/07/25 08:38 05/07/25 13:23 05/27/25 04:22 APTT (Heparin Protocol) 53 SECONDS (45-60) Patient Sex (Coag) M Patient Height (Coag) 170cm Patient Weight (Coag) 84.0k KG Patient Blood Volume 5799 ML Pump Volume 1500 ML Total Blood Volume 7299 ML Projected Heparin Concentration 1.8 MG/KG Heparin [place] 137 Calculated Heparin Bolus 62680 UNITS Activated Coagulation Time Baseline 141 SEC (101-148) Activated Coag Time 1.70 U/mL 323 SEC (193-297) H Activated Coag Time 2.84 U/mL 476 SEC (260-420) H Heparin Level (COAG) 0 MG/KG Calculated Heparin Req (Hep Assay) 67111 UNITS Calculated Protamine Req (Hep Assay 0 MG Activated Clotting Time 126 SEC (101-148) Prothrombin Time 12.7 SECONDS (9.0-12.0) H INR International Normalized Ratio 1.3 INR Activated Partial Thromboplast Time 23 SECONDS (22-32) Fibrinogen 295 MG/DL (177-424) Coagulation Comments Coagulation Clinical Comments Cardiac Rhythm: Sinus Rhythm, V Paced, AV Paced, Paced Problem\Assessment\Plan Additional Plan POD # 26 Labs are pending. If H/H remaining stable will change Protonix to IV BID Early is out. Sepsis Screening Skin Color: Pale Supervising MD Co-signing Provider: ANA Cedillo Jun 02, 2025 08:09
--- NOTE | 2025-06-02 08:39 | RADIOLOGY REPORT ---
CHEST RADIOGRAPH Indication: L effusion Technique: Single frontal view of the chest was obtained Comparison: DI CHEST,SINGLE VIEW on DOS: 06/01/25, DI CHEST,SINGLE VIEW on DOS: 05/31/25, DI CHEST,SINGLE VIEW on DOS: 05/30/25, DI CHEST,SINGLE VIEW on DOS: 05/28/25, DI CHEST,SINGLE VIEW on DOS: 05/27/25, DI CHEST,SINGLE VIEW on DOS: 06/01/25 FINDINGS: Lines and tubes: None Cardiomediastinal silhouette: Enlarged Pulmonary vasculature: Prominent Lung expansion: Low Lung airspace: Similar left basilar airspace opacity. Lung interstitium: normal Pleura: Small left pleural effusion. Pneumothorax: no Bones: Unremarkable Other: no IMPRESSION: Similar left basilar airspace opacity. Small left pleural effusion. Cardiomegaly.
[2025-06-02 09:01] LABS: MEAN PLATELET VOLUME 7.8 FL (7.4-10.4); RED CELL DISTRIBUTION WIDTH 17.3 % (11.5-14.5)
[2025-06-02 09:17] LABS: CREATININE 1.20 MG/DL (0.60-1.10); TOTAL CARBON DIOXIDE 27.0 MMOL/L (24-32); eCRCL 43 ML/MIN; eGFR 58 ML/MIN
[2025-06-02] MEDS ORDERED: iohexol 300mg/ml 100ml inj. ONE (17:04)
[2025-06-02] MEDS: normal saline 1000ml 1,000 ML IV ONE (17:20)
--- NOTE | 2025-06-02 18:29 | RADIOLOGY REPORT ---
CONTRAST ENHANCED CHEST COMPUTERIZED TOMOGRAPHY REASON FOR STUDY: Hematoma. Left pleural effusion. COMPARISON: CT CT CHEST on DOS: 05/19/25, CT CT CHEST on DOS: 05/11/25, CT CT CHEST on DOS: 05/04/25, DI CHEST,TWO VIEWS on DOS: 05/03/25, XR CHEST 1 VIEW on DOS: 05/03/25 TECHNIQUE: Axial CT images of the chest were obtained after the uneventful intravenous administration of contrast. 2-D coronal and sagittal reformatted images were provided. Radiation optimization: All CT scans at this facility use at least one of these dose optimization techniques: Automated exposure control mA and/or kV adjustment per patient size (includes targeted exams where dose is matched to clinical indication) or iterative reconstruction. RADIATION DOSE: CTDI: 19 mGy DLP: 660 mGy-cm CONTRAST: 100 mL omnipaque 300 by IV FINDINGS: Evaluation is degraded by respiratory motion artifact. Evaluation is further degraded by streak artifact from the patient's arms. There is trace right pleural effusion. There is minimal dependent atelectasis in the right lower lobe. There is small to moderate-sized left pleural effusion which appears mildly loculated. There is near complete consolidation of the left lower lobe. There are scant, thinly calcified pleural plaques bilaterally. The heart is enlarged. There are cardiac pacer wires. There is no significant pericardial effusion. There is a large hiatal hernia. There is severe, chronic appearing wedge compression deformity of the body of T4. There are sternotomy wires. There are acute, mildly displaced fractures of the left 4th and 5th ribs. IMPRESSION: Small to moderate-sized left pleural effusion with near-complete consolidation of the left lower lobe. Trace right pleural effusion.
[2025-06-02] MEDS: pantoprazole 40mg Tablet.DR PO SCH (19:36)
[2025-06-03] VITALS (20 sets, daily range): BP systolic 125–172; BP diastolic 51–102; PULSE 90–104; RESP 20–28; TEMP 97.5–99.5; O2SAT 7–97
--- NOTE | 2025-06-03 07:06 | RADIOLOGY REPORT ---
CHEST RADIOGRAPH Indication: L effusion Technique: Single frontal view of the chest was obtained Comparison: DI CHEST,SINGLE VIEW on DOS: 06/02/25, DI CHEST FINDINGS: Lines and Tubes: Dual-chamber pacemaker noted. Lungs: Patchy left upper and lower lobe consolidation. Pleura: Bilateral pleural effusions. No pneumothorax. Cardiomediastinal contours: Cardiomegaly. Bones: No acute osseous abnormality. IMPRESSION: 1. Cardiomegaly. 2. Bilateral pleural effusions. 3. Patchy left upper and lower lobe consolidation.
[2025-06-03 08:58] LABS: MEAN PLATELET VOLUME 8.0 FL (7.4-10.4); RED CELL DISTRIBUTION WIDTH 17.0 % (11.5-14.5)
[2025-06-03 09:15] LABS: CREATININE 1.17 MG/DL (0.60-1.10); TOTAL CARBON DIOXIDE 24.8 MMOL/L (24-32); eCRCL 44 ML/MIN; eGFR 59 ML/MIN
--- NOTE | 2025-06-03 10:12 | PROGRESS NOTE ---
Progress Note CV Providers to CC ~ Antibiotics Ordered?: No Subjective Subjective S/P CABG X 4 POD # 27. He rested much better last night after being awake most of the day yesterday. Did not require restraints. He awakens and interacts today. Objective Vitals Vital Signs Date Time Temp Pulse Resp B/P (MAP) Pulse Ox O2 Delivery O2 Flow Rate FiO2 06/03/25 07:26 103 22 125/75 (92) 97 Bi-pap/CPAP 06/03/25 02:00 97.7 06/02/25 20:19 2.0 06/02/25 20:12 28 Lab Results: 06/03/25 0845 06/03/25 0845 Objective Lungs - decreased L base Heart - RRR, paced Abd/Extr - OK Incisions - CDI Coagulation Studies Laboratory Tests Test 05/07/25 00:57 05/07/25 08:38 05/07/25 13:23 05/27/25 04:22 APTT (Heparin Protocol) 53 SECONDS (45-60) Patient Sex (Coag) M Patient Height (Coag) 170cm Patient Weight (Coag) 84.0k KG Patient Blood Volume 5799 ML Pump Volume 1500 ML Total Blood Volume 7299 ML Projected Heparin Concentration 1.8 MG/KG Heparin [place] 137 Calculated Heparin Bolus 66953 UNITS Activated Coagulation Time Baseline 141 SEC (101-148) Activated Coag Time 1.70 U/mL 323 SEC (193-297) H Activated Coag Time 2.84 U/mL 476 SEC (260-420) H Heparin Level (COAG) 0 MG/KG Calculated Heparin Req (Hep Assay) 85758 UNITS Calculated Protamine Req (Hep Assay 0 MG Activated Clotting Time 126 SEC (101-148) Prothrombin Time 12.7 SECONDS (9.0-12.0) H INR International Normalized Ratio 1.3 INR Activated Partial Thromboplast Time 23 SECONDS (22-32) Fibrinogen 295 MG/DL (177-424) Coagulation Comments Coagulation Clinical Comments Cardiac Rhythm: Sinus Rhythm, V Paced, AV Paced, Paced Problem\Assessment\Plan Additional Plan POD # 27 CV stable Creat down to 1.17 CT showed LLL collapse. Reviewed by Dr. Steiner. He has requested Dr. Esteban jenkinsal for possible bronch. Hgb remaining stable. DC planning for rehab placement. Sepsis Screening Reassessment Date: Jun 03, 2025 Skin Color: Pale Supervising MD Co-signing Provider: ANA Cedillo Jun 03, 2025 10:12
[2025-06-04] VITALS (11 sets, daily range): BP systolic 133–148; BP diastolic 87–94; PULSE 91–106; RESP 18–26; TEMP 97.5–97.9; O2SAT 91–97
--- NOTE | 2025-06-04 06:50 | RADIOLOGY REPORT ---
CHEST RADIOGRAPH Indication: L effusion Technique: Single frontal view of the chest was obtained Comparison: DI CHEST,SINGLE VIEW on DOS: 06/03/25 FINDINGS: Lines and Tubes: There is a dual-chamber pacemaker with right atrial and ventricular leads. Lungs: Left upper and lower lung zone opacities. Pleura: Stable left pleural effusion. No pneumothorax. Cardiomediastinal contours: Cardiomegaly. Bones: No acute osseous abnormality. Status post median sternotomy. IMPRESSION: 1. Stable left pleural effusion and left lung opacities.
--- NOTE | 2025-06-04 09:16 | PROGRESS NOTE ---
Progress Note CV Providers to CC ~ Antibiotics Ordered?: No Subjective Subjective S/P CABG X 4 POD # 28. He is sitting up in bed. is feeding him and he is alert and somewhat conversant. says she had a talk with DC planning yesterday and has decided on rehab for a couple of weeks prior to going home. In the meantime she can arrange for a hospital bed at home. Objective Vitals Vital Signs Date Time Temp Pulse Resp B/P (MAP) Pulse Ox O2 Delivery O2 Flow Rate FiO2 06/04/25 08:43 99 18 Room Air 06/04/25 08:16 92 2 28 06/04/25 02:00 97.5 133/87 (102) Lab Results: 06/03/25 0845 06/03/25 0845 Objective Lungs - diminished L base Heart - RRR, paced Abd/extr - OK Incisions - CDI, no further drainage from L CT site. Mediastinal sutures have been removed. Coagulation Studies Laboratory Tests Test 05/07/25 00:57 05/07/25 08:38 05/07/25 13:23 05/27/25 04:22 APTT (Heparin Protocol) 53 SECONDS (45-60) Patient Sex (Coag) M Patient Height (Coag) 170cm Patient Weight (Coag) 84.0k KG Patient Blood Volume 5799 ML Pump Volume 1500 ML Total Blood Volume 7299 ML Projected Heparin Concentration 1.8 MG/KG Heparin [place] 137 Calculated Heparin Bolus 60358 UNITS Activated Coagulation Time Baseline 141 SEC (101-148) Activated Coag Time 1.70 U/mL 323 SEC (193-297) H Activated Coag Time 2.84 U/mL 476 SEC (260-420) H Heparin Level (COAG) 0 MG/KG Calculated Heparin Req (Hep Assay) 68518 UNITS Calculated Protamine Req (Hep Assay 0 MG Activated Clotting Time 126 SEC (101-148) Prothrombin Time 12.7 SECONDS (9.0-12.0) H INR International Normalized Ratio 1.3 INR Activated Partial Thromboplast Time 23 SECONDS (22-32) Fibrinogen 295 MG/DL (177-424) Coagulation Comments Coagulation Clinical Comments Cardiac Rhythm: Sinus Rhythm, V Paced, AV Paced, Paced Problem\Assessment\Plan Additional Plan POD # 28 Strength is gradually improving. Eating well. H/H remaining stable To rehab today if arrangements can be made. I will fill out orders. Sepsis Screening Reassessment Date: Jun 04, 2025 Skin Color: Pale Supervising MD Co-signing Provider: ANA Cedillo Jun 04, 2025 09:16
[2025-06-04 10:23] LABS: CREATININE 1.22 MG/DL (0.60-1.10); TOTAL CARBON DIOXIDE 26.9 MMOL/L (24-32); eCRCL 42 ML/MIN; eGFR 57 ML/MIN
--- NOTE | 2025-06-05 19:04 | DISCHARGE SUMMARY ---
DATE OF DISCHARGE: 06/04/2025 DICTATING PHYSICIAN: Sen Guevara ADMITTING PHYSICIAN: Hospitalist service. CARDIAC SURGEON: Dr. Ramiro Molina, also seen by Dr. Zachary Cano and Dr. Daniel Steiner. TRIAGE REGISTER NURSE: Dr. Roberto. PREOPERATIVE DIAGNOSES: Severe multivessel coronary artery disease, hypertension, nicotine dependence, and preoperative elevated creatinine. DISCHARGE DIAGNOSES: Severe multivessel coronary artery disease, hypertension, nicotine dependence, and preoperative elevated creatinine, along with status post coronary artery bypass graft surgery x4, also postoperative renal failure requiring dialysis, postoperative respiratory failure requiring re-intubation, postoperative gastrointestinal bleed, and Escherichia coli pneumonia. SUMMARY: This is a very pleasant 84-year-old male patient who presented to the emergency department with progressive chest tightness and shortness of breath. Troponin was elevated. Cardiac catheterization demonstrated multivessel coronary artery disease. The patient remained pain-free and hemodynamically stable. A period of time was allowed to allow for renal recovery post catheterization and actually his creatinine normalized preoperatively. He was taken to the operating room by Dr. Molina on 05/07/2025 naming the operation as coronary artery bypass grafting with left internal mammary artery to the LAD, sequential saphenous vein graft to obtuse marginal, ramus, and right PDA sequentially along with endoscopic vein harvesting and transesophageal echocardiography. Following the operation, the patient was transferred to the CICU in stable condition. The following morning, he was awake and mildly confused, very dry and thirsty. He had no complaints of nausea. Initial H and H postop day #1 was 8.2 and 24.2 after receiving a unit of packed cells and two ten packs of platelets along with cryo the night before. The patient was maintained on milrinone and dobutamine. Lasix was administered postop day #1 and the patient subsequently began to have decreasing urine output. Lasix drip was started; however, the patient's renal situation worsened. Repeat echocardiogram demonstrated an EF of 50% with an underfilled LV with no effusion or clot, and mild depression of the RV function. The patient went on to go into renal failure requiring dialysis and required reintubation. Chest tubes were placed. The left chest tube placement resulted in bleeding requiring reoperation on 05/11 for control of chest wall bleeding. The patient had significant blood loss from this and experienced elevated liver function testing and shock liver. He was required to be n.p.o. for a period of time also because of ileus. Ultimately, the ileus resolved. He did require digital disimpaction and for several days required ongoing dialysis. Ultimately, his renal function has recovered back to baseline. He required bronchoscopy. The patient developed E. coli pneumonia postoperatively, requiring antibiotics. Ultimately, the antibiotics were discontinued. On postop day #20, the patient developed melanotic stools and a drop in his hemoglobin to 4.9. Once again, he received multiple transfusions along with Kayexalate given for an elevated potassium at 6. GI was consulted and an upper GI demonstrated an esophageal ulcer, which was not actively bleeding at the time of the endoscopy. The patient was placed on a Protonix drip as well as Carafate. NG tube feedings continued. Ultimately, these were able to be discontinued and the patient was cleared by Speech for a soft, chopped diet. He has been able to slowly improve in terms of his overall ability to eat and initially after re-extubation was quite confused and required a sitter, particularly in the evening hours. Over the past several days prior to discharge, he has become more alert and interactive. He will certainly require extensive physical therapy as he is quite debilitated and weak. Ultimately, the agreed to allow him to be transferred to ____ post-acute for further rehabilitation. DISCHARGE PROGRAM: Discharge program will be followup appointment with our office in 1 week. Followup appointment with Dr. Roberto's office in 4 weeks and with his primary physician in 6 weeks. ACTIVITY: Activity will be physical therapy and occupational therapy daily. MEDICATIONS ON DISCHARGE: Medications will be Protonix 40 mg p.o. b.i.d., Lipitor 80 mg p.o. daily, milk of magnesia 30 mL p.o. b.i.d. p.r.n. constipation, loperamide 2 mg p.o. p.r.n. diarrhea, [place] 10/325 mg 1 p.o. q.4 hours p.r.n. pain. We will resume his home metformin 500 mg p.o. b.i.d., Lantus 25 subcutaneously daily, and sliding scale insulin, Carafate 1 gram q.i.d., Pulmicort 0.5 mg b.i.d. inhalation, mineral oil enema daily p.r.n., DuoNebs q.4 hours. p.r.n. wheezing, and Plavix 75 mg p.o. daily. I did have a conversation specifically with Dr. Steiner regarding antiplatelet therapy as for a period of time, particularly during the GI bleed, all antiplatelets had to be held and he specifically requested Plavix and continued to hold aspirin at this time. Sen Guevara TID: [id number] RECEIPT: [id number] BARB/OZ cc: Pardeep, Cardiac Surgery
--- NOTE | 2025-06-30 01:45 | CARDIOLOGY REPORT ---
DATE OF SERVICE: 05/04/2025 DICTATING PHYSICIAN: Thaddeus Roberto MD CARDIAC CATHETERIZATION REPORT DATE OF STUDY: 05/04/2025. PROCEDURES: * Left heart catheterization. * Selective coronary angiography. * Left ventriculography. * Left subclavian and nonselective left internal mammary artery angiography. * Right subclavian and nonselective right internal mammary artery angiography. * Conscious sedation monitoring time for 45 minutes. INDICATION: Unstable angina. PHYSICIAN: Thaddeus Roberto MD DESCRIPTION OF PROCEDURE: After informed consent was obtained, the patient was brought to the lab where he was prepped and draped in the usual sterile fashion. A 6-Pashto sheath was inserted into the right femoral artery. Next, using a JL4 followed by JR4 catheter, selective coronary angiography was performed. Next, a pigtail catheter was advanced into the left ventricle and left ventriculography performed. Using a [employer] 2 catheter, the catheter was engaged into the right subclavian and the left subclavian, and selective subclavian and nonselective left internal mammary artery angiography was also performed. HEMODYNAMICS: For the patient's hemodynamics, please refer to the event log. Left ventricular end-diastolic pressure was 10 mmHg. FINDINGS: The left main coronary artery is a normal caliber vessel, free of significant disease. The left anterior descending coronary artery has tandem mid and distal stenosis. The mid vessel stenosis is 80% and the mid to distal 60% to 70% stenosis. The diagonal branch of the LAD also has a 90% stenosis. The ramus intermedius has a high-grade 90% stenosis. 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 The right coronary artery is a large dominant vessel with hazy 40% stenosis of the proximal mid and mild diffuse distal disease. Left ventricular end diastolic pressure was 10 mmHg. No significant stenosis in both the right and left subclavian arteries. High-grade stenosis in the right common femoral artery is noted. IMPRESSION: * Three-vessel disease as described above. * Left ventricular end diastolic pressure is 10 mmHg. * Incidental finding of a high-grade calcified stenosis in the right common femoral artery. RECOMMENDATION: Surgical revascularization. Thaddeus Roberto MD TID: [id number] RECEIPT: [id number] TALYA/BEAU
[2025-07-14] MEDS ORDERED: GABA-530 PO (10:34)
[2025-07-14] MEDS ORDERED: FURO-150 PO (10:41)
== END 2025-06-04 16:15 | DRG 233 ==
LOC: ER 21:13 → ED HOLD 22:39 → PCU 3S 23:57 → CICU 2S 05-06 09:39 → PCU 3S 05-30 15:55
PROVIDERS: ADMIT Internal Medicine; ATTEND Internal Medicine
PROC: 4A023N7 Measurement of Cardiac Sampling and Pressure, Left Heart, Percutaneous Approach (ICD-10-PCS; 2025-05-04)
PROC: B2111ZZ Fluoroscopy of Multiple Coronary Arteries using Low Osmolar Contrast (ICD-10-PCS; 2025-05-04)
PROC: B2151ZZ Fluoroscopy of Left Heart using Low Osmolar Contrast (ICD-10-PCS; 2025-05-04)
PROC: 5A09357 Assistance with Respiratory Ventilation, Less than 24 Consecutive Hours, Continuous Positive Airway Pressure (ICD-10-PCS; 2025-05-05)
PROC: 5A09357 Assistance with Respiratory Ventilation, Less than 24 Consecutive Hours, Continuous Positive Airway Pressure (ICD-10-PCS; 2025-05-06)
PROC: 021209W Bypass Coronary Artery, Three Arteries from Aorta with Autologous Venous Tissue, Open Approach (ICD-10-PCS; 2025-05-07)
PROC: 06BY4ZZ Excision of Lower Vein, Percutaneous Endoscopic Approach (ICD-10-PCS; 2025-05-07)
PROC: 5A1221Z Performance of Cardiac Output, Continuous (ICD-10-PCS; 2025-05-07)
PROC: 02L70ZK Occlusion of Left Atrial Appendage, Open Approach (ICD-10-PCS; 2025-05-07)
PROC: B24BZZ4 Ultrasonography of Heart with Aorta, Transesophageal (ICD-10-PCS; 2025-05-07)
PROC: 5A09357 Assistance with Respiratory Ventilation, Less than 24 Consecutive Hours, Continuous Positive Airway Pressure (ICD-10-PCS; 2025-05-07)
PROC: 30233M1 Transfusion of Nonautologous Plasma Cryoprecipitate into Peripheral Vein, Percutaneous Approach (ICD-10-PCS; 2025-05-07)
PROC: 30233N1 Transfusion of Nonautologous Red Blood Cells into Peripheral Vein, Percutaneous Approach (ICD-10-PCS; 2025-05-07)
PROC: 02100Z9 Bypass Coronary Artery, One Artery from Left Internal Mammary, Open Approach (ICD-10-PCS; principal; 2025-05-07 07:46)
PROC: 5A09357 Assistance with Respiratory Ventilation, Less than 24 Consecutive Hours, Continuous Positive Airway Pressure (ICD-10-PCS; 2025-05-08)
PROC: 5A0935A Assistance with Respiratory Ventilation, Less than 24 Consecutive Hours, High Flow/Velocity Cannula (ICD-10-PCS; 2025-05-08)
PROC: 5A0935A Assistance with Respiratory Ventilation, Less than 24 Consecutive Hours, High Flow/Velocity Cannula (ICD-10-PCS; 2025-05-09)
PROC: 5A09457 Assistance with Respiratory Ventilation, 24-96 Consecutive Hours, Continuous Positive Airway Pressure (ICD-10-PCS; 2025-05-09)
PROC: 0W383ZZ Control Bleeding in Chest Wall, Percutaneous Approach (ICD-10-PCS; 2025-05-11)
PROC: 0W9930Z Drainage of Right Pleural Cavity with Drainage Device, Percutaneous Approach (ICD-10-PCS; 2025-05-11)
PROC: 0BH17EZ Insertion of Endotracheal Airway into Trachea, Via Natural or Artificial Opening (ICD-10-PCS; 2025-05-11)
PROC: 5A1955Z Respiratory Ventilation, Greater than 96 Consecutive Hours (ICD-10-PCS; 2025-05-11)
PROC: 30233R1 Transfusion of Nonautologous Platelets into Peripheral Vein, Percutaneous Approach (ICD-10-PCS; 2025-05-12)
PROC: 30233K1 Transfusion of Nonautologous Frozen Plasma into Peripheral Vein, Percutaneous Approach (ICD-10-PCS; 2025-05-13)
PROC: 0B9J8ZZ Drainage of Left Lower Lung Lobe, Via Natural or Artificial Opening Endoscopic (ICD-10-PCS; 2025-05-20)
PROC: 0B938ZZ Drainage of Right Main Bronchus, Via Natural or Artificial Opening Endoscopic (ICD-10-PCS; 2025-05-20)
PROC: 0B9J8ZX Drainage of Left Lower Lung Lobe, Via Natural or Artificial Opening Endoscopic, Diagnostic (ICD-10-PCS; 2025-05-20)
PROC: 5A09357 Assistance with Respiratory Ventilation, Less than 24 Consecutive Hours, Continuous Positive Airway Pressure (ICD-10-PCS; 2025-05-20)
PROC: 5A09357 Assistance with Respiratory Ventilation, Less than 24 Consecutive Hours, Continuous Positive Airway Pressure (ICD-10-PCS; 2025-05-21)
PROC: 5A09357 Assistance with Respiratory Ventilation, Less than 24 Consecutive Hours, Continuous Positive Airway Pressure (ICD-10-PCS; 2025-05-22)
PROC: 5A09357 Assistance with Respiratory Ventilation, Less than 24 Consecutive Hours, Continuous Positive Airway Pressure (ICD-10-PCS; 2025-05-23)
PROC: 5A09357 Assistance with Respiratory Ventilation, Less than 24 Consecutive Hours, Continuous Positive Airway Pressure (ICD-10-PCS; 2025-05-24)
PROC: 5A09357 Assistance with Respiratory Ventilation, Less than 24 Consecutive Hours, Continuous Positive Airway Pressure (ICD-10-PCS; 2025-05-25)
PROC: 5A09357 Assistance with Respiratory Ventilation, Less than 24 Consecutive Hours, Continuous Positive Airway Pressure (ICD-10-PCS; 2025-05-26)
PROC: 5A09357 Assistance with Respiratory Ventilation, Less than 24 Consecutive Hours, Continuous Positive Airway Pressure (ICD-10-PCS; 2025-05-27)
DX: I21.4 Non-ST elevation (NSTEMI) myocardial infarction (principal); J15.5 Pneumonia due to Escherichia coli; J95.821 Acute postprocedural respiratory failure; K72.00 Acute and subacute hepatic failure without coma; K22.11 Ulcer of esophagus with bleeding; G93.40 Encephalopathy, unspecified; E46 Unspecified protein-calorie malnutrition; J94.2 Hemothorax; J44.0 Chronic obstructive pulmonary disease with (acute) lower respiratory infection; D68.9 Coagulation defect, unspecified; K92.2 Gastrointestinal hemorrhage, unspecified; N17.9 Acute kidney failure, unspecified; D69.6 Thrombocytopenia, unspecified; E11.51 Type 2 diabetes mellitus with diabetic peripheral angiopathy without gangrene; N18.9 Chronic kidney disease, unspecified; I12.9 Hypertensive chronic kidney disease with stage 1 through stage 4 chronic kidney disease, or unspecified chronic kidney disease; D62 Acute posthemorrhagic anemia; E87.0 Hyperosmolality and hypernatremia; K56.7 Ileus, unspecified; J98.11 Atelectasis; K56.609 Unspecified intestinal obstruction, unspecified as to partial versus complete obstruction; E11.22 Type 2 diabetes mellitus with diabetic chronic kidney disease; E11.65 Type 2 diabetes mellitus with hyperglycemia; I25.10 Atherosclerotic heart disease of native coronary artery without angina pectoris; I48.91 Unspecified atrial fibrillation; F17.210 Nicotine dependence, cigarettes, uncomplicated; E78.5 Hyperlipidemia, unspecified; E87.5 Hyperkalemia; Z68.29 Body mass index [BMI] 29.0-29.9, adult; F41.9 Anxiety disorder, unspecified; G47.33 Obstructive sleep apnea (adult) (pediatric); Z95.0 Presence of cardiac pacemaker
CPT/HCPCS: 0232T; 31622; 31624; 31645; 36569; 43239; 93306; 93308; 93312; 93325; 93458; 99285; 36415; 36430; 36600; 71045; 71046; 71250; 71260; 74018; 74176; 76942; 80047; 80048; 80053; 80061; 80069; 80076; 81001; 81003; 82330; 82435; 82570; 82728; 82803; 82947; 82948; 83010; 83036; 83540; 83550; 83605; 83615; 83735; 83880; 83930; 83935; 84100; 84132; 84133; 84134; 84145; 84156; 84295; 84300; 84478; 84484; 84540; 85007; 85008; 85018; 85025; 85027; 85045; 85347; 85384; 85610; 85730; 86022; 86880; 86885; 86900; 86901; 86920; 87070; 87077; 87081; 87186; 87207; 87340; 88305; 88342; 92508; 92616; 93005; 93880; 93970; 94002; 94003; 94010; 94640; 94660; 94664; 94668; 94760; 94799; 97110; 97116; 97161; 97530; 97535; 99152; 99153; A4314; A4333; A4615; A4618; A4620; A4624; A5200; A6196; A6213; A6222; A6223; A6250; A6253; A6258; A6446; A6449; A6590; A7000; A7015; A7048; A9900; C1751; C1752; C1758; C1769; C1894; E1594; G0257; G0378; J0131; J0169; J0282; J0360; J0612; J0690; J0692; J0744; J1100; J1200; J1250; J1265; J1630; J1644; J1815; J1938; J1956; J2003; J2151; J2185; J2250; J2260; J2270; J2312; J2354; J2371; J2405; J2440; J2470; J2704; J2710; J2720; J2765; J2919; J3010; J3373; J3475; J3480; J3490; J7030; J7040; J7042; J7050; J7060; J7070; J7120; P9012; P9016; P9035; P9045; P9047; P9059; Q4081; Q9963; Q9967

== ENCOUNTER 2025-06-12 09:02 | Inpatient (IN) | payer MEDICARE ==
[~2025-06-12] VITALS: Ht 172.7 cm; Wt 84.0 kg
[2025-06-12] VITALS (7 sets, daily range): BP systolic 145–175; BP diastolic 83–102; PULSE 104–114; RESP 18–31; TEMP 97.8–100.6; O2SAT 93–98
[~2025-06-12 09:02] MED LIST changes: -ATOR-429 PO; +ATOR40TA PO; +CHLO4TAB36 PO; +GABA300C PO; +GARLIC PO; -GLUC15006 PO; +GLUC1TAB75 PO; +METO-384 PO; -METO50TA16 PO; +VIT1CAPS46 PO; +VITE400C PO
--- NOTE | 2025-06-12 09:11 | ELECTROCARDIOGRAPH REPORT ---
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 Ifeanyi Miller Measurements Intervals [place] Rate: 89 P: -25 CO: 180 QRS: -76 QRSD: 158 T: 94 QT: 410 QTc: 499 Interpretive Statements Ventricular-paced complexes No further analysis attempted due to paced rhythm Electronically Signed On 06-12-2025 18:50:[address] Ifeanyi Miller Please click the below link to view image of tracing.
--- NOTE | 2025-06-12 09:12 | Physician Documentation ---
History of Present Illness ~ Stated Complaint: WEAKNESS Time Seen by MD: 09:04 OK to notify your PCP?: Yes HPI This is an 84-year-old male who was brought to the emergency department per ambulance from [facility]. He is there recovering from a recent four vessel CABG. Stay at this hospital 05/07/2025 through 06/04/2025. Postoperative course complicated by ALVIN requiring dialysis for several days, postop ileus, acute respiratory failure, fracture left 5th rib, elevated transaminases, acute blood loss anemia. CABG was done by Dr. Molina, four vessel, on 05/07/2025. Patient presents today due to worsening of his status. presented today to visit him, found him profoundly weak and with reduced responsiveness. She reports that yesterday, he was up walking with PT. Medication Reconciliation Allergies: Coded Allergies: chlorhexidine (Verified Allergy, Severe, SEVERE RASH WITH BLISTERS, 06/12/25) Scheduled Ascorbic Acid (Vitamin C), 2,000 MG PO DAILY, (Reported) Aspirin (Aspirin), 1 TAB PO DAILY, (Reported) Atorvastatin Calcium* (Lipitor*), 1 TAB PO HS, (Reported) Docosahexanoic Acid/Epa (Fish Oil 1,000 Mg Softgel), 1 CAP PO DAILY, (Reported) Gabapentin (Neurontin), 300 MG PO TID, (Reported) Glucosamine/Chondro [place] A (Glucosamine-Chondroitin Tab), 2 TAB PO DAILY, (Reported) Loratadine* (Claritin*), 10 MG PO DAILY, (Reported) Losartan/Hydrochlorothiazide (Losartan-Hctz 50-12.5 Mg Tab), 1 TAB PO DAILY, (Reported) Metformin Hcl (Metformin Hcl), 1 TAB PO Q12H, (Reported) Metoprolol Succinate (Metoprolol Succinate), 1 TAB PO BID, (Reported) Multivitamin (Multi-Vitamin Daily), 1 EACH PO DAILY, (Reported) Omeprazole* (Prilosec*), 20 MG PO BID, (Reported) Saw/Pygeum/Nettle/Pumpkn/Aa#17 ([facility] Prostate Health Formula Tb), 1 EACH PO DAILY, (Reported) Vit C/E/Zn/Coppr/Lutein/Zeaxan (Preservision Areds 2 Softgel), 1 CAP PO Q12H, (Reported) Vitamin E Acetate (Vitamin E), 2 CAP PO DAILY, (Reported) [Garlic], 1 TAB PO Q12H, (Reported) [prevagen], 50 MCG PO DAILY, (Reported) Scheduled PRN Chlorpheniramine Maleate (Chlorpheniramine Maleate), 1 TAB PO DAILY PRN for allergies, (Reported) Past Medical History Alcohol Use: None Drug Use: none Lives with: Spouse Lives In: Home Occupation: retired Review of Systems ROS As stated above in the HPI, otherwise all systems are reviewed and negative. Physical Exam Physical Exam General: Lethargic, follows commands inconsistently. HEENT: PERRL, EOMI, no injection, moist mucous membranes. Neck: Full range of motion. Respiratory: Lungs clear, no respiratory distress. Chest: No accessory muscle use. Well healed midline sternal incision. Dressing left chest at site of previous chest tube. Cardiovascular: Regular rate and rhythm, no murmurs. Gastrointestinal: Soft, nontender, nondistended. Bowels sounds present. : Scrotal swelling. Penile lesion with mild surrounding erythema. Extremities: Normal range of motion, no deformity. Neurologic: Disoriented and does not follow commands consistently. No focal deficits, moves extremities randomly. Psychiatric: Agitated at times. Skin: Normal color, warm and dry. 2+ edema BLE. Progress Results/Orders Results/Orders Orders - AGUEDA MENDEZ TELECOMMUNICATIONS SALES REPRESENTATIVE Chest,Single View (06/12/25 09:08) Saline Lock (06/12/25 09:08) Monitor (06/12/25 09:08) Oxygen (06/12/25 09:08) Hs Troponin I W Calculations (06/12/25 11:08) Hs Troponin I W Calculations (06/12/25 12:08) Culture Blood (06/12/25 09:08) Ct Head (06/12/25 09:08) * Straight Cath* (06/12/25 10:31) Syphilis Screen Poc (06/12/25 11:05) Cult (Aer) Routine C&S+Gram St (06/12/25 11:01) Page Hospitalist (06/12/25 ) Completed Orders - AGUEDA MENDEZ TELECOMMUNICATIONS SALES REPRESENTATIVE Cbc/Diff (06/12/25 09:08) MG (06/12/25 09:08) Electrocardiogram (06/12/25 09:08) PBNP (06/12/25 09:08) Chest,Single View (06/12/25 09:08) BMP (06/12/25 09:08) Hs Troponin I W Calculations (06/12/25 09:08) Urinalysis, Cult If Indicated (06/12/25 09:08) Ct Head (06/12/25 09:08) Procalcitonin (06/12/25 09:08) Lacticsepsis (06/12/25 09:08) Lidocaine 2% Jelly 11ml Syr (Glydo-Lidoc (06/12/25 09:35) Bacitracin Ointment Ud Pkt (Bacitracin O (06/12/25 09:35) Bacitracin Ointment Ud Pkt (Bacitracin O (06/12/25 09:35) Liver Panel (06/12/25 09:26) Bacitracin Ointment (Bacitracin Ointment (06/12/25 10:05) Cefepime 2gm In D5w 50ml (Cefepime-D5w 2 (06/12/25 11:40) Medications Received in ER Medications (Trade) Dose Ordered Sig/Roc Route PRN Reason Start Time Stop Time Status Last Admin Dose Admin (GLYDO-Lidocaine 2% Topical Jelly 11mL syringe) 1 applic ONCE ONCE TOP 06/12/25 09:35 06/12/25 09:36 DC 06/12/25 11:00 1 APPLIC (bacitracin ointment UD packet) 1 each ONCE ONCE TP 06/12/25 09:35 06/12/25 09:38 DC 06/12/25 09:35 1 EACH (bacitracin ointment) 1 applic ONCE ONCE TP 06/12/25 10:05 06/12/25 10:06 DC 06/12/25 10:05 1 APPLIC Vital Signs 06/12/25 06/12/25 06/12/25 09:05 09:22 11:09 Temp 98.0 98.0 Pulse 90 91 Resp 22 26 21 B/P (MAP) 143/94 158/92 (114) Pulse Ox 98 96 O2 Flow Rate 0 0 Laboratory Tests Test 06/12/25 09:26 06/12/25 10:48 06/12/25 11:15 06/12/25 12:03 White Blood Count 6.5 Red Blood Count 3.37 L Hemoglobin 10.2 L Hematocrit 30.8 L Mean Corpuscular Volume 91.5 Mean Corpuscular Hemoglobin 30.2 Mean Corpuscular Hemoglobin Concent 33.1 Red Cell Distribution Width 16.4 H Platelet Count 160 Mean Platelet Volume 7.3 L Neutrophils (%) (Auto) 80.2 H Lymphocytes (%) (Auto) 10.1 L Monocytes (%) (Auto) 8.2 Eosinophils (%) (Auto) 1.0 Basophils (%) (Auto) 0.5 Neutrophils # (Auto) 5.2 Lymphocytes # (Auto) 0.7 L Monocytes # (Auto) 0.5 Eosinophils # (Auto) 0.1 Basophils # (Auto) 0.0 CBC Comment Sodium Level 139 Potassium Level 3.6 Chloride Level 104 Carbon Dioxide Level 29.2 Anion Gap 6 L Blood Urea Nitrogen 29 H Creatinine 1.21 H Estimated GFR/1.73 m2 57 BUN/Creatinine Ratio 24.0 H Glucose Level 94 Lactic Acid Level 1.0 Calcium Level 8.8 Magnesium Level 1.6 Total Bilirubin 0.6 Direct Bilirubin 0.3 Aspartate Amino Transf (AST/SGOT) 39 H Alanine Aminotransferase (ALT/SGPT) 70 Alkaline Phosphatase 92 Troponin I High Sensitivity 56 Pro-B-Type Natriuretic Peptide 6329 H Total Protein 6.7 Albumin 2.3 L Globulin 4.4 H Albumin/Globulin Ratio 0.5 L Procalcitonin 0.06 Chemistry Comments Urine Specimen Description Cln catch midstream Urine Color Yellow Urine Clarity Clear Urine pH 6.0 Urine Specific [place] 1.010 Urine Protein Negative Urine Glucose (UA) Negative Urine Ketones Negative Urine Occult Blood Negative Urine Nitrite Negative Urine Bilirubin Negative Urine Urobilinogen 0.2 Urine Leukocyte Esterase Negative Urine Culture Indicated Not ind Volume Urine Centrifuged 10 ml Urine Comment Microbiology Date/Time Source Procedure Growth Status 06/12/25 09:27 Blood Arm Right Blood Culture - Preliminary NEGATIVE (LESS THAN 24 HOURS) Resulted EKG/XRAY/CT/US/VASC/MRI EKG : Additional Comment 090 EKG interpreted to show V paced rhythm rate of 89. No ST segment elevation. QTC 499 ms. Chest X-Ray : Additional Comments [facility] [address] [facility], [facility] [address] DIAGNOSTIC RADIOLOGY Patient: HECTOR SHELTON Medical Record: [id number] [facility] : 1940, Age: 84 Sex: Male Location: ER Patient Status: [facility] ER Service Date/Time: 06/12/25907 Ordering Physician: AGUEDA MENDEZ NP Exam: CHEST,SINGLE VIEW EXAM: DI CHEST,SINGLE VIEW Indication: CP Technique: Single frontal view of the chest was obtained Comparison: DI CHEST,SINGLE VIEW on DOS: 06/04/25, DI CHEST,SINGLE VIEW on DOS: 06/03/25, CT CT CHEST W/ IV CONTRAST on DOS: 06/02/25, DI CHEST,SINGLE VIEW on DOS: 06/02/25, DI CHEST,SINGLE VIEW on DOS: 06/01/25 FINDINGS: Lines and Tubes: Cardiac pacemaker projects over the right chest wall. Lungs: Low lung volumes. Moderate left pleural effusion. Multifocal airspace opacities. No pneumothorax. Cardiomediastinal contours: Cardiomegaly. Atherosclerotic vascular calcifications of the thoracic aorta are noted. Bones: No acute osseous abnormality. IMPRESSION: Cardiomegaly with pulmonary edema and moderate left pleural effusion. Electronically Signed by:FLAQUITO HUSTON MD Date & Time: 06/12/251026 Dictated by: FLAQUITO HUSTON MD Dictation date and time: 06/12/25 102 Primary Care Provider: NO PRIMARY CARE PROVIDER cc: AGUEDA MENDEZ TELECOMMUNICATIONS SALES REPRESENTATIVE ~ CT : Impression [address], [facility] [address] CAT SCAN Patient: HECTOR SHELTON Medical Record: [id number] [facility] : 1940, Age: 84 Sex: Male Location: ER Patient Status: REG ER Service Date/Time: 06/12/25907 Ordering Physician: AGUEDA MENDEZ TELECOMMUNICATIONS SALES REPRESENTATIVE Exam: CT HEAD CT CT HEAD Indication: Sepsis EXAM DATE: 06/12/2025 09:43 AM COMPARISON: None TECHNIQUE: CT of the head without intravenous contrast. RADIATION DOSE: CTDIvol: 64 mGy, DLP: 1276 mGy*cm FINDINGS: There is no intracranial hemorrhage. There is no extra-axial fluid, mass, mass effect or midline shift. The ventricles are midline and normal in size. Basilar cisterns are patent. There are moderate periventricular and subcortical white matter chronic microvascular ischemic changes. Mild global cerebral volume loss. The paranasal sinuses and mastoids are well-pneumatized. Imaged portion of the orbits are unremarkable. IMPRESSION: No intracranial hemorrhage or mass effect. Moderate chronic microvascular ischemic changes. Mild global cerebral volume loss. Electronically Signed by:MARKEL BRIGGS MD Date & Time: 06/12/25 102 Dictated by: MARKEL BRIGGS MD Dictation date and time: 06/12/25 102 Primary Care Provider: NO PRIMARY CARE PROVIDER cc: AGUEDA MENDEZ TELECOMMUNICATIONS SALES REPRESENTATIVE ~ Medical Decision Making Additional information obtaine: old records, family Findings Reviewed records from recent hospitalization post CABG. Records reviewed from [facility]. They report patient was found altered this morning. Differential Dx:Considerations: Include: anemia, CVA, dehydration, dysrhythmia, electrolyte imbalance, encephalopathy, Guillain-[place], hypoglycemia, hypotension, hypovolemia, labyrinthitis, Meniere's disease, myasathenia gravis, myocardial infarction, pulmonary embolus, renal failure, respiratory failure, TIA, VBI, vertigo central, vertigo peripheral, vestibular neuronitis Additional Information Head CT without acute abnormalities. CXR with moderate left pleural effusion, multi-focal airspace opacities. Patient not hypoxic. Not c/o dyspnea. Start Cefepime for possible facility-acquired PNA. Defer Linezolid/Vancomycin initiation for MRSA coverage to hospitalist. Labs with neg troponin, no leukocytosis. UA without signs of infection. Patient acutely altered, will benefit from admission. Hospitalist paged. 1. Delirium (acute confusional state): The abrupt onset of altered consciousness in an older adult, especially in a rehabilitation setting, is most consistent with delirium. Delirium is common post-hospitalization and after major surgery (such as CABG), and is often multifactorial. The absence of focal neurological deficits and normal head CT make primary intracranial pathology less likely. Delirium can be triggered by metabolic derangements, medication effects, infection, or environmental changes.[1-2] 2. Congestive heart failure with cerebral hypoperfusion: The elevated BNP suggests possible heart failure exacerbation, which can cause reduced cerebral perfusion and contribute to lethargy or delirium, even in the absence of overt volume overload or abnormal labs.[3] 3. Medication- or substance-induced EXTENDED INSURANCE CLERK depression: Review for recent changes in prescribed or non-prescribed medications (e.g., opioids, sedatives, anticholinergics), as these are common contributors to altered mental status in older adults.[2][4] 4. Post-operative/post-CABG delirium: Delirium is common in the weeks following major cardiac surgery, especially in older adults, and may be exacerbated by underlying cardiac dysfunction, sleep disruption, or metabolic stress.[2] Most Important Not to Miss Diagnoses 1. Nonconvulsive status epilepticus: Can present as unexplained altered consciousness without convulsions or focal deficits. If suspicion remains, EEG is indicated to rule out this diagnosis.[5] 2. Wernicke encephalopathy: Consider in patients with nutritional deficiency, especially post-surgery or with poor oral intake. Look for ophthalmoplegia, ataxia, and mental status changes; diagnosis is clinical but MRI and thiamine trial may help.[6] 3. Acute ischemic stroke or TIA: While head CT is negative and there are no focal deficits, small or posterior strokes may be missed. MRI brain is more sensitive and should be considered if clinical suspicion persists.[7] 4. Occult infection (e.g., pneumonia, UTI, endocarditis): Infection can present without fever in older adults. A normal urinalysis makes UTI unlikely, but chest imaging and blood cultures may be warranted if other signs develop.[1][8] Departure Time of Disposition: 11:41 Disposition: 09 ADMITTED INPATIENT Admitted to Inpatient Unit: yes, to hospitalist Impression: Primary Impression: PNA (pneumonia) Additional Impression: Acute confusion Referrals: NO PRIMARY CARE PROVIDER (PCP) Signature Scribe Signature: x Attestation: The note accurately reflects work and decisions made by me.Agueda Moy NP 06/12/25 09:12 AGUEDA MENDEZ NP Jun 12, 2025 09:12
[2025-06-12] MEDS ORDERED: bacitracin ointment unit dose packet TP SCH (09:35)
[2025-06-12] MEDS: bacitracin ointment unit dose packet TP ONE (09:35)
[2025-06-12 09:38] LABS: MEAN PLATELET VOLUME 7.3 FL (7.4-10.4); RED CELL DISTRIBUTION WIDTH 16.4 % (11.5-14.5)
[2025-06-12 10:03] LABS: CREATININE 1.21 MG/DL (0.60-1.10); PRO BRAIN NATRIURETIC PEPTIDE 6329 PG/ML (0-450); TOTAL CARBON DIOXIDE 29.2 MMOL/L (24-32); eCRCL 44 ML/MIN; eGFR 57 ML/MIN
[2025-06-12] MEDS: bacitracin 15gm ointment TP ONE (10:05)
--- NOTE | 2025-06-12 10:20 | RADIOLOGY REPORT ---
CT CT HEAD Indication: Sepsis EXAM DATE: 06/12/2025 09:43 AM COMPARISON: None TECHNIQUE: CT of the head without intravenous contrast. RADIATION DOSE: CTDIvol: 64 mGy, DLP: 1276 mGy*cm FINDINGS: There is no intracranial hemorrhage. There is no extra-axial fluid, mass, mass effect or midline shift. The ventricles are midline and normal in size. Basilar cisterns are patent. There are moderate periventricular and subcortical white matter chronic microvascular ischemic changes. Mild global cerebral volume loss. The paranasal sinuses and mastoids are well-pneumatized. Imaged portion of the orbits are unremarkable. IMPRESSION: No intracranial hemorrhage or mass effect. Moderate chronic microvascular ischemic changes. Mild global cerebral volume loss.
--- NOTE | 2025-06-12 10:29 | RADIOLOGY REPORT ---
EXAM: DI CHEST,SINGLE VIEW Indication: CP Technique: Single frontal view of the chest was obtained Comparison: DI CHEST,SINGLE VIEW on DOS: 06/04/25, DI CHEST,SINGLE VIEW on DOS: 06/03/25, CT CT CHEST W/ IV CONTRAST on DOS: 06/02/25, DI CHEST,SINGLE VIEW on DOS: 06/02/25, DI CHEST,SINGLE VIEW on DOS: 06/01/25 FINDINGS: Lines and Tubes: Cardiac pacemaker projects over the right chest wall. Lungs: Low lung volumes. Moderate left pleural effusion. Multifocal airspace opacities. No pneumothorax. Cardiomediastinal contours: Cardiomegaly. Atherosclerotic vascular calcifications of the thoracic aorta are noted. Bones: No acute osseous abnormality. IMPRESSION: Cardiomegaly with pulmonary edema and moderate left pleural effusion.
[2025-06-12] MEDS: LidoCAINE 2% Topical Jelly 11mL syringe (UROJET) TOP ONE (11:00)
[2025-06-12 11:22] LABS: LEUKOCYTE ESTERASE ,URINE NEGATIVE (Neg); NITRITES, URINE NEGATIVE (Neg); OCCULT BLOOD,URINE NEGATIVE (Neg)
[2025-06-12 11:26] LABS: UA COLLECTION TYPE CLN CATCH MIDSTREAM
[2025-06-12] MEDS: CEFEPIME 2gm in D5W 50mL 50 ML IV ONE (12:21)
[2025-06-12 12:58] LABS: SYPHILIS SCREENING TEST POC NEGATIVE (Negative)
[2025-06-12] MEDS ORDERED: SUCR1TAB PO (14:37)
[2025-06-12] MEDS ORDERED: PANT-47 PO (14:38)
[2025-06-12] MEDS ORDERED: CLOP75TA34 PO (14:41)
[2025-06-12] MEDS ORDERED: magnesium sulf-water 2g/50mL 50 ML IV PRN (16:50)
[2025-06-12] MEDS ORDERED: potassium Cl 20 mEq SR tablet PO PRN (16:50)
[2025-06-12] MEDS ORDERED: ondansetron/PF 4mg/2ml inj IV PRN (16:50)
[2025-06-12] MEDS ORDERED: mag hydrox/Alum hydrox/simeth 30ml oral suspension PO PRN (16:50)
[2025-06-12] MEDS ORDERED: magnesium sulf-water 4G/100mL 100 ML IV PRN (16:50)
[2025-06-12] MEDS: PERFLUTREN PROTEIN-A MICROSPHR (Optison) 0.22 MG/ML 3ML VIAL IV ONE (17:45)
[2025-06-12] MEDS ORDERED: ipratropium/albuterol 3ml nebule NEB PRN (17:55)
[2025-06-12 18:04] LABS: ABG BASE EXCESS 4.1 mmol/L (-2.0-3.0); ABG HCO3 27.2 mmol/L (21.0-28.0); ABG OXYGEN SATURATION 90.9 % (94.0-98.0); ABG PCO2 (T) 38.1 mmHg (35.0-48.0); ABG PH (T) 7.478 (7.350-7.450); ABG PO2 (T) 59.4 mmHg (83.0-108.0); ALLEN'S TEST POSITIVE; FCOHb 1.9 % (0.5-1.5); FHHb 8.9 % (0.0-5.0); FIO2 21.0 mmHg/%; FMetHb 0.3 % (0.0-1.5); FO2Hb 88.9 % (94.0-98.0); MODE ROOM AIR; PATIENT TEMPERATURE 38.4; TOTAL HEMOGLOBIN 11.8 G/dl (13.5-17.5)
--- NOTE | 2025-06-12 18:16 | HISTORY AND PHYSICAL-Residence ---
History & Physical Providers to CC Resident Creating Document: BRITANY REYNA RES ~ History of Present Illness Reason for Admit\Complaint: Weakness and ALOC History of Present Illness This is a 84-year-old male brought to the emergency department from [facility], he was hospitalized to this hospital last month, CABG was done by Dr. Molina on 05/07/25, I could not take much history from the patient as he was in respiratory distress and was confused, patient also had left upper abdominal tenderness. presented reports profoundly weak and with reduced responsiveness. Allergies: Coded Allergies: chlorhexidine (Verified Allergy, Severe, SEVERE RASH WITH BLISTERS, 06/12/25) Home Medications Home Medications Active Reported Clopidogrel (Clopidogrel Bisulfate) 75 Mg Tablet 1 Tab PO DAILY Do not stop medication unless instructed by prescriber. PROTONIX tablet (Pantoprazole Sodium) 40 Mg Tablet.dr 1 Tab PO BID Sucralfate 1 Gram Tablet 1 Tab PO Q6H 30 Days [Garlic] 1 Tab PO Q12H Glucosamine-Chondroitin Tab (Glucosamine/Chondro Forrest A) 500 Mg-400 Mg Tablet 2 Tab PO DAILY Preservision Areds 2 Softgel (Vit C/E/Zn/Coppr/Lutein/Zeaxan) 250MG-90MG Capsule 1 Cap PO Q12H Vitamin E (Vitamin E Acetate) 180 Mg (400 Unit) Capsule 2 Cap PO DAILY Lipitor* (Atorvastatin Calcium) 40 Mg Tablet 1 Tab PO HS Chlorpheniramine Maleate 4 Mg Tablet 1 Tab PO DAILY PRN Metoprolol Succinate 50 Mg Tab.sr.24h 1 Tab PO BID Neurontin (Gabapentin) 300 Mg Capsule 300 Mg PO TID Losartan-Hctz 50-12.5 Mg Tab (Losartan/Hydrochlorothiazide) 50 Mg-12.5 Mg Tablet 1 Tab PO DAILY Metformin Hcl 500 Mg Tablet 1 Tab PO Q12H Fish Oil 1,000 Mg Softgel (Docosahexanoic Acid/Epa) 1 Each Capsule 1 Cap PO DAILY 30 Days WITH MEALS [prevagen] 50 Mcg PO DAILY [facility] Formula Tb (Saw/Pygeum/Nettle/Pumpkn/Aa#17) 1 Each Tablet 1 Each PO DAILY Vitamin C (Ascorbic Acid) 2,000 Mg Tablet.sa 2,000 Mg PO DAILY Multi-Vitamin Daily (Multivitamin) 1 Each Tablet 1 Each PO DAILY Claritin* (Loratadine) 10 Mg Tablet 10 Mg PO DAILY Past Medical History Past Medical History CAD S/P CABG Type 2 diabetes mellitus Chronic kidney disease Hypertension Hyperlipidemia Past Surgical History Surgical History Comment CAD S/P CABG Past Social History Alcohol Use: None Occupation: retired ROS ROS All reviewed and negative except for pertinent positive findings mentioned in HPI Exam Vitals: Vital Signs Date Time Temp Pulse Resp B/P (MAP) Pulse Ox O2 Delivery O2 Flow Rate FiO2 06/12/25 15:50 104 06/12/25 13:26 98.0 35 165/105 (125) 94 0 General: General: awake, alert oriented to place, time, and person, Confused and lethargic HEENT: No pallor present, no icterus, moist mucous membranes Neck: No masses and tenderness Resp: In distress, Bilaterally crackles noted, no wheezing or rales. Chest: Normal expansion. Cardiovascular: Regular rhythm, HR elevated, normal S1 and S2 without murmur, rub or gallop Abdomen: Soft and RUQ tender, no organomegaly, no guarding and rigidity, bowel sounds present Neuro: No focal weakness in the upper and lower limb muscles. power of the muscles 5/5 bilateral upper and lower extremities, normal reflexes bilaterally. Cranial nerves intact Extremities: No cyanosis,clubbing or edema Skin: Warm and Dry. Psych: Normal affect Diagnostic Data Last Recorded Lab Results: 06/12/2592506/12/25925 Advance Care Planning Advanced Care plannin - 30 Minutes (I spent 17 minutes in discussing various resuscitative measures with the patient and he chose to be full code) Additional Plan Acute hypoxemic respiratory failure likely multifactorial Secondary to bacterial pneumonia covering Gram-positive and Gram-negative. Pleural effusion Heart failure with preserved ejection fraction Sepsis (Sirs Criteria present HR >90, RR > 20) Patient is febrile ECHO ON 05/09/25 shows LVEF 80% Probnp 6329 Procal normal Chest x-ray shows consolidation and pleural effusion Follow up with repeat echo and Follow up with CT chest abdominal pelvic lasix 40 mg IV BID Started IV Zosyn Coronary artery disease s/p CABG Postoperative course was complicated by ileus and acute renal insufficiency that required dialysis during his admission. The patient also had a left pleural effusion with chest tube insertion. Patient had CABG on 05/07/[address] Browne. Continue atorvastatin [address] Rick saw the patient, who recommended CT scan of the chest abdomen pelvis, echocardiogram, and he consulted General surgery for abdominal tenderness. Type 2 diabetes mellitus Blood glucose 94 On low-dose supplemental insulin protocol HbA1c awaiting. Chronic Kidney Disease Stage II eGFR 63 Creatinine 1.11 Baseline 1.49 Follow up with CMP Hypertension Currently on Lasix 40 mg IV b.i.d Code Status: Full Code Dvt Prophylaxis: Heparin Disposition: Dr Rick saw the patient, who consulted general surgeon, will continue to monitor patient, awaiting CT chest abdomen pelvis. PATIENT IS SEEN AND EXAMINED IN THE ER PATIENT IS VERY LETHARGIC UNABLE TO ANSWER QUESTIONS 'S AT THE BEDSIDE THAT HELPED WITH THE HISTORY ALL HER QUESTIONS ANSWERED TO THE BEST OF MY ABILITY EXPLAINED TO HER WORKUP STILL UNDER THE PROGRESS Date of Service: Jun 12, 2025 Billing Provider: ALBARO JIMENEZ MD Common Visit Codes: [id number] INP/OBS CARE (HIGH) BRITANY REYNA, RES Jun 12, 2025 18:16 ALBARO JIMENEZ MD Jun 13, 2025 15:48
--- NOTE | 2025-06-12 18:20 | CONSULTATION REPORT ---
History of Present Illness Providers to CC Lethargy and weakness History of Present Illness 84-year-old male with known history of hypertension, dyslipidemia and ischemic coronary disease status post four vessel coronary artery bypass grafting on May 07 of this year. Postoperative course was complicated by ileus and acute renal insufficiency that required dialysis during his admission. The patient also had a left pleural effusion with chest tube insertion. He had noted consolidation of the left pleural space on discharge but resolution of his renal insufficiency when discharged to a intermediate facility. He was noted to be lethargic with associated weakness and altered mental status this prompted his readmission. He was initially afebrile without evidence of leukocytosis. I was called to see the patient in his noted that now he has a low-grade fever to 101 and associated abdominal tenderness. He is currently hemodynamically stable with CAT scan of the head performed unremarkable for her abnormal findings. I am now seeing the patient regarding his readmission now five weeks postoperatively. Allergies: Coded Allergies: chlorhexidine (Verified Allergy, Severe, SEVERE RASH WITH BLISTERS, 06/12/25) Home Medications Home Medications Active Reported Clopidogrel (Clopidogrel Bisulfate) 75 Mg Tablet 1 Tab PO DAILY Do not stop medication unless instructed by prescriber. PROTONIX tablet (Pantoprazole Sodium) 40 Mg Tablet.dr 1 Tab PO BID Sucralfate 1 Gram Tablet 1 Tab PO Q6H 30 Days [Garlic] 1 Tab PO Q12H Glucosamine-Chondroitin Tab (Glucosamine/Chondro Forrest A) 500 Mg-400 Mg Tablet 2 Tab PO DAILY Preservision Areds 2 Softgel (Vit C/E/Zn/Coppr/Lutein/Zeaxan) 250MG-90MG Capsule 1 Cap PO Q12H Vitamin E (Vitamin E Acetate) 180 Mg (400 Unit) Capsule 2 Cap PO DAILY Lipitor* (Atorvastatin Calcium) 40 Mg Tablet 1 Tab PO HS Chlorpheniramine Maleate 4 Mg Tablet 1 Tab PO DAILY PRN Metoprolol Succinate 50 Mg Tab.sr.24h 1 Tab PO BID Neurontin (Gabapentin) 300 Mg Capsule 300 Mg PO TID Losartan-Hctz 50-12.5 Mg Tab (Losartan/Hydrochlorothiazide) 50 Mg-12.5 Mg Tablet 1 Tab PO DAILY Metformin Hcl 500 Mg Tablet 1 Tab PO Q12H Fish Oil 1,000 Mg Softgel (Docosahexanoic Acid/Epa) 1 Each Capsule 1 Cap PO DAILY 30 Days WITH MEALS [prevagen] 50 Mcg PO DAILY [facility]state [facility] Formula Tb (Saw/Pygeum/Nettle/Pumpkn/Aa#17) 1 Each Tablet 1 Each PO DAILY Vitamin C (Ascorbic Acid) 2,000 Mg Tablet.sa 2,000 Mg PO DAILY Multi-Vitamin Daily (Multivitamin) 1 Each Tablet 1 Each PO DAILY Claritin* (Loratadine) 10 Mg Tablet 10 Mg PO DAILY Past Medical History Medical History Comment As per HPI Past Family History Family History Comment As per HPI Physical Exam Last Vital Signs Recorded: Temperature: 98.0, Source: Oral, Heart Rate: 103, Respiratory Rate: 35, BP: 165/105, Pulse Oximetry: 94, Weight: 84.000 General Appearance: other (Awake but disoriented to place and time) EENT: moist mucous membranes Neck: supple, non-tender Respiratory: other (Mild respiratory distress with diminished breath sounds at the left mid lung space extending inferiorly) Chest: chest non-tender, other Cardiovascular: no edema, no JVD, no murmur, other (Mild tachycardia with rate of 103) Gastrointestinal: tenderness (Diffusely tender with the associated rebound and he describes this as nine out of 10 discomfort), rebound, absent bowel sounds Extremities: normal range of motion, no edema, no calf tenderness Neurologic: oriented to person, other (Disoriented to place and time) Skin: warm/dry Review of Systems ROS ROS Comments: As per HPI Results Diagram Lab Result Diagram: 06/12/2592506/12/25925 Assessment/Plan Additional Plan 84-year-old male with known history of hypertension five weeks status post four vessel coronary bypass grafting complicated by left lower lobe consolidation requiring chest tube insertion as well as renal insufficiency requiring dialysis. The patient was discharge with resolution of his renal dysfunction and has been at a residential. He is now readmitted with altered mental status change in negative findings on his CT. Initial laboratory data did not reveal a leukocytosis and he was afebrile. Since admission he has now become febrile to 101 an arterial blood gas demonstrates hypoxemia. We will obtain CT with and without contrast of the chest abdomen and pelvis. We will also obtain an echocardiogram. He will be placed on oxygen. I have consulted General surgery regarding his abdominal tenderness. The patient will require anticoagulation given his hypoxemia and also further evaluation for possible pulmonary embolus. We will continue to follow this patient closely. AYUSH CAN MD Jun 12, 2025 18:20
[2025-06-12 18:29] LABS: CREATININE 1.11 MG/DL (0.60-1.10); TOTAL CARBON DIOXIDE 27.8 MMOL/L (24-32); eCRCL 48 ML/MIN; eGFR 63 ML/MIN
[2025-06-12] MEDS ORDERED: glucagon, human recombinant 1mg kit SUBCUT PRN (18:30)
[2025-06-12] MEDS ORDERED: DEXTROSE 15 GM of carb/4 tabs (each vial/BOTTLE has 4 tablets) PO PRN ×2 (18:30)
[2025-06-12] MEDS ORDERED: dextrose 50%-water 50ml dispensing syringe IV PRN ×2 (18:30)
[2025-06-12] MEDS ORDERED: HYDROmorphone inj. 0.5 MG/0.5 ML DISP.SYRIN IV PRN (18:45)
[2025-06-12 19:09] LABS: MEAN PLATELET VOLUME 7.5 FL (7.4-10.4); RED CELL DISTRIBUTION WIDTH 16.7 % (11.5-14.5)
[2025-06-12] MEDS: hydrALAZINE 20mg/ml inj. IV ONE (19:36)
[2025-06-12] MEDS: normal saline 1000ml 1,000 ML IV SCH (19:43)
[2025-06-12] MEDS: piperacillin/tazo 3.375gm/50ml 50 ML IV SCH (19:43)
[2025-06-12] MEDS: K and/or MAG REPLACEMENT MC SCH (20:00)
[2025-06-12] MEDS ORDERED: pantoprazole 40mg Tablet.DR PO SCH (20:00)
[2025-06-12] MEDS ORDERED: piperacillin/tazo 3.375gm/50ml 50 ML IV SCH (20:00)
[2025-06-12] MEDS: albuterol 2.5 MG/3 ML nebule NEB SCH (20:00)
[2025-06-12] MEDS ORDERED: iohexol 300mg/ml 100ml inj. ONE (20:11)
--- NOTE | 2025-06-12 20:21 | PROGRESS NOTE ---
Progress Note ID Providers to CC ~ Progress Note Progress Note: pt seen and examined-ct pending TRISH UNGER MD Jun 12, 2025 20:21
[2025-06-12] MEDS: INSULIN LISPRO 100 UNIT/ML INSULN.PEN MULTI-DOSE SQ SCH (21:00)
[2025-06-12] MEDS: docusate sod 100mg capsule PO SCH (21:27)
[2025-06-12] MEDS: heparin, porcine 5000 units/ml vial SQ SCH (21:28)
[2025-06-12] MEDS: diatr meglu/diatrizoate 30ml oral sol.-(3 dose) bottle PO SCH (21:29)
[2025-06-12] MEDS: morphine 4 MG/ML inj SYRINge IV PRN (22:15)
[2025-06-13] VITALS (15 sets, daily range): BP systolic 114–162; BP diastolic 66–112; PULSE 92–108; RESP 16–29; TEMP 97.6–98; O2SAT 94–100
[2025-06-13] MEDS ORDERED: iohexol 300mg/ml 100ml inj. ONE
--- NOTE | 2025-06-13 01:32 | RADIOLOGY REPORT ---
Exam: CT CT CHEST ABDOMEN PELVIS IV CON W/ IV ORAL CONTRAST History: pain Comparison Study: DI CHEST,SINGLE VIEW on DOS: 06/12/25, DI CHEST,SINGLE VIEW on DOS: 06/04/25, DI CHEST,SINGLE VIEW on DOS: 06/03/25, CT CT CHEST W/ IV CONTRAST on DOS: 06/02/25, DI CHEST,SINGLE VIEW on DOS: 06/02/25 Technique: Multidetector spiral CT of the chest, abdomen and pelvis was performed from lower neck to pubic symphysis. Intravenous contrast was administered during this examination. Portal venous imaging was obtained. Axial, coronal and sagittal multiplanar reformats were performed by the technologist on a separate workstation. Radiation Dose : 1. Chest/Abdomen/Pelvis: CTDIvol 30.48 mGy, DLP 1898.58 mGy*cm. Findings: Lower neck: Normal thyroid. Lungs: Complete collapse of the left lower lobe. No obvious obstructing lesion is seen. Mild diffuse interlobular septal thickening with patchy ground-glass opacity throughout both lungs. Heart/Vascular Structures: Previous sternotomy. Coronary calcifications. Multi chamber cardiac enlargement. Lymph Nodes: No adenopathy Pleura: Small left and trace right-sided pleural effusions. Liver: The liver is normal in size. No focal lesions. Normal hepatic vascular enhancement. Gallbladder and Biliary Tree: Gallbladder is surgically absent. Spleen: Unremarkable Pancreas: The pancreas is normal in appearance without focal lesions or abnormal enhancement. Adrenal Glands: Unremarkable Kidneys: Kidneys demonstrate normal symmetric enhancement without focal lesions, calculi or hydronephrosis. Bladder: Unremarkable Bowel: The stomach is grossly normal in appearance. Small bowel and colon are normal in caliber and distribution. The appendix is not visualized; however, no secondary findings of acute appendicitis identified. Ascites: Absent Lymphadenopathy: No mesenteric, retroperitoneal or periportal lymphadenopathy. Abdominal Wall and Mesentery: Unremarkable. Vasculature: Diffuse vascular calcifications. Pelvic Organs: Right-sided hydrocele. Musculoskeletal: No aggressive focal bony lesions, acute fractures or dislocation. IMPRESSION: No clear cause for pain. Cardiomegaly with pulmonary edema. Small left and trace right-sided pleural effusions. Complete collapse of the left lower lobe without obvious central obstructing lesion. Follow-up x-rays recommended to confirm re-expansion.
--- NOTE | 2025-06-13 05:55 | ELECTROCARDIOGRAPH REPORT ---
[facility] Test Date: 2025-06-13 Test Time: 05:53:24 Pat Name: HECTOR SHELTON Department: [address] Patient ID: [id number] Room: [address] Gender: M Legal Compliance Officer: : 1940 Requested By: MERRICK STOREY Order Number: [id number] Reading MD: Dr. SNEHAL Diaz Measurements Intervals [place] Rate: 103 P: -76 GA: 193 QRS: -79 QRSD: 160 T: 100 QT: 395 QTc: 517 Interpretive Statements Ventricular-paced complexes No further analysis attempted due to paced rhythm Electronically Signed On 06-13-2025 16:47:[address] SNEHAL Diaz Please click the below link to view image of tracing.
[2025-06-13 06:56] LABS: MEAN PLATELET VOLUME 7.7 FL (7.4-10.4); RED CELL DISTRIBUTION WIDTH 16.2 % (11.5-14.5)
[2025-06-13 07:09] LABS: APTT 28 SECONDS (22-32); INR 1.2 INR
[2025-06-13 07:26] LABS: CREATININE 1.28 MG/DL (0.60-1.10); PHOSPHORUS 3.6 MG/DL (2.3-4.5); TOTAL CARBON DIOXIDE 31.6 MMOL/L (24-32); eCRCL 42 ML/MIN; eGFR 54 ML/MIN
--- NOTE | 2025-06-13 08:06 | PROGRESS NOTE ---
Progress Note CV Providers to CC ~ Antibiotics Ordered?: Yes Objective Vitals Vital Signs Date Time Temp Pulse Resp B/P (MAP) Pulse Ox O2 Delivery O2 Flow Rate FiO2 06/13/25 07:36 105 18 Nasal Cannula 2.0 06/13/25 07:29 95 28 06/13/25 02:00 97.8 147/89 (108) Lab Results: 06/13/25 0624 06/13/25 0624 Coagulation Studies Laboratory Tests Test 06/12/25 18:53 06/13/25 06:24 D-Dimer 4.85 MG/L FEU (0-0.50) H D-Dimer Comment Prothrombin Time 12.2 SECONDS (9.0-12.0) H INR International Normalized Ratio 1.2 INR Activated Partial Thromboplast Time 28 SECONDS (22-32) Coagulation Comments Cardiac Rhythm: V Paced, AV Paced, Paced Problem\Assessment\Plan Additional Plan Events reviewed. Pt is the most alert and conversant that I have seen him yet. CT shows LLL collapse as previous. Needs K and Mg replacement. Says he does not have any significant belly pain today. Currently NPO and says he is hungry and wants coffee. His is not here yet this morning. I will review studies with Dr. Flores. Sepsis Screening Reassessment Date: Jun 13, 2025 Supervising MD Co-signing Provider: ANA Ibrahim Jun 13, 2025 08:06
[2025-06-13 08:15] LABS: PRO BRAIN NATRIURETIC PEPTIDE 6829 PG/ML (0-450)
[2025-06-13] MEDS: potassium Cl 40MEQ/1/2NS 520ml 520 ML IV PRN (09:11)
--- NOTE | 2025-06-13 09:19 | VASCULAR REPORT ---
Procedure: VASC VL MESENTERIC Exam Date: 06/13/2025 07:42 AM History: Pain Comparison Study: CT CT CHEST ABDOMEN PELVIS IV CON W/ IV ORAL CONTRAST on DOS: 06/13/25, CT CT CHEST ABDOMEN PELVIS on DOS: 05/14/25, DI ABDOMEN,SINGLE VIEW(KUB) on DOS: 05/13/25, DI ABDOMEN,SINGLE VIEW(KUB) on DOS: 05/13/25, DI ABDOMEN,SINGLE VIEW(KUB) on DOS: 05/11/25 Abdominal Duplex InaRations Abdominal pain Assessment Origin Proximal Mid Distal Superior Mesenteric A. PSV 141.0cm/s PSV 240.0cm/s PSV 108.0cm/s PSV 93.0cm/s EDV 14.0cm/s EDV 0.0cm/s EDV 6.0cm/s EDV 11.0cm/s High Resistance High Resistance High Resistance High Resistance Aortic Doppler Velocity Waveform Proximal Aorta 49.0 cm/sec CONCLUSION Limited visualization due to bowel gas. Celiac, Hepatic, Splenic, and JENNIFER not visualized. SMA where visualized appears within normal limits. END IMPRESSION:
--- NOTE | 2025-06-13 12:12 | RADIOLOGY REPORT ---
PROCEDURE: ULTRASOUND GUIDED THORACENTESIS USING TEMPORARY CATHETER HISTORY: PLeural Effusion PERFORMING DOCTOR: Dr. CORDOVA. DOCUMENTATION: Informed consent was obtained and a procedural time out was performed. PROCEDURE: The risks and benefits of the procedure including bleeding, infection and pneumothorax were explained to the patient and written informed consent obtained. Optimal site for puncture long the left posterior chest wall was determined using real-time ultrasound and the region sterilized. Local anesthesia was instilled. A 5 Congolese catheter was then advanced into the pleural space and 300 cc of fluid was removed. The patient tolerated the procedure well. IMPRESSION: Ultrasound guided left thoracentesis.
--- NOTE | 2025-06-13 14:53 | PROCEDURE NOTE CC ---
Procedure Note CC Providers to CC ~ Procedure Name: Thoracentesis Description: Indication: L Pleural Effusion Consent: Pt Time-out: Done Technique: US guided Site: L-side Anesthesia: Local Fluid: 300ml dark yellow Complication: None EBL: 0ml Sepsis Screening Reassessment Date: Jun 13, 2025 EMEKA CORDOVA MD Jun 13, 2025 14:53
[2025-06-13 15:13] LABS: LACTATE DEHYDROGENASE 264 U/L (85-227)
--- NOTE | 2025-06-13 18:27 | CARDIOLOGY REPORT ---
APPROVED REPORT EXAM: Limited 2D, Doppler, and color-flow Echocardiogram. Patient Location: 302 Blood Pressure: 165/105 mmHg Heart Rate: 102 bpm Rhythm: Paced Indications Congestive Heart Failure ProBNP: 6329 Coronary Artery Disease CABG x 3 (05/07/25) TIFFANY Ligation (05/07/25) Pacemaker COMMERCIAL SPECIALIST: Papo Rodriguez MD Previous ECHO: 05/09/25, [facility], EF: 80 2D Dimensions LA Diam 4.8 cm IVSd 1.2 (0.7-1.1cm) LVDd 3.2 cm PWd 1.3 (0.7-1.1cm) IVSs 1.6 (0.8-1.2cm) LVDs 1.9 (2.5-4.0cm) PWs 2.1 (0.8-1.2cm) LVOT Diameter 2.18 (1.8-2.4cm) LVEF(%) 74.1 (>50%) IVC 20.52 mm FS (%) 41.8 % SV 30.4 ml CO 3.6 L/min M-Mode Dimensions Left Atrium(MM) 4.94 (2.5-4.0cm) Aortic Root 3.32 (2.2-3.7cm) Aortic Cusp Exc 1.46 (1.5-2.0cm) MV EPSS 0.2 (<0.5cm) Aortic Valve AoV Peak Rosalio. 219.3 cm/s AoV VTI 28.0 cm AO Peak GR. 19.2 mmHg AO Mean GR. 10 mmHg LVOT VTI 13.99 cm LVOT Peak Rosalio. 120.9 cm/s WES(VTI)/BSA 2.19 cm2/m2 WES (VTI) 2.19 cm2 AV DI 0.50 % TDI Lateral E' P. V 7.85 cm/s Pulmonary Valve PAEDP 21.81 mmHg Tricuspid Valve TR P. Velocity 335 cm/s RAP ESTIMATE 10 mmHg TR Peak Gr. 45 mmHg RVSP 55 mmHg LEFT VENTRICLE Normal LV size and function. Mild concentric hypertrophy. LVEF is 70-75%. RIGHT VENTRICLE Right ventricle is mild to moderately dilated with adequate function. Elevated right heart pressures with an RVSP of 55 mmHg. ATRIA Left atrium is moderately dilated. Right atrium appears mildly dilated. Pacemaker lead is present in the right heart. AORTIC VALVE Trileaflet AV appears mild to moderately sclerotic without stenosis. No insufficiency. MITRAL VALVE Mitral valve leaflets are thickened with mild annular calcification. No stenosis. Trace regurgitation. TRICUSPID VALVE The tricuspid valve is normal in structure with moderate regurgitation. PULMONIC VALVE Pulmonic valve is grossly normal in structure with trace insufficiency. GREAT VESSELS The aortic root is normal in size. IVC is dilated and collapses greater than 50% with inspiration. PERICARDIUM Normal pericardium. No effusion. Anterior epicardial fat pad is present. Pleural effusion present. Other Information Study Quality: Adequate Conclusion Normal LV size and function. Mild concentric hypertrophy. LVEF is 70-75%. Right ventricle is mild to moderately dilated with adequate function. Elevated right heart pressures with an RVSP of 55 mmHg. Left atrium is moderately dilated. Right atrium appears mildly dilated. Pacemaker lead is present in the right heart. Trileaflet AV appears mild to moderately sclerotic without stenosis. No insufficiency. Mitral valve leaflets are thickened with mild annular calcification. No stenosis. Trace regurgitation. The tricuspid valve is normal in structure with moderate regurgitation. Pulmonic valve is grossly normal in structure with trace insufficiency. Normal pericardium. No effusion. Anterior epicardial fat pad is present.
--- NOTE | 2025-06-13 19:49 | PROGRESS NOTE- Residence ---
Progress Note - Resident Providers to CC Resident Creating Document: BRITANY THORNTON RES ~ Antibiotic Timeout Antibiotic Ordered?: Yes Subjective Patient was seen and examined on bedside, reports he is feeling better, denies any pain Her confusion state is improved since yesteraday. Objective Vital Signs Date Time Temp Pulse Resp B/P (MAP) Pulse Ox O2 Delivery O2 Flow Rate FiO2 06/13/25 19:39 92 18 Nasal Cannula 2.0 06/13/25 19:27 97 28 06/13/25 11:16 158/105 (122) 06/13/25 02:00 97.8 Result Diagram: 06/13/2562306/13/25 06 General: awake, alert oriented to place, time, and person, Confused and lethargic HEENT: No pallor present, no icterus, moist mucous membranes Neck: No masses and tenderness Resp: In mild distress, mild bilateral crackles noted, no wheezing or rales. Chest: Normal expansion. Cardiovascular: paced rhyhm, HR elevated, normal S1 and S2 without murmur, rub or gallop Abdomen: Soft and RUQ tender, no organomegaly, no guarding and rigidity, bowel sounds present Neuro: No focal weakness in the upper and lower limb muscles. power of the muscles 5/5 bilateral upper and lower extremities, normal reflexes bilaterally. Cranial nerves intact Extremities: No cyanosis,clubbing or edema Skin: Warm and Dry. Psych: Normal affect Coagulation Studies Laboratory Tests Test 06/12/25 18:53 06/13/25 06:24 D-Dimer 4.85 MG/L FEU (0-0.50) H D-Dimer Comment Prothrombin Time 12.2 SECONDS (9.0-12.0) H INR International Normalized Ratio 1.2 INR Activated Partial Thromboplast Time 28 SECONDS (22-32) Coagulation Comments Advance Care Planning Advanced Care plannin - 30 Minutes Plan Plan Acute hypoxemic respiratory failure likely multifactorial Secondary to bacterial pneumonia covering Gram-positive and Gram-negative. Pleural effusion Heart failure with preserved ejection fraction Sepsis (Sirs Criteria present HR >90, RR > 20) PATIENT CURRENTLY AFEBRILE Echo shows LVEF is 70-75%, Elevated right heart pressures with an RVSP of 55 mmHg. Probnp 6329 Procal normal Chest x-ray shows consolidation and pleural effusion, patient underwent thoracocentesis which revealed 300ml dark yellow fluid. lasix 40 mg IV BID Continue IV zoysn covid negative Maintaining oxygen satt on room air Coronary artery disease s/p CABG Postoperative course was complicated by ileus and acute renal insufficiency that required dialysis during his admission. The patient also had a left pleural effusion with chest tube insertion. Patient had CABG on 05/07/[address] Browne. Continue atorvastatin [address] Rick saw the patient, who recommended CT scan of the chest abdomen pelvis, echocardiogram, and he consulted General surgery for abdominal tenderness. CT chest abdomen pelvis showed cardiomegaly with pulmonary edema.Small left and trace right-sided pleural effusions.Complete collapse of the left lower lobe without obvious central obstructing lesion Awaiting further recommendation from Surgeon Type 2 diabetes mellitus Blood glucose 94 On low-dose supplemental insulin protocol HbA1c awaiting. Chronic Kidney Disease eGFR 54 Creatinine 1.28 Baseline 1.49 Follow up with CMP Hypertension Currently on Lasix 40 mg IV b.i.d Code Status: Full Code Dvt Prophylaxis: Plavix 75 mg GI Prophylaxis: pantoprazole Dispositon: Patient is improving, will continue to monitor patient. Britany Thornton PGY 1 IM Date of Service: Jun 13, 2025 Billing Provider: ALBARO JIMENEZ MD,BRITANY, RES Jun 13, 2025 19:49
[2025-06-13] MEDS: carvedilol 6.25mg tablet PO SCH (20:12)
[2025-06-13] MEDS: magnesium Cl slow-release 64mg tablet PO PRN (20:16)
[2025-06-13] MEDS ORDERED: diatr meglu/diatrizoate 30ml oral sol.-(3 dose) bottle PO SCH (21:00)
[2025-06-13] MEDS ORDERED: diatrozoate meglu/diatrozoate sod (37% iodine) 120ML oral solution RC ONE (21:25)
[2025-06-13] MEDS: diatrozoate meglu/diatrozoate sod (37% iodine) 120ML oral solution RC ONE (21:35)
[2025-06-13] MEDS: mineral oil 133ml enema RC SCH (23:14)
[2025-06-14] VITALS (15 sets, daily range): BP systolic 117–142; BP diastolic 72–101; PULSE 81–110; RESP 17–35; TEMP 97–98.7; O2SAT 92–100
[2025-06-14] MEDS ORDERED: diatr meglu/diatrizoate 30ml oral sol.-(3 dose) bottle ONE (00:38)
[2025-06-14] MEDS: HYDROcodone/acetaminophen 5mg/325mg tablet PO PRN (01:56)
--- NOTE | 2025-06-14 06:44 | PROGRESS NOTE ---
DATE: 06/13/2025 DICTATING PHYSICIAN: Bronson Haji MD SUBJECTIVE: An 84-year-old male abdominal pain, remains in the PCU. PHYSICAL EXAMINATION: VITAL SIGNS: Unremarkable. ABDOMEN: Has persistent tenderness. LABORATORY DATA: Include a WBC of 6, hematocrit of 31. Left shift is present. CO2 is 31. IMAGING: CT with rectal contrast is pending. IMPRESSION: Abdominal pain, question etiology. Concerned about constipation. PLAN: CT with rectal contrast. Bronson Haji MD TID: [id number] RECEIPT: [id number] KB/AMI
[2025-06-14 06:54] LABS: MEAN PLATELET VOLUME 7.5 FL (7.4-10.4); RED CELL DISTRIBUTION WIDTH 16.3 % (11.5-14.5)
[2025-06-14 07:05] LABS: APTT 28 SECONDS (22-32); INR 1.2 INR
--- NOTE | 2025-06-14 07:13 | RADIOLOGY REPORT ---
CLINICAL INFORMATION: Pain. TECHNIQUE: Axial CT images of the abdomen and pelvis were obtained without IV contrast. Coronal and sagittal reformatted images were obtained, reviewed, and stored. Rectal contrast was administered prior to the examination. All CT scans at this medical facility are performed using dose modulation techniques as appropriate to a performed exam including the following: Automated exposure control was utilized; adjustment of the MA and/or KV according to patient size; and use of iterative reconstruction technique. CTDIvol = 24.77 mGy DLP = 1514.85 mGy-cm COMPARISON: CT CT CHEST ABDOMEN PELVIS IV CON W/ IV ORAL CONTRAST on DOS: 06/13/25, CT CT CHEST ABDOMEN PELVIS on DOS: 05/14/25 FINDINGS: Examination is limited due to motion artifact and beam hardening artifact. Lung bases: Bilateral pleural effusions with overlying atelectasis and consolidation, left greater than right. Moderate cardiomegaly. Moderate to large hiatal hernia. Liver: Small subcentimeter low-attenuation lesion in the left hepatic lobe, too small to characterize. Otherwise grossly unremarkable given the limitations of the examination. Biliary: Cholecystectomy. Spleen: Grossly unremarkable. Pancreas: Grossly unremarkable. Adrenal glands: Unremarkable. No mass. Kidneys: Small exophytic low-attenuation lesion at the anterior aspect of the left kidney, possibly an exophytic complex cyst. Solid lesion not excluded. Aorta/Vascular: Dense atherosclerotic calcification. No abdominal aortic aneurysm. Lymph nodes: No mass or lymphadenopathy. Bowel/mesentery: No small bowel obstruction. Appendix is visualized and is normal in diameter with no periappendiceal stranding to suggest acute appendicitis. Moderate amount of stool in the colon with moderate to large amount of stool in the rectum. Mild perirectal inflammatory stranding and rectal wall thickening, possible proctitis in the appropriate clinical setting. Trace free fluid in the abdomen and pelvis. No free air. Pelvic organs: Enlarged prostate with impression on the bladder base. Bladder: Small amount of gas within the bladder, may be due to recent carrillo catheter placement or other intervention, also seen on the recent exam. Abdominal wall: Mild anasarca. Prominent fluid in the right side of the scrotal sac, likely large hydrocele. Bones: No acute fracture or suspicious intraosseous lesion. IMPRESSION: 1. Mild perirectal inflammatory stranding and rectal wall thickening, possible proctitis in the appropriate clinical setting. 2. No small bowel obstruction. No CT findings are seen to suggest acute appendicitis. 3. Small bilateral pleural effusions, left greater than right with overlying atelectasis and consolidation. 4. Moderate stool throughout the colon with moderate to large amount of stool in the rectum. 5. Exophytic lesion at the anterior aspect of the left kidney, possibly a complex cyst, although not well characterized on noncontrast enhanced CT. Solid lesion not excluded. Ultrasound may be helpful to further characterize. If ultrasound findings are inconclusive, renal mass protocol CT could be cons idered. 6. Additional findings as described above.
[2025-06-14 07:27] LABS: CREATININE 1.56 MG/DL (0.60-1.10); PHOSPHORUS 3.6 MG/DL (2.3-4.5); TOTAL CARBON DIOXIDE 32.2 MMOL/L (24-32); eCRCL 34 ML/MIN; eGFR 43 ML/MIN
--- NOTE | 2025-06-14 07:38 | RADIOLOGY REPORT ---
CHEST RADIOGRAPH Indication: Effusion Technique: Single frontal view of the chest was obtained COMPARISON: DI CHEST,SINGLE VIEW on DOS: 06/12/25, DI CHEST,SINGLE VIEW on DOS: 06/04/25, DI CHEST,SINGLE VIEW on DOS: 06/03/25, CT CT CHEST W/ IV CONTRAST on DOS: 06/02/25, DI CHEST,SINGLE VIEW on DOS: 06/02/25 FINDINGS: Lines and Tubes: Right chest pacemaker. Lungs: Unchanged pulmonary vascular congestion. Pleura: No effusion. No pneumothorax. Cardiomediastinal contours: Median sternotomy. Cardiomegaly. Bones: Unremarkable IMPRESSION: Unchanged pulmonary vascular congestion.
--- NOTE | 2025-06-14 10:53 | PROGRESS NOTE ---
Progress Note CV Providers to CC ~ Progress Note: Patient is more alert today without c/o CP Antibiotics Ordered?: Yes Subjective Subjective As above Objective Vitals Vital Signs Date Time Temp Pulse Resp B/P (MAP) Pulse Ox O2 Delivery O2 Flow Rate FiO2 06/14/25 08:04 95 17 Room Air 0.0 06/14/25 07:59 92 28 06/14/25 02:00 98.2 117/72 (87) Lab Results: 06/14/25 0553 06/14/25 0553 Coagulation Studies Laboratory Tests Test 06/12/25 18:53 06/14/25 05:53 D-Dimer 4.85 MG/L FEU (0-0.50) H D-Dimer Comment Prothrombin Time 12.1 SECONDS (9.0-12.0) H INR International Normalized Ratio 1.2 INR Activated Partial Thromboplast Time 28 SECONDS (22-32) Coagulation Comments Cardiac Rhythm: V Paced, AV Paced, Paced Problem\Assessment\Plan Additional Plan Patient is doing well from Cardiac standpoint. Mild increase in renal insufficiency likely due to contrast, continue to follow. Thoracentesis performed and 300cc of non infectious fluid removed. Blood cultures unremarkable with GNR from tip of penis. medical service to manage. Dr. Winslow will discuss findings on abdominal CT including new finding of a cyst. Sepsis Screening Reassessment Date: Jun 14, 2025 Reassessment Time: 15:00 Cardiology Exam: normal peripheral pulses Pulmonary diminished left base o/w clear Abdomen - soft and NT Extremities: normal inspection Skin Color: Normal AYUSH CAN MD Jun 14, 2025 10:53
[2025-06-14] MEDS: bisacodyl 10mg suppository rectal RC STA (11:00)
[2025-06-14] MEDS: methylnaltrexone br 12mg/0.6ml inj***SubQ only SQ SCH (11:25)
--- NOTE | 2025-06-14 12:31 | PROGRESS NOTE ---
Progress Note ID Providers to CC ~ Progress Note Progress Note: persistent discomfort-ct findings consistent with constipation-pt needs bowel care-orders given TRISH UNGER MD Jun 14, 2025 12:31
[2025-06-14] MEDS: potassium Cl 20 mEq SR tablet PO PRN (14:25)
[2025-06-14] MEDS: magnesium hydroxide 30ml (MOM) UD suspension PO PRN (14:27)
--- NOTE | 2025-06-14 14:59 | PROGRESS NOTE- Residence ---
Progress Note - Resident Providers to CC Resident Creating Document: BRITANY REYNA RES ~ Antibiotic Timeout Antibiotic Ordered?: Yes Subjective Patient was seen and examined on bedside, reports pain all over body, overall he feels he is not feeling good. Objective Vital Signs Date Time Temp Pulse Resp B/P (MAP) Pulse Ox O2 Delivery O2 Flow Rate FiO2 06/14/25 12:44 81 17 Nasal Cannula 2.0 06/14/25 12:39 98 28 06/14/25 02:00 98.2 117/72 (87) Result Diagram: 06/14/25 0553 06/14/25 0553 General: awake, alert oriented to place, time, and person, Confused and lethargic HEENT: No pallor present, no icterus, moist mucous membranes Neck: No masses and tenderness Resp: In mild distress, mild bilateral crackles noted, no wheezing or rales. Chest: Normal expansion. Cardiovascular: paced rhyhm, HR normal, normal S1 and S2 without murmur, rub or gallop Abdomen: Soft and RUQ tender, no organomegaly, no guarding and rigidity, bowel sounds present Neuro: No focal weakness in the upper and lower limb muscles. power of the muscles 5/5 bilateral upper and lower extremities, normal reflexes bilaterally. Cranial nerves intact Extremities: No cyanosis,clubbing or edema Skin: Warm and Dry. Psych: Normal affect Coagulation Studies Laboratory Tests Test 06/12/25 18:53 06/14/25 05:53 D-Dimer 4.85 MG/L FEU (0-0.50) H D-Dimer Comment Prothrombin Time 12.1 SECONDS (9.0-12.0) H INR International Normalized Ratio 1.2 INR Activated Partial Thromboplast Time 28 SECONDS (22-32) Coagulation Comments Advance Care Planning Advanced Care plannin - 30 Minutes Plan Plan Acute hypoxemic respiratory failure likely multifactorial Secondary to bacterial pneumonia covering Gram-positive and Gram-negative. Pleural effusion Heart failure with preserved ejection fraction Sepsis (Sirs Criteria present HR >90, RR > 20) PATIENT CURRENTLY AFEBRILE Echo shows LVEF is 70-75%, Elevated right heart pressures with an RVSP of 55 mmHg. Probnp 6329 Procal normal Chest x-ray shows consolidation and pleural effusion, patient underwent thoracocentesis which revealed 300ml dark yellow fluid. lasix 40 mg IV BID Continue IV zoysn covid negative D-dimer is elevated, Wells score is 1.5,PE less likely. Maintaining oxygen satt on room air 06/14/25 On 2 L of oxygen maintaining oxygen satt Coronary artery disease s/p CABG Postoperative course was complicated by ileus and acute renal insufficiency that required dialysis during his admission. The patient also had a left pleural effusion with chest tube insertion. Patient had CABG on 05/07/[address] Browne. Continue atorvastatin [address] Rick saw the patient, who recommended CT scan of the chest abdomen pelvis, echocardiogram, and he consulted General surgery for abdominal tenderness. CT chest abdomen pelvis showed cardiomegaly with pulmonary edema.Small left and trace right-sided pleural effusions.Complete collapse of the left lower lobe without obvious central obstructing lesion Abdominal pain/Abdominal tenderness likely Secondary to Constipation. Etiology unclear Dr. Rick consulted Dr. Rodriguez who recommended Ct with rectal contrast, for which results are below. 06/14/25 Dr. Prado recommended bowel care. CT chest abdomen pelvis with rectal contrast shows: Mild perirectal inflammatory stranding and rectal wall thickening, possible proctitis in the appropriate clinical setting. No small bowel obstruction. No CT findings are seen to suggest acute appendicitis. Small bilateral pleural effusions, left greater than right with overlying atelectasis and consolidation. Moderate stool throughout the colon with moderate to large amount of stool in the rectum. Exophytic lesion at the anterior aspect of the left kidney, possibly a complex cyst, although not well characterized on noncontrast enhanced CT. Solid lesion not excluded. Ultrasound may be helpful to further characterize. If ultrasound findings are inconclusive, renal mass protocol CT could be considered. Constipation possibly secondary to opioid use 06/14/25 On Relistor injection Q24H Also received bisacodyl suppository On mineral oil enema. Type 2 diabetes mellitus Blood glucose 94 On low-dose supplemental insulin protocol HbA1c on 05/05/25 on 6.4 Chronic Kidney Disease eGFR 54 Creatinine 1.28 Baseline 1.49 Follow up with CMP 06/14/25 Creatinine 1.56 possibly secondary to contrast use Follow up with CMP. Hypertension Currently on Lasix 40 mg IV b.i.d Code Status: Full Code Dvt Prophylaxis: Plavix 75 mg GI Prophylaxis: pantoprazole Dispositon: Patient is improving, will continue to monitor patient. Possible discharge tomorrow, PT awaiting. Patient and his said that do not want to go to any rehab. Britany Reyna PGY 1 IM Date of Service: Jun 14, 2025 Billing Provider: JUANJOSE ALDRICH MD Common Visit Codes: [id number] INP/OBS CARE(HIGH) BRITANY REYNA, RES Jun 14, 2025 14:59 JUANJOSE ALDRICH MD Jun 15, 2025 08:06
[2025-06-14] MEDS: magnesium hydroxide 30ml (MOM) UD suspension PO ONE (16:50)
--- NOTE | 2025-06-14 20:08 | ELECTROCARDIOGRAPH REPORT ---
[facility] Test Date: 2025-06-14 Test Time: 20:06:13 Pat Name: HECTOR SHELTON Department: [address] [id number] Room: [address] Gender: M [employer]r: : 1940 Requested By: BRITANY REYNA Order Number: [id number] Reading MD: Dr. SNEHAL Diaz Measurements Intervals [place] Rate: 97 P: 0 [place]: 0 QRS: -85 QRSD: 148 T: 90 QT: 389 QTc: 494 Interpretive Statements ? Atrial sensed and V-paced complexes No further analysis attempted due to paced rhythm Electronically Signed On 06-15-2025 11:43:[address] SNEHAL Diaz Please click the below link to view image of tracing.
[2025-06-14] MEDS: lactulose 20gm/30ml cup PO SCH (20:44)
[2025-06-14] MEDS: magnesium hydroxide 30ml (MOM) UD suspension PO SCH (20:45)
[2025-06-15] MEDS ORDERED: albuterol 2.5 MG/3 ML nebule NEB PRN (00:30)
[2025-06-15 02:00] VITALS: BP 145/87; PULSE 88; RESP 27; TEMP 97.8; O2SAT 99
[2025-06-15 06:00] VITALS: BP 147/90; PULSE 65; RESP 18; TEMP 98.1; O2SAT 94
[2025-06-15 06:19] LABS: MEAN PLATELET VOLUME 7.6 FL (7.4-10.4); RED CELL DISTRIBUTION WIDTH 16.7 % (11.5-14.5)
[2025-06-15 06:36] LABS: APTT 28 SECONDS (22-32); INR 1.2 INR
[2025-06-15 06:49] LABS: CREATININE 1.50 MG/DL (0.60-1.10); PHOSPHORUS 2.4 MG/DL (2.3-4.5); TOTAL CARBON DIOXIDE 33.2 MMOL/L (24-32); eCRCL 35 ML/MIN; eGFR 45 ML/MIN
[2025-06-15 08:00] VITALS: RESP 26; O2SAT 95
[2025-06-15] MEDS ORDERED: non-formulary drug (Losartan/Hydrochlorothiazide (Losartan-Hctz 50-12.5 Mg Tab) 1 TAB) PO SCH (08:00)
--- NOTE | 2025-06-15 09:02 | PROGRESS NOTE ---
Progress Note CV Providers to CC ~ Antibiotics Ordered?: Yes Objective Vitals Vital Signs Date Time Temp Pulse Resp B/P (MAP) Pulse Ox O2 Delivery O2 Flow Rate FiO2 06/15/25 02:00 97.8 88 27 145/87 (106) 99 Nasal Cannula 2.0 06/14/25 19:40 28 Lab Results: 06/15/25 0552 06/15/25 0552 Coagulation Studies Laboratory Tests Test 06/12/25 18:53 06/15/25 05:52 D-Dimer 4.85 MG/L FEU (0-0.50) H D-Dimer Comment Prothrombin Time 12.0 SECONDS (9.0-12.0) INR International Normalized Ratio 1.2 INR Activated Partial Thromboplast Time 28 SECONDS (22-32) Coagulation Comments Cardiac Rhythm: V Paced, AV Paced Problem\Assessment\Plan Additional Plan He is alert and conversant. is here assisting with his breakfast. L Thora for 300 was done. He is on 2L NC. Wean O2 as tolerated. They want to go home and not back to rehab. Will f/u in our office in 2 weeks. Should be able to remove L CT sutures at that time. Sepsis Screening Reassessment Date: Jun 15, 2025 Reassessment Time: 15:00 Skin Color: Normal Supervising MD Co-signing Provider: ANA Casey Jun 15, 2025 09:02
[2025-06-15 11:00] VITALS: BP 108/68; PULSE 98; RESP 26; TEMP 97.8; O2SAT 95
[2025-06-15] MEDS ORDERED: methylnaltrexone br 12mg/0.6ml inj***SubQ only SQ SCH (11:59)
[2025-06-15 15:00] VITALS: BP 138/83; PULSE 94; RESP 25; TEMP 99.8; O2SAT 91
[2025-06-15 15:15] VITALS: TEMP 99.1
[2025-06-15] MEDS ORDERED: LACT1CAP26 PO (15:17)
[2025-06-15] MEDS ORDERED: LEVO-65 PO (15:17)
[2025-06-15] MEDS ORDERED: CARV6.253 PO (15:17)
[2025-06-15] MEDS ORDERED: FLUC100T40 PO (15:17)
--- NOTE | 2025-06-15 19:29 | DISCHARGE SUMMARY-Residence ---
Discharge Summary Providers to CC Resident Creating Document: BRITANY REYNA RES ~ Discharge Summary Admission Diagnosis: CHF Hospital Course DATE OF ADMISSION: 06/12/25 DATE OF DISCHARGE: 06/15/25 Discharge Diagnosis\Comment: Acute hypoxemic respiratory failure likely secondary to HFPEF Suspected Bacterial pneumonia Pleural effusion Heart failure with preserved ejection fraction Sepsis (Sirs Criteria present HR >90, RR > 20) plus source of infection Coronary artery disease s/p CABG Abdominal pain/Abdominal tenderness likely Secondary to Constipation. Etiology unclear Type 2 diabetes mellitus Chronic Kidney Disease Hypertension Renal Cyst Operations\Procedures: Thoracocentesis Consultants: thoracic surgeon and surgeon Complications: none Condition on DC: Stable New Medications: Fluconazole (Fluconazole) 100 Mg Tablet 1 TAB PO DAILY for 7 Days, #7 TAB Lactobacillus Rhamnosus (Culturelle) 10 Billion Cell Capsule 1 CAP PO BID for 30 Days, #30 CAP 0 Refills Levofloxacin (Levofloxacin) 500 Mg Tablet 250 MG PO DAILY for 7 Days, #4 TAB Carvedilol (Carvedilol) 6.25 Mg Tablet 6.25 MG PO BID for 30 Days, #60 TAB Continued Medications: Ascorbic Acid (Vitamin C) 2,000 Mg Tablet.sa 2000 MG PO DAILY Atorvastatin Calcium* (Lipitor*) 40 Mg Tablet 1 TAB PO HS Chlorpheniramine Maleate (Chlorpheniramine Maleate) 4 Mg Tablet 1 TAB PO DAILY PRN for allergies Clopidogrel Bisulfate (Clopidogrel) 75 Mg Tablet 1 TAB PO DAILY, TAB 0 Refills Do not stop medication unless instructed by prescriber. Docosahexanoic Acid/Epa (Fish Oil 1,000 Mg Softgel) 1 Each Capsule 1 CAP PO DAILY for 30 Days, #90 CAP 0 Refills WITH MEALS Gabapentin (Neurontin) 300 Mg Capsule 300 MG PO TID, CAP [Garlic] () 1 TAB PO Q12H Glucosamine/Chondro Forrest A (Glucosamine-Chondroitin Tab) 500 Mg-400 Mg Tablet 2 TAB PO DAILY Loratadine* (Claritin*) 10 Mg Tablet 10 MG PO DAILY Metformin Hcl (Metformin Hcl) 500 Mg Tablet 1 TAB PO Q12H Multivitamin (Multi-Vitamin Daily) 1 Each Tablet 1 EACH PO DAILY Pantoprazole Sodium (PROTONIX tablet) 40 Mg Tablet.dr 1 TAB PO BID, TAB 0 Refills [prevagen] () 50 MCG PO DAILY Saw/Pygeum/Nettle/Pumpkn/Aa#17 ([facility] Prostate Health Formula Tb) 1 Each Tablet 1 EACH PO DAILY Sucralfate (Sucralfate) 1 Gram Tablet 1 TAB PO Q6H for 30 Days, #120 TAB 0 Refills Vit C/E/Zn/Coppr/Lutein/Zeaxan (Preservision Areds 2 Softgel) 250MG-90MG Capsule 1 CAP PO Q12H Vitamin E Acetate (Vitamin E) 180 Mg (400 Unit) Capsule 2 CAP PO DAILY Discontinued Medications: Losartan/Hydrochlorothiazide (Losartan-Hctz 50-12.5 Mg Tab) 50 Mg-12.5 Mg Tablet 1 TAB PO DAILY, TAB 0 Refills Metoprolol Succinate (Metoprolol Succinate) 50 Mg Tab.sr.24h 1 TAB PO BID Discharge Summary: Hospital Course An 84-year-old male with a history of coronary artery disease status post CABG last month, was admitted with confusion and generalized weakness. He was found to have acute hypoxemic respiratory failure likely multifactorial, heart failure with preserved ejection fraction, pleural effusion, probnp was eleveated,Chest X-ray was performed which showed consolidation and pleural effusion, in view of this patient underwent thoracocentisis which yielded 300 ml dark fluid, for HFpef was started on lasix 40 mg IV bid and carvdiolol, D dimer was elevated however Wells score was 1.5 so less likely PE.In view of his recent CABG thoracic surgeon was consulted and no further intervention was done.Patient also had abdominal tenderness for which general surgeon was consulted and recommended CT Abdomen/pelvis with contrast, ct finding were consisted with constipation, and patient was then recommeneded for bowel care, he also had constipation for which he received Relistor injection Q24H, Also received bisacodyl suppository and milk of magnesia.In view of abdominal tenderness iv zoysn were given also..During hospitalization he also required 2 L of oxygen on NC. 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 Syphilis was performed which was negative. At discharge, the patient was clinically improved, hemodynamically stable, maintaining oxygen saturation on room air. Pt recommended home with assist and patient and his said they have all eq uipments which are neeeded. and patient also did not want to go to Rehab. Physcial Examination General: awake, alert oriented to place, time, and person, Confused and lethargic HEENT: No pallor present, no icterus, moist mucous membranes Neck: No masses and tenderness Resp: no crackles, no wheezing or rales. Chest: Normal expansion. Cardiovascular: paced rhyhm, HR normal, normal S1 and S2 without murmur, rub or gallop Abdomen: Soft and non tender, no organomegaly, no guarding and rigidity, bowel sounds present Genital: Wound present Neuro: No focal weakness in the upper and lower limb muscles. power of the muscles 5/5 bilateral upper and lower extremities, normal reflexes bilaterally. Cranial nerves intact Extremities: No cyanosis,clubbing or edema Skin: Warm and Dry. Psych: Normal affect Labs WBC 6.5 hgb 10.1 HCt 30.7 NA 140 K 4.1 Creatinine 1.50 Imaging Echo Normal LV size and function. Mild concentric hypertrophy. LVEF is 70-75%. Right ventricle is mild to moderately dilated with adequate function. Elevated right heart pressures with an RVSP of 55 mmHg. Left atrium is moderately dilated. Right atrium appears mildly dilated. Pacemaker lead is present in the right heart. Trileaflet AV appears mild to moderately sclerotic without stenosis. No insufficiency. Mitral valve leaflets are thickened with mild annular calcification. No stenosis. Trace regurgitation. The tricuspid valve is normal in structure with moderate regurgitation. Pulmonic valve is grossly normal in structure with trace insufficiency. Normal pericardium. No effusion. Anterior epicardial fat pad is present. Mesenteric U/S CONCLUSION Limited visualization due to bowel gas. Celiac, Hepatic, Splenic, and JENNIFER not visualized. SMA where visualized appears within normal limits. Head CT FINDINGS: There is no intracranial hemorrhage. There is no extra-axial fluid, mass, mass effect or midline shift. The ventricles are midline and normal in size. Basilar cisterns are patent. There are moderate periventricular and subcortical white matter chronic microvascular ischemic changes. Mild global cerebral volume loss. The paranasal sinuses and mastoids are well-pneumatized. Imaged portion of the orbits are unremarkable. IMPRESSION: No intracranial hemorrhage or mass effect. Moderate chronic microvascular ischemic changes. Mild global cerebral volume loss. Chest/Abdomen/Pelvis CT with contrast Findings: Lower neck: Normal thyroid. Lungs: Complete collapse of the left lower lobe. No obvious obstructing lesion is seen. Mild diffuse interlobular septal thickening with patchy ground-glass opacity throughout both lungs. Heart/Vascular Structures: Previous sternotomy. Coronary calcifications. Multi chamber cardiac enlargement. Lymph Nodes: No adenopathy Pleura: Small left and trace right-sided pleural effusions. Liver: The liver is normal in size. No focal lesions. Normal hepatic vascular enhancement. Gallbladder and Biliary Tree: Gallbladder is surgically absent. Spleen: Unremarkable Pancreas: The pancreas is normal in appearance without focal lesions or abnormal enhancement. Adrenal Glands: Unremarkable Kidneys: Kidneys demonstrate normal symmetric enhancement without focal lesions, calculi or hydronephrosis. Bladder: Unremarkable Bowel: The stomach is grossly normal in appearance. Small bowel and colon are normal in caliber and distribution. The appendix is not visualized; however, no secondary findings of acute appendicitis identified. Ascites: Absent Lymphadenopathy: No mesenteric, retroperitoneal or periportal lymphadenopathy. Abdominal Wall and Mesentery: Unremarkable. Vasculature: Diffuse vascular calcifications. Pelvic Organs: Right-sided hydrocele. Musculoskeletal: No aggressive focal bony lesions, acute fractures or dislocation. IMPRESSION: No clear cause for pain. Cardiomegaly with pulmonary edema. Small left and trace right-sided pleural effusions. Complete collapse of the left lower lobe without obvious central obstructing lesion. Follow-up x-rays recommended to confirm re-expansion. Abdomen/Pelvis CT WITH RECTAL CONTRAST IMPRESSION: 1. Mild perirectal inflammatory stranding and rectal wall thickening, possible proctitis in the appropriate clinical setting. 2. No small bowel obstruction. No CT findings are seen to suggest acute appendicitis. 3. Small bilateral pleural effusions, left greater than right with overlying atelectasis and consolidation. 4. Moderate stool throughout the colon with moderate to large amount of stool in the rectum. 5. Exophytic lesion at the anterior aspect of the left kidney, possibly a complex cyst, although not well characterized on noncontrast enhanced CT. Solid lesion not excluded. Ultrasound may be helpful to further characterize. If ultrasound findings are inconclusive, renal mass protocol CT could be considered. Chest X-RAY FINDINGS: Lines and Tubes: Cardiac pacemaker projects over the right chest wall. Lungs: Low lung volumes. Moderate left pleural effusion. Multifocal airspace opacities. No pneumothorax. Cardiomediastinal contours: Cardiomegaly. Atherosclerotic vascular calcifications of the thoracic aorta are noted. Bones: No acute osseous abnormality. IMPRESSION: Cardiomegaly with pulmonary edema and moderate left pleural effusion. Discharge Instructions Follow up with PCP, Thoracic surgeon within 2 weeks. Take medications as prescribed. Repeat CBC,CMP in 1 week. Call 911 or go to nearest ER if you experience shortness of breath or chest pain. *Problems/Diagnosis: (1) Confusion Status: Resolved Total Time Spent on D/C: > 30 Minutes Date of Service: Jun 15, 2025 Billing Provider: JUANJOSE ALDRICH MD Common Visit Codes: 54381-MII/OBS DISCH DAY >30min BRITANY REYNA, RES Jun 15, 2025 19:29 JUANJOSE ALDRICH MD Jun 17, 2025 06:36
== END 2025-06-15 16:49 | disposition home or self-care (01) | DRG 871 ==
LOC: ER 09:02 → ED HOLD 12:03 → PCU 3S 15:43
PROVIDERS: ADMIT Internal Medicine; ATTEND Internal Medicine
PROC: BW251ZZ Computerized Tomography (CT Scan) of Chest, Abdomen and Pelvis using Low Osmolar Contrast (ICD-10-PCS; 2025-06-12)
PROC: 0W9B3ZZ Drainage of Left Pleural Cavity, Percutaneous Approach (ICD-10-PCS; principal; 2025-06-13)
DX: A41.9 Sepsis, unspecified organism (principal); J15.9 Unspecified bacterial pneumonia; J96.01 Acute respiratory failure with hypoxia; J91.8 Pleural effusion in other conditions classified elsewhere; L89.152 Pressure ulcer of sacral region, stage 2; I50.30 Unspecified diastolic (congestive) heart failure; I13.0 Hypertensive heart and chronic kidney disease with heart failure and stage 1 through stage 4 chronic kidney disease, or unspecified chronic kidney disease; E11.22 Type 2 diabetes mellitus with diabetic chronic kidney disease; B37.9 Candidiasis, unspecified; S31.20XA Unspecified open wound of penis, initial encounter; B96.5 Pseudomonas (aeruginosa) (mallei) (pseudomallei) as the cause of diseases classified elsewhere; N18.9 Chronic kidney disease, unspecified; Z20.822 Contact with and (suspected) exposure to COVID-19; E78.5 Hyperlipidemia, unspecified; I25.10 Atherosclerotic heart disease of native coronary artery without angina pectoris; K59.00 Constipation, unspecified; N28.1 Cyst of kidney, acquired; Z95.1 Presence of aortocoronary bypass graft; X58.XXXA Exposure to other specified factors, initial encounter; Y93.89 Activity, other specified
CPT/HCPCS: 32555; 36415; 36600; 70450; 71045; 71260; 74160; 74177; 80048; 80053; 80076; 81003; 82803; 82948; 83605; 83615; 83735; 83880; 84100; 84145; 84484; 85018; 85025; 85379; 85610; 85730; 86885; 86900; 86901; 87040; 87070; 87077; 87186; 87811; 92508; 92616; 93005; 93308; 93975; 94640; 94760; 96365; 97110; 97116; 97162; 97530; 99285; A4615; A4649; A6212; A6213; A6222; A6250; A6260; A6590; C1729; G0378; J0360; J0692; J1644; J1815; J1938; J2212; J2270; J2470; J2543; J3480; J7030; J7040; Q9963; Q9967